=== PATIENT | male | born 1945 | race Caucasian/White ===

== ENCOUNTER 2016-08-17 10:51 | Outpatient (RCR) | payer MEDICARE, OTHER ==
--- OUTSIDE RECORDS SUMMARY | 2016-05-31 14:37 | XMS REPORT | Continuity of Care Document ---
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 If you do not see the information that you expected, contact Release of Information in the Health Information Management department at [phone] for further assistance in locating additional records.[facility] Active Allergies and Adverse Reactions Allergen Noted Date Severity Reactions Comments Phenergan 02/08/2016 Low SEE COMMENTS confusion Vytorin 10-10 02/04/2016 Low UNKNOWN Current Medications Prescription Sig. Disp. Refills Start End Date Status Date lisinopril/hydrochlorothi Take 1 Tab by mouth Active azide (ZESTORETIC) 20/25 daily. tablet 1 Tab simvastatin (ZOCOR) 40 mg Take 40 mg by mouth at Active tablet bedtime daily. PV W-O VIJAY/FERROUS Take 1 Tab by mouth Active FUMARATE/FA (M-VIT PO) daily. finasteride (PROSCAR) 5 Take 5 mg by mouth daily. Active mg tablet metFORMIN (GLUCOPHAGE) Take 500 mg by mouth Active 500 mg tablet twice daily with meals. cyclobenzaprine Take 10 mg by mouth three Active (FLEXERIL) 10 mg tablet times daily as needed for Muscle Cramps. acetaminophen (TYLENOL) Take 500 mg by mouth Active 500 mg tablet every 6 hours as needed for Pain. HYDROcodone/acetaminophen Take 1-2 Tabs by mouth 60 Tab 0 02/11/20 Active (NORCO; VICODIN) 5-325 mg every 4 hours as needed 16 tablet for Pain docusate (COLACE) 100 mg Take 1 Cap by mouth twice 180 Cap 3 02/11/20 Active capsule daily. 16 milk of magnesia (CONC) Take 10 mL by mouth 02/11/20 Active 2,400 mg/10 mL oral daily. 16 suspension senna/docusate Take 1 Tab by mouth twice 02/11/20 Active (SENOKOT-S) 8.6/50 mg daily. 16 tablet aspirin 325 mg tablet Take 325 mg by mouth Active daily. dexamethasone (DECADRON) Take 4 mg by mouth three Active 4 mg tablet times daily. ONDANSETRON HCL (ZOFRAN Take 8 mg by mouth as Active PO) Needed. levETIRAcetam (KEPPRA) Take 1 Tab by mouth twice 60 Tab 1 03/02/20 Active 500 mg tablet daily. 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 02/05/2016 (HCC) Resolved Problems Problem Noted Date Resolved Date Brain lesion 02/07/2016 02/18/2016 Most Recent Encounters Date Type Specialty Providers Description 03/17/2016 [facility] Keanu Vick MD Malignant neoplasm of Encounter brain, unspecified 03/02/2016 Office Visit Neurosurgery Renato Scruggs MD Surgery follow-up (Primary Dx) 03/01/2016 Telephone Oncology Keanu Vick MD Research 03/01/2016 Screening Form 03/01/2016 Telephone Neurosurgery Chito Barnard MD Advice Only Social History Tobacco Use Types Packs/Day Years Used Date Former Smoker Cigarettes Smokeless Tobacco: Former Snuff Quit: User 02/08/2016 Comments: quite whe he was 25 years old Alcohol Use Drinks/Week oz/Week Comments Yes 0 Standard 0.0 rarely drinks or equivalent Last Filed Vital Signs Vital Sign Reading Time Taken Blood Pressure 109/67 03/02/2016 1:06 PM CDT Pulse 77 03/02/2016 1:06 PM CDT Temperature 36.5 C (97.7 F) 02/27/2016 9:52 AM CDT Respiratory Rate 18 02/18/2016 10:15 AM CDT Height 1.727 m (5' 8") 03/02/2016 1:06 PM CDT Weight 65.772 kg (145 lb) 03/02/2016 1:06 PM CDT Body Mass Index 22.05 03/02/2016 1:06 PM CDT Oxygen Saturation 97% 02/27/2016 9:52 AM CDT Plan of Care Health Maintenance Due Date Last Done Comments Physical (Comprehensive) 1952 Exam Pertussis Vaccine 1954 Tetanus Vaccine 1960 Colorectal Cancer 1993 Screening Shingles Vaccine 2003 Prevnar/Pneumovax (#1) 2008 Influenza Vaccine 04/15/2016 Procedures from Last 3 Months Procedure Name Priority Date/Time Associated Diagnosis Comments PROCEDURES-SCAN 04/07/2016 Results for this 3:00 PM CDT procedure are in the results section. Results from Last 3 Months PROCEDURES-SCAN (04/07/2016 3:00 PM) Narrative Ordered by an unspecified provider.
[2016-05-31 15:05] LABS: BASOPHILS % (AUTO) 0 % (0-10); EOSINOPHILS % (AUTO) 0 % (0-10); LYMPHOCYTES # (AUTO) 0.9 X 10^3 (1.0-4.0); LYMPHOCYTES % (AUTO) 10 % (12-44); MEAN CORPUSCULAR HEMOGLOBIN 33 PG (25-34); MEAN CORPUSCULAR HGB CONC 35 G/DL (32-36); MEAN CORPUSCULAR VOLUME 95 FL (80-99); MEAN PLATELET VOLUME 8.5 FL (7.4-10.4); MONOCYTES # (AUTO) 0.7 X 10^3 (0.0-1.0); MONOCYTES % (AUTO) 8 % (0-12); NEUTROPHILS # (AUTO) 7.7 X 10^3 (1.8-7.8); NEUTROPHILS % (AUTO) 82 % (42-75); PLATELET COUNT 191 10^3/uL (130-400); RED BLOOD COUNT 4.04 10^6/uL (4.35-5.85); RED CELL DISTRIBUTION WIDTH 12.9 % (10.0-14.5); WHITE BLOOD COUNT 9.4 10^3/uL (4.3-11.0)
[2016-05-31 15:47] LABS: ALANINE AMINOTRANSFERASE 20 U/L (0-55); ALBUMIN 3.7 G/DL (3.2-4.5); ANION GAP 9 MMOL/L (5-14); ASPARTATE AMINO TRANSFERASE 14 U/L (5-34); BILIRUBIN,TOTAL 0.4 MG/DL (0.1-1.0); BLOOD UREA NITROGEN 28 MG/DL (7-18); BUN/CREATININE RATIO 36; CALCIUM 9.4 MG/DL (8.5-10.1); CARBON DIOXIDE 27 MMOL/L (21-32); CHLORIDE 102 MMOL/L (98-107); CREATININE SERUM 0.77 MG/DL (0.60-1.30); GFR ESTIMATED > 60; GLUCOSE 140 MG/DL (70-105); MAGNESIUM 1.9 MG/DL (1.8-2.4); POTASSIUM 3.7 MMOL/L (3.6-5.0); SODIUM 138 MMOL/L (135-145); TOTAL PROTEIN 5.9 G/DL (6.4-8.2)
[2016-06-08 11:13] LABS: BASOPHILS % (AUTO) 0 % (0-10); EOSINOPHILS % (AUTO) 0 % (0-10); LYMPHOCYTES # (AUTO) 0.7 X 10^3 (1.0-4.0); LYMPHOCYTES % (AUTO) 5 % (12-44); MEAN CORPUSCULAR HEMOGLOBIN 33 PG (25-34); MEAN CORPUSCULAR HGB CONC 34 G/DL (32-36); MEAN CORPUSCULAR VOLUME 97 FL (80-99); MEAN PLATELET VOLUME 8.4 FL (7.4-10.4); MONOCYTES # (AUTO) 0.7 X 10^3 (0.0-1.0); MONOCYTES % (AUTO) 5 % (0-12); NEUTROPHILS # (AUTO) 13.6 X 10^3 (1.8-7.8); NEUTROPHILS % (AUTO) 91 % (42-75); PLATELET COUNT 219 10^3/uL (130-400); RED BLOOD COUNT 4.21 10^6/uL (4.35-5.85); RED CELL DISTRIBUTION WIDTH 13.4 % (10.0-14.5)
[2016-06-08 12:00] LABS: ANION GAP 12 MMOL/L (5-14); BLOOD UREA NITROGEN 20 MG/DL (7-18); BUN/CREATININE RATIO 20; CALCIUM 9.3 MG/DL (8.5-10.1); CARBON DIOXIDE 27 MMOL/L (21-32); CHLORIDE 100 MMOL/L (98-107); CREATININE SERUM 0.99 MG/DL (0.60-1.30); GFR ESTIMATED > 60; GLUCOSE 172 MG/DL (70-105); POTASSIUM 3.8 MMOL/L (3.6-5.0); SODIUM 139 MMOL/L (135-145)
[2016-06-15 13:51] LABS: BASOPHILS % (AUTO) 0 % (0-10); EOSINOPHILS % (AUTO) 0 % (0-10); LYMPHOCYTES # (AUTO) 0.9 X 10^3 (1.0-4.0); LYMPHOCYTES % (AUTO) 8 % (12-44); MEAN CORPUSCULAR HEMOGLOBIN 33 PG (25-34); MEAN CORPUSCULAR HGB CONC 34 G/DL (32-36); MEAN CORPUSCULAR VOLUME 95 FL (80-99); MEAN PLATELET VOLUME 8.6 FL (7.4-10.4); MONOCYTES # (AUTO) 0.7 X 10^3 (0.0-1.0); MONOCYTES % (AUTO) 6 % (0-12); NEUTROPHILS # (AUTO) 10.1 X 10^3 (1.8-7.8); NEUTROPHILS % (AUTO) 86 % (42-75); PLATELET COUNT 265 10^3/uL (130-400); RED BLOOD COUNT 4.05 10^6/uL (4.35-5.85); RED CELL DISTRIBUTION WIDTH 12.7 % (10.0-14.5); WHITE BLOOD COUNT 11.8 10^3/uL (4.3-11.0)
[2016-06-15 14:38] LABS: ANION GAP 14 MMOL/L (5-14); BLOOD UREA NITROGEN 30 MG/DL (7-18); BUN/CREATININE RATIO 32; CALCIUM 9.8 MG/DL (8.5-10.1); CARBON DIOXIDE 27 MMOL/L (21-32); CHLORIDE 99 MMOL/L (98-107); CREATININE SERUM 0.95 MG/DL (0.60-1.30); GFR ESTIMATED > 60; GLUCOSE 200 MG/DL (70-105); SODIUM 140 MMOL/L (135-145)
[2016-06-22 10:01] LABS: BASOPHILS % (AUTO) 0 % (0-10); EOSINOPHILS % (AUTO) 0 % (0-10); LYMPHOCYTES # (AUTO) 1.1 X 10^3 (1.0-4.0); LYMPHOCYTES % (AUTO) 11 % (12-44); MEAN CORPUSCULAR HEMOGLOBIN 33 PG (25-34); MEAN CORPUSCULAR HGB CONC 35 G/DL (32-36); MEAN CORPUSCULAR VOLUME 96 FL (80-99); MEAN PLATELET VOLUME 8.8 FL (7.4-10.4); MONOCYTES # (AUTO) 0.7 X 10^3 (0.0-1.0); MONOCYTES % (AUTO) 7 % (0-12); NEUTROPHILS # (AUTO) 8.2 X 10^3 (1.8-7.8); NEUTROPHILS % (AUTO) 82 % (42-75); PLATELET COUNT 225 10^3/uL (130-400); RED BLOOD COUNT 3.89 10^6/uL (4.35-5.85); RED CELL DISTRIBUTION WIDTH 12.6 % (10.0-14.5)
[2016-06-22 10:27] LABS: ANION GAP 12 MMOL/L (5-14); BLOOD UREA NITROGEN 21 MG/DL (7-18); BUN/CREATININE RATIO 23; CALCIUM 9.2 MG/DL (8.5-10.1); CARBON DIOXIDE 28 MMOL/L (21-32); CHLORIDE 102 MMOL/L (98-107); GFR ESTIMATED > 60; GLUCOSE 199 MG/DL (70-105); POTASSIUM 3.8 MMOL/L (3.6-5.0); SODIUM 142 MMOL/L (135-145)
[2016-06-28 10:00] LABS: BASOPHILS % (AUTO) 0 % (0-10); EOSINOPHILS % (AUTO) 0 % (0-10); LYMPHOCYTES # (AUTO) 0.7 X 10^3 (1.0-4.0); LYMPHOCYTES % (AUTO) 7 % (12-44); MEAN CORPUSCULAR HEMOGLOBIN 33 PG (25-34); MEAN CORPUSCULAR HGB CONC 34 G/DL (32-36); MEAN CORPUSCULAR VOLUME 96 FL (80-99); MEAN PLATELET VOLUME 9.3 FL (7.4-10.4); MONOCYTES # (AUTO) 0.5 X 10^3 (0.0-1.0); MONOCYTES % (AUTO) 5 % (0-12); NEUTROPHILS # (AUTO) 9.2 X 10^3 (1.8-7.8); NEUTROPHILS % (AUTO) 88 % (42-75); PLATELET COUNT 211 10^3/uL (130-400); RED BLOOD COUNT 3.99 10^6/uL (4.35-5.85); RED CELL DISTRIBUTION WIDTH 12.6 % (10.0-14.5); WHITE BLOOD COUNT 10.4 10^3/uL (4.3-11.0)
[2016-06-28 10:21] LABS: ANION GAP 11 MMOL/L (5-14); BLOOD UREA NITROGEN 22 MG/DL (7-18); BUN/CREATININE RATIO 23; CALCIUM 9.4 MG/DL (8.5-10.1); CARBON DIOXIDE 27 MMOL/L (21-32); CHLORIDE 100 MMOL/L (98-107); CREATININE SERUM 0.94 MG/DL (0.60-1.30); GFR ESTIMATED > 60; GLUCOSE 221 MG/DL (70-105); POTASSIUM 4.4 MMOL/L (3.6-5.0); SODIUM 138 MMOL/L (135-145)
[2016-07-05 13:20] LABS: BASOPHILS % (AUTO) 0 % (0-10); EOSINOPHILS % (AUTO) 0 % (0-10); LYMPHOCYTES # (AUTO) 0.9 X 10^3 (1.0-4.0); LYMPHOCYTES % (AUTO) 8 % (12-44); MEAN CORPUSCULAR HEMOGLOBIN 32 PG (25-34); MEAN CORPUSCULAR HGB CONC 34 G/DL (32-36); MEAN CORPUSCULAR VOLUME 96 FL (80-99); MEAN PLATELET VOLUME 8.7 FL (7.4-10.4); MONOCYTES # (AUTO) 0.7 X 10^3 (0.0-1.0); MONOCYTES % (AUTO) 6 % (0-12); NEUTROPHILS # (AUTO) 9.2 X 10^3 (1.8-7.8); NEUTROPHILS % (AUTO) 86 % (42-75); PLATELET COUNT 213 10^3/uL (130-400); RED BLOOD COUNT 4.01 10^6/uL (4.35-5.85); RED CELL DISTRIBUTION WIDTH 12.9 % (10.0-14.5); WHITE BLOOD COUNT 10.8 10^3/uL (4.3-11.0)
[2016-07-05 14:42] LABS: ALANINE AMINOTRANSFERASE 22 U/L (0-55); ALBUMIN 3.6 G/DL (3.2-4.5); ANION GAP 9 MMOL/L (5-14); ASPARTATE AMINO TRANSFERASE 19 U/L (5-34); BILIRUBIN,TOTAL 0.5 MG/DL (0.1-1.0); BLOOD UREA NITROGEN 23 MG/DL (7-18); BUN/CREATININE RATIO 26; CALCIUM 9.5 MG/DL (8.5-10.1); CARBON DIOXIDE 30 MMOL/L (21-32); CHLORIDE 99 MMOL/L (98-107); CREATININE SERUM 0.89 MG/DL (0.60-1.30); GFR ESTIMATED > 60; GLUCOSE 148 MG/DL (70-105); MAGNESIUM 2.2 MG/DL (1.8-2.4); POTASSIUM 4.2 MMOL/L (3.6-5.0); SODIUM 138 MMOL/L (135-145); TOTAL PROTEIN 5.7 G/DL (6.4-8.2)
[2016-07-15 11:03] LABS: BASOPHILS % (AUTO) 0 % (0-10); EOSINOPHILS % (AUTO) 0 % (0-10); LYMPHOCYTES # (AUTO) 0.8 X 10^3 (1.0-4.0); LYMPHOCYTES % (AUTO) 8 % (12-44); MEAN CORPUSCULAR HEMOGLOBIN 33 PG (25-34); MEAN CORPUSCULAR HGB CONC 34 G/DL (32-36); MEAN CORPUSCULAR VOLUME 96 FL (80-99); MEAN PLATELET VOLUME 8.4 FL (7.4-10.4); MONOCYTES # (AUTO) 0.6 X 10^3 (0.0-1.0); MONOCYTES % (AUTO) 6 % (0-12); NEUTROPHILS # (AUTO) 8.7 X 10^3 (1.8-7.8); NEUTROPHILS % (AUTO) 87 % (42-75); PLATELET COUNT 212 10^3/uL (130-400); RED BLOOD COUNT 3.87 10^6/uL (4.35-5.85); RED CELL DISTRIBUTION WIDTH 13.3 % (10.0-14.5); WHITE BLOOD COUNT 10.1 10^3/uL (4.3-11.0)
[2016-07-15 12:24] LABS: ANION GAP 11 MMOL/L (5-14); BLOOD UREA NITROGEN 18 MG/DL (7-18); BUN/CREATININE RATIO 24; CALCIUM 9.2 MG/DL (8.5-10.1); CARBON DIOXIDE 24 MMOL/L (21-32); CHLORIDE 106 MMOL/L (98-107); CREATININE SERUM 0.76 MG/DL (0.60-1.30); GFR ESTIMATED > 60; GLUCOSE 138 MG/DL (70-105); POTASSIUM 3.8 MMOL/L (3.6-5.0); SODIUM 141 MMOL/L (135-145)
[2016-07-21 10:19] LABS: BASOPHILS % (AUTO) 0 % (0-10); EOSINOPHILS % (AUTO) 0 % (0-10); LYMPHOCYTES # (AUTO) 0.6 X 10^3 (1.0-4.0); LYMPHOCYTES % (AUTO) 6 % (12-44); MEAN CORPUSCULAR HEMOGLOBIN 33 PG (25-34); MEAN CORPUSCULAR HGB CONC 35 G/DL (32-36); MEAN CORPUSCULAR VOLUME 96 FL (80-99); MEAN PLATELET VOLUME 8.5 FL (7.4-10.4); MONOCYTES # (AUTO) 0.5 X 10^3 (0.0-1.0); MONOCYTES % (AUTO) 5 % (0-12); NEUTROPHILS # (AUTO) 8.9 X 10^3 (1.8-7.8); NEUTROPHILS % (AUTO) 89 % (42-75); PLATELET COUNT 150 10^3/uL (130-400); RED BLOOD COUNT 4.07 10^6/uL (4.35-5.85); RED CELL DISTRIBUTION WIDTH 13.8 % (10.0-14.5)
[2016-07-21 10:53] LABS: ALANINE AMINOTRANSFERASE 24 U/L (0-55); ALBUMIN 3.5 G/DL (3.2-4.5); ANION GAP 12 MMOL/L (5-14); ASPARTATE AMINO TRANSFERASE 12 U/L (5-34); BILIRUBIN,TOTAL 0.5 MG/DL (0.1-1.0); BLOOD UREA NITROGEN 21 MG/DL (7-18); BUN/CREATININE RATIO 28; CALCIUM 9.3 MG/DL (8.5-10.1); CARBON DIOXIDE 24 MMOL/L (21-32); CHLORIDE 106 MMOL/L (98-107); CREATININE SERUM 0.76 MG/DL (0.60-1.30); GFR ESTIMATED > 60; GLUCOSE 173 MG/DL (70-105); POTASSIUM 4.1 MMOL/L (3.6-5.0); SODIUM 142 MMOL/L (135-145); TOTAL PROTEIN 5.6 G/DL (6.4-8.2)
[2016-07-26 11:32] LABS: BASOPHILS % (AUTO) 0 % (0-10); EOSINOPHILS % (AUTO) 0 % (0-10); LYMPHOCYTES # (AUTO) 0.5 X 10^3 (1.0-4.0); LYMPHOCYTES % (AUTO) 5 % (12-44); MEAN CORPUSCULAR HEMOGLOBIN 33 PG (25-34); MEAN CORPUSCULAR HGB CONC 34 G/DL (32-36); MEAN CORPUSCULAR VOLUME 97 FL (80-99); MEAN PLATELET VOLUME 8.8 FL (7.4-10.4); MONOCYTES # (AUTO) 0.4 X 10^3 (0.0-1.0); MONOCYTES % (AUTO) 4 % (0-12); NEUTROPHILS % (AUTO) 90 % (42-75); PLATELET COUNT 114 10^3/uL (130-400); RED BLOOD COUNT 4.04 10^6/uL (4.35-5.85); WHITE BLOOD COUNT 9.9 10^3/uL (4.3-11.0)
[2016-07-26 12:42] LABS: ANION GAP 11 MMOL/L (5-14); BLOOD UREA NITROGEN 19 MG/DL (7-18); BUN/CREATININE RATIO 25; CALCIUM 9.2 MG/DL (8.5-10.1); CARBON DIOXIDE 25 MMOL/L (21-32); CHLORIDE 107 MMOL/L (98-107); CREATININE SERUM 0.77 MG/DL (0.60-1.30); GFR ESTIMATED > 60; GLUCOSE 204 MG/DL (70-105); POTASSIUM 4.2 MMOL/L (3.6-5.0); SODIUM 143 MMOL/L (135-145)
[2016-08-02 15:44] LABS: BASOPHILS % (AUTO) 0 % (0-10); EOSINOPHILS % (AUTO) 0 % (0-10); LYMPHOCYTES # (AUTO) 0.7 X 10^3 (1.0-4.0); LYMPHOCYTES % (AUTO) 6 % (12-44); MEAN CORPUSCULAR HEMOGLOBIN 33 PG (25-34); MEAN CORPUSCULAR HGB CONC 34 G/DL (32-36); MEAN CORPUSCULAR VOLUME 98 FL (80-99); MEAN PLATELET VOLUME 8.4 FL (7.4-10.4); MONOCYTES # (AUTO) 0.8 X 10^3 (0.0-1.0); MONOCYTES % (AUTO) 7 % (0-12); NEUTROPHILS # (AUTO) 9.4 X 10^3 (1.8-7.8); NEUTROPHILS % (AUTO) 87 % (42-75); PLATELET COUNT 186 10^3/uL (130-400); RED BLOOD COUNT 4.13 10^6/uL (4.35-5.85); RED CELL DISTRIBUTION WIDTH 13.8 % (10.0-14.5); WHITE BLOOD COUNT 10.9 10^3/uL (4.3-11.0)
[2016-08-02 16:06] LABS: ALANINE AMINOTRANSFERASE 18 U/L (0-55); ALBUMIN 3.6 G/DL (3.2-4.5); ANION GAP 9 MMOL/L (5-14); ASPARTATE AMINO TRANSFERASE 13 U/L (5-34); BILIRUBIN,TOTAL 0.6 MG/DL (0.1-1.0); BLOOD UREA NITROGEN 18 MG/DL (7-18); BUN/CREATININE RATIO 23; CALCIUM 9.7 MG/DL (8.5-10.1); CARBON DIOXIDE 27 MMOL/L (21-32); CHLORIDE 103 MMOL/L (98-107); CREATININE SERUM 0.78 MG/DL (0.60-1.30); GFR ESTIMATED > 60; GLUCOSE 164 MG/DL (70-105); POTASSIUM 4.2 MMOL/L (3.6-5.0); SODIUM 139 MMOL/L (135-145)
[2016-08-03 14:53] LABS: BILIRUBIN,URINE NEGATIVE (NEGATIVE); KETONES,URINE NEGATIVE (NEGATIVE); LEUKOCYTE ESTERASE ,URINE 1+ (NEGATIVE); NITRITE,URINE NEGATIVE (NEGATIVE); PH,URINE 6 (5-9); PROTEIN,URINE 1+ (NEGATIVE); SQUAMOUS EPITHELIAL CELL,UR 0-2 /HPF; UROBILINOGEN,URINE NORMAL (NORMAL); WBC,URINE 0-2 /HPF
[2016-08-11 10:39] LABS: BASOPHILS % (AUTO) 0 % (0-10); EOSINOPHILS % (AUTO) 0 % (0-10); LYMPHOCYTES # (AUTO) 1.3 X 10^3 (1.0-4.0); LYMPHOCYTES % (AUTO) 13 % (12-44); MEAN CORPUSCULAR HEMOGLOBIN 33 PG (25-34); MEAN CORPUSCULAR HGB CONC 34 G/DL (32-36); MEAN CORPUSCULAR VOLUME 98 FL (80-99); MEAN PLATELET VOLUME 8.5 FL (7.4-10.4); MONOCYTES # (AUTO) 0.8 X 10^3 (0.0-1.0); MONOCYTES % (AUTO) 8 % (0-12); NEUTROPHILS # (AUTO) 7.9 X 10^3 (1.8-7.8); NEUTROPHILS % (AUTO) 79 % (42-75); PLATELET COUNT 216 10^3/uL (130-400); RED BLOOD COUNT 3.78 10^6/uL (4.35-5.85); RED CELL DISTRIBUTION WIDTH 13.7 % (10.0-14.5); WHITE BLOOD COUNT 10.1 10^3/uL (4.3-11.0)
[2016-08-11 11:11] LABS: ANION GAP 9 MMOL/L (5-14); BLOOD UREA NITROGEN 16 MG/DL (7-18); BUN/CREATININE RATIO 20; CARBON DIOXIDE 29 MMOL/L (21-32); CHLORIDE 103 MMOL/L (98-107); CREATININE SERUM 0.82 MG/DL (0.60-1.30); GFR ESTIMATED > 60; GLUCOSE 186 MG/DL (70-105); SODIUM 141 MMOL/L (135-145)
[~2016-08-17 10:51] MED LIST changes: -ACET-77 PO; -ACET-93 PO; -AMOX-358 PO; -ASPI-808 PO; -ASPI-999 PO; -CYCL10TA9 PO; -DEXA2TAB PO; -FAMO-119 PO; -Finasteride PO; -GADOBUTROL 7.5 MMOL/7.5 ML (GADAVIST) VIAL IV ONE; -INSU100V3 SC; -LORA10TA7 PO; -MAGN250T35 PO; -MULT-166 PO; -PANT40TA3 PO; -SERT50TA9 PO
[2016-08-17 11:47] LABS: BASOPHILS % (AUTO) 0 % (0-10); EOSINOPHILS % (AUTO) 0 % (0-10); LYMPHOCYTES # (AUTO) 1.2 X 10^3 (1.0-4.0); LYMPHOCYTES % (AUTO) 14 % (12-44); MEAN CORPUSCULAR HEMOGLOBIN 33 PG (25-34); MEAN CORPUSCULAR HGB CONC 33 G/DL (32-36); MEAN CORPUSCULAR VOLUME 98 FL (80-99); MEAN PLATELET VOLUME 8.8 FL (7.4-10.4); MONOCYTES # (AUTO) 0.8 X 10^3 (0.0-1.0); MONOCYTES % (AUTO) 9 % (0-12); NEUTROPHILS # (AUTO) 6.5 X 10^3 (1.8-7.8); NEUTROPHILS % (AUTO) 76 % (42-75); PLATELET COUNT 197 10^3/uL (130-400); RED CELL DISTRIBUTION WIDTH 13.4 % (10.0-14.5); WHITE BLOOD COUNT 8.5 10^3/uL (4.3-11.0)
[2016-08-17 12:34] LABS: ANION GAP 11 MMOL/L (5-14); BLOOD UREA NITROGEN 18 MG/DL (7-18); BUN/CREATININE RATIO 21; CALCIUM 9.1 MG/DL (8.5-10.1); CARBON DIOXIDE 29 MMOL/L (21-32); CHLORIDE 104 MMOL/L (98-107); CREATININE SERUM 0.86 MG/DL (0.60-1.30); GFR ESTIMATED > 60; GLUCOSE 219 MG/DL (70-105); POTASSIUM 3.8 MMOL/L (3.6-5.0); SODIUM 144 MMOL/L (135-145)
[2016-09-03] MEDS ORDERED: INSU100V3 SC (16:36)
[2016-09-03] MEDS ORDERED: Finasteride PO (16:36)
[2016-09-03] MEDS ORDERED: ACET-77 PO (16:36)
[2016-09-03] MEDS ORDERED: SERT50TA9 PO (16:36)
[2016-09-03] MEDS ORDERED: PANT40TA3 PO (16:36)
[2016-09-03] MEDS ORDERED: ASPI325T32 PO (16:36)
[2016-09-30] MEDS ORDERED: DEXA2TAB PO (07:41)
[2016-10-01] MEDS ORDERED: FAMO-119 PO (09:59)
[2016-12-17] MEDS ORDERED: CYCL10TA9 PO (12:42)
== END 2016-08-29 | disposition home or self-care (01) ==
LOC: ONC 10:51
PROVIDERS: ATTEND Internal Medicine Hematology & Oncology
DX: C71.2 Malignant neoplasm of temporal lobe (principal); E11.9 Type 2 diabetes mellitus without complications; I10 Essential (primary) hypertension; E78.5 Hyperlipidemia, unspecified; N40.0 Benign prostatic hyperplasia without lower urinary tract symptoms; F17.210 Nicotine dependence, cigarettes, uncomplicated
CPT/HCPCS: 36415; 80048; 80053; 81000; 83735; 85025; 99213

== ENCOUNTER → 2016-08-17 | Outpatient (CLI) | payer MEDICARE, OTHER ==
[~2016-08-17] MED LIST: ACET-77 PO; ACET-93 PO; AMOX-358 PO; ASP81TEC PO; ASPI-808 PO; ASPI-999 PO; ASPI325T32 PO; CHOL10003 PO; CYCL10TA9 PO; DEXA1TAB PO; DEXA2TAB PO; DEXA4TAB PO; DOCU100C37 PO; FAMO-119 PO; FINA5TAB6 PO; Finasteride PO; GADOBUTROL 7.5 MMOL/7.5 ML (GADAVIST) VIAL IV ONE; INSU100V3 SC; LEVE500T6 PO; LISI1TAB10 PO; LISI1TAB6 PO; LORA10TA7 PO; MAGN250T13 PO; MAGN250T35 PO; MAGN400O7 PO; METF500T4 PO; MULT-166 PO; MULT-963 PO; NIAC500T6 PO; OMEP20TA7 PO; OMG1KC PO; ONDA4TAB10 PO; ONDA4TAB8 PO; ONDA8TAB9 PO; PANT40TA3 PO; SENN-40 PO; SERT50TA9 PO; SIMV20TA3 PO; SIMV40TA4 PO; SULF-222 PO
--- OUTSIDE RECORDS SUMMARY | 2016-08-17 12:06 | XMS REPORT | Continuity of Care Document ---
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 If you do not see the information that you expected, contact Release of Information in the Health Information Management department at [phone] for further assistance in locating additional records.[facility] Active Allergies and Adverse Reactions Allergen Noted Date Severity Reactions Comments Phenergan 02/08/2016 Low SEE COMMENTS confusion Vytorin 10-10 02/04/2016 Low UNKNOWN Current Medications Prescription Sig. Disp. Refills Start End Date Status Date simvastatin (ZOCOR) 40 mg Take 40 mg [...] dexamethasone (DECADRON) Take 4 mg by mouth twice Active 4 mg tablet daily. ONDANSETRON HCL (ZOFRAN Take 8 mg [...] Recent Encounters Date Type Specialty Providers Description 07/13/2016 Office Visit Oncology Keanu Vick MD GBM (glioblastoma multiforme) (HCC) (Primary Dx) 07/13/2016 Office Visit Neurosurgery Renato Scruggs MD GBM ( glioblastoma multiforme) (HCC) (Primary Dx) Social History Tobacco Use Types Packs/Day Years Used Date Former Smoker Cigarettes Smokeless Tobacco: Former Snuff Quit: User 02/08/2016 Comments: quite whe he was 25 years old Alcohol Use Drinks/Week oz/Week Comments Yes 0 Standard 0.0 rarely drinks or equivalent Last Filed Vital Signs Vital Sign Reading Time Taken Blood Pressure 113/67 07/13/2016 1:21 PM SOLE ASSESSOR Pulse 68 07/13/2016 1:21 PM SOLE ASSESSOR Temperature 36.8 C (98.3 F) 07/13/2016 1:21 PM SOLE ASSESSOR Respiratory Rate 18 07/13/2016 1:21 PM SOLE ASSESSOR Height 1.727 m (5' 8") 07/13/2016 1:21 PM SOLE ASSESSOR Weight 67.677 kg (149 lb 3.2 oz) 07/13/2016 1:21 PM SOLE ASSESSOR Body Mass Index 22.69 07/13/2016 1:21 PM SOLE ASSESSOR Oxygen Saturation 95% 07/13/2016 1:21 PM SOLE ASSESSOR Plan of Care Health Maintenance Due Date Last Done Comments Physical (Comprehensive) 1952 Exam Pertussis Vaccine 1954 Tetanus Vaccine 1960 Colorectal Cancer 1993 Screening Shingles Vaccine 2003 Prevnar/Pneumovax (#1) 2008 Influenza Vaccine 04/15/2016 Results from Last 3 Months [facility] REF LAB SCAN (07/13/2016 2:18 PM) Narrative Ordered by an unspecified provider.
--- NOTE | 2016-08-17 13:57 | Diagnostic Imaging Report ---
PROCEDURE: MR imaging of the brain with and without contrast. TECHNIQUE: Multiplanar, multisequence MR imaging of the brain was performed with and without contrast. INDICATION: Glioblastoma followup. 6 mL of Gadavist is administered intravenously. COMPARISON: 07/05/2016. FINDINGS: There is no diffusion restriction in a pattern to suggest an ischemic infarct. There is however diffusion restriction in the region of the tumor in the right parietotemporal occipital region. Compared to the previous exam, there is significant increase in the T2 signal abnormality with a poorly defined peripherally enhancing mass seen centered along the junction of the temporal, parietal and occipital lobes on the right side with significant increase in the surrounding T2 signal abnormality and mass effect. This includes also new extensions of the abnormal signal into the thalamus and basal ganglia on the left side and into the corpus callosum posteriorly in the splenium and higher extension superiorly into the parietal lobe. There is compression of the ipsilateral lateral ventricle and 8mm midline shift to the left side that is new from the previous exam. There is also asymmetric effacement in the perimesencephalic cistern. The midbrain is also slightly shifted to the left from mass effect. The area of abnormal enhancement is now at 7.8 x 6.3 x 5.4 cm compared to 7.1 x 5.5 x 5.1 cm. Central nonenhancing components is probably related to necrotic tumor. The central vascular flow-voids appear grossly unremarkable. The pituitary gland is normal in size. No extra-axial mass or fluid collection is seen. IMPRESSION: There is interval worsening with significant enlargement in the T2 signal abnormality with associated significant increase in mass effect in the right temporal, occipital and parietal lobes and with new extensions into the right basal ganglia and the splenium of the corpus callosum with increased area of enhancement and associated central necrosis suggested compatible with tumor progression. There is now midline shift of the brain stem and the supratentorial brain structures with at least 8 mm midline shift to the left. The findings were called to Dr. Leatha Ballesteros by Dr. Dempsey at time of dictation. Dictated by: Dictated on workstation # [id number]
== END ==
LOC: RAD 12:02
PROVIDERS: ATTEND Internal Medicine Hematology & Oncology
DX: C71.4 Malignant neoplasm of occipital lobe (principal)
CPT/HCPCS: 70553

== ENCOUNTER 2016-08-27 10:01 | Inpatient (IN) | payer MEDICARE, OTHER ==
[~2016-08-27] VITALS: Ht 170.2 cm; Wt 64.6 kg
[2016-08-27] MEDS ORDERED: CYCLOBENZAPRINE 10 MG (FLEXERIL) TAB PO PRN (11:15)
[2016-08-27] MEDS ORDERED: HYDROcodone/APAP 5 MG/325 MG (LORTAB) TAB PO PRN (11:15)
--- OUTSIDE RECORDS SUMMARY | 2016-08-27 11:32 | XMS REPORT | Continuity of Care Document ---
Author Author [facility] Organization [facility] Address Unknown Phone Unavailable Care Team Providers Care Dean Of Education Name Role Phone LindaMartin lawrence PCP [phone] Source Comments Some departments are not documenting in the electronic medical record. If you do not see the information that you expected, contact Release of Information in the Health Information Management department at [phone] for further assistance in locating additional records.[facility] Active Allergies and Adverse Reactions Allergen Noted Date Severity Reactions Comments Phenergan 02/08/2016 Medium SEE COMMENTS confusion Vytorin 10-10 02/04/2016 Low UNKNOWN Current Medications Prescription Sig. Disp. Refills Start End Date Status Date simvastatin (ZOCOR) 40 mg Take 40 mg by mouth at Active tablet bedtime daily. PV W-O VIJAY/FERROUS Take 1 Tab by mouth Active FUMARATE/FA (M-VIT PO) daily. finasteride (PROSCAR) 5 Take 5 mg by mouth at Active mg tablet bedtime daily. metFORMIN (GLUCOPHAGE) Take 500 mg by mouth Active 500 mg tablet twice daily with meals. cyclobenzaprine Take 10 mg by mouth three Active (FLEXERIL) 10 mg tablet times daily as needed for Muscle Cramps. docusate (COLACE) 100 mg Take 1 Cap by mouth twice 180 Cap 3 02/11/20 Active capsule daily. 16 senna/docusate Take 1 Tab by mouth twice 02/11/20 Active (SENOKOT-S) 8.6/50 mg daily. 16 tablet ONDANSETRON HCL (ZOFRAN Take 8 mg by mouth as Active PO) Needed (30 min prior to temozolomide). levETIRAcetam (KEPPRA) Take 1 Tab by mouth twice 60 Tab 1 03/02/20 Active 500 mg tablet daily. 16 magnesium hydroxide (MILK Take 15 mL by mouth every Active OF MAGNESIA) 400 mg/5 mL 24 hours as needed. oral suspension Magnesium 250 mg tab Take 1 Tab by mouth daily Active as needed (with chemo treatment). omeprazole (PRILOSEC OTC) Take 20 mg by mouth Active 20 mg tablet daily. Takes with morning dexamethasone milk of magnesia (CONC) Take 10 mL by mouth at Active 2,400 mg/10 mL oral bedtime as needed for suspension Heartburn. With prune juice vitamins, multiple cap Take 1 Cap by mouth Active daily. aspirin 325 mg tablet Take 1 Tab by mouth 90 Tab 3 08/27/19 Active daily. May resume 2 weeks 17 after surgery dexamethasone (DECADRON) Taper schedule: 4 mg 0 08/27/19 Active 4 mg tablet every 6 hours thru today, 17 then 4 mg every 8 hours x 3 days, then 4mg every 12 hours x 3 days, then 2 mg every 12 hours x 3 days and 1 mg every 12 hours x 3 days then stop. heparin (porcine) PF Inject 0.5 mL under the 08/27/19 Active 5,000units/0.5mL skin every 8 hours. Until 17 injection syringe mobilizing well for DVT ppx insulin aspart (NOVOLOG Inject 0-14 Units under 3 Package 3 08/27/19 Active FLEXPEN) 100 unit/mL the skin before meals and 17 injection PEN at bedtime. HYDROcodone/acetaminophen Take 1 Tab by mouth every 0 08/27/19 Active (NORCO) 5/325 mg tablet 4 hours as needed for 17 Pain Earliest Fill Date: 08/27/16 acetaminophen (TYLENOL) Take 500 mg by mouth 08/20/19 Discontin 500 mg tablet every 6 hours as needed 17 ued for Pain. HYDROcodone/acetaminophen Take 1-2 Tabs by mouth 60 Tab 0 02/11/20 08/20/19 Discontin (NORCO; VICODIN) 5-325 mg every 4 hours as needed 16 17 ued tablet for Pain milk of magnesia (CONC) Take 10 mL by mouth 02/11/20 08/20/19 Discontin 2,400 mg/10 mL oral daily. 16 17 ued suspension aspirin 325 mg tablet Take 325 mg by mouth 08/27/19 Suspended daily. 17 dexamethasone (DECADRON) Take 4 mg by mouth three 08/27/19 Suspended 4 mg tablet times daily. 17 MULTIVITAMINS WITH Take 1 Tab by mouth 08/20/19 Discontin FLUORIDE (MULTI-VITAMIN daily. 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 02/05/2016 (HCC) Resolved Problems Problem Noted Date Resolved Date Brain lesion 02/07/2016 02/18/2016 Most Recent Encounters Date Type Specialty Providers Description 08/24/2016 [facility] Radiology Satya Avalos MD Arrived Encounter 08/24/2016 [facility] Satya Avalos MD Glioblastoma (HCC) - Encounter 08/27/2016 08/24/2016 Screening Form 08/24/2016 Screening Form 08/24/2016 Surgery Satya Avalos MD RIGHT TEMPORO-OCCIPITAL CRANIOTOMY, RESECTION OF BRAIN TUMOR 08/20/2016 PAC Office Anesthesiology Satya Avalos MD Encounter for Visit preadmission testing (Primary Dx); Coagulation defect (HCC); Benign neoplasm of brain, unspecified brain region (HCC) 08/20/2016 Pre-Admit Neurosurgery Satya Avalos MD Glioblastoma multiforme Orders Only of brain (HCC) (Primary Dx) 08/20/2016 Anesthesia Nicky Salazar, Event CLINICAL PHLEBOTOMIST 08/19/2016 Office Visit Neurosurgery Satya Avalos MD GBM ( glioblastoma multiforme) (HCC) (Primary Dx) 08/19/2016 Office Visit Neurosurgery Keanu Vick MD GBM ( glioblastoma multiforme) (HCC) (Primary Dx); Left-sided weakness 08/19/2016 Orders Only Neurosurgery Satya Avalos MD Glioblastoma multiforme of brain (HCC) (Primary Dx) 08/19/2016 Prep for Case Neurosurgery Satya Avalos MD 08/18/2016 Telephone Neurosurgery Keanu Vick MD Appointment 07/13/2016 Office Visit Oncology Keanu Vick MD GBM (glioblastoma multiforme) (HCC) (Primary Dx) 07/13/2016 Office Visit Neurosurgery Renato Scruggs MD GBM ( glioblastoma multiforme) (HCC) (Primary Dx) Social History Tobacco Use Types Packs/Day Years Used Date Former Smoker Cigarettes 1 10 Quit: 08/20/1971 Smokeless Tobacco: Chew Quit: Current User 02/08/2016 Comments: quite whe he was 25 years old Alcohol Use Drinks/Week oz/Week Comments Yes 0 Standard 0.0 rarely drinks or equivalent Last Filed Vital Signs Vital Sign Reading Time Taken Blood Pressure 120/67 08/27/2016 9:24 AM 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 Pulse 75 08/27/2016 9:24 AM 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 Temperature 36.7 C (98 F) 08/27/2016 9:24 AM 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 Respiratory Rate 18 07/13/2016 1:21 PM 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 Height 1.702 m (5' 7") 08/25/2016 4:25 AM 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 Weight 65.2 kg (143 lb 11.8 oz) 08/25/2016 4:25 AM 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 Body Mass Index 22.51 08/25/2016 4:25 AM 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 Oxygen Saturation 92% 08/27/2016 9:24 AM 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 Plan of Care Date Type Specialty Providers Description 09/06/2016 [place] [address] [place] [address] [phone] (Fax) 09/07/2016 Appointment Neurosurgery 09/23/2016 Appointment Neurosurgery Satya Avalos [facility] [address] [facility] [address] [place] [address] [phone] (Fax) Health Maintenance Due Date Last Done Comments Physical (Comprehensive) 1952 Exam Pertussis Vaccine 1954 Tetanus Vaccine 1960 Colorectal Cancer 1993 Screening Shingles Vaccine 2003 Prevnar/Pneumovax (#1) 2008 Influenza Vaccine 04/15/2016 Procedures from Last 3 Months Procedure Name Priority Date/Time Associated Diagnosis Comments RIGHT TEMPORO-OCCIPITAL 08/24/2016 GBM (glioblastoma CRANIOTOMY, RESECTION OF 12:35 PM 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 multiforme) (HCC) BRAIN TUMOR Results from Last 3 Months POC GLUCOSE (08/27/2016 7:13 AM)Only the most recent of 16 results within the time period is included. Component Value Range Glucose, POC 251 (H) 70-100 MG/DL CBC AND DIFF (08/27/2016 7:03 AM)Only the most recent of 5 results within the time period is included. Component Value Range White Blood Cells 9.0 4.5-11.0 K/UL RBC 3.44 (L) 4.4-5.5 M/UL Hemoglobin 11.3 (L) 13.5-16.5 GM/DL Hematocrit 34.2 (L) 40-50 % MCV 99.5 80-100 FL MCH 32.7 26-34 PG MCHC 32.9 32.0-36.0 G/DL RDW 14.2 11-15 % Platelet Count 139 (L) 150-400 K/UL MPV 8.3 7-11 FL Neutrophils 91 (H) 41-77 % Lymphocytes 5 (L) 24-44 % Monocytes 4 4-12 % Eosinophils 0 0-5 % Basophils 0 0-2 % Absolute Neutrophil Count 8.20 (H) 1.8-7.0 K/UL Absolute Lymph Count 0.50 (L) 1.0-4.8 K/UL Absolute Monocyte Count 0.40 0-0.80 K/UL Absolute Eosinophil Count 0.00 0-0.45 K/UL Absolute Basophil Count 0.00 0-0.20 K/UL BASIC METABOLIC PANEL (08/27/2016 7:03 AM)Only the most recent of 3 results within the time period is included. Component Value Range Sodium 137 137-147 MMOL/L Potassium 3.8 3.5-5.1 MMOL/L Chloride 101 98-110 MMOL/L CO2 29 21-30 MMOL/L Anion Gap 7 3-12 Glucose 265 (H) 70-100 MG/DL Blood Urea Nitrogen 14 7-25 MG/DL Creatinine 0.52 0.4-1.24 MG/DL Calcium 8.7 8.5-10.6 MG/DL eGFR Non >60Comment: >60 mL/min The eGFR is not validated for use in drug dosing adjustments. Continue to use estimated creatinine clearance per dosing reference text. Please contact the Clinical Pharmacist for questions. eGFR >60Comment: >60 mL/min The eGFR is not validated for use in drug dosing adjustments. Continue to use estimated creatinine clearance per dosing reference text. Please contact the Clinical Pharmacist for questions. MRI HEAD WO/W CONTRAST (08/25/2016 1:31 PM) Impressions 1.Interval right parietal craniotomy and revision of posterior right cerebral hemisphere mass resection with expected postoperative blood products and pneumocephalus. No evidence of nodular or masslike enhancement about the operative cavity. 2.Stable linear ependymal enhancement within the right lateral ventricle. These findings are indeterminate and may reflect subtle ependymal spread of tumor, attention on follow-up is suggested. 3.Stable residual mass effect with right to left midline shift and left ventricular entrapment. Approved by Rohit Rojo M.D. on 08/25/2016 5:05 PM By my electronic signature, I attest that I have personally reviewed the images for this examination and formulated the interpretations and opinions expressed in this report Finalized by Tomasz Ac M.D. on 08/26/2016 2:31 PM. Dictated by Rohit Rojo M.D. on 08/25/2016 2:18 PM. Narrative EXAM: MRI BRAIN WITH AND WITHOUT CONTRAST HISTORY: Glioblastoma multiform, f/u gbm resectin, TECHNIQUE: Multiplanar and multisequence MR imaging of the head was performed. This was done both before and after the administration of gadolinium contrast. COMPARISON: MRI head August 24, 2016 FINDINGS: Dr. Tomasz Ac M.D. has personally reviewed these images and formulated the interpretations and opinions expressed in this report. Interval right parietal craniotomy and revision of posterior right cerebral mass resection. There is thickened and nodular T1 precontrast hyperintensity about the operative margin without nodular or masslike enhancement. However, there is stable thin enhancement along the ependymal wall of the right lateral ventricle. There is stable nonenhancing FLAIR hyperintensity throughout the right cerebral hemisphere as well as stable left periventricular and deep white matter FLAIR hyperintense lesions. There is persistent right to left midline shift and apparent entrapment of the left lateral ventricle. Postoperative changes of blood products within the operative cavity and pneumocephalus are noted. There is an extra-axial fluid collection superficial to the dura plasty. There is minimal restricted diffusion along the operative margins, likely postoperative. A wire from the operative cavity there is no restricted diffusion. Procedure Note Interface, Radiant Results - Janeth Aug 26, 2016 2:34 PM 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 EXAM: MRI BRAIN WITH AND WITHOUT CONTRAST HISTORY: Glioblastoma multiform, f/u gbm resectin, TECHNIQUE: Multiplanar and multisequence MR imaging of the head was performed. This was done both before and after the administration of gadolinium contrast. COMPARISON: MRI head August 24, 2016 FINDINGS: Dr. Tomasz Ac M.D. has personally reviewed these images and formulated the interpretations and opinions expressed in this report. Interval right parietal craniotomy and revision of posterior right cerebral mass resection. There is thickened and nodular T1 precontrast hyperintensity about the operative margin without nodular or masslike enhancement. However, there is stable thin enhancement along the ependymal wall of the right lateral ventricle. There is stable nonenhancing FLAIR hyperintensity throughout the right cerebral hemisphere as well as stable left periventricular and deep white matter FLAIR hyperintense lesions. There is persistent right to left midline shift and apparent entrapment of the left lateral ventricle. Postoperative changes of blood products within the operative cavity and pneumocephalus are noted. There is an extra-axial fluid collection superficial to the dura plasty. There is minimal restricted diffusion along the operative margins, likely postoperative. A wire from the operative cavity there is no restricted diffusion. IMPRESSION 1. Interval right parietal craniotomy and revision of posterior right cerebral hemisphere mass resection with expected postoperative blood products and pneumocephalus. No evidence of nodular or masslike enhancement about the operative cavity. 2. Stable linear ependymal enhancement within the right lateral ventricle. These findings are indeterminate and may reflect subtle ependymal spread of tumor, attention on follow-up is suggested. 3. Stable residual mass effect with right to left midline shift and left ventricular entrapment. Approved by Rohit Rojo M.D. on 08/25/2016 5:05 PM By my electronic signature, I attest that I have personally reviewed the images for this examination and formulated the interpretations and opinions expressed in this report Finalized by Tomasz Ac M.D. on 08/26/2016 2:31 PM. Dictated by Rohit Rojo M.D. on 08/25/2016 2:18 PM. IONIZED CALCIUM (08/24/2016 5:52 PM) Component Value Range Ionized Calcium 1.18 1.0-1.3 MMOL/L PHOSPHORUS (08/24/2016 5:48 PM) Component Value Range Phosphorus 3.3 2.0-4.0 MG/DL MAGNESIUM (08/24/2016 5:48 PM) Component Value Range Magnesium 1.8 1.6-2.6 mg/dL COMPREHENSIVE METABOLIC PANEL (08/24/2016 5:48 PM)Only the most recent of 2 results within the time period is included. Component Value Range Sodium 139 137-147 MMOL/L Potassium 3.7 3.5-5.1 MMOL/L Chloride 104 98-110 MMOL/L Glucose 227 (H) 70-100 MG/DL Blood Urea Nitrogen 15 7-25 MG/DL Creatinine 0.68 0.4-1.24 MG/DL Calcium 8.9 8.5-10.6 MG/DL Total Protein 5.3 (L) 6.0-8.0 G/DL Total Bilirubin 0.5 0.3-1.2 MG/DL Albumin 3.0 (L) 3.5-5.0 G/DL Alk Phosphatase 56 25-110 U/L AST (SGOT) 14 7-40 U/L CO2 27 21-30 MMOL/L ALT (SGPT) 16 7-56 U/L Anion Gap 8 3-12 eGFR Non >60Comment: >60 mL/min The eGFR is not validated for use in drug dosing adjustments. Continue to use estimated creatinine clearance per dosing reference text. Please contact the Clinical Pharmacist for questions. eGFR >60Comment: >60 mL/min The eGFR is not validated for use in drug dosing adjustments. Continue to use estimated creatinine clearance per dosing reference text. Please contact the Clinical Pharmacist for questions. ANESTHESIA ARTERIAL LINE INSERTION (08/24/2016 1:26 PM) Orion Goncalves DO 08/24/20161:26 PM Anesthesia Procedure: Arterial Line Placement A-LINE INSERTION Date/Time: 08/24/2016 12:12 PM Patient location: OR Indications: hemodynamic monitoring Staff Anesthesiologist: LOGAN VIZCARRA Performed by: LARRY GONCALVES Preprocedure checklist performed: 2 patient identifiers, risks & benefits discussed, patient evaluated, timeout performed, consent obtained, patient being monitored and sterile drape Sterile technique: - Proper hand washing - Cap, mask - Sterile gloves - Skin prep for antisepsis Arterial Line Procedure Patient sedated: yes (see MAR) Sedation type: general; Artery prepped with chlorhexidine; skin prep agent completely dried prior to procedure. Location: radial artery Technique: palpation Needle gauge: 20 G Number of attempts: 1 Procedure Outcome Catheter secured with adhesive dressing applied Events: no complications noted during insertion and skin intact, warm, and dry Observation: pt tolerated well TYPE & CROSSMATCH (08/24/2016 10:45 AM) Component Value Range Units Ordered 2 Crossmatch Expires 08/27/2016 Record Check FOUND ABO/RH(D) O POS Antibody Screen NEG Electronic Crossmatch YES Specimen Blood MRI HEAD W CONTRAST (08/24/2016 6:51 AM) Narrative MRI brain Medical history: Brain tumor, glioblastoma, neuronavigational planning Comparison study: July 05, 2016 Technique: Multiplanar and multisequence imaging of the brain is obtained without and with IV contrast. Findings: Surgical cavity in the right temporal and parietal lobes is noted. There is fairly extensive ill-defined irregular enhancement around the operative margins. Since the prior study, there has been development of increasing edema which results in leftward midline shift measuring 1 cm with slight distortion of the midbrain related to this. The enhancement abuts the ependymal margin of the adjacent atrium of the right lateral ventricle. The right ventricle is somewhat effaced related to edema. Pression: 1. Examination performed for neuronavigational planning. 2. Interval development of fairly extensive perilesional edema with resultant leftward midline shift measuring 1 cm. Finalized by Jose Carlos De La Rosa M.D. on 08/24/2016 8:35 AM. Dictated by Jose Carlos De La Rosa M.D. on 08/24/2016 8:32 AM. Procedure Note Interface, Radiant Results - Tue Aug 24, 2016 8:38 AM 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 MRI brain Medical history: Brain tumor, glioblastoma, neuronavigational planning Comparison study: July 05, 2016 Technique: Multiplanar and multisequence imaging of the brain is obtained without and with IV contrast. Findings: Surgical cavity in the right temporal and parietal lobes is noted. There is fairly extensive ill-defined irregular enhancement around the operative margins. Since the prior study, there has been development of increasing edema which results in leftward midline shift measuring 1 cm with slight distortion of the midbrain related to this. The enhancement abuts the ependymal margin of the adjacent atrium of the right lateral ventricle. The right ventricle is somewhat effaced related to edema. Pression: 1. Examination performed for neuronavigational planning. 2. Interval development of fairly extensive perilesional edema with resultant leftward midline shift measuring 1 cm. Finalized by Jose Carlos De La Rosa M.D. on 08/24/2016 8:35 AM. Dictated by Jose Carlos De La Rosa M.D. on 08/24/2016 8:32 AM. TYPE & SCREEN (NOT CROSSMATCH ELIGIBLE) (08/20/2016 9:35 AM) Component Value Range ABO/RH(D) O POS Antibody Screen NEG Blood Component Type RED CELL GROUP Specimen Blood, venous - Blood PTT (APTT) (08/20/2016 9:35 AM) Component Value Range APTT 24.1 24.0-40.0 SEC Specimen Blood PROTIME INR (PT) (08/20/2016 9:35 AM) Component Value Range INR 1.1 0.8-1.2 Specimen Blood EILEEN PATH MOLE[facility] REF LAB SCAN (07/13/2016 2:18 PM) Narrative Ordered by an unspecified provider.
[2016-08-27] MEDS ORDERED: DEXAMETHASONE 4 MG TAB (DECADRON) PO SCH (12:00)
--- NOTE | 2016-08-27 12:02 | Physical Therapy Evaluation ---
PT Evaluation-General Medical Diagnosis Admission Date Aug 27, 2016 at 10:58 Medical Diagnosis: Glioblastoma Onset Date: Aug 24, 2016 Therapy Diagnosis Therapy Diagnosis: Weakness; abn gait Height/Weight Height (Feet): 5 Height (Inches): 7.00 Weight (Pounds): 143 Weight (Ounces): 0.0 Precautions Precautions/Isolations: Standard Precautions Weight Bear Status Weight Bearing Restriction: Weight Bearing/Tolerated Referral Physician: Wilton Reason for Referral: Evaluation/Treatment Medical History Pertinent Medical History: DM, HTN Additional Medical History [place]AL[place]K, hemianopsia, high cholesterol. Current History s/p right occipitotemporal craniotomy resection of brain tumor; pt had first surgery for tumor resection approx 6 months ago. He has received chemo and radiation as treatment as well. Reviewed History: Yes Social History Home: Multilevel Current Living Status: Spouse Entry Into Home: Stairs With Railing PT Steps Into Home: 3 PT Steps Inside Home: 4 (with railing into sunroom; railing to the 2nd level as well.) Prior/Core FIM Prior Level of Function Functional [place] Measure 0=Not Assessed/NA 4=Minimal Assistance 1=Total Assistance 5=Supervision or Setup 2=Maximal Assistance 6=Modified [place] 3=Moderate Assistance 7=Complete [place] Bed Mobility: 7 Transfers (B,C,W/C) (FIM): 7 Gait: 7 A few days before surgery, pt was needing much assist with functional mobility; however prior to that, he was indep with all mobility. He had even been able to cut wood and carry it this past fall. PT Evaluation-Current Subjective Agreeable. No complaints. Denies pain at this time. Pain Numeric Pain Scale: 0-No Pain Location: No Pain Reported Pt/Family Goals Pt states his goal is to "get as much back as I can, as quickly as I can" Objective Patient Orientation: Person, Place, Time, Situation Problem Solving: Fair Diminished safety awareness and seems to have some short term memory deficit. ROM/Strength ROM Lower Extremities WNL Strenght Lower Extremities grossly 4+5 throughout right LE; 4/5 L LE Integumentary/Posture Integumentary Intact; bruising noted on lateral thorax left; refer to nursing notes. Bowel Incontinence: Yes (at times and bianca at noc) Bladder Incontinence: No Posture normal and symmetrical Neuromuscular (Tone, Coordination, Reflexes) Appear to be intact and do not interfere with functional mobility Sensory Vision: Neglect Left Hearing: Hearing Aid/Aides (hears out of left ear best) Hand Dominance: Right Sensation Right Lower Extremit: Intact Sensation Left Lower Extremity: Intact Transfers Functional [place] Measure 0=Not Assessed/NA 4=Minimal Assistance 1=Total Assistance 5=Supervision or Setup 2=Maximal Assistance 6=Modified [place] 3=Moderate Assistance 7=Complete IndependenceIRFPAI Quality Coding Scale 6 Independent with activity with or without an assistive device 5 Patient requires set up or clean up by helper. Patient completes activity by themselves 4 Supervision or touching assist (CGA). [place] provide cues , steadying assist 3 The helper provides less than half the effort to complete the activity 2 The helper provides more than half the effort to complete the activity 1 Dependent. The helper does all the effort to complete an activity 7 Patient refused to complete or attempt activity 9 The patient did not perform the activity before the current illness or injury 88 Not attempted due to Medical conditions or safety concerns Transfers (B, C, W/C) (FIM): 4 Scootin Rollin Roll Left to Right (QC): 5 Supine to/from Sit: 5 Sit to/from Stand: 4 bed t/f WC(FIM only if WC use): 4 Sit to Lying (QC): 5 Lying to Sitting/Side of Bed(Q: 5 Sit to Stand (QC): 4 Chair/Tqx-sq-Rlcqq Xfer(QC): 4 Car Transfer (QC): 4 Requires min to CGA with sit to stand and heavy cues for sequencing and hand placement. Gait Does the Patient Walk?: Yes Mode of Locomotion: Walk Anticipated Mode of Locomotion: Walk Gait (FIM): 4 Distance (FIM): 3=150 ft Walk 10 feet (QC): 4 Walk 50 ft with 2 Turns(QC): 4 Walk 150 ft (QC): 4 Walking 10ft on uneven surface: 4 Gait Level of Assist: 4 (as well as verbal cues to avoid obstacles on his left and for safety.) Gait Persons Needed: 1 Gait Assistive Device: FWW Comments/Gait Description Tends to shuffle feet, but corrects with cues. Difficulty acknowledging objects on his left. Wheelchair Training Does the Pt Use a Wheelchair?: No Stairs Stairs (FIM): 1 #of Steps: 1 Level of Assist: 4 1 Step (curb) (QC): 4 4 Steps (QC): 88 (unsafe to attempt this date) Assistive Device: Walker 12 Steps (QC): 88 Balance Sitting Static: Good Sitting Dynamic: Fair Standing Static: Fair Standing Dynamic: Fair Picking up an Object (QC): 3 (assist for safety) Treatment Co treat with OT. Pt is impulsive and has diminished safety awareness. Pt requires heavy cues for hand placement and sequencing with functional transfers as well as seated and standing balance activities. PT focused on transfers, balance, safety awareness, attention to the left side whilst OT addressed ADL"s and self care. Pt was in a variety of sitting and standing positions and transitions positions as well that PT addressed balance and safety in these situations. Also performed gait training in stahl with co treating to address safety and awareness. Assessment/Needs Pt presents post tumor resection with noted functional deficits to include slight left LE weakness, left neglect, diminished safety awareness, decreased safety with functional mobility and assist for transfers and gait. He is an excellent candidate for skilled PT services to address these deficits and has good potential to make functional gains. Rehab Potential: Good PT Short Term Goals Short Term Goals Time Frame: Sep 10, 2016 Transfers (B,C,W/C) (FIM): 5 Gait (FIM): 5 Distance (FIM): 3=150 ft Stairs (FIM): 2 # of Steps: 8 PT Penitentiary Goals Associate Professor Of Physics Goals PT Penitentiary Goals Time Frame: Sep 24, 2016 Transfers (B,C,W/C) (FIM): 6 Sit to Lying (QC): 6 Lying-Sitting on Side/Bed(QC): 6 Sit to Stand (QC): 6 Rollin Roll Left to Right (QC): 6 Chair/Tsy-hy-Profn Xfer(QC): 6 Car Transfer (QC): 6 Does the Patient Walk: Yes Gait (FIM): 6 Gait distance (FIM): 3=150 ft Walk 10 feet (QC): 6 Walk 10ft-Uneven Surface(QC): 6 Walk 50ft with 2 Turns (QC): 6 Walk 150 ft (QC): 6 Gait Level of Assist: 6 Gait Assistive Device: FWW Stairs (FIM): 6 # of Steps: 12 1 Step (curb) (QC): 6 4 Steps (QC): 6 12 Steps (QC): 6 Stairs Level Of Assist: 6 Picking up an Object (QC): 6 PT Plan Problem List Problem List: Activity Tolerance, Functional Strength, Safety, Balance, Gait, Transfer, Bed Mobility Treatment/Plan Treatment Plan: Continue Plan of Care Treatment Plan: Bed Mobility, Education, Functional Activity Chip, Functional Strength, Group Therapy, Gait, Safety, Therapeutic Exercise, Transfers Treatment Duration: Sep 24, 2016 # of days/week 5-6 Visits Per Week: 10-15 Minutes/Day (M-F): 60-90 Minutes/Day (Sat/Robin): prn Pt/Family Agrees w/Plan: Yes Safety Risks/Education Patient Education: Safety Issues Teaching Recipient: Patient Teaching Methods: Discussion Response to Teaching: Reinforcement Needed Time/GCodes Time In: 1330 (1430) Time Out: 1430 (1535) Total Billed Treatment Time: 84 Total Billed Treatment visit [facility] 19 FA 65 MOISES MCMILLAN PT Aug 27, 2016 12:02
--- NOTE | 2016-08-27 14:31 | ST Cognitive Linguistic Eval ---
Speech Evaluation-General Medical Diagnosis Glioblastoma Onset Date: Aug 24, 2016 Therapy Diagnosis Therapy Diagnosis: Questionable Cognitive Impairment Referral Referring Physician: Dr. Keith Núñez Reason for Referral: Evaluation/Treatment Cognitive Screen Medical History Reviewed History: Yes Speech PLF-Current Status Prior Level of Function The patient denied cognitive linguistic impairments prior to admission or following his recent surgery. Per patient (and ), he has not experienced any challenges with communication at this time. Subjective The patient was recently admitted to [facility] following a occipital-temporal craniotomy for a glioblastoma. The patient and family were present upon entrance to the room. The patient greeted the clinician appropriately and agreed to participate in the cognitive evaluation on this date. Language Eval: Auditory Comprehends Simple Yes/No Ques: Functional Indent/Objects Multiple Choi: Functional Ident/Pics in Multiple Choi: Functional Follows 1-Step Commands: Functional Follows General Conversations: Functional Language Eval: Verbal Language Completes Spontaneous Greeting: Functional Produces Auto, Serial Info: Functional Imitates Simple Words/Phrases: Functional Word Finding: Functional Requests Basic Needs: Functional States Basic Personal Info: Functional Cognitive Patient Orientation The patient was oriented to month and year. The patient required on verbal prompt for accurate identification of day of week. Objective Cognitive Domain Attention: WNL Memory: Mild (The patient was able to recall two of three single words following a ten minute delay.) Problem Solving: Functional Objective Impression The patient demonstrated cognitive linguistic skills grossly within normal limits for completion of ADL's. - The patient does demonstrated left neglect. Additionally, the patient wears bilateral in-the-ear hearing aids. The patient has the left hearing aid in place , however, is unable to wear the right one at this time due to discomfort post surgery. The patient does require slightly elevated volume levels for comprehension. Communication/Social Cognition Comprehension: 6 Expression: 6 Social Interaction: 6 Problem Solvin Memory: 5 Speech Patient Assess Expression of Ideas/Wants: Expression (4) Understanding [place] Content: Understands (4) Brief Interview-Mental Status: Yes Repetition of Three Words: Three (3) Temporal Orientation: Year: Correct (3) Temporal Orientation: Month: Accurate within 5 days(2) Temporal Orientation: Day: Correct (1) Recall : Wear: No, could not recall (0) Recall : Color: Yes, no cue required (2) Recall : Bed: Yes, no cue required (2) Speech-Plan Treatment Plan Speech Therapy Treatment Plan: Discontinue ST (Eval, only.) Rehab Potential: Good Safety Risks/Education Teaching Recipient: Patient, Family Teaching Methods: Discussion Response to Teaching: Verbalize Understanding Education Topics Provided: Plan of Care Time Speech Therapy Time In: 13:50 Speech Therapy Time Out: 14:11 Total Billed Time: 21 Billed Treatment Time 1, JOSE DE JESUS FREDERICK Aug 27, 2016 14:31
--- NOTE | 2016-08-27 15:45 | Occupational Therapy Eval ---
OT Evaluation-General/PLF Medical Diagnosis Admission Date Aug 27, 2016 at 13:27 Medical Diagnosis: Glioblastoma Onset Date: Aug 24, 2016 Therapy Diagnosis Therapy Diagnosis: decr self care, decr balance, weakness, decr coord, L vis field, impulsive Height/Weight Height (Feet): 5 Height (Inches): 7.00 Weight (Pounds): 143 Weight (Ounces): 0.0 Precautions Precautions/Isolations: Standard Precautions Referral Physician: Wilton Referral Reason: Evaluation/Treatment Referral Comments reported he is not to get [place] wet for 5 days after surgery Medical History Pertinent Medical History: DM, HTN Additional Medical History High cholesterol. L hemianopsia, craniotomy 02-05-16 for brain tumor, followed by OP OT and PT. Current History Brain tumor returned and pt had R occipitotemporal craniotomy, resection of tumor for glioblastoma on 08-24-16. Reviewed History: Yes Social History Home: Multilevel Current Living Status: Spouse Steps Into Home: 3 ADL-Prior Level of Function ADL PLOF Comments Pt was independent with all basic self care activities prior to original surgery to remove brain tumor in January 2016. He recovered to be able to manage ADLs and outdoor activities, with safety concerns due to hemianopsia. The tumor returned and his abilities declined to the point where he needed help with all ADLs and two person assist to get up out of a chair as late as Tuesday of this week. He has not driven since original operation in January. 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 Pt reported pain 0/10 but had some pain meds before leaving to come here. He said he occasionally has pain over the incision site R side of head Appearance Alert, cooperative, tends to look to the R visual field, flat affect but also enjoys humor, impulsive Mental Status/Objective Patient Orientation: Person, Place, Time, Situation Attachments: Other-See Comments ([place] R side of head) Current Glasses/Contacts: Yes Hearing Aids: Yes (bilat) Dentures/Partials: Yes (partial) Hand Dominance: Right Upper Extremity ROM Grossly WFL bilat Upper Extremity Coordination Some incoordination noted with L hand during ADLs Upper Extremity Strength Grossly 4/5 bilat Edema: No UE edema observed ADL-Treatment Functional [place] Measure 0=Not Assessed/NA 4=Minimal Assistance 1=Total Assistance 5=Supervision or Setup 2=Maximal Assistance 6=Modified [place] 3=Moderate Assistance 7=Complete IndependenceIRFPAI Quality Coding Scale 6 Independent with activity with or without an assistive device 5 Patient requires set up or clean up by helper. Patient completes activity by themselves 4 Supervision or touching assist (CGA). [place] provide cues , steadying assist 3 The helper provides less than half the effort to complete the activity 2 The helper provides more than half the effort to complete the activity 1 Dependent. The helper does all the effort to complete an activity 7 Patient refused to complete or attempt activity 9 The patient did not perform the activity before the current illness or injury 88 Not attempted due to Medical conditions or safety concerns Eating (FIM): 5 (setup) Eating (QC): 5 Grooming (FIM): 5 (SBA at sink, supervision, FWW) Oral Hygiene (QC): 4 Bathing (FIM): 4 (Able to wash and dry all parts. CGA when standing in shower due to dec balance. Shower bench, grab bars, hand held shower. Pt educ mod techniques and safety during bathing.) Bathing Location: L Arm, R Arm, L Upper Leg, R Upper Leg, L Lower Leg ( including foot), R Lower Leg (including foot), Chest, Abdomen, Buttocks, Perineal Area Shower/Bathe Self (QC): 4 Upper Body Dressing (FIM): 5 (setup) Upper Body Dressing (QC): 5 Lower Body Dressing (FIM): 4 (CGA when standing due to decr balance. FWW. Able to doff and don socks and shoes. Cueing for sequencing (wanted to put shoes on before pants). Wears depends for incontinence) Lower Body Dressing (QC): 4 On/Off Footwear (QC): 5 (setup) Toileting (FIM): 4 (CGA for clothing management due to decr balance. Tall toilet, grab bar, FWW. Managed clothing and hygiene) Toileting Hygiene (QC): 4 Toilet/Commode Transfer (FIM): 4 (CGA, tall toilet, grab bar, FWW) Toilet Transfer (QC): 4 Shower Transfer (FIM): 4 (CGA, shower bench, grab bars, FWW) Other Treatments Pt education on results of evaluation and tx plan, with his agreement. present during eval. Pt educ modified techniques for safety during ADLs, Pt ed hand placement with walker and transfers. Pt is impulsive and walked away from walker several times. Co tx with PT for 65 minutes, due to decreased activity tolerance, recent surgery, fatigue from transportation from [place], with OT focusing on ADLs, UE function, safety and PT focusing on mobility, balance, LE function Education OT Patient Education: Modified ADL techniques, Progress toward Goal/Update tx plan, Purpose of tx/functional activities, Reviewed precautions, Rehab process, Safety issues, Transfer techniques, Use of adapted equipment Teaching Recipient: Patient, Family Teaching Methods: Demonstration, Discussion Response to Teaching: Verbalize Understanding, Return Demonstration, Reinforcement Needed OT Short Term Goals Short Term Goals Time Frame: Sep 10, 2016 Grooming(FIM): 5 Bathing(FIM): 5 Upper Body Dressing(FIM): 5 Lower Body Dressing(FIM): 5 Toileting(FIM): 5 Toilet/Commode Transfer(FIM): 5 Shower Transfer(FIM): 5 Additional Short Term Goals: 2-Verbalize Understanding, 3-ImproveStrength/Chip 1=Demonstrate adherence to instructed precautions during ADL tasks. 2=Patient will verbalize/demonstrate understanding of assistive devices/ modifications for ADL. 3=Patient will improve strength/tolerance for activity to enable patient to perform ADL's. OT Paint Stock Clerk Goals Paint Stock Clerk Goals Time Frame: Sep 24, 2016 Eating (FIM): 7 ("There is nothing I can't eat") Eating (QC): 6 Oral Hygiene (QC): 6 Grooming(FIM): 6 Bathing(FIM): 6 Shower/Bathe Self (QC): 6 Upper Body Dressing(FIM): 6 Upper Body Dressing (QC): 6 Lower Body Dressing(FIM): 6 Lower Body Dressing (QC): 6 On/Off Footwear (QC): 6 Toileting(FIM): 6 Toileting Hygiene (QC): 6 Toilet/Commode Transfer(FIM): 6 Toilet/Commode Transfer (QC): 6 Shower Transfer(FIM): 6 Increase bilat UE strength to 5/5 to help with ADLs and transfers Increase functional vision L visual field Additional Goals: 2-Verbalize Understanding, 3-ImproveStrength/Chip 1=Demonstrate adherence to instructed precautions during ADL tasks. 2=Patient will verbalize/demonstrate understanding of assistive devices/ modifications for ADL. 3=Patient will improve strength/tolerance for activity to enable patient to perform ADL's. OT Education/Plan Problem List/Assessment Assessment: Decreased Activ Tolerance, Decreased Safety Aware, Decreased UE Strength, Dependent Transfers, Impaired Coordination, Impaired Funct Balance, Impaired Self-Care Skills, Visual-Perceptual Deficit Pt would benefit from skilled OT to increase his independence in basic self care to allow him to safely return home to live with his and to decrease caregiver burden Discharge Recommendations Plan/Recommendations: Continue POC Barriers to Progress L visual field deficit, impulsivity Target Placement Home with Treatment Plan/Plan of Care Treatment,Training & Education: Yes Patient would benefit from OT for education, treatment and training to promote independence in ADL's, mobility, safety and/or upper extremity function for ADL' s. Plan of Care: ADL Retraining, Caregiver Training, Functional Mobility, Group Exercise/Act as Ind (educaiton, exercise, socialization, activity tolerance, functional activities), UE Funct Exercise/Act, UE Neuromus Re-Ed/Coord, Visual/ Perceptual Retrain Treatment Duration: Sep 24, 2016 # of days/week 5-6 Visits Per Week: 10-11 Minutes/Day (M-F): 75-90 Minutes/Day (Sat/Robin): PRN Agreement: Yes Rehab Potential: Good Time/GCodes Start Time: 14:10 Stop Time: 15:35 Total Time Billed (hr/min): 85 Billed Treatment Time visit, evaluation high complexity 20 minutes, ADL 65 minutes Co-tx with PT from 1430 to 1535 KAEL LEY OT Aug 27, 2016 15:45
[2016-08-27 16:17] VITALS: BP 136/85
[2016-08-27] MEDS: inSUlin (REGULAR) HUMAN 1 UNIT/0.01 ML (CHARGE PER UNIT) SC SCH ×2 (16:32→20:09)
[2016-08-27] MEDS: metFORMIN 500 MG (GLUCOPHAGE) TAB PO SCH (16:33)
[2016-08-27] MEDS: DEXAMETHASONE 4 MG TAB (DECADRON) PO SCH (18:18)
[2016-08-27] MEDS: LEVETIRACETAM 500 MG (KEPPRA) TAB PO SCH (20:09)
[2016-08-27] MEDS: SENNA W/DOCUSATE (SENOKOT S) TABLET PO SCH (20:09)
[2016-08-27] MEDS: SIMvastatin 40 MG (ZOCOR) TAB PO SCH (20:09)
[2016-08-27] MEDS: FINASTERIDE (PROSCAR) 5 MG TAB PO SCH (20:09)
[2016-08-27] MEDS ORDERED: DOCUSATE SODIUM 100 MG (COLACE) CAP PO SCH (21:00)
[2016-08-28] MEDS: DEXAMETHASONE 4 MG TAB (DECADRON) PO SCH ×3 (00:25→16:45)
[2016-08-28 05:42] LABS: BASOPHILS % (AUTO) 0 % (0-10); EOSINOPHILS % (AUTO) 0 % (0-10); LYMPHOCYTES # (AUTO) 0.8 X 10^3 (1.0-4.0); LYMPHOCYTES % (AUTO) 8 % (12-44); MEAN CORPUSCULAR HEMOGLOBIN 33 PG (25-34); MEAN CORPUSCULAR HGB CONC 33 G/DL (32-36); MEAN CORPUSCULAR VOLUME 99 FL (80-99); MONOCYTES # (AUTO) 0.7 X 10^3 (0.0-1.0); MONOCYTES % (AUTO) 7 % (0-12); NEUTROPHILS # (AUTO) 8.2 X 10^3 (1.8-7.8); NEUTROPHILS % (AUTO) 85 % (42-75); PLATELET COUNT 165 10^3/uL (130-400); RED BLOOD COUNT 3.53 10^6/uL (4.35-5.85); RED CELL DISTRIBUTION WIDTH 13.1 % (10.0-14.5); WHITE BLOOD COUNT 9.7 10^3/uL (4.3-11.0)
[2016-08-28 05:58] LABS: ALANINE AMINOTRANSFERASE 16 U/L (0-55); ANION GAP 9 MMOL/L (5-14); ASPARTATE AMINO TRANSFERASE 12 U/L (5-34); BILIRUBIN,TOTAL 0.3 MG/DL (0.1-1.0); BLOOD UREA NITROGEN 17 MG/DL (7-18); BUN/CREATININE RATIO 24; CALCIUM 8.7 MG/DL (8.5-10.1); CARBON DIOXIDE 28 MMOL/L (21-32); CHLORIDE 104 MMOL/L (98-107); CREATININE SERUM 0.71 MG/DL (0.60-1.30); GFR ESTIMATED > 60; GLUCOSE 245 MG/DL (70-105); POTASSIUM 3.9 MMOL/L (3.6-5.0); SODIUM 141 MMOL/L (135-145); TOTAL PROTEIN 5.1 G/DL (6.4-8.2)
[2016-08-28 06:00] VITALS: BP 138/76
[2016-08-28] MEDS: PANTOPRAZOLE 40 MG (PROTONIX) TAB PO SCH (06:05)
[2016-08-28] MEDS: metFORMIN 500 MG (GLUCOPHAGE) TAB PO SCH ×2 (06:05→18:15)
[2016-08-28] MEDS: MULTIVIT W/MINERALS TAB (THERAGRAN M) PO SCH (06:05)
[2016-08-28] MEDS: inSUlin (REGULAR) HUMAN 1 UNIT/0.01 ML (CHARGE PER UNIT) SC SCH ×4 (06:06→20:32)
[2016-08-28] MEDS: LEVETIRACETAM 500 MG (KEPPRA) TAB PO SCH ×2 (09:16→20:32)
[2016-08-28] MEDS: SENNA W/DOCUSATE (SENOKOT S) TABLET PO SCH ×2 (09:16→20:32)
[2016-08-28] MEDS: ASPIRIN E.C. 325 MG (ECOTRIN) TABLET PO SCH (09:23)
--- NOTE | 2016-08-28 10:40 | Physical Therapy Daily Note ---
PT Daily Note-Current Subjective Pt. and family present. Pt. agreeable with encouragement. was disagreeable at first, family caught this DEBURR TECHNICIAN outside room and expressed many concerns as this is not his usual demeanor. Pain Numeric Pain Scale: 0-No Pain Transfers Functional [place] Measure 0=Not Assessed/NA 4=Minimal Assistance 1=Total Assistance 5=Supervision or Setup 2=Maximal Assistance 6=Modified [place] 3=Moderate Assistance 7=Complete IndependenceIRFPAI Quality Coding Scale 6 Independent with activity with or without an assistive device 5 Patient requires set up or clean up by helper. Patient completes activity by themselves 4 Supervision or touching assist (CGA). [place] provide cues , steadying assist 3 The helper provides less than half the effort to complete the activity 2 The helper provides more than half the effort to complete the activity 1 Dependent. The helper does all the effort to complete an activity 7 Patient refused to complete or attempt activity 9 The patient did not perform the activity before the current illness or injury 88 Not attempted due to Medical conditions or safety concerns Transfers (B, C, W/C) (FIM): 5 Scootin Rollin Supine to/from Sit: 5 Sit to/from Stand: 5 Bed to/from Chair: 5 pt. needs skilled verbal instruction and direction to task ie to tend left etc Gait Training Does the Patient Walk?: Yes Gait (FIM): 5 Distance (FIM): 3=150 ft (250x3) Gait Level of Assist: 5 Gait Persons Needed: 1 Gait Assistive Device: FWW (also used just the rail in the stahl) no janna LOB, but needs cuing to tend left etc Stair Training Stair Training: Handrails/: 2 handrails Stairs (FIM): 4 #of Steps: 12 Stairs: Pattern: Step to Level of Assist: 4 Exercises Seated Therapy Exercises: Ankle pumps, Sit to stand, Long arc quads, Hip flexion Seated Reps: 12 Assessment Current Status: Good Progress PT Short Term Goals Short Term Goals Time Frame: Sep 10, 2016 Transfers (B,C,W/C) (FIM): 5 Gait (FIM): 5 Distance (FIM): 3=150 ft Stairs (FIM): 2 # of Steps: 8 PT Utility Bagger Goals Utility Bagger Goals PT Utility Bagger Goals Time Frame: Sep 24, 2016 Transfers (B,C,W/C) (FIM): 6 Sit to Lying (QC): 6 Lying-Sitting on Side/Bed(QC): 6 Sit to Stand (QC): 6 Rollin Roll Left to Right (QC): 6 Chair/Kpn-yv-Gunxs Xfer(QC): 6 Car Transfer (QC): 6 Does the Patient Walk: Yes Gait (FIM): 6 Gait distance (FIM): 3=150 ft Walk 10 feet (QC): 6 Walk 10ft-Uneven Surface(QC): 6 Walk 50ft with 2 Turns (QC): 6 Walk 150 ft (QC): 6 Gait Level of Assist: 6 Gait Assistive Device: FWW Stairs (FIM): 6 # of Steps: 12 1 Step (curb) (QC): 6 4 Steps (QC): 6 12 Steps (QC): 6 Stairs Level Of Assist: 6 Picking up an Object (QC): 6 PT Plan Treatment/Plan Treatment Plan: Continue Plan of Care Treatment Plan: Bed Mobility, Education, Functional Activity Chip, Functional Strength, Group Therapy, Gait, Safety, Therapeutic Exercise, Transfers Treatment Duration: Sep 24, 2016 Visits Per Week: 10-15 Minutes/Day (M-F): 60-90 Minutes/Day (Sat/Robin): prn Safety Risks/Education Patient Education: Gait Training, Transfer Techniques, Steps, Correct Positioning, Disease Process, Safety Issues Teaching Recipient: Patient Teaching Methods: Demonstration, Discussion Response to Teaching: Verbalize Understanding, Return Demonstration, Reinforcement Needed Time/GCodes Time In: 955 Time Out: 1015 Total Billed Treatment Time: 20 Total Billed Treatment 1,FA20m G Codes Necessary: ROMAN Bocanegra DEBURR TECHNICIAN Aug 28, 2016 10:40
--- NOTE | 2016-08-28 10:46 | Progress Note-Standard ---
Standard Progress Note Progress Notes/Assess & Plan Progress/Assessment & Plan Pt's son asked me to see him. Had bad episode last evening and wanted to go home. Explained to him that PT was necessary for further recovery. Had surgery last week at [facility]. Doing better now, no complaints. Wished to chew tobacco. JAVAN ELLIOTT MD Aug 28, 2016 10:46 am
[2016-08-28] MEDS ORDERED: MILK OF MAGNESIA 400 MG/5 ML 30 ML UDC ONE (15:13)
[2016-08-28 18:19] VITALS: BP 146/82
[2016-08-28] MEDS: FINASTERIDE (PROSCAR) 5 MG TAB PO SCH (20:32)
[2016-08-28] MEDS: SIMvastatin 40 MG (ZOCOR) TAB PO SCH (20:32)
[2016-08-29] MEDS: DEXAMETHASONE 4 MG TAB (DECADRON) PO SCH ×4 (00:59→23:46)
[2016-08-29 05:58] VITALS: BP 143/78
[2016-08-29] MEDS: PANTOPRAZOLE 40 MG (PROTONIX) TAB PO SCH (07:07)
[2016-08-29] MEDS: metFORMIN 500 MG (GLUCOPHAGE) TAB PO SCH ×2 (07:07→16:50)
[2016-08-29] MEDS: MULTIVIT W/MINERALS TAB (THERAGRAN M) PO SCH (07:07)
[2016-08-29] MEDS: inSUlin (REGULAR) HUMAN 1 UNIT/0.01 ML (CHARGE PER UNIT) SC SCH ×4 (07:13→20:51)
[2016-08-29] MEDS: ASPIRIN E.C. 325 MG (ECOTRIN) TABLET PO SCH (08:39)
[2016-08-29] MEDS: SENNA W/DOCUSATE (SENOKOT S) TABLET PO SCH ×2 (08:49→20:37)
[2016-08-29] MEDS: MILK OF MAGNESIA 400 MG/5 ML 30 ML UDC PO PRN (08:49)
[2016-08-29] MEDS: LEVETIRACETAM 500 MG (KEPPRA) TAB PO SCH ×2 (08:49→20:37)
--- NOTE | 2016-08-29 13:45 | HISTORY AND PHYSICAL ---
DATE OF ADMISSION: 08/27/2016 CHIEF COMPLAINT: Difficulty with walking. HISTORY OF PRESENT ILLNESS: The patient is a 71-year-old male with history of glioblastoma multiforme who was admitted to [facility] for craniotomy and excision of recurrent tumor. The patient has been followed by [facility] in the past. PCP is Dr. Wesley. He is referred back to his home community for ongoing rehab. Currently he is contact guard to minimal assist for mobility and ADLs. He has some impulsivity. PAST MEDICAL HISTORY: 1. Diabetes mellitus. 2. Hypertension. 3. Hypercholesterolemia. PAST SURGICAL HISTORY: Status post right occipital temporal craniotomy resection of brain tumor 08/24. The patient continues on Decadron postoperatively as well as Keppra for seizure prophylaxis. He is on subcutaneous heparin for DVT prophylaxis. He takes metformin for his diabetes mellitus as well as Flex-pen sliding scale regimen ALLERGIES: No known medication allergies. FAMILY HISTORY: Noncontributory. SOCIAL HISTORY: Retired, lives with family in [place]. REVIEW OF SYSTEMS: Ten-point review of systems is significant for some anxiety and impulsivity, gait imbalance. MEDICATIONS: 1. Metformin 500 mg p.o. b.i.d. 2. Decadron taper. 3. Heparin 5000 units subcutaneous q.8 hours for DVT prophylaxis. PHYSICAL EXAMINATION: Significant for a male, appearing his stated age, alert and oriented no acute distress. VITAL SIGNS: Within normal limits. He is afebrile. HEENT: Vision, speech, hearing is functional. No oral lesion is noted. NECK: Supple without mass. HEAD: The craniotomy site is healing well. NO drainage is noted. HEART: Regular rhythm. LUNGS: Clear. ABDOMEN: Soft, nontender. Bowel sounds present. EXTREMITIES: No lower edema. No calf tenderness. MUSCULOSKELETAL: The patient has functional active range of motion in all 4 extremities. NEUROLOGIC: Sensation is grossly intact. Cognition somewhat impulsive. He has functional strength but gait imbalance as well as mild left sided weakness and dyscoordination. IMPRESSION: 1. Ambulatory dysfunction secondary to resection of glioblastoma multiforme, status post right occipital temporal craniotomy [facility] with resection of brain tumor 08/24/2016. 2. Diabetes mellitus, controlled with medication. 3. Hypertension, controlled with medication. 4. Decadron taper postop. 5. Seizure prophylaxis on Keppra. 6. DVT prophylaxis on heparin subcutaneous. PLAN: The patient is admitted to Inpatient Rehabilitation Unit for comprehensive program of inpatient rehabilitation with goal of maximizing level of functional dependence prior to discharge home with spouse. The patient will have PT/OT 90 minutes per day, each discipline, 5 days a week, when not being seen by speech therapy, for gait strengthening, conditioning, balance, ADLs, any patient/family/caregiver training necessary, any adaptive equipment and training necessary. Speech therapy do cognitive speech assessment and treat as indicated, 3 to 5 days a week 30 to 45 minutes per day. Rehabilitation nursing to assist with bowel, bladder, skin, wound care, medication administration, pain management, reorientation. environmental services specialist to assist with discharge planning, community reentry. Consult Primary care Physician for medical management as Dr. Wesley just as outpatient at this time. Routine admission labs. Accu-Cheks q.i.d. before meals and at bedtime and adjust medications as needed. Therapy with cardiac and fall precautions. ESTIMATED LENGTH OF STAY: One to two weeks. PROGNOSIS: Rehab prognosis appears good for goal of discharging home with spouse, modified independent to supervision for ADLs and mobility skills. DIET: Carb consistent. CODE STATUS: Full code. POST ADMISSION PHYSICIAN ASSESSMENT: The preadmission screen agrees with the post admission assessment that the patient is a good candidate for inpatient rehabilitation. He appears to be well motivated to participate in 3 hours of therapy a day. He should be able tolerate 3 hours of therapy a day from a medical and surgical standpoint. He should benefit from the 3 hours of therapy a day. He has a reasonable discharge plan, reasonable discharge rehabilitation goals and a supportive family. He has various comorbidities that need to be closely monitored with medications and treatments adjusted on a daily basis as needed. These include his diabetes mellitus, hypertension. Barriers for discharge for this patient who had been modified independent for ADLs and mobility skills with some supervision from spouse prior to this, are for him to be modified independent to supervision for ADLs and mobility skills prior to discharge home with spouse so as to lessen the burden of the caregivers. Risks for this patient include: 1. Skin breakdown. 2. Wound infection. 3. Seizure, 4. Fall. 5. Fracture. 6. DVT. 7. Pulmonary embolism. 8. Urinary retention. 9. UTI. 10. Respiratory infection. 11. Aspiration. 12. Poorly controlled diabetes. 13. Poorly controlled hypertension. 14. Worsening confusion. Job ID: [id number] Dictated Date: 08/28/2016 15:00:57 Systems Support Specialist Date: 08/29/2016 13:30:50/shantell WEST
[2016-08-29 18:13] VITALS: BP 143/81
[2016-08-29] MEDS: SIMvastatin 40 MG (ZOCOR) TAB PO SCH (20:37)
[2016-08-29] MEDS: FINASTERIDE (PROSCAR) 5 MG TAB PO SCH (20:37)
[2016-08-29] MEDS: SERTRALINE 50 MG (ZOLOFT) TABLET PO SCH (20:37)
[2016-08-30] MEDS: inSUlin (REGULAR) HUMAN 1 UNIT/0.01 ML (CHARGE PER UNIT) SC SCH ×4 (05:33→20:37)
[2016-08-30] MEDS: metFORMIN 500 MG (GLUCOPHAGE) TAB PO SCH ×2 (05:33→16:42)
[2016-08-30] MEDS: MULTIVIT W/MINERALS TAB (THERAGRAN M) PO SCH (05:33)
[2016-08-30] MEDS: PANTOPRAZOLE 40 MG (PROTONIX) TAB PO SCH (05:33)
[2016-08-30 05:38] VITALS: BP 150/83
--- NOTE | 2016-08-30 07:51 | Consultation ---
History of Present Illness History of Present Illness Patient Consulted On(klaus/time) 08/30/16 07:46 Date of Admission History of Present Illness patient recently had a second surgery for glioblastoma multiforme he at [facility]. Patient now in for rehabilitation. patient needs a walker to get around. Previous surgeries appendectomy. Family history denies asthma TB heart disease lung disease cancer. Brother diabetic. Head denies dizziness and fainting. Does get headaches . EENT has trouble with vision to the left due to the surgery. Denies tinnitus or sore throat. Heart NSR, chest pain shortness of breath. Lungs denies asthma TB coughing congestion smoking wheezing. GI admits to constipation takes milk of magnesia and prune juice. Denies ulcer , vomiting, or blood in the stools Allergies and Home Medications Allergies Coded Allergies: ezetimibe (Verified Allergy, Unknown, 08/27/16) according to records simvastatin (Verified Allergy, Unknown, 08/27/16) according to records promethazine (Verified Adverse Reaction, Severe, 05/02/16) CONFUSION; ALTERED MENTAL STATUS Home Medications Aspirin 325 Mg Tablet.dr 325 MG PO DAILY (Reported) Dexamethasone 4 Mg Tablet #30 4 MG PO BID Prescribed by: WILBERT ELLIOTT on 05/04/16 0654 Docusate Sodium 100 Mg Capsule 100 MG PO BID (Reported) Finasteride 5 Mg Tablet 5 MG PO DAILY (Reported) Levetiracetam 500 Mg Tablet 500 MG PO BID (Reported) Lisinopril/Hydrochlorothiazide 1 Each Tablet 1 TAB PO DAILY (Reported) Magnesium Hydroxide 400 Mg/5 Ml Oral.susp 1,200 MG PO DAILY PRN PRN CONSTIPATION (Reported) Magnesium Oxide 250 Mg Tablet 250 MG PO DAILY PRN PRN WITH CHEMO TREATMENT ( Reported) Metformin HCl 500 Mg Tablet 500 MG PO BIDAC (Reported) Multivitamin 1 Each Tablet 1 TAB PO DAILY (Reported) Omeprazole 20 Mg Tablet.dr 20 MG PO DAILY (Reported) TAKES WITH MORNING DEXAMETHASONE Ondansetron HCl 4 Mg Tablet 8 MG PO UD (Reported) TAKES 2 (4 MG) TABLETS 30 MIN PRIOR TO TEMOZOLOMIDE Sennosides/Docusate Sodium 1 Each Tablet 1 TAB PO BID (Reported) Simvastatin 40 Mg Tablet 40 MG PO HS (Reported) Sulfamethoxazole/Trimethoprim 1 Each Tablet 1 TAB PO MoWeFr (Reported) Past Lwyzrtp-Syecbn-Fquxyg Hx Patient Social History Alcohol Use: Past History Recreational Drug Use: No Smoking Status: Former Smoker Type Used: Cigarettes Former Smoker/When Quit: May 29, 1970 Recent Foreign Travel: No Contact w/Someone Who Travel: No Recent Infectious Disease Expo: No Recent Hopitalizations: Yes (Discharged from [facility] 08/27/16) Physical Abuse Screen: No Sexual Abuse: No Immunizations Up To Date Tetanus Booster (TDap): Less than 5yrs PED Vaccines UTD: Yes Date of Pneumonia Vaccine: Apr 17, 2015 Date of Influenza Vaccine: Apr 17, 2016 Seasonal Allergies Seasonal Allergies: Yes (hay fever) Surgeries HX Surgeries: Yes (BRAIN resection february 07 ) Surgeries: Appendectomy Respiratory Hx Respiratory Disorders: No Cardiovascular Hx Cardiac Disorders: Yes (TAKES CHOLESTEROL MEDICATION) Cardiac Disorders: High Cholesterol, Hypertension Neurological Hx Neurological Disorders: No Reproductive System Hx Reproductive Disorders: No Sexually Transmitted Disease: No HIV/AIDS: No Genitourinary Hx Genitourinary Disorders: Yes (enlarged prostate) Genitourinary Disorders: Prostate Problems Gastrointestinal Hx Gastrointestinal Disorders: No Musculoskeletal Hx Musculoskeletal Disorders: Yes Musculoskeletal Disorders: Arthritis Endocrine Hx Endocrine Disorders: Yes Endocrine Disorders: Diabetes, Non-Insulin dep HEENT HX ENT Disorders: No Loss of Vision: Left Hearing Impairment: Hard of Hearing, Hearing Aide Left Cancer Hx Cancer: Yes (NEUROBLASTOMA) Psychosocial Hx Psychiatric Problems: No Behavioral Health Disorders: Anxiety Integumentary HX Skin/Integumentary Disorder: No Blood Transfusions Hx Blood Disorders: No Adverse Reaction to a Blood Tr: No Family Medical History Family Medial History: Abdominal aortic aneurysm 19 MOTHER Arthritis 19 MOTHER G8 BROTHER G8 BROTHER G8 SISTER Cardiovascular disease 19 FATHER 19 MOTHER (CONGESTIVE HEART FAILURE) Cataracts 19 MOTHER Deafness or hearing loss 19 MOTHER Diabetes mellitus G8 BROTHER G8 SISTER Hypertension 19 MOTHER G8 BROTHER G8 BROTHER G8 SISTER Kidney disease 19 MOTHER (KIDNEY FAILURE) Myocardial infarction 19 FATHER (1ST ONE IN 160. IN S) Review of Systems-General Constitutional: weakness EENTM: no symptoms reported other (vision problem with left eye) Respiratory: no symptoms reported Cardiovascular: no symptoms reported Gastrointestinal: no symptoms reported Genitourinary: no symptoms reported Physical Exam-General Problems Physical Exam Vital Signs Vital Sign - Last 12Hours 08/27/16 16:17 Temp 98.4 Pulse 60 Resp 18 B/P 136/85 Pulse Ox 96 O2 Delivery Room Air Capillary Refill : General Appearance: WD/WN no apparent distress Eyes: Bilateral Eye Normal Inspection HEENT: normal ENT inspection Neck: non-tender full range of motion Respiratory: chest non-tender lungs clear normal breath sounds no respiratory distress no accessory muscle use Cardiovascular: regular rate, rhythm no murmur Gastrointestinal: non tender soft Assessment/Plan Assessment/Plan Admission Diagnosis/Plan weakness. Glioblastoma multiform I. Diabetes. Hypertension. Hyperlipidemia Clinical Quality Measures DVT/VTE Risk/Contraindication: Risk Factor Score Per Nursin RFS Level Per Nursing on Admit: 4+=Very High EDMOND GRIER DO Aug 30, 2016 07:51
[2016-08-30] MEDS: LEVETIRACETAM 500 MG (KEPPRA) TAB PO SCH ×2 (09:07→20:29)
[2016-08-30] MEDS: DEXAMETHASONE 4 MG TAB (DECADRON) PO SCH ×3 (09:08→23:34)
[2016-08-30] MEDS: SENNA W/DOCUSATE (SENOKOT S) TABLET PO SCH ×2 (09:08→20:29)
--- NOTE | 2016-08-30 10:00 | Physical Therapy Daily Note ---
PT Daily Note-Current Subjective Patient in bed pre tx, agrees to PT. Patient is looking forward to getting a bath with OT, needs to get dressed. Pain Numeric Pain Scale: 0-No Pain Appearance Patient in bathroom post tx with nurse call, in the room with him and she states she has been keeping an eye on him when he goes to the bathroom. Mental Status Patient Orientation: Person, Place, Situation Transfers Functional [place] Measure 0=Not Assessed/NA 4=Minimal Assistance 1=Total Assistance 5=Supervision or Setup 2=Maximal Assistance 6=Modified [place] 3=Moderate Assistance 7=Complete IndependenceIRFPAI Quality Coding Scale 6 Independent with activity with or without an assistive device 5 Patient requires set up or clean up by helper. Patient completes activity by themselves 4 Supervision or touching assist (CGA). [place] provide cues , steadying assist 3 The helper provides less than half the effort to complete the activity 2 The helper provides more than half the effort to complete the activity 1 Dependent. The helper does all the effort to complete an activity 7 Patient refused to complete or attempt activity 9 The patient did not perform the activity before the current illness or injury 88 Not attempted due to Medical conditions or safety concerns Transfers (B, C, W/C) (FIM): 5 Scootin Rollin Supine to/from Sit: 6 Sit to/from Stand: 5 cues for safety and hand placement Gait Training Gait (FIM): 5 Distance: 300'x2 Gait Level of Assist: 5 Gait Persons Needed: 1 Gait Assistive Device: FWW Patient needs occasional cues for direction due to left neglect. Exercises NuStep Minutes: 15 NuStep Workload: 5 Neuromuscular Patient performed a Fair Balance Scale test and scored a 42/56. Treatments balance testing, functional strengthening, transfers, ambulation Assessment Current Status: Fair Progress patient did fatigue and need rest breaks during the Fair PT Short Term Goals Short Term Goals Time Frame: Sep 10, 2016 Transfers (B,C,W/C) (FIM): 5 Gait (FIM): 5 Distance (FIM): 3=150 ft Stairs (FIM): 2 # of Steps: 8 PT Custodial Goals Custodial Goals PT Custodial Goals Time Frame: Sep 24, 2016 Transfers (B,C,W/C) (FIM): 6 Sit to Lying (QC): 6 Lying-Sitting on Side/Bed(QC): 6 Sit to Stand (QC): 6 Rollin Roll Left to Right (QC): 6 Chair/Bhc-nz-Xlsfm Xfer(QC): 6 Car Transfer (QC): 6 Does the Patient Walk: Yes Gait (FIM): 6 Gait distance (FIM): 3=150 ft Walk 10 feet (QC): 6 Walk 10ft-Uneven Surface(QC): 6 Walk 50ft with 2 Turns (QC): 6 Walk 150 ft (QC): 6 Gait Level of Assist: 6 Gait Assistive Device: FWW Stairs (FIM): 6 # of Steps: 12 1 Step (curb) (QC): 6 4 Steps (QC): 6 12 Steps (QC): 6 Stairs Level Of Assist: 6 Picking up an Object (QC): 6 PT Plan Problem List Problem List: Activity Tolerance, Functional Strength, Safety, Balance, Gait, Transfer Treatment/Plan Treatment Plan: Continue Plan of Care Treatment Plan: Bed Mobility, Education, Functional Activity Chip, Functional Strength, Group Therapy, Gait, Safety, Therapeutic Exercise, Transfers Treatment Duration: Sep 24, 2016 Visits Per Week: 10-15 Minutes/Day (M-F): 60-90 Minutes/Day (Sat/Robin): prn Safety Risks/Education Patient Education: Gait Training, Transfer Techniques, Safety Issues Teaching Recipient: Patient Teaching Methods: Demonstration, Discussion Response to Teaching: Reinforcement Needed Time/GCodes Time In: 900 Time Out: 1000 Total Billed Treatment Time: 60 Total Billed Treatment 1 visit GT 30 min EX 15 min NM 15 min SACHIN WAGNER PT Aug 30, 2016 10:00
--- NOTE | 2016-08-30 11:41 | Occupational Ther Daily Note ---
OT Current Status-Daily Note Subjective Pt sitting on EOB. Pt stated he would like a shower. No pain mention. Spouse present in room. Agreeable to OT. Appearance Alert, Cooperative Mental Status/Objective Functional [place] Measure 0=Not Assessed/NA 4=Minimal Assistance 1=Total Assistance 5=Supervision or Setup 2=Maximal Assistance 6=Modified [place] 3=Moderate Assistance 7=Complete [place] ADL-Treatment Pt stood from EOB , using FWW for balance, CGA. Pt walked to the bathroom, FWW, CGA. Pt toileted by using grab bars to lower self, tall toilet, CGA , including clothing management. Pt walked into shower, FWW, CGA. Pt sat on shower bench to doff shirt, pants, brief, socks, SBA. Pt used hand held shower, grab bars to wash all body parts, set up, SBA. Sitting on shower bench pt dried UB,LB, set up , SBA. Pt donned shirt, brief, pants while sitting on shower bench. set up, SBA. Pt walked to EOB to don socks, shoes, FWW, CGA. Pt had difficulty putting L hand on walker x1. Functional [place] Measure 0=Not Assessed/NA 4=Minimal Assistance 1=Total Assistance 5=Supervision or Setup 2=Maximal Assistance 6=Modified [place] 3=Moderate Assistance 7=Complete IndependenceIRFPAI Quality Coding Scale 6 Independent with activity with or without an assistive device 5 Patient requires set up or clean up by helper. Patient completes activity by themselves 4 Supervision or touching assist (CGA). [place] provide cues , steadying assist 3 The helper provides less than half the effort to complete the activity 2 The helper provides more than half the effort to complete the activity 1 Dependent. The helper does all the effort to complete an activity 7 Patient refused to complete or attempt activity 9 The patient did not perform the activity before the current illness or injury 88 Not attempted due to Medical conditions or safety concerns Bathing (FIM): 5 Bathing Location: L Arm, R Arm, L Upper Leg, R Upper Leg, L Lower Leg ( including foot), R Lower Leg (including foot), Chest, Abdomen, Buttocks, Perineal Area Upper Body (FIM): 5 Upper Body Dressing (QC): 5 Lower Body Dressing (FIM): 5 Lower Body Dressing (QC): 5 Toileting (FIM): 4 Transfers (B, C, W/C) (FIM): 5 Toilet/Commode Transfer (FIM): 5 Toilet Transfer (QC): 4 Shower Transfer(FIM): 5 Shower/Bathe Self (QC): 5 Other Treatment Pt walked to gym, FWW, CGA. Pt worked on shoulder, arm strengthening using arc activity by completing 3 sets bilat. Nut & bolt activity for strengthening UE for transfers. Pt walked back to room, FWW, CGA. Pt left sitting in recliner, call light in reach. All needs met. present. Education OT Patient Education: Exercise program, Progress toward Goal/Update tx plan, Purpose of tx/functional activities Teaching Recipient: Patient Teaching Methods: Discussion Response to Teaching: Verbalize Understanding, Return Demonstration OT Short Term Goals Short Term Goals Time Frame: Sep 10, 2016 Grooming(FIM): 5 Bathing(FIM): 5 Upper Body Dressing(FIM): 5 Lower Body Dressing(FIM): 5 Toileting(FIM): 5 Transfers (B,C,W/C) (FIM): 5 Toilet/Commode Transfer(FIM): 5 Shower Transfer(FIM): 5 Additional Short Term Goals: 2-Verbalize Understanding, 3-ImproveStrength/Chip 1=Demonstrate adherence to instructed precautions during ADL tasks. 2=Patient will verbalize/demonstrate understanding of assistive devices/ modifications for ADL. 3=Patient will improve strength/tolerance for activity to enable patient to perform ADL's. OT Usp Goals Hardware Installer Goals Time Frame: Sep 24, 2016 Eating (FIM): 7 ("There is nothing I can't eat") Eating (QC): 6 Oral Hygiene (QC): 6 Grooming(FIM): 6 Bathing(FIM): 6 Shower/Bathe Self (QC): 6 Upper Body Dressing(FIM): 6 Upper Body Dressing (QC): 6 Lower Body Dressing(FIM): 6 Lower Body Dressing (QC): 6 On/Off Footwear (QC): 6 Toileting(FIM): 6 Toileting Hygiene (QC): 6 Toilet/Commode Transfer(FIM): 6 Toilet/Commode Transfer (QC): 6 Shower Transfer(FIM): 6 Increase bilat UE strength to 5/5 to help with ADLs and transfers Increase functional vision L visual field Additional Goals: 2-Verbalize Understanding, 3-ImproveStrength/Chip 1=Demonstrate adherence to instructed precautions during ADL tasks. 2=Patient will verbalize/demonstrate understanding of assistive devices/ modifications for ADL. 3=Patient will improve strength/tolerance for activity to enable patient to perform ADL's. OT Education/Plan Problem List/Assessment Pt would benefit from skilled OT to increase his independence in basic self care to allow him to safely return home to live with his and to decrease caregiver burden Discharge Recommendations Plan/Recommendations: Continue POC Treatment Plan/Plan of Care Patient would benefit from OT for education, treatment and training to promote independence in ADL's, mobility, safety and/or upper extremity function for ADL' s. Plan of Care: ADL Retraining, Caregiver Training, Functional Mobility, Group Exercise/Act as Ind (educaiton, exercise, socialization, activity tolerance, functional activities), UE Funct Exercise/Act, UE Neuromus Re-Ed/Coord, Visual/ Perceptual Retrain Treatment Duration: Sep 24, 2016 Visits Per Week: 10-11 Minutes/Day (M-F): 75-90 Minutes/Day (Sat/Robin): PRN Agreement: Yes Rehab Potential: Good Time/GCodes Start Time: 10:30 Stop Time: 11:30 Total Time Billed (hr/min): 60 Billed Treatment Time visit, ADL 40 min, EX 20 min KAEL LEY OT Aug 30, 2016 11:41
--- NOTE | 2016-08-30 14:03 | Physical Therapy Daily Note ---
PT Daily Note-Current Subjective Agrees to PT. Mental Status Patient Orientation: Person, Confused (somewhat noted), Place, Time, Situation Transfers Functional [place] Measure 0=Not Assessed/NA 4=Minimal Assistance 1=Total Assistance 5=Supervision or Setup 2=Maximal Assistance 6=Modified [place] 3=Moderate Assistance 7=Complete IndependenceIRFPAI Quality Coding Scale 6 Independent with activity with or without an assistive device 5 Patient requires set up or clean up by helper. Patient completes activity by themselves 4 Supervision or touching assist (CGA). [place] provide cues , steadying assist 3 The helper provides less than half the effort to complete the activity 2 The helper provides more than half the effort to complete the activity 1 Dependent. The helper does all the effort to complete an activity 7 Patient refused to complete or attempt activity 9 The patient did not perform the activity before the current illness or injury 88 Not attempted due to Medical conditions or safety concerns Pt is SBA with sit to/from stand all attempts but needs skilled cues and reminders for correct use of hands. Multiple transfers during treatment. Gait Training Pt ambulated >500 ft wtih FWW in halls with SBA and intermittent cues for direction. Pt ambulated up/down sloped stahl in the hospital with FWW with SBA. Focused on attention to the left and had pt use signage and scanning to find different areas of the hospital and to use the elevator correctly (pt pushing the buttons, etc.). Exercises Standing: Hip Abduction, Hamstring curls, Heel/toe raises, Marching, Mini squats Standing Reps: 15 Assessment Current Status: Good Progress Diminished safety awareness persists, needs cues and direction to attend to the left. Needs cues to use signage to find different locations and to use elevator buttons. Pt pleasant and cooperative. Pt is impulsive. PT Short Term Goals Short Term Goals Time Frame: Sep 10, 2016 Transfers (B,C,W/C) (FIM): 5 Gait (FIM): 5 Distance (FIM): 3=150 ft Stairs (FIM): 2 # of Steps: 8 PT Janitor Custodian Goals Janitor Custodian Goals PT Janitor Custodian Goals Time Frame: Sep 24, 2016 Transfers (B,C,W/C) (FIM): 6 Sit to Lying (QC): 6 Lying-Sitting on Side/Bed(QC): 6 Sit to Stand (QC): 6 Rollin Roll Left to Right (QC): 6 Chair/Kvj-um-Geutq Xfer(QC): 6 Car Transfer (QC): 6 Does the Patient Walk: Yes Gait (FIM): 6 Gait distance (FIM): 3=150 ft Walk 10 feet (QC): 6 Walk 10ft-Uneven Surface(QC): 6 Walk 50ft with 2 Turns (QC): 6 Walk 150 ft (QC): 6 Gait Level of Assist: 6 Gait Assistive Device: FWW Stairs (FIM): 6 # of Steps: 12 1 Step (curb) (QC): 6 4 Steps (QC): 6 12 Steps (QC): 6 Stairs Level Of Assist: 6 Picking up an Object (QC): 6 PT Plan Problem List Problem List: Activity Tolerance, Functional Strength, Safety, Balance, Gait Treatment/Plan Treatment Plan: Continue Plan of Care Treatment Plan: Bed Mobility, Education, Functional Activity Chip, Functional Strength, Group Therapy, Gait, Safety, Therapeutic Exercise, Transfers Treatment Duration: Sep 24, 2016 Visits Per Week: 10-15 Minutes/Day (M-F): 60-90 Minutes/Day (Sat/Robin): prn Safety Risks/Education Patient Education: Transfer Techniques, Safety Issues Teaching Recipient: Patient Teaching Methods: Discussion Response to Teaching: Verbalize Understanding, Reinforcement Needed Time/GCodes Time In: 1245 Time Out: 1315 Total Billed Treatment Time: 30 Total Billed Treatment visit GT 30 MOISES MCMILLAN PT Aug 30, 2016 14:02
--- NOTE | 2016-08-30 15:20 | Occupational Ther Daily Note ---
OT Current Status-Daily Note Subjective Pt lying in bed. No pain mentioned. Agreeable to OT. Appearance Alert, cooperative Mental Status/Objective Functional [place] Measure 0=Not Assessed/NA 4=Minimal Assistance 1=Total Assistance 5=Supervision or Setup 2=Maximal Assistance 6=Modified [place] 3=Moderate Assistance 7=Complete [place] ADL-Treatment Functional [place] Measure 0=Not Assessed/NA 4=Minimal Assistance 1=Total Assistance 5=Supervision or Setup 2=Maximal Assistance 6=Modified [place] 3=Moderate Assistance 7=Complete IndependenceIRFPAI Quality Coding Scale 6 Independent with activity with or without an assistive device 5 Patient requires set up or clean up by helper. Patient completes activity by themselves 4 Supervision or touching assist (CGA). [place] provide cues , steadying assist 3 The helper provides less than half the effort to complete the activity 2 The helper provides more than half the effort to complete the activity 1 Dependent. The helper does all the effort to complete an activity 7 Patient refused to complete or attempt activity 9 The patient did not perform the activity before the current illness or injury 88 Not attempted due to Medical conditions or safety concerns Other Treatment Pt scooted to EOB with out help. Pt walked to gym, FWW, SBA. Pt did table top activity with blocks placed in L visual field for work on compensating to find objects. He also had difficulty distinguishing between the darker colors. Skilled cues needed to find the blocks.Pt walked back to room SBA FWW. left up in chair, present, all needs met. Education OT Patient Education: Progress toward Goal/Update tx plan, Purpose of tx/ functional activities Teaching Recipient: Patient Teaching Methods: Demonstration Response to Teaching: Verbalize Understanding, Return Demonstration OT Short Term Goals Short Term Goals Time Frame: Sep 10, 2016 Grooming(FIM): 5 Bathing(FIM): 5 Upper Body Dressing(FIM): 5 Lower Body Dressing(FIM): 5 Toileting(FIM): 5 Transfers (B,C,W/C) (FIM): 5 Toilet/Commode Transfer(FIM): 5 Shower Transfer(FIM): 5 Additional Short Term Goals: 2-Verbalize Understanding, 3-ImproveStrength/Chip 1=Demonstrate adherence to instructed precautions during ADL tasks. 2=Patient will verbalize/demonstrate understanding of assistive devices/ modifications for ADL. 3=Patient will improve strength/tolerance for activity to enable patient to perform ADL's. OT Motorcycle Police Goals Skilled Nursing Goals Time Frame: Sep 24, 2016 Eating (FIM): 7 ("There is nothing I can't eat") Eating (QC): 6 Oral Hygiene (QC): 6 Grooming(FIM): 6 Bathing(FIM): 6 Shower/Bathe Self (QC): 6 Upper Body Dressing(FIM): 6 Upper Body Dressing (QC): 6 Lower Body Dressing(FIM): 6 Lower Body Dressing (QC): 6 On/Off Footwear (QC): 6 Toileting(FIM): 6 Toileting Hygiene (QC): 6 Toilet/Commode Transfer(FIM): 6 Toilet/Commode Transfer (QC): 6 Shower Transfer(FIM): 6 Increase bilat UE strength to 5/5 to help with ADLs and transfers Increase functional vision L visual field Additional Goals: 2-Verbalize Understanding, 3-ImproveStrength/Chip 1=Demonstrate adherence to instructed precautions during ADL tasks. 2=Patient will verbalize/demonstrate understanding of assistive devices/ modifications for ADL. 3=Patient will improve strength/tolerance for activity to enable patient to perform ADL's. OT Education/Plan Problem List/Assessment Pt would benefit from skilled OT to increase his independence in basic self care to allow him to safely return home to live with his and to decrease caregiver burden Discharge Recommendations Plan/Recommendations: Continue POC Treatment Plan/Plan of Care Patient would benefit from OT for education, treatment and training to promote independence in ADL's, mobility, safety and/or upper extremity function for ADL' s. Plan of Care: ADL Retraining, Caregiver Training, Functional Mobility, Group Exercise/Act as Ind (educaiton, exercise, socialization, activity tolerance, functional activities), UE Funct Exercise/Act, UE Neuromus Re-Ed/Coord, Visual/ Perceptual Retrain Treatment Duration: Sep 24, 2016 Visits Per Week: 10-11 Minutes/Day (M-F): 75-90 Minutes/Day (Sat/Robin): PRN Agreement: Yes Rehab Potential: Good Time/GCodes Start Time: 14:00 Stop Time: 14:30 Total Time Billed (hr/min): 30 Billed Treatment Time visit, EX 30 min KAEL LEY OT Aug 30, 2016 15:19
[2016-08-30 17:56] VITALS: BP 157/89
--- NOTE | 2016-08-30 19:02 | PM & R (SOAP) Progress Note ---
Subjective Subjective/Events-last exam Patient was seen in his room this evening with spouse Patient calm Patient SBA for mobility has some impulsivity,Appreciate Dr Frances and diane notes Appreciate current labs Review of Systems Neurological: : Confusion: Incoordination: Weakness Objective Exam Last Set of Vital Signs Vital Signs Date Time Temp Pulse Resp B/P Pulse Ox O2 Delivery O2 Flow Rate FiO2 08/30/16 17:56 98.5 57 14 157/89 92 Room Air Capillary Refill : I&O Intake and Output 08/30/16 00:00 Intake Total 980 ml Balance 980 ml Intake Oral 980 ml # Voids 5 # Bowel Movements 3 General: Alert, Oriented X3, Cooperative, No Acute Distress HEENT: Atraumatic, PERRLA, EOMI, Mucous Memb Moist/[place], Other (incision site rt crani healing well no drainage) Neck: Supple, No JVD Lungs: Clear to Auscultation Heart: Regular Rate Abdomen: Normal Bowel Sounds, Soft, No Tenderness Extremities: No Edema Skin: Other (as per above) Neuro: Other (mild weakness on left and dyscoordination on left mild impulsivity) Results Lab Laboratory Tests 08/27/16 20:06: Glucometer 152H 08/28/16 05:19: Glucometer 232H, Alanine Aminotransferase (ALT/SGPT) 16, Albumin 3.0L, Alkaline Phosphatase 80, Anion Gap 9, Aspartate Amino Transf (AST/SGOT) 12, BUN/ Creatinine Ratio 24, Basophils # (Auto) 0.0, Basophils (%) (Auto) 0, Blood Urea Nitrogen 17, Calcium Level 8.7, Carbon Dioxide Level 28, Chloride Level 104, Creatinine 0.71, Eosinophils # (Auto) 0.0, Eosinophils (%) (Auto) 0, Estimat Glomerular Filtration Rate > 60, Glucose Level 245H, Hematocrit 35L, Hemoglobin 11.5L, Lymphocytes # (Auto) 0.8L, Lymphocytes (%) (Auto) 8L, Mean Corpuscular Hemoglobin 33, Mean Corpuscular Hemoglobin Concent 33, Mean Corpuscular Volume 99, Mean Platelet Volume 10.0, Monocytes # (Auto) 0.7, Monocytes (%) (Auto) 7, Neutrophils # (Auto) 8.2H, Neutrophils (%) (Auto) 85H, Platelet Count 165, Potassium Level 3.9, Red Blood Count 3.53L, Red Cell Distribution Width 13.1, Sodium Level 141, Total Bilirubin 0.3, Total Protein 5.1L, White Blood Count 9.7 08/28/16 11:51: Glucometer 203H 08/28/16 17:59: Glucometer 248H 08/28/16 20:27: Glucometer 222H 08/29/16 07:06: Glucometer 267H 08/29/16 12:01: Glucometer 216H 08/29/16 16:49: Glucometer 219H 08/29/16 20:35: Glucometer 277H 08/30/16 05:21: Glucometer 297H 08/30/16 11:04: Glucometer 253H 08/30/16 16:02: Glucometer 193H Assessment/Plan Assessment S/p rt occipital temporal crani for excision 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 ANDRÉS CARRION MD Aug 30, 2016 19:01
--- NOTE | 2016-08-30 19:13 | Individualized Plan of Care ---
Individualized Plan of Care Rehab Nursing IPOC Order Admission Date Aug 27, 2016 at 13:27 Current Orders Orders-ANDRÉS CARRION MD Magnesium Hydroxide Oral Susp (Mom Oral (08/29/16 08:45) Aspirin Enteric Coated Tablet (Ecotrin T (09/07/16 09:00) Heparin Injection (Heparin Injection) (08/30/16 06:00) Patient Visit (08/30/16 ) Gait Training, Ea 15 Min (08/30/16 ) Exercise Therap, Ea 15 Min (08/30/16 ) Ex Neuromuscular, Ea 15 Min (08/30/16 ) Patient Visit (08/30/16 ) Gait Training, Ea 15 Min (08/30/16 ) PT IPOC Problem List: Activity Tolerance, Functional Strength, Safety, Balance, Gait Treatment Plan: Continue Plan of Care Bed Mobility, Education, Functional Activity Chip, Functional Strength, Group Therapy, Gait, Safety, Therapeutic Exercise, Transfers Treatment Duration: Sep 24, 2016 Visits Per Week: 10-15 Minutes/Day (M-F): 60-90 Minutes/Day (Sat/Robin): prn OT IPOC Problems: Decreased Activ Tolerance, Decreased Safety Aware, Decreased UE Strength, Dependent Transfers, Impaired Coordination, Impaired Funct Balance, Impaired Self-Care Skills, Visual-Perceptual Deficit OT Problems Pt would benefit from skilled OT to increase his independence in basic self care to allow him to safely return home to live with his and to decrease caregiver burden Plan of Care: ADL Retraining, Caregiver Training, Functional Mobility, Group Exercise/Act as Ind (educaiton, exercise, socialization, activity tolerance, functional activities), UE Funct Exercise/Act, UE Neuromus Re-Ed/Coord, Visual/ Perceptual Retrain Treatment Duration: Sep 24, 2016 Visits Per Week: 10-11 Minutes/Day (M-F): 75-90 Minutes/Day (Sat/Robin): PRN ST IPOC Speech Therapy Treatment Plan: Discontinue ST (Eval, only.) Physician IPOC Medical Issues being managed closely and that require the 24 hour availability of a physician:DM HTN Medical Issues: DVT Prophylaxis, Falls Precautions, Fluid/Electrolyte/ Nutrition Balance, Infection Protection, Wound Care, Other (List) (as per above) Brief Synthesis of Preadmission Screen, Post-Admission Evaluation, and Therapy Evaluations: 71 yo male s/p crani and excision recurrent GBM at [facility] who has been followed at [facility] in the past referred here due to a decline in functional [place] .Lives with spouse in area Dr Zurita PCP On keppra for sz prophylaxis and Heparin SubCut for dvt prophylaxis Had been Independent prior to this.PMH DM and HTN Medical Prognosis: good Anticipated Length of Stay: 1 week Rehab Goals Modified Independent for adls and mobility skills Anticipated discharge destinat: Home with spouse ANDRÉS CARRION MD Aug 30, 2016 19:13
[2016-08-30] MEDS: FINASTERIDE (PROSCAR) 5 MG TAB PO SCH (20:29)
[2016-08-30] MEDS: SERTRALINE 50 MG (ZOLOFT) TABLET PO SCH (20:29)
[2016-08-30] MEDS: SIMvastatin 40 MG (ZOCOR) TAB PO SCH (20:29)
[2016-08-30] MEDS: MILK OF MAGNESIA 400 MG/5 ML 30 ML UDC PO PRN (20:37)
[2016-08-31] MEDS: metFORMIN 500 MG (GLUCOPHAGE) TAB PO SCH ×2 (05:55→17:14)
[2016-08-31] MEDS: PANTOPRAZOLE 40 MG (PROTONIX) TAB PO SCH (05:55)
[2016-08-31] MEDS: MULTIVIT W/MINERALS TAB (THERAGRAN M) PO SCH (05:55)
[2016-08-31] MEDS: inSUlin (REGULAR) HUMAN 1 UNIT/0.01 ML (CHARGE PER UNIT) SC SCH ×4 (05:55→21:01)
[2016-08-31 06:12] VITALS: BP 131/66
--- NOTE | 2016-08-31 08:04 | Occupational Ther Daily Note ---
OT Current Status-Daily Note Subjective Pt in bathroom with . stated that he had some diarrhea and she was getting him cleaned up. Pt agreed to therapy. No c/o pain at this time. Mental Status/Objective Patient Orientation: Person, Place, Time, Situation Functional [place] Measure 0=Not Assessed/NA 4=Minimal Assistance 1=Total Assistance 5=Supervision or Setup 2=Maximal Assistance 6=Modified [place] 3=Moderate Assistance 7=Complete [place] ADL-Treatment Pt completed bed mobility with mod I using bed rails. Pt requires cues to push up from surfaces. Functional [place] Measure 0=Not Assessed/NA 4=Minimal Assistance 1=Total Assistance 5=Supervision or Setup 2=Maximal Assistance 6=Modified [place] 3=Moderate Assistance 7=Complete IndependenceIRFPAI Quality Coding Scale 6 Independent with activity with or without an assistive device 5 Patient requires set up or clean up by helper. Patient completes activity by themselves 4 Supervision or touching assist (CGA). [place] provide cues , steadying assist 3 The helper provides less than half the effort to complete the activity 2 The helper provides more than half the effort to complete the activity 1 Dependent. The helper does all the effort to complete an activity 7 Patient refused to complete or attempt activity 9 The patient did not perform the activity before the current illness or injury 88 Not attempted due to Medical conditions or safety concerns Other Treatment Pt ambulated with CGA using FWW to therapy gym. Then completed arm bike 15 min at 20 eid resistance to increase use of B UE, strength and activity tolerance for daily functional skills. Pt then worked on hand strengthening and awareness of L side. Visual perceptual exercises completed, middle left quadrant deficit noted. Working on strategies to assist with visual difficulties. Pt ambulated back to room with FWW. After therapy, pt sitting in chair with present. All needs met in room. OT Short Term Goals Short Term Goals Time Frame: Sep 10, 2016 Grooming(FIM): 5 Bathing(FIM): 5 Upper Body Dressing(FIM): 5 Lower Body Dressing(FIM): 5 Toileting(FIM): 5 Transfers (B,C,W/C) (FIM): 5 Toilet/Commode Transfer(FIM): 5 Shower Transfer(FIM): 5 Additional Short Term Goals: 2-Verbalize Understanding, 3-ImproveStrength/Chip 1=Demonstrate adherence to instructed precautions during ADL tasks. 2=Patient will verbalize/demonstrate understanding of assistive devices/ modifications for ADL. 3=Patient will improve strength/tolerance for activity to enable patient to perform ADL's. OT Nylon Operator Goals Nylon Operator Goals Time Frame: Sep 24, 2016 Eating (FIM): 7 ("There is nothing I can't eat") Eating (QC): 6 Oral Hygiene (QC): 6 Grooming(FIM): 6 Bathing(FIM): 6 Shower/Bathe Self (QC): 6 Upper Body Dressing(FIM): 6 Upper Body Dressing (QC): 6 Lower Body Dressing(FIM): 6 Lower Body Dressing (QC): 6 On/Off Footwear (QC): 6 Toileting(FIM): 6 Toileting Hygiene (QC): 6 Toilet/Commode Transfer(FIM): 6 Toilet/Commode Transfer (QC): 6 Shower Transfer(FIM): 6 Increase bilat UE strength to 5/5 to help with ADLs and transfers Increase functional vision L visual field Additional Goals: 2-Verbalize Understanding, 3-ImproveStrength/Chip 1=Demonstrate adherence to instructed precautions during ADL tasks. 2=Patient will verbalize/demonstrate understanding of assistive devices/ modifications for ADL. 3=Patient will improve strength/tolerance for activity to enable patient to perform ADL's. OT Education/Plan Problem List/Assessment Pt would benefit from skilled OT to increase his independence in basic self care to allow him to safely return home to live with his and to decrease caregiver burden Discharge Recommendations Plan/Recommendations: Continue POC Treatment Plan/Plan of Care Patient would benefit from OT for education, treatment and training to promote independence in ADL's, mobility, safety and/or upper extremity function for ADL' s. Plan of Care: ADL Retraining, Caregiver Training, Functional Mobility, Group Exercise/Act as Ind (educaiton, exercise, socialization, activity tolerance, functional activities), UE Funct Exercise/Act, UE Neuromus Re-Ed/Coord, Visual/ Perceptual Retrain Treatment Duration: Sep 24, 2016 Visits Per Week: 10-11 Minutes/Day (M-F): 75-90 Minutes/Day (Sat/Robin): PRN Agreement: Yes Rehab Potential: Good Time/GCodes Start Time: 08:00 Stop Time: 09:00 Total Time Billed (hr/min): 60 Billed Treatment Time 1 visit-EX 4 (60 min) MOISES INTERIANO Aug 31, 2016 08:04
--- NOTE | 2016-08-31 08:40 | Progress Note (SOAP) ---
Subjective Subjective/Events-last exam GLIOBLASTOMA MULTIFORM HE. pATIENT SUGARS ELEVATED DUE TO dECADRON.. Patient on sliding scale a with diabetes. Patient feeling good and voices no complaints Objective Exam Vital Signs Date Time Temp Pulse Resp B/P Pulse Ox O2 Delivery O2 Flow Rate FiO2 08/31/16 06:12 97.2 59 18 131/66 94 Room Air 08/30/16 20:30 Room Air 08/30/16 17:56 98.5 57 14 157/89 92 Room Air 08/30/16 09:00 Room Air I & O 08/31/16 07:00 Intake Total 1200 ml Balance 1200 ml Capillary Refill : General Appearance: No Apparent Distress WD/WN Respiratory: Chest Non Tender Lungs Clear Normal Breath Sounds No Accessory Muscle Use No Respiratory Distress Cardiovascular: Regular Rate, Rhythm Results Lab Laboratory Tests 08/30/16 11:04: Glucometer 253H 08/30/16 16:02: Glucometer 193H 08/30/16 20:27: Glucometer 287H 08/31/16 05:47: Glucometer 230H Assessment/Plan Assessment/Plan Assess & Plan/Chief Complaint weakness. Glioblastoma multiform I. Diabetes. Hypertension. Hyperlipidemia. . 08/31/16. Glioblastoma multiforme. Diabetes on Decadron. Patient on insulin sliding scale a. Patient voices no complaints Diagnosis/Problems: Clinical Quality Measures DVT/VTE Risk/Contraindication: Risk Factor Score Per Nursin RFS Level Per Nursing on Admit: 4+=Very High EDMOND GRIER DO Aug 31, 2016 08:40
[2016-08-31] MEDS: LEVETIRACETAM 500 MG (KEPPRA) TAB PO SCH ×2 (08:47→21:01)
[2016-08-31] MEDS: SENNA W/DOCUSATE (SENOKOT S) TABLET PO SCH ×2 (08:47→21:01)
[2016-08-31] MEDS: DEXAMETHASONE 4 MG TAB (DECADRON) PO SCH ×2 (08:47→21:01)
--- NOTE | 2016-08-31 10:01 | Physical Therapy Daily Note ---
PT Daily Note-Current Subjective Patient in recliner pre tx, agrees to PT, pleasant and cooperative. Pain Numeric Pain Scale: 0-No Pain Appearance Patient in recliner post tx, has nurse call, in the room, all needs met. Mental Status Patient Orientation: Person, Place, Situation Transfers Functional [place] Measure 0=Not Assessed/NA 4=Minimal Assistance 1=Total Assistance 5=Supervision or Setup 2=Maximal Assistance 6=Modified [place] 3=Moderate Assistance 7=Complete IndependenceIRFPAI Quality Coding Scale 6 Independent with activity with or without an assistive device 5 Patient requires set up or clean up by helper. Patient completes activity by themselves 4 Supervision or touching assist (CGA). [place] provide cues , steadying assist 3 The helper provides less than half the effort to complete the activity 2 The helper provides more than half the effort to complete the activity 1 Dependent. The helper does all the effort to complete an activity 7 Patient refused to complete or attempt activity 9 The patient did not perform the activity before the current illness or injury 88 Not attempted due to Medical conditions or safety concerns Transfers (B, C, W/C) (FIM): 5 Sit to/from Stand: 5 Patient did much better with safety awareness and hand placement Gait Training Gait (FIM): 5 Distance: 600'x2 Gait Level of Assist: 5 Gait Persons Needed: 1 Gait Assistive Device: FWW needs occasional cues for direction, did better with avoiding obstacles Stair Training Stair Training: Handrails/: 2 handrails Stairs (FIM): 5 #of Steps: 12 Stairs: Pattern: Step to Level of Assist: 5 Exercises Standing: Hip Abduction, Hamstring curls, Heel/toe raises, Marching, Mini squats, Step-ups Standing Reps: 20 NuStep Minutes: 15 NuStep Workload: 5 Neuromuscular balance activity finding cones around the room, 6 cones, no walker, performed the activity twice Assessment Current Status: Fair Progress improving balance and mobility PT Short Term Goals Short Term Goals Time Frame: Sep 10, 2016 Transfers (B,C,W/C) (FIM): 5 Gait (FIM): 5 Distance (FIM): 3=150 ft Stairs (FIM): 2 # of Steps: 8 PT Building Dismantler Goals Building Dismantler Goals PT Chcf Goals Time Frame: Sep 24, 2016 Transfers (B,C,W/C) (FIM): 6 Sit to Lying (QC): 6 Lying-Sitting on Side/Bed(QC): 6 Sit to Stand (QC): 6 Rollin Roll Left to Right (QC): 6 Chair/[id number] Xfer(QC): 6 Car Transfer (QC): 6 Does the Patient Walk: Yes Gait (FIM): 6 Gait distance (FIM): 3=150 ft Walk 10 feet (QC): 6 Walk 10ft-Uneven Surface(QC): 6 Walk 50ft with 2 Turns (QC): 6 Walk 150 ft (QC): 6 Gait Level of Assist: 6 Gait Assistive Device: FWW Stairs (FIM): 6 # of Steps: 12 1 Step (curb) (QC): 6 4 Steps (QC): 6 12 Steps (QC): 6 Stairs Level Of Assist: 6 Picking up an Object (QC): 6 PT Plan Problem List Problem List: Activity Tolerance, Functional Strength, Safety, Balance, Gait, Transfer Treatment/Plan Treatment Plan: Continue Plan of Care Treatment Plan: Bed Mobility, Education, Functional Activity Chip, Functional Strength, Group Therapy, Gait, Safety, Therapeutic Exercise, Transfers Treatment Duration: Sep 24, 2016 Visits Per Week: 10-15 Minutes/Day (M-F): 60-90 Minutes/Day (Sat/Robin): prn Safety Risks/Education Patient Education: Gait Training, Transfer Techniques, Steps, Safety Issues Teaching Recipient: Patient Teaching Methods: Demonstration, Discussion Response to Teaching: Reinforcement Needed Time/GCodes Time In: 900 Time Out: 1000 Total Billed Treatment Time: 60 Total Billed Treatment 1 visit EX 30 min NM 15 min GT 15 min SACHIN WAGNER PT Aug 31, 2016 10:01
--- NOTE | 2016-08-31 12:49 | Occupational Ther Daily Note ---
OT Current Status-Daily Note Subjective Pt sitting in bed visiting with friends. Pt agreed to therapy. No c/o pain. Mental Status/Objective Patient Orientation: Person, Place, Time, Situation Functional [place] Measure 0=Not Assessed/NA 4=Minimal Assistance 1=Total Assistance 5=Supervision or Setup 2=Maximal Assistance 6=Modified [place] 3=Moderate Assistance 7=Complete [place] ADL-Treatment Functional [place] Measure 0=Not Assessed/NA 4=Minimal Assistance 1=Total Assistance 5=Supervision or Setup 2=Maximal Assistance 6=Modified [place] 3=Moderate Assistance 7=Complete IndependenceIRFPAI Quality Coding Scale 6 Independent with activity with or without an assistive device 5 Patient requires set up or clean up by helper. Patient completes activity by themselves 4 Supervision or touching assist (CGA). [place] provide cues , steadying assist 3 The helper provides less than half the effort to complete the activity 2 The helper provides more than half the effort to complete the activity 1 Dependent. The helper does all the effort to complete an activity 7 Patient refused to complete or attempt activity 9 The patient did not perform the activity before the current illness or injury 88 Not attempted due to Medical conditions or safety concerns Other Treatment Pt was able to get out of bed by self using bed rails. Pt ambulated with CGA using FWW. Pt working on retaining 2 step directions then problem solving how to use signs and maps to navigate hospital. Required cues to look for specific signs and look to the left. Pt is able to retain 1 step directions without difficulty. OT then discussed with pt different strategies for L neglect and observation of environment. After therapy, pt in room sitting in recliner with present. Call light/phone within reach. All needs met in room. OT Short Term Goals Short Term Goals Time Frame: Sep 10, 2016 Grooming(FIM): 5 Bathing(FIM): 5 Upper Body Dressing(FIM): 5 Lower Body Dressing(FIM): 5 Toileting(FIM): 5 Transfers (B,C,W/C) (FIM): 5 Toilet/Commode Transfer(FIM): 5 Shower Transfer(FIM): 5 Additional Short Term Goals: 2-Verbalize Understanding, 3-ImproveStrength/Chip 1=Demonstrate adherence to instructed precautions during ADL tasks. 2=Patient will verbalize/demonstrate understanding of assistive devices/ modifications for ADL. 3=Patient will improve strength/tolerance for activity to enable patient to perform ADL's. OT Dental Appliance Repairer Goals Dental Appliance Repairer Goals Time Frame: Sep 24, 2016 Eating (FIM): 7 ("There is nothing I can't eat") Eating (QC): 6 Oral Hygiene (QC): 6 Grooming(FIM): 6 Bathing(FIM): 6 Shower/Bathe Self (QC): 6 Upper Body Dressing(FIM): 6 Upper Body Dressing (QC): 6 Lower Body Dressing(FIM): 6 Lower Body Dressing (QC): 6 On/Off Footwear (QC): 6 Toileting(FIM): 6 Toileting Hygiene (QC): 6 Toilet/Commode Transfer(FIM): 6 Toilet/Commode Transfer (QC): 6 Shower Transfer(FIM): 6 Increase bilat UE strength to 5/5 to help with ADLs and transfers Increase functional vision L visual field Additional Goals: 2-Verbalize Understanding, 3-ImproveStrength/Chip 1=Demonstrate adherence to instructed precautions during ADL tasks. 2=Patient will verbalize/demonstrate understanding of assistive devices/ modifications for ADL. 3=Patient will improve strength/tolerance for activity to enable patient to perform ADL's. OT Education/Plan Problem List/Assessment Pt would benefit from skilled OT to increase his independence in basic self care to allow him to safely return home to live with his and to decrease caregiver burden Discharge Recommendations Plan/Recommendations: Continue POC Treatment Plan/Plan of Care Patient would benefit from OT for education, treatment and training to promote independence in ADL's, mobility, safety and/or upper extremity function for ADL' s. Plan of Care: ADL Retraining, Caregiver Training, Functional Mobility, Group Exercise/Act as Ind (educaiton, exercise, socialization, activity tolerance, functional activities), UE Funct Exercise/Act, UE Neuromus Re-Ed/Coord, Visual/ Perceptual Retrain Treatment Duration: Sep 24, 2016 Visits Per Week: 10-11 Minutes/Day (M-F): 75-90 Minutes/Day (Sat/Robin): PRN Agreement: Yes Rehab Potential: Good Time/GCodes Start Time: 11:25 Stop Time: 11:55 Total Time Billed (hr/min): 30 Billed Treatment Time 1 visit-FA 2 (30 min) MOISES INTERIANO Aug 31, 2016 12:49
--- NOTE | 2016-08-31 14:02 | Physical Therapy Daily Note ---
PT Daily Note-Current Subjective Patient in bed pre tx, agrees to PT, no complaints. Pain Numeric Pain Scale: 0-No Pain Appearance Patient in bed post tx, with nurse call, phone, tray, all needs met, bed alarm on, not in the room. Mental Status Patient Orientation: Person, Place, Situation Transfers Functional [place] Measure 0=Not Assessed/NA 4=Minimal Assistance 1=Total Assistance 5=Supervision or Setup 2=Maximal Assistance 6=Modified [place] 3=Moderate Assistance 7=Complete IndependenceIRFPAI Quality Coding Scale 6 Independent with activity with or without an assistive device 5 Patient requires set up or clean up by helper. Patient completes activity by themselves 4 Supervision or touching assist (CGA). [place] provide cues , steadying assist 3 The helper provides less than half the effort to complete the activity 2 The helper provides more than half the effort to complete the activity 1 Dependent. The helper does all the effort to complete an activity 7 Patient refused to complete or attempt activity 9 The patient did not perform the activity before the current illness or injury 88 Not attempted due to Medical conditions or safety concerns Transfers (B, C, W/C) (FIM): 5 Scootin Rollin Supine to/from Sit: 6 Sit to/from Stand: 5 Gait Training Gait (FIM): 5 Distance: 600'x2 Gait Level of Assist: 5 Gait Persons Needed: 1 Gait Assistive Device: FWW Patient also ambulated 400' with CGA using a single point cane. Patient needed a lot of cues for direction due to his left neglect this afternoon. Treatments bed mobility and transfers, ambulation Assessment Current Status: Fair Progress improving endurance and ambulation PT Short Term Goals Short Term Goals Time Frame: Sep 10, 2016 Transfers (B,C,W/C) (FIM): 5 Gait (FIM): 5 Distance (FIM): 3=150 ft Stairs (FIM): 2 # of Steps: 8 PT Atomic [employer] Teacher Goals Atomic [employer] Teacher Goals PT Senior Care Goals Time Frame: Sep 24, 2016 Transfers (B,C,W/C) (FIM): 6 Sit to Lying (QC): 6 Lying-Sitting on Side/Bed(QC): 6 Sit to Stand (QC): 6 Rollin Roll Left to Right (QC): 6 Chair/Eub-xl-Zfiuf Xfer(QC): 6 Car Transfer (QC): 6 Does the Patient Walk: Yes Gait (FIM): 6 Gait distance (FIM): 3=150 ft Walk 10 feet (QC): 6 Walk 10ft-Uneven Surface(QC): 6 Walk 50ft with 2 Turns (QC): 6 Walk 150 ft (QC): 6 Gait Level of Assist: 6 Gait Assistive Device: FWW Stairs (FIM): 6 # of Steps: 12 1 Step (curb) (QC): 6 4 Steps (QC): 6 12 Steps (QC): 6 Stairs Level Of Assist: 6 Picking up an Object (QC): 6 PT Plan Problem List Problem List: Activity Tolerance, Functional Strength, Safety, Balance, Gait, Transfer Treatment/Plan Treatment Plan: Continue Plan of Care Treatment Plan: Bed Mobility, Education, Functional Activity Chip, Functional Strength, Group Therapy, Gait, Safety, Therapeutic Exercise, Transfers Treatment Duration: Sep 24, 2016 Visits Per Week: 10-15 Minutes/Day (M-F): 60-90 Minutes/Day (Sat/Robin): prn Safety Risks/Education Patient Education: Gait Training, Transfer Techniques, Safety Issues Teaching Recipient: Patient Teaching Methods: Demonstration, Discussion Response to Teaching: Reinforcement Needed Time/GCodes Time In: 1330 Time Out: 1400 Total Billed Treatment Time: 30 Total Billed Treatment 1 visit GT 30 min SACHIN WAGNER PT Aug 31, 2016 14:02
[2016-08-31 18:02] VITALS: BP 127/71
--- NOTE | 2016-08-31 18:13 | PM & R (SOAP) Progress Note ---
Subjective Subjective/Events-last exam Patient was seen in his room this noonhour Progressing well with therapies DM fairly well controlled Accuchecks notes Crani site healing well. Patient SBA for transfers Objective Exam Last Set of Vital Signs Vital Signs Date Time Temp Pulse Resp B/P Pulse Ox O2 Delivery O2 Flow Rate FiO2 08/31/16 09:00 Room Air 08/31/16 06:12 97.2 59 18 131/66 94 Capillary Refill : I&O Intake and Output 08/31/16 00:00 Intake Total 1310 ml Balance 1310 ml Intake Oral 1310 ml # Voids 7 General: Alert, Oriented X3, Cooperative, No Acute Distress HEENT: Atraumatic, PERRLA, EOMI, Mucous Memb Moist/[place], Other (incision site rt crani healing well no drainage) Neck: Supple, No JVD Lungs: Clear to Auscultation Heart: Regular Rate Abdomen: Normal Bowel Sounds, Soft, No Tenderness Extremities: No Edema Skin: Other (as per above) Neuro: Other (mild weakness on left and dyscoordination on left mild impulsivity) Results Lab Laboratory Tests 08/28/16 20:27: Glucometer 222H 08/29/16 07:06: Glucometer 267H 08/29/16 12:01: Glucometer 216H 08/29/16 16:49: Glucometer 219H 08/29/16 20:35: Glucometer 277H 08/30/16 05:21: Glucometer 297H 08/30/16 11:04: Glucometer 253H 08/30/16 16:02: Glucometer 193H 08/30/16 20:27: Glucometer 287H 08/31/16 05:47: Glucometer 230H 08/31/16 11:01: Glucometer 169H 08/31/16 15:56: Glucometer 245H Assessment/Plan Assessment S/p rt occipital temporal crani for excision 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 Monitor accuchecks and adjust meds as needed. ANDRÉS CARRION MD Aug 31, 2016 18:13
[2016-08-31] MEDS: FINASTERIDE (PROSCAR) 5 MG TAB PO SCH (21:01)
[2016-08-31] MEDS: SERTRALINE 50 MG (ZOLOFT) TABLET PO SCH (21:01)
[2016-08-31] MEDS: SIMvastatin 40 MG (ZOCOR) TAB PO SCH (21:01)
[2016-09-01 05:46] VITALS: BP 123/69
[2016-09-01] MEDS: inSUlin (REGULAR) HUMAN 1 UNIT/0.01 ML (CHARGE PER UNIT) SC SCH ×4 (06:18→21:11)
[2016-09-01] MEDS: metFORMIN 500 MG (GLUCOPHAGE) TAB PO SCH ×2 (06:18→16:47)
[2016-09-01] MEDS: MULTIVIT W/MINERALS TAB (THERAGRAN M) PO SCH (06:18)
[2016-09-01] MEDS: PANTOPRAZOLE 40 MG (PROTONIX) TAB PO SCH (06:18)
--- NOTE | 2016-09-01 07:56 | Occupational Ther Daily Note ---
OT Current Status-Daily Note Subjective Pt alert, lying in bed. present in room. Pt agreed to therapy. No c/o pain. Mental Status/Objective Patient Orientation: Person, Place, Time, Situation Functional [place] Measure 0=Not Assessed/NA 4=Minimal Assistance 1=Total Assistance 5=Supervision or Setup 2=Maximal Assistance 6=Modified [place] 3=Moderate Assistance 7=Complete [place] ADL-Treatment Pt's stated that he has been going to the bathroom without FWW and assisting. Pt agreed to shower today and requested to shave. Pt was able to set self up for shaving while sitting at sink. Pt able to shave though inefficient, OT finished. After therapy, pt lying in bed with call light/phone in reach. All needs met in room. Functional [place] Measure 0=Not Assessed/NA 4=Minimal Assistance 1=Total Assistance 5=Supervision or Setup 2=Maximal Assistance 6=Modified [place] 3=Moderate Assistance 7=Complete IndependenceIRFPAI Quality Coding Scale 6 Independent with activity with or without an assistive device 5 Patient requires set up or clean up by helper. Patient completes activity by themselves 4 Supervision or touching assist (CGA). [place] provide cues , steadying assist 3 The helper provides less than half the effort to complete the activity 2 The helper provides more than half the effort to complete the activity 1 Dependent. The helper does all the effort to complete an activity 7 Patient refused to complete or attempt activity 9 The patient did not perform the activity before the current illness or injury 88 Not attempted due to Medical conditions or safety concerns Grooming (FIM): 4 (Sitting at sink, assist for shaving able to complete all other grooming skills.) Bathing (FIM): 5 (Using shower bench, grabbars and hand held shower pt is able to bathe self when sitting on bench then when standing close SBA while pt uses grabbars.) Bathing Location: L Arm, R Arm, L Upper Leg, R Upper Leg, L Lower Leg ( including foot), R Lower Leg (including foot), Chest, Abdomen, Buttocks, Perineal Area Upper Body (FIM): 5 (After set up, pt is able to don/doff shirt by self.) Lower Body Dressing (FIM): 5 (After set up, pt is able to don/doff lower body clothing with SBA. Pt is able to don/doff shoes and socks by self.) Toileting (FIM): 5 (Using grabbar, pt is able to complete toileting with SBA when manipulating pants.) Transfers (B, C, W/C) (FIM): 5 (Close SBA with transfers, pt does demonstrate unsteadiness on feet, but able to right self.) Toilet/Commode Transfer (FIM): 5 (Using grabbars pt completes with close SBA.) Shower Transfer(FIM): 5 (Using grabbars and shower bench, pt is able to complete transfer with close SBA.) OT Short Term Goals Short Term Goals Time Frame: Sep 10, 2016 Grooming(FIM): 5 Bathing(FIM): 5 Upper Body Dressing(FIM): 5 Lower Body Dressing(FIM): 5 Toileting(FIM): 5 Transfers (B,C,W/C) (FIM): 5 Toilet/Commode Transfer(FIM): 5 Shower Transfer(FIM): 5 Additional Short Term Goals: 2-Verbalize Understanding, 3-ImproveStrength/Chip 1=Demonstrate adherence to instructed precautions during ADL tasks. 2=Patient will verbalize/demonstrate understanding of assistive devices/ modifications for ADL. 3=Patient will improve strength/tolerance for activity to enable patient to perform ADL's. OT Halfway Goals Halfway Goals Time Frame: Sep 24, 2016 Eating (FIM): 7 ("There is nothing I can't eat") Eating (QC): 6 Oral Hygiene (QC): 6 Grooming(FIM): 6 Bathing(FIM): 6 Shower/Bathe Self (QC): 6 Upper Body Dressing(FIM): 6 Upper Body Dressing (QC): 6 Lower Body Dressing(FIM): 6 Lower Body Dressing (QC): 6 On/Off Footwear (QC): 6 Toileting(FIM): 6 Toileting Hygiene (QC): 6 Toilet/Commode Transfer(FIM): 6 Toilet/Commode Transfer (QC): 6 Shower Transfer(FIM): 6 Increase bilat UE strength to 5/5 to help with ADLs and transfers Increase functional vision L visual field Additional Goals: 2-Verbalize Understanding, 3-ImproveStrength/Chip 1=Demonstrate adherence to instructed precautions during ADL tasks. 2=Patient will verbalize/demonstrate understanding of assistive devices/ modifications for ADL. 3=Patient will improve strength/tolerance for activity to enable patient to perform ADL's. OT Education/Plan Problem List/Assessment Pt would benefit from skilled OT to increase his independence in basic self care to allow him to safely return home to live with his and to decrease caregiver burden Discharge Recommendations Plan/Recommendations: Continue POC Treatment Plan/Plan of Care Patient would benefit from OT for education, treatment and training to promote independence in ADL's, mobility, safety and/or upper extremity function for ADL' s. Plan of Care: ADL Retraining, Caregiver Training, Functional Mobility, Group Exercise/Act as Ind (educaiton, exercise, socialization, activity tolerance, functional activities), UE Funct Exercise/Act, UE Neuromus Re-Ed/Coord, Visual/ Perceptual Retrain Treatment Duration: Sep 24, 2016 Visits Per Week: 10-11 Minutes/Day (M-F): 75-90 Minutes/Day (Sat/Robin): PRN Agreement: Yes Rehab Potential: Good Time/GCodes Start Time: 07:00 Stop Time: 08:00 Total Time Billed (hr/min): 60 Billed Treatment Time 1 visit-ADL 4 (60 min) MOISES INTERIANO Sep 01, 2016 07:56
[2016-09-01] MEDS: LEVETIRACETAM 500 MG (KEPPRA) TAB PO SCH ×2 (08:34→21:04)
[2016-09-01] MEDS: SENNA W/DOCUSATE (SENOKOT S) TABLET PO SCH ×2 (08:34→21:04)
[2016-09-01] MEDS: DEXAMETHASONE 4 MG TAB (DECADRON) PO SCH ×2 (08:35→21:05)
--- NOTE | 2016-09-01 08:47 | Progress Note (SOAP) ---
Subjective Subjective/Events-last exam glioblastoma multiform E. Patient getting around better. Patient using a walker to get around. Patient voices no complaints Objective Exam Vital Signs Date Time Temp Pulse Resp B/P Pulse Ox O2 Delivery O2 Flow Rate FiO2 09/01/16 05:46 97.0 57 18 123/69 94 Room Air 08/31/16 20:55 Room Air 08/31/16 18:02 97.9 63 16 127/71 94 Room Air 08/31/16 09:00 Room Air I & O 09/01/16 06:59 Intake Total 1050 ml Balance 1050 ml Capillary Refill : General Appearance: No Apparent Distress Thin Results Lab Laboratory Tests 08/31/16 11:01: Glucometer 169H 08/31/16 15:56: Glucometer 245H 08/31/16 20:57: Glucometer 224H 09/01/16 05:42: Glucometer 232H Assessment/Plan Assessment/Plan Assess & Plan/Chief Complaint weakness. Glioblastoma multiform I. Diabetes. Hypertension. Hyperlipidemia. . 08/31/16. Glioblastoma multiforme. Diabetes on Decadron. Patient on insulin sliding scale a. Patient voices no complaints. . 09/01/16. Glioblastoma multiform a. Patient to go on insulin sliding scale the. Patient getting around with a walker. Patient improving Diagnosis/Problems: Clinical Quality Measures DVT/VTE Risk/Contraindication: Risk Factor Score Per Nursin RFS Level Per Nursing on Admit: 4+=Very High EDMOND GRIER DO Sep 01, 2016 08:47
--- NOTE | 2016-09-01 09:00 | Physical Therapy Daily Note ---
PT Daily Note-Current Subjective Patient in bed pre tx, agrees to PT upon waking, patient pleasant and cooperative, no complaints of pain other than a very minor headache. Appearance Patient in recliner post tx with nurse call, phone, tray, in room, all needs met. Mental Status Patient Orientation: Person, Place, Situation Transfers Functional [place] Measure 0=Not Assessed/NA 4=Minimal Assistance 1=Total Assistance 5=Supervision or Setup 2=Maximal Assistance 6=Modified [place] 3=Moderate Assistance 7=Complete IndependenceIRFPAI Quality Coding Scale 6 Independent with activity with or without an assistive device 5 Patient requires set up or clean up by helper. Patient completes activity by themselves 4 Supervision or touching assist (CGA). [place] provide cues , steadying assist 3 The helper provides less than half the effort to complete the activity 2 The helper provides more than half the effort to complete the activity 1 Dependent. The helper does all the effort to complete an activity 7 Patient refused to complete or attempt activity 9 The patient did not perform the activity before the current illness or injury 88 Not attempted due to Medical conditions or safety concerns Transfers (B, C, W/C) (FIM): 5 Scootin Rollin Roll Left to Right (QC): 6 Supine to/from Sit: 6 Sit to/from Stand: 5 Sit to Lying (QC): 6 Sit to Stand (QC): 4 Chair/Yhf-zv-Vfsxw Xfer(QC): 4 Gait Training Gait (FIM): 5 Distance: 1200', 600' Gait Level of Assist: 5 Gait Persons Needed: 1 Gait Assistive Device: FWW Patient mainly needs SBA for cues for direction now due to his left neglect. He has had no LOB or unsteadiness if he uses a rolling walker. Exercises toe taps in a 6" step x 10 alternating LE, patient had a fairly difficult time with this and needed min A to keep balance NuStep Minutes: 15 NuStep Workload: 5 Treatments functional strengthening, balance training, ambulation, transfer training Assessment Current Status: Fair Progress improving endurance PT Short Term Goals Short Term Goals Time Frame: Sep 10, 2016 Transfers (B,C,W/C) (FIM): 5 Gait (FIM): 5 Distance (FIM): 3=150 ft Stairs (FIM): 2 # of Steps: 8 PT [place] Goals Jail Goals PT [place] Goals Time Frame: Sep 24, 2016 Transfers (B,C,W/C) (FIM): 6 Sit to Lying (QC): 6 Lying-Sitting on Side/Bed(QC): 6 Sit to Stand (QC): 6 Rollin Roll Left to Right (QC): 6 Chair/Uha-li-Xgypk Xfer(QC): 6 Car Transfer (QC): 6 Does the Patient Walk: Yes Gait (FIM): 6 Gait distance (FIM): 3=150 ft Walk 10 feet (QC): 6 Walk 10ft-Uneven Surface(QC): 6 Walk 50ft with 2 Turns (QC): 6 Walk 150 ft (QC): 6 Gait Level of Assist: 6 Gait Assistive Device: FWW Stairs (FIM): 6 # of Steps: 12 1 Step (curb) (QC): 6 4 Steps (QC): 6 12 Steps (QC): 6 Stairs Level Of Assist: 6 Picking up an Object (QC): 6 PT Plan Problem List Problem List: Activity Tolerance, Functional Strength, Safety, Balance, Gait, Transfer Treatment/Plan Treatment Plan: Continue Plan of Care Treatment Plan: Bed Mobility, Education, Functional Activity Chip, Functional Strength, Group Therapy, Gait, Safety, Therapeutic Exercise, Transfers Treatment Duration: Sep 24, 2016 Visits Per Week: 10-15 Minutes/Day (M-F): 60-90 Minutes/Day (Sat/Robin): prn Safety Risks/Education Patient Education: Gait Training, Transfer Techniques, Safety Issues Teaching Recipient: Patient Teaching Methods: Demonstration, Discussion Response to Teaching: Reinforcement Needed Time/GCodes Time In: 800 Time Out: 900 Total Billed Treatment Time: 60 Total Billed Treatment 1 visit GT 40 min EX 20 min SACHIN WAGNER PT Sep 01, 2016 09:00
[2016-09-01] MEDS ORDERED: ACETAMINOPHEN 500 MG TAB (TYLENOL) PO PRN (12:30)
--- NOTE | 2016-09-01 14:21 | Therapy Group Daily Note ---
Therapy Daily Group Note Patient Education Topic Home Safety, Fall Prevention, Exercises, Other List Below (ARU expectations and description) Exercises LE Seated Exercise, UE Exercise Other/Notes Pt ambulated to therapy [facility] area, [facility], [facility]. Pt participated in peer interaction, socializing by introducing self and place of currently living. Problem solving used to answer questions to complete cognitive activity. UE,LE exercise seated in chair. Balloon used for eye hand coordination. Pt ambulated back to room, [facility], [facility]. Pt spouse in room. Pt left lying in bed, call light in hand. All needs met. Start Time: 13:00 Stop Time: 14:00 Total Billed Treatment Time: 60 Total Billed Treatment 1-GRP MOISES INTERIANO Sep 01, 2016 14:21
--- NOTE | 2016-09-01 14:25 | PM & R (SOAP) Progress Note ---
Subjective Subjective/Events-last exam Patient was seen in his room this AM Patient sba for transfers Has left sided neglect.continues with some cognitive slowing Objective Exam Last Set of Vital Signs Vital Signs Date Time Temp Pulse Resp B/P Pulse Ox O2 Delivery O2 Flow Rate FiO2 09/01/16 08:30 Room Air 09/01/16 05:46 97.0 57 18 123/69 94 Capillary Refill : I&O Intake and Output 09/01/16 00:00 Intake Total 1120 ml Balance 1120 ml Intake Oral 1120 ml # Voids 12 # Bowel Movements 5 General: Alert, Oriented X3, Cooperative, No Acute Distress HEENT: Atraumatic, PERRLA, EOMI, Mucous Memb Moist/[place], Other (incision site rt crani healing well no drainage) Neck: Supple, No JVD Lungs: Clear to Auscultation Heart: Regular Rate Abdomen: Normal Bowel Sounds, Soft, No Tenderness Extremities: No Edema Skin: Other (as per above) Neuro: Other (mild weakness on left and dyscoordination on left mild impulsivity) Results Lab Laboratory Tests 08/29/16 16:49: Glucometer 219H 08/29/16 20:35: Glucometer 277H 08/30/16 05:21: Glucometer 297H 08/30/16 11:04: Glucometer 253H 08/30/16 16:02: Glucometer 193H 08/30/16 20:27: Glucometer 287H 08/31/16 05:47: Glucometer 230H 08/31/16 11:01: Glucometer 169H 08/31/16 15:56: Glucometer 245H 08/31/16 20:57: Glucometer 224H 09/01/16 05:42: Glucometer 232H 09/01/16 11:34: Glucometer 129H Assessment/Plan Assessment S/p rt occipital temporal crani for excision 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 ANDRÉS CARRION MD Sep 01, 2016 14:25
[2016-09-01 18:00] VITALS: BP 135/84
[2016-09-01] MEDS: MILK OF MAGNESIA 400 MG/5 ML 30 ML UDC PO PRN (21:04)
[2016-09-01] MEDS: SIMvastatin 40 MG (ZOCOR) TAB PO SCH (21:04)
[2016-09-01] MEDS: SERTRALINE 50 MG (ZOLOFT) TABLET PO SCH (21:05)
[2016-09-01] MEDS: FINASTERIDE (PROSCAR) 5 MG TAB PO SCH (21:05)
[2016-09-02 06:00] VITALS: BP 123/80
[2016-09-02] MEDS: PANTOPRAZOLE 40 MG (PROTONIX) TAB PO SCH (06:17)
[2016-09-02] MEDS: metFORMIN 500 MG (GLUCOPHAGE) TAB PO SCH ×2 (06:17→17:51)
[2016-09-02] MEDS: MULTIVIT W/MINERALS TAB (THERAGRAN M) PO SCH (06:17)
[2016-09-02] MEDS: inSUlin (REGULAR) HUMAN 1 UNIT/0.01 ML (CHARGE PER UNIT) SC SCH ×4 (06:40→21:48)
--- NOTE | 2016-09-02 08:42 | Progress Note (SOAP) ---
Subjective Subjective/Events-last exam glioblastoma multiform E. Spoke to patient and . Zoloft to be given earlier . Patient transferring better. feels patient getting stronger Objective Exam Vital Signs Date Time Temp Pulse Resp B/P Pulse Ox O2 Delivery O2 Flow Rate FiO2 09/02/16 06:00 96.9 63 16 123/80 96 Room Air 09/01/16 21:00 Room Air 09/01/16 18:00 97.1 65 16 135/84 97 Room Air I & O 09/02/16 07:00 Intake Total 300 ml Balance 300 ml Capillary Refill : General Appearance: No Apparent Distress WD/WN HEENT: Normal ENT Inspection Neck: Normal Inspection Respiratory: Chest Non Tender Lungs Clear Normal Breath Sounds No Accessory Muscle Use No Respiratory Distress Cardiovascular: Regular Rate, Rhythm No Murmur Results Lab Laboratory Tests 09/01/16 11:34: Glucometer 129H 09/01/16 15:44: Glucometer 136H 09/01/16 21:06: Glucometer 273H 09/02/16 06:36: Glucometer 223H Assessment/Plan Assessment/Plan Assess & Plan/Chief Complaint weakness. Glioblastoma multiform I. Diabetes. Hypertension. Hyperlipidemia. . 08/31/16. Glioblastoma multiforme. Diabetes on Decadron. Patient on insulin sliding scale a. Patient voices no complaints. . 09/01/16. Glioblastoma multiform a. Patient to go on insulin sliding scale the. Patient getting around with a walker. Patient improving. . 09/02/16.glio blastoma multiforme.. Patient transferred better. feels patient depressed at night Diagnosis/Problems: Clinical Quality Measures DVT/VTE Risk/Contraindication: Risk Factor Score Per Nursin RFS Level Per Nursing on Admit: 4+=Very High EDMOND GRIER DO Sep 02, 2016 08:42
[2016-09-02] MEDS: SENNA W/DOCUSATE (SENOKOT S) TABLET PO SCH ×2 (09:00→21:47)
[2016-09-02] MEDS: LEVETIRACETAM 500 MG (KEPPRA) TAB PO SCH ×2 (09:00→21:48)
[2016-09-02] MEDS: DEXAMETHASONE 4 MG TAB (DECADRON) PO SCH ×2 (09:00→21:47)
--- NOTE | 2016-09-02 10:37 | Occupational Ther Daily Note ---
OT Current Status-Daily Note Subjective Pt alert, finishing up breakfast in bed. Pt agreed to therapy. No c/o pain. Mental Status/Objective Patient Orientation: Person, Place, Time, Situation Functional [place] Measure 0=Not Assessed/NA 4=Minimal Assistance 1=Total Assistance 5=Supervision or Setup 2=Maximal Assistance 6=Modified [place] 3=Moderate Assistance 7=Complete [place] ADL-Treatment Pt declined bathing today. Pt was able to don own shoes. Then cues to push to stand with hands. Pt initially walked into bathroom when asked to find the door to go out of room then was able to correct self. Functional [place] Measure 0=Not Assessed/NA 4=Minimal Assistance 1=Total Assistance 5=Supervision or Setup 2=Maximal Assistance 6=Modified [place] 3=Moderate Assistance 7=Complete IndependenceIRFPAI Quality Coding Scale 6 Independent with activity with or without an assistive device 5 Patient requires set up or clean up by helper. Patient completes activity by themselves 4 Supervision or touching assist (CGA). [place] provide cues , steadying assist 3 The helper provides less than half the effort to complete the activity 2 The helper provides more than half the effort to complete the activity 1 Dependent. The helper does all the effort to complete an activity 7 Patient refused to complete or attempt activity 9 The patient did not perform the activity before the current illness or injury 88 Not attempted due to Medical conditions or safety concerns Other Treatment Pt ambulated with CGA using FWW to therapy gym. Completed arm bike 15 min at 25 eid resistance to increase strength and activity tolerance for daily functional tasks. Then complete 4 UE dowel yuri exercises with 2# wt attached, 30 reps. Pt worked on squatting to olive picker cones from one side then transferring back to other, 15 cones 2x's. After therapy, pt ambulated without FWW with CGA, demonstrated slight unsteadiness though did not LOB. After therapy, present in room and pt sitting in chair. Call light/phone in reach. All needs met in room. Education OT Patient Education: Safety issues, Transfer techniques Teaching Recipient: Patient, Family Teaching Methods: Demonstration, Discussion Response to Teaching: Return Demonstration, Reinforcement Needed OT Short Term Goals Short Term Goals Time Frame: Sep 10, 2016 Grooming(FIM): 5 Bathing(FIM): 5 Upper Body Dressing(FIM): 5 Lower Body Dressing(FIM): 5 Toileting(FIM): 5 Transfers (B,C,W/C) (FIM): 5 Toilet/Commode Transfer(FIM): 5 Shower Transfer(FIM): 5 Additional Short Term Goals: 2-Verbalize Understanding, 3-ImproveStrength/Chip 1=Demonstrate adherence to instructed precautions during ADL tasks. 2=Patient will verbalize/demonstrate understanding of assistive devices/ modifications for ADL. 3=Patient will improve strength/tolerance for activity to enable patient to perform ADL's. OT Nursing Home Goals Nursing Home Goals Time Frame: Sep 24, 2016 Eating (FIM): 7 ("There is nothing I can't eat") Eating (QC): 6 Oral Hygiene (QC): 6 Grooming(FIM): 6 Bathing(FIM): 6 Shower/Bathe Self (QC): 6 Upper Body Dressing(FIM): 6 Upper Body Dressing (QC): 6 Lower Body Dressing(FIM): 6 Lower Body Dressing (QC): 6 On/Off Footwear (QC): 6 Toileting(FIM): 6 Toileting Hygiene (QC): 6 Toilet/Commode Transfer(FIM): 6 Toilet/Commode Transfer (QC): 6 Shower Transfer(FIM): 6 Increase bilat UE strength to 5/5 to help with ADLs and transfers Increase functional vision L visual field Additional Goals: 2-Verbalize Understanding, 3-ImproveStrength/Chip 1=Demonstrate adherence to instructed precautions during ADL tasks. 2=Patient will verbalize/demonstrate understanding of assistive devices/ modifications for ADL. 3=Patient will improve strength/tolerance for activity to enable patient to perform ADL's. OT Education/Plan Problem List/Assessment Pt would benefit from skilled OT to increase his independence in basic self care to allow him to safely return home to live with his and to decrease caregiver burden Discharge Recommendations Plan/Recommendations: Continue POC Treatment Plan/Plan of Care Patient would benefit from OT for education, treatment and training to promote independence in ADL's, mobility, safety and/or upper extremity function for ADL' s. Plan of Care: ADL Retraining, Caregiver Training, Functional Mobility, Group Exercise/Act as Ind (educaiton, exercise, socialization, activity tolerance, functional activities), UE Funct Exercise/Act, UE Neuromus Re-Ed/Coord, Visual/ Perceptual Retrain Treatment Duration: Sep 24, 2016 Visits Per Week: 10-11 Minutes/Day (M-F): 75-90 Minutes/Day (Sat/Robin): PRN Agreement: Yes Rehab Potential: Good Time/GCodes Start Time: 07:00 Stop Time: 08:00 Total Time Billed (hr/min): 60 Billed Treatment Time 1 visit-FA 1 (15 min) EX 3 (45 min) MOISES INTERIANO Sep 02, 2016 10:37
--- NOTE | 2016-09-02 10:44 | PM & R (SOAP) Progress Note ---
Subjective Subjective/Events-last exam Patient was seen in his room this AM Some left sided neglect noted ST doing reassessment re cognitive issues.Patient SBA for transfers. Objective Exam Last Set of Vital Signs Vital Signs Date Time Temp Pulse Resp B/P Pulse Ox O2 Delivery O2 Flow Rate FiO2 09/02/16 06:00 96.9 63 16 123/80 96 Room Air Capillary Refill : I&O Intake and Output 09/02/16 00:00 Intake Total 270 ml Balance 270 ml Intake Oral 270 ml # Voids 5 General: Alert, Oriented X3, Cooperative, No Acute Distress HEENT: Atraumatic, PERRLA, EOMI, Mucous Memb Moist/[place], Other (incision site rt crani healing well no drainage) Neck: Supple, No JVD Lungs: Clear to Auscultation Heart: Regular Rate Abdomen: Normal Bowel Sounds, Soft, No Tenderness Extremities: No Edema Skin: Other (as per above) Neuro: Other (mild weakness on left and dyscoordination on left mild impulsivity) Results Lab Laboratory Tests 08/30/16 11:04: Glucometer 253H 08/30/16 16:02: Glucometer 193H 08/30/16 20:27: Glucometer 287H 08/31/16 05:47: Glucometer 230H 08/31/16 11:01: Glucometer 169H 08/31/16 15:56: Glucometer 245H 08/31/16 20:57: Glucometer 224H 09/01/16 05:42: Glucometer 232H 09/01/16 11:34: Glucometer 129H 09/01/16 15:44: Glucometer 136H 09/01/16 21:06: Glucometer 273H 09/02/16 06:36: Glucometer 223H Assessment/Plan Assessment S/p rt occipital temporal crani for 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 ANDRÉS CARRION MD Sep 02, 2016 10:44
--- NOTE | 2016-09-02 11:01 | Physical Therapy Daily Note ---
PT Daily Note-Current Subjective Patient in recliner sleeping pre tx, agrees to PT upon waking. Pain Numeric Pain Scale: 0-No Pain Appearance Patient in therapy gym post tx, has OT right after PT. Mental Status Patient Orientation: Person, Place, Situation Transfers Functional [place] Measure 0=Not Assessed/NA 4=Minimal Assistance 1=Total Assistance 5=Supervision or Setup 2=Maximal Assistance 6=Modified [place] 3=Moderate Assistance 7=Complete IndependenceIRFPAI Quality Coding Scale 6 Independent with activity with or without an assistive device 5 Patient requires set up or clean up by helper. Patient completes activity by themselves 4 Supervision or touching assist (CGA). [place] provide cues , steadying assist 3 The helper provides less than half the effort to complete the activity 2 The helper provides more than half the effort to complete the activity 1 Dependent. The helper does all the effort to complete an activity 7 Patient refused to complete or attempt activity 9 The patient did not perform the activity before the current illness or injury 88 Not attempted due to Medical conditions or safety concerns Transfers (B, C, W/C) (FIM): 5 Sit to/from Stand: 5 Gait Training Gait (FIM): 5 Distance: 1200'x2 Gait Level of Assist: 5 Gait Persons Needed: 1 Gait Assistive Device: FWW Patient needs cues for direction due to his left neglect, he can get off balance if he is trying to look around. Exercises NuStep Minutes: 15 NuStep Workload: 5 Neuromuscular Patient performed several balance activities with cones that involve reaching and turning and walking and he performed a balance activity stepping over objects Treatments balance training, functional strengthening, gait training, transfers Assessment Current Status: Fair Progress improving endurance, still has significant left neglect PT Short Term Goals Short Term Goals Time Frame: Sep 10, 2016 Transfers (B,C,W/C) (FIM): 5 Gait (FIM): 5 Distance (FIM): 3=150 ft Stairs (FIM): 2 # of Steps: 8 PT Pathology Laboratory Aides Teacher Goals Usp Goals PT Usp Goals Time Frame: Sep 24, 2016 Transfers (B,C,W/C) (FIM): 6 Sit to Lying (QC): 6 Lying-Sitting on Side/Bed(QC): 6 Sit to Stand (QC): 6 Rollin Roll Left to Right (QC): 6 Chair/Bry-bq-Ngqsi Xfer(QC): 6 Car Transfer (QC): 6 Does the Patient Walk: Yes Gait (FIM): 6 Gait distance (FIM): 3=150 ft Walk 10 feet (QC): 6 Walk 10ft-Uneven Surface(QC): 6 Walk 50ft with 2 Turns (QC): 6 Walk 150 ft (QC): 6 Gait Level of Assist: 6 Gait Assistive Device: FWW Stairs (FIM): 6 # of Steps: 12 1 Step (curb) (QC): 6 4 Steps (QC): 6 12 Steps (QC): 6 Stairs Level Of Assist: 6 Picking up an Object (QC): 6 PT Plan Problem List Problem List: Activity Tolerance, Functional Strength, Safety, Balance, Gait, Transfer Treatment/Plan Treatment Plan: Continue Plan of Care Treatment Plan: Bed Mobility, Education, Functional Activity Chip, Functional Strength, Group Therapy, Gait, Safety, Therapeutic Exercise, Transfers Treatment Duration: Sep 24, 2016 Visits Per Week: 10-15 Minutes/Day (M-F): 60-90 Minutes/Day (Sat/Robin): prn Safety Risks/Education Patient Education: Gait Training, Transfer Techniques, Safety Issues Teaching Recipient: Patient Teaching Methods: Demonstration, Discussion Response to Teaching: Reinforcement Needed Time/GCodes Time In: 1000 Time Out: 1100 Total Billed Treatment Time: 60 Total Billed Treatment 1 visit EX 15 min NM 15 min GT 30 min SACHIN WAGNER PT Sep 02, 2016 11:01
--- NOTE | 2016-09-02 13:24 | Occupational Ther Daily Note ---
OT Current Status-Daily Note Subjective Pt finished up with PT, OT took over care. Pt agreed to therapy. No c/o pain. Mental Status/Objective Patient Orientation: Person, Place, Time, Situation Functional [place] Measure 0=Not Assessed/NA 4=Minimal Assistance 1=Total Assistance 5=Supervision or Setup 2=Maximal Assistance 6=Modified [place] 3=Moderate Assistance 7=Complete [place] ADL-Treatment Functional [place] Measure 0=Not Assessed/NA 4=Minimal Assistance 1=Total Assistance 5=Supervision or Setup 2=Maximal Assistance 6=Modified [place] 3=Moderate Assistance 7=Complete IndependenceIRFPAI Quality Coding Scale 6 Independent with activity with or without an assistive device 5 Patient requires set up or clean up by helper. Patient completes activity by themselves 4 Supervision or touching assist (CGA). [place] provide cues , steadying assist 3 The helper provides less than half the effort to complete the activity 2 The helper provides more than half the effort to complete the activity 1 Dependent. The helper does all the effort to complete an activity 7 Patient refused to complete or attempt activity 9 The patient did not perform the activity before the current illness or injury 88 Not attempted due to Medical conditions or safety concerns Other Treatment Pt worked on sequencing, 1-3 step directions and visual scanning for functional tasks (donning/doffing clothing, transfers, bathing, etc.). Pt had difficulty with sequencing steps to copy a model to make a rectangle with 4 plates, nuts/ bolts. 1 step directions needed to be given then cues to wait and think about what to do. Pt was able to complete 2 step directions with paper/pencil tasks. Pt is demonstrating improvement with scanning to L side though when completing dynamic tasks requires cues to sequence direction and motor movement. Pt ambulated to room with SBA using FWW. After therapy, pt sitting in recliner with call light/phone in reach. All needs met in room. Education OT Patient Education: Purpose of tx/functional activities, Safety issues Teaching Recipient: Patient Teaching Methods: Demonstration, Discussion Response to Teaching: Reinforcement Needed OT Short Term Goals Short Term Goals Time Frame: Sep 10, 2016 Grooming(FIM): 5 Bathing(FIM): 5 Upper Body Dressing(FIM): 5 Lower Body Dressing(FIM): 5 Toileting(FIM): 5 Transfers (B,C,W/C) (FIM): 5 Toilet/Commode Transfer(FIM): 5 Shower Transfer(FIM): 5 Additional Short Term Goals: 2-Verbalize Understanding, 3-ImproveStrength/Chip 1=Demonstrate adherence to instructed precautions during ADL tasks. 2=Patient will verbalize/demonstrate understanding of assistive devices/ modifications for ADL. 3=Patient will improve strength/tolerance for activity to enable patient to perform ADL's. OT [facility] Goals Prep Room Supervisor Goals Time Frame: Sep 24, 2016 Eating (FIM): 7 ("There is nothing I can't eat") Eating (QC): 6 Oral Hygiene (QC): 6 Grooming(FIM): 6 Bathing(FIM): 6 Shower/Bathe Self (QC): 6 Upper Body Dressing(FIM): 6 Upper Body Dressing (QC): 6 Lower Body Dressing(FIM): 6 Lower Body Dressing (QC): 6 On/Off Footwear (QC): 6 Toileting(FIM): 6 Toileting Hygiene (QC): 6 Toilet/Commode Transfer(FIM): 6 Toilet/Commode Transfer (QC): 6 Shower Transfer(FIM): 6 Increase bilat UE strength to 5/5 to help with ADLs and transfers Increase functional vision L visual field Additional Goals: 2-Verbalize Understanding, 3-ImproveStrength/Chip 1=Demonstrate adherence to instructed precautions during ADL tasks. 2=Patient will verbalize/demonstrate understanding of assistive devices/ modifications for ADL. 3=Patient will improve strength/tolerance for activity to enable patient to perform ADL's. OT Education/Plan Problem List/Assessment Pt would benefit from skilled OT to increase his independence in basic self care to allow him to safely return home to live with his and to decrease caregiver burden Discharge Recommendations Plan/Recommendations: Continue POC Treatment Plan/Plan of Care Patient would benefit from OT for education, treatment and training to promote independence in ADL's, mobility, safety and/or upper extremity function for ADL' s. Plan of Care: ADL Retraining, Caregiver Training, Functional Mobility, Group Exercise/Act as Ind (educaiton, exercise, socialization, activity tolerance, functional activities), UE Funct Exercise/Act, UE Neuromus Re-Ed/Coord, Visual/ Perceptual Retrain Treatment Duration: Sep 24, 2016 Visits Per Week: 10-11 Minutes/Day (M-F): 75-90 Minutes/Day (Sat/Robin): PRN Agreement: Yes Rehab Potential: Good Time/GCodes Start Time: 11:00 Stop Time: 11:30 Total Time Billed (hr/min): 30 Billed Treatment Time 1 visit-FA 2 (30 min) MOISES INTERIANO Sep 02, 2016 13:24
--- NOTE | 2016-09-02 15:07 | Physical Therapy Daily Note ---
PT Daily Note-Current Subjective Patient in chair pre tx, visiting with family, agrees to PT. Pain Numeric Pain Scale: 0-No Pain Appearance Patient sitting in bed post tx to continue to visit with family. Mental Status Patient Orientation: Person, Place, Situation Transfers Functional [place] Measure 0=Not Assessed/NA 4=Minimal Assistance 1=Total Assistance 5=Supervision or Setup 2=Maximal Assistance 6=Modified [place] 3=Moderate Assistance 7=Complete IndependenceIRFPAI Quality Coding Scale 6 Independent with activity with or without an assistive device 5 Patient requires set up or clean up by helper. Patient completes activity by themselves 4 Supervision or touching assist (CGA). [place] provide cues , steadying assist 3 The helper provides less than half the effort to complete the activity 2 The helper provides more than half the effort to complete the activity 1 Dependent. The helper does all the effort to complete an activity 7 Patient refused to complete or attempt activity 9 The patient did not perform the activity before the current illness or injury 88 Not attempted due to Medical conditions or safety concerns Transfers (B, C, W/C) (FIM): 5 Sit to/from Stand: 5 cues for safety and hand placement will often stand or transfer without using his hands Gait Training Gait (FIM): 5 Distance: 1200', 150' Gait Level of Assist: 5 Gait Persons Needed: 1 Gait Assistive Device: FWW cues for direction due to left neglect Stair Training Stair Training: Handrails/: 2 handrails Stairs (FIM): 5 #of Steps: 12 Stairs: Pattern: Step to Level of Assist: 5 needs occasional cues to find railing on the left side Treatments transfers, ambulation, stair training Assessment Current Status: Fair Progress patient has significant left neglect and needs cues very time during left turns PT Short Term Goals Short Term Goals Time Frame: Sep 10, 2016 Transfers (B,C,W/C) (FIM): 5 Gait (FIM): 5 Distance (FIM): 3=150 ft Stairs (FIM): 2 # of Steps: 8 PT Group Home Goals [employer] Goals PT Group Home Goals Time Frame: Sep 24, 2016 Transfers (B,C,W/C) (FIM): 6 Sit to Lying (QC): 6 Lying-Sitting on Side/Bed(QC): 6 Sit to Stand (QC): 6 Rollin Roll Left to Right (QC): 6 Chair/Lrw-mk-[place] Xfer(QC): 6 Car Transfer (QC): 6 Does the Patient Walk: Yes Gait (FIM): 6 Gait distance (FIM): 3=150 ft Walk 10 feet (QC): 6 Walk 10ft-Uneven Surface(QC): 6 Walk 50ft with 2 Turns (QC): 6 Walk 150 ft (QC): 6 Gait Level of Assist: 6 Gait Assistive Device: FWW Stairs (FIM): 6 # of Steps: 12 1 Step (curb) (QC): 6 4 Steps (QC): 6 12 Steps (QC): 6 Stairs Level Of Assist: 6 Picking up an Object (QC): 6 PT Plan Problem List Problem List: Activity Tolerance, Functional Strength, Safety, Balance, Gait, Transfer Treatment/Plan Treatment Plan: Continue Plan of Care Treatment Plan: Bed Mobility, Education, Functional Activity Chip, Functional Strength, Group Therapy, Gait, Safety, Therapeutic Exercise, Transfers Treatment Duration: Sep 24, 2016 Visits Per Week: 10-15 Minutes/Day (M-F): 60-90 Minutes/Day (Sat/Robin): prn Safety Risks/Education Patient Education: Gait Training, Transfer Techniques, Safety Issues Teaching Recipient: Patient Teaching Methods: Demonstration, Discussion Response to Teaching: Reinforcement Needed Time/GCodes Time In: 1430 Time Out: 1500 Total Billed Treatment Time: 30 Total Billed Treatment 1 visit GT 30 min SACHIN WAGNER PT Sep 02, 2016 15:07
--- NOTE | 2016-09-02 16:26 | ST Cognitive Linguistic Eval ---
Speech Evaluation-General Medical Diagnosis Glioblastoma Onset Date: Aug 24, 2016 Therapy Diagnosis Therapy Diagnosis: Mild Cognitive Impairment Precautions Precautions/Isolations: Standard Precautions Referral Referring Physician: Dr. Keith Núñez Reason for Referral: Evaluation/Treatment Cognitive re-evaluation secondary to functional safety concerns throughout therapeutic tasks. Medical History Pertinent Medical History: DM, HTN Reviewed History: Yes Social History Current Living Status: Spouse Speech PLF-Current Status Prior Level of Function The patient denied cognitive linguistic impairments prior to admission or following his recent surgery. Per patient (and ), he has not experienced any challenges with communication at this time. Subjective The patient was recently admitted to [facility] following a craniotomy for removal of an occipital temporal glioblastoma. The patient was seated in his recliner upon entrance. The patient agreed to participate in the cognitive re-evaluation. Language Eval: Auditory Comprehends Simple Yes/No Ques: Functional Indent/Objects Multiple Choi: Functional Ident/Pics in Multiple Choi: Functional Follows 1-Step Commands: Functional Follows Complex Directions: Mild (Repetition, three occurrences at times, for demonstration of requested instruction.) Follows General Conversations: Functional Language Eval: Verbal Language Completes Spontaneous Greeting: Functional Produces Auto, Serial Info: Functional Imitates Simple Words/Phrases: Functional Word Finding: Functional Requests Basic Needs: Functional States Basic Personal Info: Functional Expresses Complex Ideas: Mild Cognitive Patient Orientation The patient is alert and oriented to month, day, year, and day of week. Objective Cognitive Domain Attention: Mild Memory: Mild (The patient is able to intermittently recall safety precautions, however, fails to demonstrate precautions independently.) Problem Solving: Mild Executive Functions: Mild Objective Impression The patient demonstrated a mild cognitive impairment in the areas of attention, memory, and functional problem solving. Communication/Social Cognition Comprehension: 4 Expression: 5 Social Interaction: 5 Problem Solvin Memory: 4 Speech Patient Assess Expression of Ideas/Wants: Exhibits (3) Understanding [place] Content: Sometimes Understands(2) Brief Interview-Mental Status: Yes Repetition of Three Words: Three (3) Temporal Orientation: Year: Correct (3) Temporal Orientation: Month: Accurate within 5 days(2) Temporal Orientation: Day: Correct (1) Recall : Wear: No, could not recall (0) Recall : Color: Yes, no cue required (2) Recall : Bed: Yes, no cue required (2) Speech Short Term Goals Short Term Goals Short Term Goals 1. The patient will recall safety precautions and functional safety problem solving with 80% accuracy, independently. 2. The patient will recall three functional memory strategies for use at home. Time Frame-STG: Two Weeks Speech Test And Balance Engineer Goals Residential Goals 1. The patient will demonstrate improved cognitive linguistic skills for increased safety and function with ADL's in the least restrictive setting. Time Frame: Three Weeks Comprehension: 6 Expression: 6 Social Interaction: 6 Problem Solvin Memory: 5 Speech-Plan Treatment Plan Speech Therapy Treatment Plan: Continue Plan of Care (Plan of Care Listed Below.) Treatment Duration: Sep 24, 2016 # of days/week Three Visits Per Week: Three Minutes/Day (M-F): 30 Rehab Potential: Guarded Safety Risks/Education Teaching Recipient: Patient Teaching Methods: Discussion Response to Teaching: Verbalize Understanding Education Topics Provided: Plan of Care, Results. Time Speech Therapy Time In: 09:00 Speech Therapy Time Out: 09:30 Total Billed Time: 30 Billed Treatment Time 1, JOSE DE JESUS FREDERICK Sep 02, 2016 16:26
[2016-09-02 17:40] VITALS: BP 133/82
[2016-09-02] MEDS: FINASTERIDE (PROSCAR) 5 MG TAB PO SCH (21:48)
[2016-09-02] MEDS: SERTRALINE 50 MG (ZOLOFT) TABLET PO SCH (21:48)
[2016-09-02] MEDS: SIMvastatin 40 MG (ZOCOR) TAB PO SCH (21:48)
[2016-09-03 06:00] VITALS: BP 131/76
[2016-09-03] MEDS: metFORMIN 500 MG (GLUCOPHAGE) TAB PO SCH (06:42)
[2016-09-03] MEDS: MULTIVIT W/MINERALS TAB (THERAGRAN M) PO SCH (06:42)
[2016-09-03] MEDS: PANTOPRAZOLE 40 MG (PROTONIX) TAB PO SCH (06:42)
[2016-09-03] MEDS: inSUlin (REGULAR) HUMAN 1 UNIT/0.01 ML (CHARGE PER UNIT) SC SCH ×3 (07:40→16:50)
--- NOTE | 2016-09-03 07:56 | Occupational Ther Daily Note ---
OT Current Status-Daily Note Subjective Pt alert though stated that he was very tired. Pt agreed to therapy. No c/o pain. Mental Status/Objective Patient Orientation: Person, Place, Time, Situation Functional [place] Measure 0=Not Assessed/NA 4=Minimal Assistance 1=Total Assistance 5=Supervision or Setup 2=Maximal Assistance 6=Modified [place] 3=Moderate Assistance 7=Complete [place] ADL-Treatment Pt ambulated to bathroom with CGA no FWW. When pt walked into bathroom he needed to be reminded what he was going to do. Then transferred into shower with CGA due to 1 LOB, pt caught self with grabbars. Pt then took shower with grabbars, hand held shower and bench with SBA. Pt was able to hold onto grabbars and stand to cleanse buttocks, no LOB. Then transferred out of shower with CGA and ambulated to bed with CGA. Pt was able to dress self after set up with SBA. After therapy, pt lying in bed with call light/phone in reach. present in room. All needs met in room. Functional [place] Measure 0=Not Assessed/NA 4=Minimal Assistance 1=Total Assistance 5=Supervision or Setup 2=Maximal Assistance 6=Modified [place] 3=Moderate Assistance 7=Complete IndependenceIRFPAI Quality Coding Scale 6 Independent with activity with or without an assistive device 5 Patient requires set up or clean up by helper. Patient completes activity by themselves 4 Supervision or touching assist (CGA). [place] provide cues , steadying assist 3 The helper provides less than half the effort to complete the activity 2 The helper provides more than half the effort to complete the activity 1 Dependent. The helper does all the effort to complete an activity 7 Patient refused to complete or attempt activity 9 The patient did not perform the activity before the current illness or injury 88 Not attempted due to Medical conditions or safety concerns OT Short Term Goals Short Term Goals Time Frame: Sep 10, 2016 Grooming(FIM): 5 Bathing(FIM): 5 Upper Body Dressing(FIM): 5 Lower Body Dressing(FIM): 5 Toileting(FIM): 5 Transfers (B,C,W/C) (FIM): 5 Toilet/Commode Transfer(FIM): 5 Shower Transfer(FIM): 5 Additional Short Term Goals: 2-Verbalize Understanding, 3-ImproveStrength/Chip 1=Demonstrate adherence to instructed precautions during ADL tasks. 2=Patient will verbalize/demonstrate understanding of assistive devices/ modifications for ADL. 3=Patient will improve strength/tolerance for activity to enable patient to perform ADL's. OT Software Implementation Specialist Goals Senior Living Goals Time Frame: Sep 24, 2016 Eating (FIM): 7 ("There is nothing I can't eat") Eating (QC): 6 Oral Hygiene (QC): 6 Grooming(FIM): 6 Bathing(FIM): 6 Shower/Bathe Self (QC): 6 Upper Body Dressing(FIM): 6 Upper Body Dressing (QC): 6 Lower Body Dressing(FIM): 6 Lower Body Dressing (QC): 6 On/Off Footwear (QC): 6 Toileting(FIM): 6 Toileting Hygiene (QC): 6 Toilet/Commode Transfer(FIM): 6 Toilet/Commode Transfer (QC): 6 Shower Transfer(FIM): 6 Increase bilat UE strength to 5/5 to help with ADLs and transfers Increase functional vision L visual field Additional Goals: 2-Verbalize Understanding, 3-ImproveStrength/Chip 1=Demonstrate adherence to instructed precautions during ADL tasks. 2=Patient will verbalize/demonstrate understanding of assistive devices/ modifications for ADL. 3=Patient will improve strength/tolerance for activity to enable patient to perform ADL's. OT Education/Plan Problem List/Assessment Pt would benefit from skilled OT to increase his independence in basic self care to allow him to safely return home to live with his and to decrease caregiver burden Discharge Recommendations Plan/Recommendations: Continue POC Treatment Plan/Plan of Care Patient would benefit from OT for education, treatment and training to promote independence in ADL's, mobility, safety and/or upper extremity function for ADL' s. Plan of Care: ADL Retraining, Caregiver Training, Functional Mobility, Group Exercise/Act as Ind (educaiton, exercise, socialization, activity tolerance, functional activities), UE Funct Exercise/Act, UE Neuromus Re-Ed/Coord, Visual/ Perceptual Retrain Treatment Duration: Sep 24, 2016 Visits Per Week: 10-11 Minutes/Day (M-F): 75-90 Minutes/Day (Sat/Robin): PRN Agreement: Yes Rehab Potential: Good Time/GCodes Start Time: 07:00 Stop Time: 08:00 Total Time Billed (hr/min): 60 Billed Treatment Time 1 visit-ADL 4 (60 min) MOISES INTERIANO Sep 03, 2016 07:56
[2016-09-03] MEDS: SENNA W/DOCUSATE (SENOKOT S) TABLET PO SCH (08:09)
[2016-09-03] MEDS: LEVETIRACETAM 500 MG (KEPPRA) TAB PO SCH (08:09)
[2016-09-03] MEDS ORDERED: DEXAMETHASONE 4 MG TAB (DECADRON) PO SCH (09:00)
--- NOTE | 2016-09-03 09:12 | Progress Note (SOAP) ---
Subjective Subjective/Events-last exam patient extremely weak today cording to the Objective Exam Vital Signs Date Time Temp Pulse Resp B/P Pulse Ox O2 Delivery O2 Flow Rate FiO2 09/03/16 08:22 Room Air 09/03/16 06:00 97.6 55 18 131/76 97 Room Air 09/02/16 20:50 Room Air 09/02/16 17:40 97.4 71 20 133/82 96 Room Air I & O 09/03/16 07:00 Intake Total 875 ml Balance 875 ml Capillary Refill : General Appearance: No Apparent Distress WD/WN Results Lab Laboratory Tests 09/02/16 11:52: Glucometer 141H 09/02/16 17:39: Glucometer 240H 09/02/16 21:13: Glucometer 212H Assessment/Plan Assessment/Plan Assess & Plan/Chief Complaint weakness. Glioblastoma multiform I. Diabetes. Hypertension. Hyperlipidemia. . 08/31/16. Glioblastoma multiforme. Diabetes on Decadron. Patient on insulin sliding scale a. Patient voices no complaints. . 09/01/16. Glioblastoma multiform a. Patient to go on insulin sliding scale the. Patient getting around with a walker. Patient improving. . 09/02/16.glio blastoma multiforme.. Patient transferred better. feels patient depressed at night. . 09/03/16. We'll blastoma multiforme E. Patient is weak today. Patient able to do physical therapy Diagnosis/Problems: Clinical Quality Measures DVT/VTE Risk/Contraindication: Risk Factor Score Per Nursin RFS Level Per Nursing on Admit: 4+=Very High EDMOND GRIER DO Sep 03, 2016 09:12
--- NOTE | 2016-09-03 09:19 | PM & R (SOAP) Progress Note ---
Subjective Subjective/Events-last exam Patient was seen in his room this AM Patient SBA for transfers Crani site healing well [place] in place Current labs noted Objective Exam Last Set of Vital Signs Vital Signs Date Time Temp Pulse Resp B/P Pulse Ox O2 Delivery O2 Flow Rate FiO2 09/03/16 08:22 Room Air 09/03/16 06:00 97.6 55 18 131/76 97 Capillary Refill : I&O Intake and Output 09/03/16 00:00 Intake Total 975 ml Balance 975 ml Intake Oral 975 ml # Voids 9 # Bowel Movements 2 General: Alert, Oriented X3, Cooperative, No Acute Distress HEENT: Atraumatic, PERRLA, EOMI, Mucous Memb Moist/[place], Other (incision site rt crani healing well no drainage) Neck: Supple, No JVD Lungs: Clear to Auscultation Heart: Regular Rate Abdomen: Normal Bowel Sounds, Soft, No Tenderness Extremities: No Edema Skin: Other (as per above) Neuro: Other (mild weakness on left and dyscoordination on left mild impulsivity) Results Lab Laboratory Tests 08/31/16 11:01: Glucometer 169H 08/31/16 15:56: Glucometer 245H 08/31/16 20:57: Glucometer 224H 09/01/16 05:42: Glucometer 232H 09/01/16 11:34: Glucometer 129H 09/01/16 15:44: Glucometer 136H 09/01/16 21:06: Glucometer 273H 09/02/16 06:36: Glucometer 223H 09/02/16 11:52: Glucometer 141H 09/02/16 17:39: Glucometer 240H 09/02/16 21:13: Glucometer 212H Assessment/Plan Assessment S/p rt occipital temporal crani for excision recurrent GBM with mild left sided weakness and gait instability and dyscoordination DVT prophylaxis on Heparin Sub Cut Tobaccoism -chewing tobacco currently abstaining SZ prophylaxis on keppra DM -better controlled HTN controlled Plan Continue PT/OT ST has signed off F/U with Dr wolfe PRN Monitor accuchecks and adjust meds as needed.Todays labs noted Team Conference held 09-01-16-See report for full functional update and ELOS and POC Reconsult ST see orders-in progress.-done Discussed case with patients spouse last evening-Patient to see Neurosurgeon on Tuesday the for F/U ANDRÉS CARRION MD Sep 03, 2016 09:19
[2016-09-03 09:58] LABS: MEAN PLATELET VOLUME 9.2 FL (7.4-10.4); RED BLOOD COUNT 3.65 10^6/uL (4.35-5.85); RED CELL DISTRIBUTION WIDTH 13.1 % (10.0-14.5); WHITE BLOOD COUNT 11.6 10^3/uL (4.3-11.0)
[2016-09-03 10:19] LABS: ALANINE AMINOTRANSFERASE 21 U/L (0-55); ALBUMIN 3.2 G/DL (3.2-4.5); ANION GAP 9 MMOL/L (5-14); ASPARTATE AMINO TRANSFERASE 9 U/L (5-34); BILIRUBIN,TOTAL 0.4 MG/DL (0.1-1.0); BLOOD UREA NITROGEN 14 MG/DL (7-18); BUN/CREATININE RATIO 20; CALCIUM 8.8 MG/DL (8.5-10.1); CARBON DIOXIDE 27 MMOL/L (21-32); CHLORIDE 100 MMOL/L (98-107); CREATININE SERUM 0.71 MG/DL (0.60-1.30); GFR ESTIMATED > 60; GLUCOSE 162 MG/DL (70-105); POTASSIUM 3.8 MMOL/L (3.6-5.0); SODIUM 136 MMOL/L (135-145); TOTAL PROTEIN 5.3 G/DL (6.4-8.2)
--- NOTE | 2016-09-03 10:59 | Physical Therapy Daily Note ---
PT Daily Note-Current Subjective Patient in bed pre tx, agrees to PT, states he is very tired today. Pain Numeric Pain Scale: 0-No Pain Appearance Patient in recliner post tx with nurse call, phone, tray, all needs met. Mental Status Patient Orientation: Person, Place, Situation Transfers Functional [place] Measure 0=Not Assessed/NA 4=Minimal Assistance 1=Total Assistance 5=Supervision or Setup 2=Maximal Assistance 6=Modified [place] 3=Moderate Assistance 7=Complete IndependenceIRFPAI Quality Coding Scale 6 Independent with activity with or without an assistive device 5 Patient requires set up or clean up by helper. Patient completes activity by themselves 4 Supervision or touching assist (CGA). [place] provide cues , steadying assist 3 The helper provides less than half the effort to complete the activity 2 The helper provides more than half the effort to complete the activity 1 Dependent. The helper does all the effort to complete an activity 7 Patient refused to complete or attempt activity 9 The patient did not perform the activity before the current illness or injury 88 Not attempted due to Medical conditions or safety concerns Transfers (B, C, W/C) (FIM): 5 Scootin Rollin Supine to/from Sit: 6 Sit to/from Stand: 5 cues for safety and hand placement, will often try to go without using the walker Gait Training Gait (FIM): 5 Distance: 1200'x2 Gait Level of Assist: 5 Gait Assistive Device: FWW cues for direction due to left neglect Exercises Standing: Heel/toe raises, Mini squats, Step-ups Standing Reps: 20 NuStep Minutes: 15 NuStep Workload: 5 Treatments ambulation, transfers, functional strengthening Assessment Current Status: Poor Progress no progress in mobility, he probably will be SBA until his left neglect improves PT Short Term Goals Short Term Goals Time Frame: Sep 10, 2016 Transfers (B,C,W/C) (FIM): 5 Gait (FIM): 5 Distance (FIM): 3=150 ft Stairs (FIM): 2 # of Steps: 8 PT Multimedia Developer Goals [facility] Goals PT Multimedia Developer Goals Time Frame: Sep 24, 2016 Transfers (B,C,W/C) (FIM): 6 Sit to Lying (QC): 6 Lying-Sitting on Side/Bed(QC): 6 Sit to Stand (QC): 6 Rollin Roll Left to Right (QC): 6 Chair/Glo-xe-Xfmgy Xfer(QC): 6 Car Transfer (QC): 6 Does the Patient Walk: Yes Gait (FIM): 6 Gait distance (FIM): 3=150 ft Walk 10 feet (QC): 6 Walk 10ft-Uneven Surface(QC): 6 Walk 50ft with 2 Turns (QC): 6 Walk 150 ft (QC): 6 Gait Level of Assist: 6 Gait Assistive Device: FWW Stairs (FIM): 6 # of Steps: 12 1 Step (curb) (QC): 6 4 Steps (QC): 6 12 Steps (QC): 6 Stairs Level Of Assist: 6 Picking up an Object (QC): 6 PT Plan Problem List Problem List: Activity Tolerance, Functional Strength, Safety, Balance, Gait, Transfer Treatment/Plan Treatment Plan: Continue Plan of Care Treatment Plan: Bed Mobility, Education, Functional Activity Chip, Functional Strength, Group Therapy, Gait, Safety, Therapeutic Exercise, Transfers Treatment Duration: Sep 24, 2016 Visits Per Week: 10-15 Minutes/Day (M-F): 60-90 Minutes/Day (Sat/Robin): prn Safety Risks/Education Patient Education: Gait Training, Transfer Techniques, Safety Issues Teaching Recipient: Patient Teaching Methods: Demonstration, Discussion Response to Teaching: Reinforcement Needed Time/GCodes Time In: 1000 Time Out: 1100 Total Billed Treatment Time: 60 Total Billed Treatment 1 visit EX 30 min GT 30 min SACHIN WAGNER PT Sep 03, 2016 10:59
[2016-09-03 14:40] VITALS: BP 126/72
--- NOTE | 2016-09-03 14:49 | Therapy Group Daily Note ---
Therapy Daily Group Note Exercises Fine Motor, Other (reaching, dynamic core strength, ) Other/Notes Pt. attended PT OT group this date. Pt. ambulated to and from with CGA FWW and guidance and direction . Socialization was initiated through introductions and conversation. This pt. needed assistance to participate in all aspects not only secondary to cognitive issues but also likely to hearing issues. Pt. sat at table where he was part of [employer] and then also [employer]. Pt. automatically performed parts of both games initiating properly to match [employer] at times and others needing cues to continue play etc. Pt. needed much assistance for mathematics of [employer]. Pt did smile and was pleasant but needed assist for all. Pt. shared a one word encouragement to others at end..."determination". Pt. to room after group with . Settled in bed, tate at hand Start Time: 13:00 Stop Time: 14:00 Total Billed Treatment Time: 60 Total Billed Treatment 1,GRP ROMAN BARON ASSISTANT HOUSEKEEPING MANAGER Sep 03, 2016 14:49
--- NOTE | 2016-09-03 15:14 | Physical Therapy Daily Note ---
PT Daily Note-Current Subjective Patient in bed pre tx, agrees to PT. Apparently patient is going to discharge from this facility today. He has had all of his required minutes today but he will be FIMed before leaving. Pain Numeric Pain Scale: 0-No Pain Appearance Patient in bed post tx with bed alarm on, has nurse call, phone, tray, all needs met. Bed alarm used because is not in the room. Mental Status Patient Orientation: Person, Place, Situation Transfers Functional [place] Measure 0=Not Assessed/NA 4=Minimal Assistance 1=Total Assistance 5=Supervision or Setup 2=Maximal Assistance 6=Modified [place] 3=Moderate Assistance 7=Complete IndependenceIRFPAI Quality Coding Scale 6 Independent with activity with or without an assistive device 5 Patient requires set up or clean up by helper. Patient completes activity by themselves 4 Supervision or touching assist (CGA). [place] provide cues , steadying assist 3 The helper provides less than half the effort to complete the activity 2 The helper provides more than half the effort to complete the activity 1 Dependent. The helper does all the effort to complete an activity 7 Patient refused to complete or attempt activity 9 The patient did not perform the activity before the current illness or injury 88 Not attempted due to Medical conditions or safety concerns Transfers (B, C, W/C) (FIM): 5 Scootin Rollin Roll Left to Right (QC): 6 Supine to/from Sit: 6 Sit to/from Stand: 5 Sit to Lying (QC): 6 Sit to Stand (QC): 4 Chair/Szm-sf-Pjese Xfer(QC): 4 Bed to/from Chair: 5 Car Transfer (QC): 88 Patient can be impulsive and get up and transfer without the walker, he is impulsive and has left neglect. Occasional cues for hand placement. Gait Training Gait (FIM): 5 Distance: 1200' Walk 10 feet (QC): 4 Walk 50 ft with 2 Turns(QC): 4 Walk 150 ft (QC): 4 Walking 10ft/uneven surface-QC: 4 Gait Level of Assist: 5 Gait Persons Needed: 1 Gait Assistive Device: FWW Patient needs cues for direction due to left neglect. He is able to ambulate 10 ' over an uneven surface like carpet with SBA and able to ambulate 50' with at least 2 turns of 90 degrees. Wheelchair Training Does the Pt Use a Wheelchair?: No Stair Training Stair Training: Handrails/: 2 handrails Stairs (FIM): 5 #of Steps: 12 1 Step (curb) (QC): 4 4 Steps (QC): 4 12 Steps (QC): 4 Stairs: Pattern: Step to Level of Assist: 5 SBA with stairs and cues for safety and to step-to pattern Balance Picking up an Object (QC): 5 Treatments bed mobility and transfers, ambulation, stair training Assessment Current Status: Fair Progress Patient has made fair progress during his stay, if his left neglect were to improve, he would probably be mod I with mobility, however, at this time, he needs somebody there to direct him. PT Short Term Goals Short Term Goals Time Frame: Sep 10, 2016 Transfers (B,C,W/C) (FIM): 5 Gait (FIM): 5 Distance (FIM): 3=150 ft Stairs (FIM): 2 # of Steps: 8 PT Alf Goals Auditor Medical Claims Goals PT Alf Goals Time Frame: Sep 24, 2016 Transfers (B,C,W/C) (FIM): 6 Sit to Lying (QC): 6 (met) Lying-Sitting on Side/Bed(QC): 6 (met) Sit to Stand (QC): 6 Rollin (met) Roll Left to Right (QC): 6 (met) Chair/Wda-fl-Ctrkf Xfer(QC): 6 Car Transfer (QC): 6 Does the Patient Walk: Yes Gait (FIM): 6 Gait distance (FIM): 3=150 ft Walk 10 feet (QC): 6 Walk 10ft-Uneven Surface(QC): 6 Walk 50ft with 2 Turns (QC): 6 Walk 150 ft (QC): 6 Gait Level of Assist: 6 Gait Assistive Device: FWW Stairs (FIM): 6 # of Steps: 12 1 Step (curb) (QC): 6 4 Steps (QC): 6 12 Steps (QC): 6 Stairs Level Of Assist: 6 Picking up an Object (QC): 6 PT Plan Problem List Problem List: Activity Tolerance, Functional Strength, Safety, Balance, Gait, Transfer Treatment/Plan Treatment Plan: Discontinue PT Treatment Plan: Bed Mobility, Education, Functional Activity Chip, Functional Strength, Group Therapy, Gait, Safety, Therapeutic Exercise, Transfers Treatment Duration: Sep 24, 2016 Visits Per Week: 10-15 Minutes/Day (M-F): 60-90 Minutes/Day (Sat/Robin): prn Safety Risks/Education Patient Education: Gait Training, Transfer Techniques, Steps, Safety Issues Teaching Recipient: Patient Teaching Methods: Demonstration, Discussion Response to Teaching: Reinforcement Needed Discharge Recommendations Therapy D/C Recommendations: Home w/ Family Support Time/GCodes Time In: 1450 Time Out: 1505 Total Billed Treatment Time: 15 Total Billed Treatment 1 visit GT 15 min SACHIN WAGNER PT Sep 03, 2016 15:14
--- NOTE | 2016-09-03 15:22 | Therapy Team Discharge Summary ---
Therapy Discharge Summary Discharge Recommendations Date of Discharge Therapy D/C Recommendations: Home w/ Family Support Physical Therapy Patient was admitted to rehab following glioblastoma and craniotomy. Upon admission, patient performed bed mobility with standby assist, transfer with [place] to CGA, ambulated 150' with a rolling walker with CGA/Perico, and could go up and down 1 step using a rolling walker with CGA/Perico. Patient has been performing bed mobility and transfer training, balance and endurance training, functional strengthening, stair training, gait training, and education. Patient has made fair progress but has only met his long-term goals for bed mobility. Now, patient performs bed mobility with mod I, transfers with SBA, ambulates 1200' with a rolling walker with SBA (including 10' over an uneven surface like carpet, and 50' with at least 2 turns of 90 degrees), and can go up and down 12 steps using 2 handrails with SBA. Patient is discharging from this facility today and will be discharged from PT at this time. PT Vest Presser Goals Vest Presser Goals PT Vest Presser Goals Time Frame: Sep 24, 2016 Transfers (B,C,W/C) (FIM): 6 Roll Left to Right (QC): 6 (met) Sit to Lying (QC): 6 (met) Lying-Sitting on Side/Bed(QC): 6 (met) Sit to Stand (QC): 6 Chair/Lgb-og-Wfofm Xfer(QC): 6 Car Transfer (QC): 6 Does the Patient Walk: Yes Gait (FIM): 6 Gait distance (FIM): 3=150 ft Walk 10 feet (QC): 6 Walk 10ft-Uneven Surface(QC): 6 Walk 50ft with 2 Turns (QC): 6 Walk 150 ft (QC): 6 Gait Level of Assist: 6 Gait Assistive Device: FWW Stairs (FIM): 6 # of Steps: 12 1 Step (curb) (QC): 6 4 Steps (QC): 6 12 Steps (QC): 6 Stairs Level Of Assist: 6 Picking up an Object (QC): 6 OT Vest Presser Goals Vest Presser Goals Time Frame: Sep 24, 2016 Eating (FIM): 7 ("There is nothing I can't eat") Eating (QC): 6 Oral Hygiene (QC): 6 Grooming(FIM): 6 Bathing(FIM): 6 Shower/Bathe Self (QC): 6 Upper Body Dressing(FIM): 6 Upper Body Dressing (QC): 6 Lower Body Dressing(FIM): 6 Lower Body Dressing (QC): 6 On/Off Footwear (QC): 6 Toileting(FIM): 6 Toileting Hygiene (QC): 6 Toilet/Commode Transfer(FIM): 6 Toilet/Commode Transfer (QC): 6 Shower Transfer(FIM): 6 Comprehension(FIM): 6 Expression (FIM): 6 Social Interaction(FIM): 6 Problem Solving(FIM): 5 Memory(FIM): 5 Increase bilat UE strength to 5/5 to help with ADLs and transfers Increase functional vision L visual field Additional Goals: 2-Verbalize Understanding, 3-ImproveStrength/Chip 1=Demonstrate adherence to instructed precautions during ADL tasks. 2=Patient will verbalize/demonstrate understanding of assistive devices/ modifications for ADL. 3=Patient will improve strength/tolerance for activity to enable patient to perform ADL's. Speech Vest Presser Goals Penitentiary Goals 1. The patient will demonstrate improved cognitive linguistic skills for increased safety and function with ADL's in the least restrictive setting. Time Frame: Three Weeks Comprehension: 6 Expression: 6 Social Interaction: 6 Problem Solvin Memory: 5 SACHIN WAGNER PT Sep 03, 2016 15:22
[2016-09-03] MEDS ORDERED: SERT50TA9 PO ×2 (16:36)
[2016-09-03] MEDS ORDERED: PANT40TA3 PO ×2 (16:36)
[2016-09-03] MEDS ORDERED: ASPI325T32 PO ×2 (16:36)
[2016-09-03] MEDS ORDERED: Finasteride PO ×2 (16:36)
[2016-09-03] MEDS ORDERED: INSU100V3 SC ×2 (16:36)
[2016-09-03] MEDS ORDERED: ACET-77 PO ×2 (16:36)
[2016-09-03 17:15] VITALS: BP 126/72
[2016-09-04] MEDS ORDERED: AMOX-358 PO (21:39)
[2016-09-06] MEDS ORDERED: DEXAMETHASONE 1 MG TAB (DECADRON) PO SCH (09:00)
--- NOTE | 2016-09-06 15:40 | Therapy Team Discharge Summary ---
Therapy Discharge Summary Discharge Recommendations Date of Discharge Sep 03, 2016 at 17:15 Therapy D/C Recommendations: Home w/ Family Support Occupational Therapy Pt admitted to ARU with diagnosis of glioblastoma. On admission pt generally required minimal assistance for LE ADLs and transfers. Skilled OT intervention focused on ADL training, transfers, strengthening, scanning/compensation strategies for left neglect, and home safety. Pt progressed with therapy and by discharge is SBA for ADLs and transfers. Pt did not meet LTG of being modified independent. Pt discharged home with support from spouse. D/C ARU OT. PT Care Home Goals Photoresist Contact Printer Goals PT Photoresist Contact Printer Goals Time Frame: Sep 24, 2016 Transfers (B,C,W/C) (FIM): 6 Roll Left to Right (QC): 6 (met) Sit to Lying (QC): 6 (met) Lying-Sitting on Side/Bed(QC): 6 (met) Sit to Stand (QC): 6 Chair/Uxm-ke-Khtlf Xfer(QC): 6 Car Transfer (QC): 6 Does the Patient Walk: Yes Gait (FIM): 6 Gait distance (FIM): 3=150 ft Walk 10 feet (QC): 6 Walk 10ft-Uneven Surface(QC): 6 Walk 50ft with 2 Turns (QC): 6 Walk 150 ft (QC): 6 Gait Level of Assist: 6 Gait Assistive Device: FWW Stairs (FIM): 6 # of Steps: 12 1 Step (curb) (QC): 6 4 Steps (QC): 6 12 Steps (QC): 6 Stairs Level Of Assist: 6 Picking up an Object (QC): 6 OT Care Home Goals Photoresist Contact Printer Goals Time Frame: Sep 24, 2016 Eating (FIM): 7 ("There is nothing I can't eat") Eating (QC): 6 Oral Hygiene (QC): 6 Grooming(FIM): 6 Bathing(FIM): 6 Shower/Bathe Self (QC): 6 Upper Body Dressing(FIM): 6 Upper Body Dressing (QC): 6 Lower Body Dressing(FIM): 6 Lower Body Dressing (QC): 6 On/Off Footwear (QC): 6 Toileting(FIM): 6 Toileting Hygiene (QC): 6 Toilet/Commode Transfer(FIM): 6 Toilet/Commode Transfer (QC): 6 Shower Transfer(FIM): 6 Comprehension(FIM): 6 Expression (FIM): 6 Social Interaction(FIM): 6 Problem Solving(FIM): 5 Memory(FIM): 5 Increase bilat UE strength to 5/5 to help with ADLs and transfers Increase functional vision L visual field Additional Goals: 2-Verbalize Understanding, 3-ImproveStrength/Chip 1=Demonstrate adherence to instructed precautions during ADL tasks. 2=Patient will verbalize/demonstrate understanding of assistive devices/ modifications for ADL. 3=Patient will improve strength/tolerance for activity to enable patient to perform ADL's. Speech Care Home Goals Care Home Goals 1. The patient will demonstrate improved cognitive linguistic skills for increased safety and function with ADL's in the least restrictive setting. Time Frame: Three Weeks Comprehension: 6 Expression: 6 Social Interaction: 6 Problem Solvin Memory: 5 BRIAN YANES OT Sep 06, 2016 15:40
[2016-09-07] MEDS ORDERED: ASPIRIN E.C. 325 MG (ECOTRIN) TABLET PO SCH (09:00)
--- NOTE | 2016-09-14 11:24 | DISCHARGE SUMMARY ---
DATE OF ADMISSION: 08/27/2016 DATE OF DISCHARGE: 09/10/2016 HISTORY OF THE PRESENT ILLNESS: The patient is a 71-year-old male with history of glioblastoma multiforme who was admitted to [facility] for craniotomy and excision of recurrent tumor. The patient has been followed by [facility] in the past and Dr. Wesley, PCP. He is referred back to his home community for ongoing rehab prior to discharge home with her spouse. PAST MEDICAL HISTORY: 1. Diabetes mellitus. 2. Hypertension. 3. Hypercholesteremia. 4. Status post right occipital temporal craniotomy for resection of residual brain tumor 08/24/2016. The patient continues on Decadron postoperatively as well as Keppra for seizure prophylaxis. He is on subcutaneous heparin for DVT prophylaxis. He takes metformin for his diabetes mellitus as well as Flex pen sliding scale regimen. SOCIAL HISTORY: Retired, lives with spouse in [place]. MEDICAL COURSE: The patient was followed by Dr. Núñez and Dr. Valdivia while on rehab unit. Dr. Parkinson made a courtesy visit as the patient hoped to be discharge soon as he wished to go back to chewing tobacco. He progressed well. His incision site was healing well. His blood pressure is 126/72 on 09/03, pulse 64, respirations 20, O2 sat 98% on room air. He was afebrile during his stay. His CBC on 09/03 showed improved H&H with 12/35, WBC 11.6, platelet count 13.1. Chemistry showed normal electrolytes, BUN and creatinine, blood glucose 162 on 09/03 and 245 on 08/28. Total protein on 09/03 was improved to 5.3. Albumin improved to 3.26. Glucometer readings from 09/01 to 09/03 varied between 93 and 273 REHABILITATION COURSE: Speech therapy assessed him. He had some mild memory, cognitive impairments and his felt that he was at baseline and speech therapy signed off. PT notes upon admission, the patient performed bed mobility with standby assist, transfers with min assist to contact guard. He could ambulate 150 feet with a wheeled walker with contact guard to minimal assist and go up and down one step using rolling walker with contact guard to minimal assist. Upon discharge the patient is modified independent with bed mobility, standby assist for transfers, and could ambulate 1200 feet with a wheeled walker with standby assist and go up and down 12 steps using 2 handrails with standby assist. OT notes upon admission, the patient required min assist for lower body ADLs and transfers. The patient progressed with therapies and by discharge was standby assist for ADLs and transfers DISCHARGE INSTRUCTIONS: The patient is discharged to a home with home health services and spouse. Continue current diet and follow-up with neurosurgery. Follow-up with Dr. Wesley, PCP. Continue Accu-Cheks as per home regimen. DISCHARGE MEDICATIONS: 1. Zoloft 50 mg p.o. daily. 2. Dexamethasone 4 milligrams p.o. b.i.d. taper as per protocol. 3. Colace 100 mg p.o. b.i.d. 4. Finasteride 5 mg p.o. daily. 5. Keppra 500 mg p.o. b.i.d. 6. Milk of magnesia 30 mL p.o. daily p.r.n. constipation. 7. Metformin 500 mg p.o. b.i.d. 8. Multivitamins 1 tablet p.o. daily. 9. Omeprazole 20 mg p.o. daily. 10. Simvastatin 40 mg p.o. at bedtime. 11. Senokot 1 tablet p.o. b.i.d. DISCHARGE DIAGNOSES: 1. Rehabilitation ambulatory dysfunction secondary to recurrent glioblastoma multiforme status post excision [facility] craniotomy 08/24/16. 2. Difficulty walking. 3. Mild left-sided weakness. 4. Diabetes mellitus with oral medications. 5. Hypertension, controlled with medication. 6. Hypercholesteremia. 7. Chewing tobacco 8. Mild postop anemia, improving. 9. Mild hypoalbuminemia, improved. CONDITION AT DISCHARGE: Improved and stable PROGNOSIS: Rehab prognosis appears good for continued improvement at home and return to independent living with some assistance from spouse over short term prognosis due to his diagnosis glioblastoma multiforme. Cancer Center has followed him in the past and I assume will follow-up with him again at [facility]. Job ID: [id number] Dictated Date: 09/14/2016 08:55:23 Hand Ironer Date: 09/14/2016 11:10:35/shantell
[2016-09-30] MEDS ORDERED: DEXA2TAB PO (07:41)
[2016-10-01] MEDS ORDERED: FAMO-119 PO (09:59)
[2016-12-17] MEDS ORDERED: CYCL10TA9 PO (12:42)
== END 2016-09-03 17:15 | disposition home health service (06) | DRG 949 ==
LOC: UNDOADMIN 10:58
PROVIDERS: ADMIT Physical Medicine & Rehabilitation; ATTEND Physical Medicine & Rehabilitation
DX: Z48.3 Aftercare following surgery for neoplasm (principal); C71.9 Malignant neoplasm of brain, unspecified; R26.2 Difficulty in walking, not elsewhere classified; R29.898 Other symptoms and signs involving the musculoskeletal system; E11.9 Type 2 diabetes mellitus without complications; Z79.84 Long term (current) use of oral hypoglycemic drugs; I10 Essential (primary) hypertension; E78.00 Pure hypercholesterolemia, unspecified; F17.220 Nicotine dependence, chewing tobacco, uncomplicated
CPT/HCPCS: 36415; 80053; 82962; 85025; 85027

== ENCOUNTER 2016-09-04 19:58 | Emergency (ER) | payer MEDICARE, OTHER ==
[~2016-09-04] VITALS: Ht 170.2 cm; Wt 64.9 kg
[~2016-09-04 19:58] MED LIST changes: +ACET-77 PO; +Finasteride PO; +INSU100V3 SC; +PANT40TA3 PO; +SERT50TA9 PO
--- OUTSIDE RECORDS SUMMARY | 2016-09-04 20:06 | XMS REPORT | Continuity of Care Document ---
Author Author [facility] Organization [facility] Address Unknown Phone Unavailable Care Team Providers Care Rotary Derrick Operator Name Role Phone LindaMartin lawrence PCP [phone] Source Comments Some departments are not documenting in the electronic medical record. If you do not see the information that you expected, contact Release of Information in the Health Information Management department at [phone] for further assistance in locating additional records.[facility] Active Allergies and Adverse Reactions Allergen Noted [...] tablet Take 325 mg by mouth 08/27/19 Discontin daily. 17 ued dexamethasone (DECADRON) Take 4 mg by mouth three 08/27/19 Discontin 4 mg tablet times daily. 17 ued MULTIVITAMINS WITH Take 1 Tab by mouth 08/20/19 Discontin FLUORIDE (MULTI-VITAMIN daily. 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 02/05/2016 (HCC) Resolved Problems Problem Noted Date Resolved Date Brain lesion 02/07/2016 02/18/2016 Most Recent Encounters Date Type Specialty Providers Description 08/31/2016 Telephone Neurosurgery Taj Avalos MD Follow-up Phone Call 08/24/2016 [facility] Radiology Taj Avalos MD Encounter 08/24/2016 [facility] Taj Avalos MD Glioblastoma (HCC) - Encounter 08/27/2016 08/24/2016 Screening Form 08/24/2016 Screening Form 08/24/2016 Surgery Taj Avalos MD RIGHT TEMPORO-OCCIPITAL CRANIOTOMY, RESECTION OF BRAIN TUMOR 08/20/2016 PAC Office Anesthesiology Taj Avalos MD Encounter for Visit preadmission testing (Primary Dx); Coagulation defect (HCC); Benign neoplasm of brain, unspecified brain region (HCC) 08/20/2016 Pre-Admit Neurosurgery Taj Avalos MD Glioblastoma multiforme Orders Only of brain (HCC) (Primary Dx) 08/20/2016 Anesthesia Nicky Salazar, Event LASER/ELECTRO OPTICS TECHNICIAN 08/19/2016 Office Visit Neurosurgery Taj Avalos MD GBM ( glioblastoma multiforme) (HCC) (Primary Dx) 08/19/2016 Office Visit Neurosurgery Keanu Vick MD GBM ( glioblastoma multiforme) (HCC) (Primary Dx); Left-sided weakness 08/19/2016 Orders Only Neurosurgery Taj Avalos MD Glioblastoma multiforme of brain (HCC) (Primary Dx) 08/19/2016 Prep for Case Neurosurgery Taj Avalos MD 08/18/2016 Telephone Neurosurgery Keanu Vick [...] Taken Blood Pressure 120/67 08/27/2016 9:24 AM KOSHER INSPECTOR Pulse 75 08/27/2016 9:24 AM KOSHER INSPECTOR Temperature 36.7 C (98 F) 08/27/2016 9:24 AM KOSHER INSPECTOR Respiratory Rate 18 07/13/2016 1:21 PM KOSHER INSPECTOR Height 1.702 m (5' 7") 08/25/2016 4:25 AM KOSHER INSPECTOR Weight 65.2 kg (143 lb 11.8 oz) 08/25/2016 4:25 AM KOSHER INSPECTOR Body Mass Index 22.51 08/25/2016 4:25 AM KOSHER INSPECTOR Oxygen Saturation 92% 08/27/2016 9:24 AM KOSHER INSPECTOR Plan of Care Date Type Specialty Providers Description 09/06/2016 [place] [address] [place] [address] [phone] (Fax) 09/23/2016 Appointment Neurosurgery Taj Avalos MD [address] [place] [address] [phone] (Fax) Health Maintenance Due Date Last Done Comments Physical (Comprehensive) 1950 Exam Pertussis Vaccine 1954 Tetanus Vaccine 1960 Colorectal Cancer 1993 Screening Shingles Vaccine 2003 Prevnar/Pneumovax (#1) 2008 Influenza Vaccine 04/15/2016 Procedures from Last 3 Months Procedure Name Priority Date/Time Associated Diagnosis Comments TELEMETRY STRIPS-SCAN 08/31/2016 Results for this 4:04 PM KOSHER INSPECTOR procedure are in the results section. ECG UNCONFIRMED-SCAN 08/28/2016 Results for this 5:36 PM KOSHER INSPECTOR procedure are in the results section. RIGHT TEMPORO-OCCIPITAL 08/24/2016 GBM (glioblastoma CRANIOTOMY, RESECTION OF 12:35 PM KOSHER INSPECTOR multiforme) (HCC) BRAIN TUMOR Results from Last 3 Months TELEMETRY STRIPS-SCAN (08/31/2016 4:04 PM) Narrative Ordered by an unspecified provider. ECG UNCONFIRMED-SCAN (08/28/2016 5:36 PM) Narrative Ordered by an unspecified provider. POC GLUCOSE (08/27/2016 7:13 AM)Only the most [...] - Janeth Aug 26, 2016 2:34 PM KOSHER INSPECTOR EXAM: MRI BRAIN WITH AND WITHOUT CONTRAST [...] Please contact the Clinical Pharmacist for questions. SURGICAL PATHOLOGY (08/24/2016 2:42 PM) Component Value Range PATHOLOGY REPORT [facility] [email or web address] [email or web address] Jones MD, PhD, Director of Anatomic Pathology Department of Pathology and Laboratory Medicine [address] [place] [id number] Surgical Pathology Office: [phone] SURGICAL PATHOLOGY REPORT NAME: HERMANN RODRIGUEZ SURG PATH #: [id number] MR #: [id number] SPECIMEN CLASS: SR BILLING #: [id number] ALT ID #: LOCATION: DISCHARGED DATE OF PROCEDURE: 08/24/2016 AGE: 71 SEX: M DATE RECEIVED: 08/24/2016 : 1945 TIME RECEIVED: 14:42 PHYSICIAN: TAJ AVALOS MD DATE OF REPORT: 09/02/2016 COPY TO: DATE OF PRINTIN09/02/2016 ################################################## ###################### Final Diagnosis: Right occipitotemporal craniotomy with resection of brain tumor: A. (Brain), tumor: TREATED GLIOMA WITH SPARSE MITOTIC ACTIVITY AND FOCAL MICROVASCULAR PROLIFERATION, WITH EXTENSIVE AREAS OF RADIATION NECROSIS (see comment) B. (Brain), tumor: TREATED GLIOMA WITH EXTENSIVE NECROSIS, CONSISTENT WITH RADIATION NECROSIS C. (Brain), occipital pole: TREATED GLIOMA WITH SPARSE MITOTIC ACTIVITY AND RADIATION NECROSIS D. (Brain), hippocampus: HIPPOCAMPUS WITH CELLULAR GLIOMA WITH MITOSES AND FOCAL MICROVASCULAR PROLIFERATION E. (Brain), tumor: TREATED GLIOMA WITH SPARSE MITOTIC ACTIVITY AND FOCAL MICROVASCULAR PROLIFERATION WITH EXTENSIVE AREAS OF RADIATION NECROSIS Comment: This large resection includes a mixture of treated glioma and large areas of radiation necrosis. The tumor has some, but not frequent, mitotic activity with relatively low MIB1-labeling in two areas examined (A4, B5), and very focal areas of microvascular proliferation. The most viable-appearing, cellular tumor is present in the hippocampus. 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 BRAIN//Resection Specimen Type/Procedure: Resection Specimen Size: See gross description Laterality: Right brain, occipital pole, hippocampus Tumor Site: Brain/cerebrum Histologic Type and Grade: Astrocytic Tumors Glioblastoma (WHOgradeIV) Histologic Grade (WHO histologic grade): WHO grade IV The pathologic stage assigned here should be regarded as provisional, as it reflects only current pathologic data and does not incorporate full knowledge of the patient's clinical status and/or prior pathology. Attestation: By this signature, I attest that I have personally formulated the final interpretation expressed in this report and that the above diagnosis is based upon my examination of the slides and/or other material indicated in this report. +++Electronically Signed Out By+++ ksw/08/25/2016 Interpreted by: Camille Ferrara MD, Attending Physician LOIS Joyec Fellow 09/02/2016 ################################################## ###################### Material Received: A: tumor B: tumor C: occipital pole D: hippocampus E: tumor History: 71-year-old man with a history of treated glioblastoma ([id number]) and a clinical impression of recurrent tumor. Recent imaging reveals extensive ill-defined irregular enhancement around the operative margins and increasing edema. Microscopic Description: Mitotic activity: low numbers of mitoses are present in several areas Microvascular proliferation: present focally Necrosis: present in multiple areas, widespread Pseudopalisading necrosis: not seen MIB-1: A4, B5 Gross Description: A. Received fresh, labeled with the patient's name and "tumor" is a resection of asher and white matter, 2.5 x 2.0 x 1.5 cm. Several areas are sampled for A1FS and smears. The residual tissue is submitted in cassettes A2-A6. B. Received fresh, labeled with the patient's name and "tumor" is a resection of asher and white matter, 2.5 x 1.8 x 1.5 cm. Multiple areas are sampled for B1FS and smears. The residual tissue is submitted in cassettes B2-B6. C. Received in formalin, labeled with the patient's name and "occipital pole" is a 5.3 x 2.4 x 1.9 cm white-asher, convoluted fragment of friable soft neural tissue. Mine Expert sections are submitted in cassettes C1-C5. (dlk) D. Received in formalin, labeled with the patient's name and "hippocampus" is a 2.1 x 0.9 x 0.5 cm colvin-asher, irregular fragment of soft neural tissue. The specimen is bisected and entirely submitted in cassettes D1 and D2. (dlk) E. Received in formalin, labeled with the patient's name and "brain tumor" is an 8.9 x 7.7 x 3.9 cm aggregate of yellow-colvin convoluted, friable soft neural tissue fragments. Mine Expert sections are submitted in cassettes E1-E5. (dlk) ksw/08/25/2016 Camille Ferrara MD, Attending Physician Intraoperative Consultation: A1FS, smears, (Brain), tumor: Gliotic brain with treatment effect identified on the present sections examined B1FS, smears, (Brain), tumor: Gliotic brain with treatment effect identified on the present sections examined Note: A cytological smear/squash was performed on different areas from each specimen and used together with the frozen sections for optimal evaluation. Camille Ferrara MD, Attending Physician If immunohistochemical stains and/or in situ hybridization are cited in this report, the performance characteristics were determined by the Department of Pathology and Laboratory Medicine of the [facility] ([employer]) in compliance with CLIA'88 regulations. Some of these tests rely on the use of "analyte specific reagents" and are subject to specific labeling requirements by the FDA. Known positive and negative control tissues demonstrate appropriate staining. This testing was developed by the Department of Pathology and Laboratory Medicine of the [facility]. It has not been cleared or approved by the FDA. The FDA has determined that such clearance or approval is not necessary. ANESTHESIA ARTERIAL LINE INSERTION (08/24/2016 1:26 PM) [...] - Tue Aug 24, 2016 8:38 AM KOSHER INSPECTOR MRI brain Medical history: Brain tumor, glioblastoma, [...]
[2016-09-04 20:56] LABS: BASOPHILS % (AUTO) 0 % (0-10); EOSINOPHILS % (AUTO) 0 % (0-10); LYMPHOCYTES # (AUTO) 1.3 X 10^3 (1.0-4.0); LYMPHOCYTES % (AUTO) 8 % (12-44); MEAN CORPUSCULAR HEMOGLOBIN 33 PG (25-34); MEAN CORPUSCULAR HGB CONC 34 G/DL (32-36); MEAN CORPUSCULAR VOLUME 96 FL (80-99); MEAN PLATELET VOLUME 9.4 FL (7.4-10.4); MONOCYTES # (AUTO) 1.1 X 10^3 (0.0-1.0); MONOCYTES % (AUTO) 7 % (0-12); NEUTROPHILS # (AUTO) 12.7 X 10^3 (1.8-7.8); NEUTROPHILS % (AUTO) 84 % (42-75); PLATELET COUNT 232 10^3/uL (130-400); RED BLOOD COUNT 4.22 10^6/uL (4.35-5.85); RED CELL DISTRIBUTION WIDTH 13.2 % (10.0-14.5); WHITE BLOOD COUNT 15.1 10^3/uL (4.3-11.0)
[2016-09-04 21:05] LABS: ALANINE AMINOTRANSFERASE 20 U/L (0-55); ALBUMIN 3.5 G/DL (3.2-4.5); ANION GAP 11 MMOL/L (5-14); ASPARTATE AMINO TRANSFERASE 11 U/L (5-34); BILIRUBIN,TOTAL 0.7 MG/DL (0.1-1.0); BLOOD UREA NITROGEN 11 MG/DL (7-18); BUN/CREATININE RATIO 15; CALCIUM 9.3 MG/DL (8.5-10.1); CARBON DIOXIDE 29 MMOL/L (21-32); CHLORIDE 97 MMOL/L (98-107); CREATININE SERUM 0.71 MG/DL (0.60-1.30); GFR ESTIMATED > 60; GLUCOSE 139 MG/DL (70-105); POTASSIUM 3.7 MMOL/L (3.6-5.0); SODIUM 137 MMOL/L (135-145)
[2016-09-04] MEDS ORDERED: KETOROLAC 15 MG/ML VIAL IVP ONE (21:15)
[2016-09-04] MEDS ORDERED: KETOROLAC 30 MG/ML VIAL IVP ONE (21:15)
[2016-09-04 21:19] LABS: BILIRUBIN,URINE NEGATIVE (NEGATIVE); KETONES,URINE NEGATIVE (NEGATIVE); LEUKOCYTE ESTERASE ,URINE NEGATIVE (NEGATIVE); NITRITE,URINE NEGATIVE (NEGATIVE); PH,URINE 8 (5-9); PROTEIN,URINE NEGATIVE (NEGATIVE); UROBILINOGEN,URINE NORMAL (NORMAL)
--- NOTE | 2016-09-04 21:21 | ED Abdominal Pain ---
General Chief Complaint: Abdominal/GI Problems Stated Complaint: LOWER AB PAIN 11 DAYS POST OP BRAIN TUMOR Nursing Triage Note: Pt presents to ED with c/o lower abdominal pain and nausea, first episode one week ago, this episode began this AM, last large BM was yesterday. Was given MOM twice today and had medium soft stool. Sepsis Screen: No Definite Risk Source of Information: Patient Exam Limitations: No Limitations History of Present Illness Time Seen By Provider: 21:19 Initial Comments To ER accompanied by and son with reports of suprapubic abdominal pain, nausea that began one week ago. Pain has been intermittent since then but has become more consistent over the past 2-3 days. Last bowel movement was yesterday and was fairly loose and normal for him. He does report some pain upon urination. He is 11 days post craniectomy for a right sided glioblastoma multiforme performed at [facility]. Primary care is Dr. Wesley. Timing/Duration: Getting Worse, Intermittent Severity/Quality: Moderate Location: Suprapubic Radiation: No Radiation Activities at Onset: None Associated Symptoms: Nausea/Vomiting Allergies and Home Medications Allergies Coded Allergies: ezetimibe (Verified Allergy, Unknown, 08/27/16) according to [facility] records simvastatin (Verified Allergy, Unknown, 08/27/16) according to [facility] records promethazine (Verified Adverse Reaction, Severe, 05/02/16) CONFUSION; ALTERED MENTAL STATUS Home Medications Amoxicillin/Potassium Clav 1 Each Tablet #20 1 EACH PO BID Prescribed by: LAWSON BOTELLO on 09/04/169 Dexamethasone 4 Mg Tablet #30 4 MG PO BID Prescribed by: WILBERT WESLEY on 05/04/16 0654 Docusate Sodium 100 Mg Capsule 100 MG PO BID (Reported) Finasteride 5 Mg Tablet 5 MG PO DAILY (Reported) Levetiracetam 500 Mg Tablet 500 MG PO BID (Reported) Magnesium Hydroxide 400 Mg/5 Ml Oral.susp 1,200 MG PO DAILY PRN PRN CONSTIPATION (Reported) Metformin HCl 500 Mg Tablet 500 MG PO BIDAC (Reported) Multivitamin 1 Each Tablet 1 TAB PO DAILY (Reported) Omeprazole 20 Mg Tablet.dr 20 MG PO DAILY (Reported) TAKES WITH MORNING DEXAMETHASONE Sennosides/Docusate Sodium 1 Each Tablet 1 TAB PO BID (Reported) Sertraline HCl 50 Mg Tablet 30Days 50 MG PO HS Prescribed by: FARIBA ARRIAGA on 09/03/16 1636 Simvastatin 40 Mg Tablet 40 MG PO HS (Reported) Review of Systems Constitutional: see HPINo chills Respiratory: No Symptoms Reported Gastrointestinal: See HPI Abdominal PainDenies Constipated, Denies Diarrhea, NauseaDenies Vomiting Musculoskeletal: no symptoms reported Skin: no symptoms reported Psychiatric/Neurological: No Symptoms Reported Endocrine: No Symptoms Reported Hematologic/Lymphatic: No Symptoms Reported Past Cezmvgc-Togahn-Hsiglr Hx Patient Social History Alcohol Use: Denies Use Recreational Drug Use: No Smoking Status: Former Smoker Type Used: Cigarettes Former Smoker/When Quit: May 29, 1970 Recent Foreign Travel: No Contact w/Someone Who Travel: No Recent Infectious Disease Expo: No Recent Hopitalizations: Yes (DC on Tuesday post rehab.) Physical Abuse Screen: No Sexual Abuse: No Immunizations Up To Date Tetanus Booster (TDap): Less than 5yrs PED Vaccines UTD: Yes Date of Pneumonia Vaccine: Apr 17, 2015 Date of Influenza Vaccine: Apr 17, 2016 Seasonal Allergies Seasonal Allergies: No Surgeries HX Surgeries: Yes (brain tumor removal) Surgeries: Appendectomy Respiratory Hx Respiratory Disorders: No Cardiovascular Hx Cardiac Disorders: Yes Cardiac Disorders: Hypertension Neurological Hx Neurological Disorders: No Reproductive System Hx Reproductive Disorders: No Sexually Transmitted Disease: No HIV/AIDS: No Genitourinary Hx Genitourinary Disorders: No Genitourinary Disorders: Prostate Problems Gastrointestinal Hx Gastrointestinal Disorders: No Musculoskeletal Hx Musculoskeletal Disorders: No Musculoskeletal Disorders: Arthritis Endocrine Hx Endocrine Disorders: Yes Endocrine Disorders: Diabetes, Non-Insulin dep HEENT HX ENT Disorders: Yes Loss of Vision: Left Hearing Impairment: Hard of Hearing Cancer Hx Cancer: Yes (Dx- 6-26-16 and had first brain surgery then at .) Cancer: Brain Psychosocial Hx Psychiatric Problems: No Behavioral Health Disorders: Anxiety Integumentary HX Skin/Integumentary Disorder: No Blood Transfusions Hx Blood Disorders: No Adverse Reaction to a Blood Tr: No Family Medical History Family Medial History: Abdominal aortic aneurysm 19 MOTHER Arthritis 19 MOTHER G8 BROTHER G8 BROTHER G8 SISTER Cardiovascular disease 19 FATHER 19 MOTHER (CONGESTIVE HEART FAILURE) Cataracts 19 MOTHER Deafness or hearing loss 19 MOTHER Diabetes mellitus G8 BROTHER G8 SISTER Hypertension 19 MOTHER G8 BROTHER G8 BROTHER G8 SISTER Kidney disease 19 MOTHER (KIDNEY FAILURE) Myocardial infarction 19 FATHER (1ST ONE IN 160. IN 1970'S) Physical Exam Vital Signs VS - Last 72 Hours, by Label 09/04/16 20:15 Temp 98.4 Pulse 74 Resp 18 B/P 156/98 Pulse Ox 92 O2 Delivery Room Air Capillary Refill : Less Than 3 Seconds General Appearance: WD/WN no apparent distress HEENT: PERRL/EOMI normal ENT inspection Neck: non-tender full range of motion Respiratory: no respiratory distress no accessory muscle use Gastrointestinal: normal bowel sounds non tender soft Extremities: normal range of motion non-tender Neurologic/Psychiatric: alert normal mood/affect oriented x 3 Skin: normal color warm/dry other (there is a mottled appearance of the abdomen with purpura noted inferior to the umbilicus. Patient states this has been present for months and has not changed and followed having a heating pad on his abdomen for several hours) Progress/Results/Core Measures Results/Orders Lab Results Laboratory Tests Test 09/04/16 20:33 09/04/16 21:09 Range/Units Alanine Aminotransferase (ALT/SGPT) 20 0-55 U/L Albumin 3.5 3.2-4.5 G/DL Alkaline Phosphatase 90 40-136 U/L Anion Gap 11 5-14 MMOL/L Aspartate Amino Transf (AST/SGOT) 11 5-34 U/L BUN/Creatinine Ratio 15 Basophils # (Auto) 0.0 0.0-0.1 10^3/uL Basophils (%) (Auto) 0 0-10 % Blood Urea Nitrogen 11 7-18 MG/DL Calcium Level 9.3 8.5-10.1 MG/DL Carbon Dioxide Level 29 21-32 MMOL/L Chloride Level 97 L 98-107 MMOL/L Creatinine 0.71 0.60-1.30 MG/DL Eosinophils # (Auto) 0.0 0.0-0.3 10^3/uL Eosinophils (%) (Auto) 0 0-10 % Estimat Glomerular Filtration Rate > 60 Glucose Level 139 H 70-105 MG/DL Hematocrit 41 40-54 % Hemoglobin 13.9 13.3-17.7 G/DL Lymphocytes # (Auto) 1.3 1.0-4.0 X 10^3 Lymphocytes (%) (Auto) 8 L 12-44 % Mean Corpuscular Hemoglobin 33 25-34 PG Mean Corpuscular Hemoglobin Concent 34 32-36 G/DL Mean Corpuscular Volume 96 80-99 FL Mean Platelet Volume 9.4 7.4-10.4 FL Monocytes # (Auto) 1.1 H 0.0-1.0 X 10^3 Monocytes (%) (Auto) 7 0-12 % Neutrophils # (Auto) 12.7 H 1.8-7.8 X 10^3 Neutrophils (%) (Auto) 84 H 42-75 % Platelet Count 232 130-400 10^3/uL Potassium Level 3.7 3.6-5.0 MMOL/L Red Blood Count 4.22 L 4.35-5.85 10^6/uL Red Cell Distribution Width 13.2 10.0-14.5 % Sodium Level 137 135-145 MMOL/L Total Bilirubin 0.7 0.1-1.0 MG/DL Total Protein 6.0 L 6.4-8.2 G/DL White Blood Count 15.1 H 4.3-11.0 10^3/uL Urine Amorphous Sediment LARGE JAEL PHOSPHATE H /LPF Urine Bacteria NEGATIVE /HPF Urine Bilirubin NEGATIVE NEGATIVE Urine Casts NONE /LPF Urine Clarity VERY CLOUDY H Urine Color YELLOW Urine Crystals PRESENT H /LPF Urine Culture Indicated NO Urine Glucose (UA) NEGATIVE NEGATIVE Urine Ketones NEGATIVE NEGATIVE Urine Leukocyte Esterase NEGATIVE NEGATIVE Urine Mucus NEGATIVE /LPF Urine Nitrite NEGATIVE NEGATIVE Urine Protein NEGATIVE NEGATIVE Urine RBC NONE /HPF Urine RBC (Auto) NEGATIVE NEGATIVE Urine Specific [place] 1.015 L 1.016-1.022 Urine Urobilinogen NORMAL NORMAL MG/DL Urine WBC NONE /HPF Urine pH 8 5-9 My Orders Orders-LAWSON BOTELLO APRN Cbc With Automated Diff (09/04/16 20:45) Comprehensive Metabolic Panel (09/04/16 20:45) Saline Lock/Iv-Start (09/04/16 20:45) Ua Culture If Indicated (09/04/16 20:45) Ketorolac Injection (Toradol Injection) (09/04/16 21:15) Ct Abd/Pelvis Wo(Kidney Stone) (09/04/16 21:14) Ketorolac Injection (Toradol Injection) (09/04/16 21:15) Manual Differential (09/04/16 20:33) Amoxicillin/Clavulanate Tablet (Augmenti (09/04/16 21:45) Rx-Ondansetron Po (Rx-Zofran Po) (09/04/16 21:40) Fentanyl Injection (Sublimaze Injection (09/04/16 22:00) Fentanyl Injection (Sublimaze Injection (09/04/16 22:00) Hydrocodone/Apap 5/325 Tablet (Lortab 5 (09/04/16 22:00) Medications Given in ED Current Medications Medications Dose Ordered Sig/Jorge Route Start Time Stop Time Status Last Admin Dose Admin Acetaminophen/ Hydrocodone Bitart 1 tab ONCE ONCE PO 09/04/16 22:00 09/04/16 22:01 DC 09/04/16 22:17 1 TAB Fentanyl Citrate 75 mcg ONCE ONCE IVP 09/04/16 22:00 09/04/16 22:01 DC 09/04/16 22:01 75 MCG Ketorolac Tromethamine 30 mg ONCE ONCE IVP 09/04/16 21:15 09/04/16 21:16 DC 09/04/16 21:19 30 MG Vital Signs/I&O Vital Sign - Last 12Hours 09/04/16 20:15 Temp 98.4 Pulse 74 Resp 18 B/P 156/98 Pulse Ox 92 O2 Delivery Room Air Blood Pressure Mean: 117 Diagnostic Imaging Diagonstic Imaging: CT Comments NAME: HERMANN RODRIGUEZ [facility] REC#: [id number] PT STATUS: REG ER : 1945 PHYSICIAN: LAWSON BOTELLO APRN ADMIT DATE: 09/04/16/ER Draft Date of Exam:09/04/16 CT ABD/PELVIS WO(KIDNEY STONE) INDICATION: Low abdomen pain and vomiting for approximately the last week, worsening last night. EXAMINATION: CT of the abdomen and pelvis without contrast, 09/04/2016. COMPARISON: 10/27/2012. FINDINGS: Diffuse fluid is seen throughout the colon, especially on the right, and throughout the transverse colon. The left colon is decompressed, however, about the distal descending colon and sigmoid colon. Diffuse inflammatory change is seen with multiple diverticuli noted. There is diffuse wall thickening of the colon in this region. There is no evidence for abscess. No free air is appreciated. Adjacent small bowel loops are slightly prominent likely reactive in nature. The prostate gland is enlarged and contains calcifications. There is a hypodensity along the posterior aspect of the urinary bladder, perhaps the impression upon the adjacent enlarged prostate. This is more pronounced than on previous CT imaging. A lesion in the bladder, itself, would be much less likely but clinical correlation is recommended. Minimal wall thickening of the urinary bladder is likely due to underdistention. Cystitis could cause a similar appearance. The kidneys demonstrate no evidence for hydronephrosis. A few punctate stones are noted in the right kidney, nonobstructive. There are no ureteral stones. There is atherosclerotic disease noted throughout the aorta and its branches. The nonopacified liver, spleen, pancreas and adrenal glands, as well as gallbladder, demonstrate no evidence for acute abnormality. There is no free fluid or air in the upper abdomen. No acute osseous abnormality is seen. Chronic scar or atelectasis is seen at the lung bases. IMPRESSION: 1. Findings along the sigmoid colon are consistent with a fairly marked diverticulitis. No abscess or free air is seen at this time. Wall thickening along the colon is noted and followup is recommended to assure complete resolution and exclude underlying mass 2. Remaining more proximal colon contains a fair amount of fluid and superimposed colitis is not excluded. 3. Findings along the bladder and prostate gland, see above discussion and recommendations. Other incidental findings as discussed above. Dictated on workstation # [id number] Dict: 09/04/160 Trans: 09/04/162220 [facility] [id number] Interpreted by: CASSIA CH MD Electronically signed by: Departure Communication Progress Notes Patient should be good candidate for outpatient therapy of diverticulitis treatment given that he is not vomiting and is able to tolerate oral intake. His leukocytosis is likely at least partially explained by his daily Decadron use postoperatively. Furthermore, his and son are at the bedside and are very involved in his care. Close follow-up with primary care will be arranged. He would prefer outpatient therapy as well. Impression Impression: Primary Impression: Sigmoid diverticulitis Disposition: HOME, SELF-CARE Condition: Stable Departure-Patient Inst. Decision time for Depature: 21:35 Referrals: JAVAN WESLEY MD (PCP) Primary Care Physician Patient Instructions: Diverticulitis Add. Discharge Instructions: 1. Antibiotics as directed 2. Return to ER for any concerns 3. Follow-up with your doctor next week 4. Clear liquids only for the next 24 hours, then resume a more normal diet. Follow-up with Dr. Wesley to discuss the appearance of the enlarged prostate on the CT scan. This may require further evaluation from a urologist. All discharge instructions reviewed with patient and/or family. Voiced understanding. Scripts Amoxicillin/Potassium Clav (Augmentin 875-125 Tablet)1 Each Tablet1 Each PO BID #20 TAB Prov:LAWSON BOTELLO APRN 09/04/16 Copy Copies To 1: JAVAN WESLEY MD, PETER J APRN Sep 04, 2016 21:21
[2016-09-04] MEDS ORDERED: AMOX-358 PO (21:39)
[2016-09-04] MEDS ORDERED: RX-ONDANSETRON 4 MG ODT (ZOFRAN) PPK #4 PO STA (21:40)
[2016-09-04] MEDS ORDERED: AUGMENTIN 875 MG TAB (AMOXICILLIN/CLAVULANATE) PO SCH (21:45)
[2016-09-04] MEDS ORDERED: HYDROcodone/APAP 5 MG/325 MG (LORTAB) TAB PO ONE (22:00)
[2016-09-04] MEDS ORDERED: fentaNYL INJECTION 100 MCG/2 ML AMP IVP ONE ×2 (22:00)
--- NOTE | 2016-09-04 22:22 | Diagnostic Imaging Report ---
INDICATION: Low abdomen pain and vomiting for approximately the last week, worsening last night. EXAMINATION: CT of the abdomen and pelvis without contrast, 09/04/2016. COMPARISON: 10/27/2012. FINDINGS: Diffuse fluid is seen throughout the colon, especially on the right, and throughout the transverse colon. The left colon is decompressed, however, about the distal descending colon and sigmoid colon. Diffuse inflammatory change is seen with multiple diverticuli noted. There is diffuse wall thickening of the colon in this region. There is no evidence for abscess. No free air is appreciated. Adjacent small bowel loops are slightly prominent likely reactive in nature. The prostate gland is enlarged and contains calcifications. There is a hypodensity along the posterior aspect of the urinary bladder, perhaps the impression upon the adjacent enlarged prostate. This is more pronounced than on previous CT imaging. A lesion in the bladder, itself, would be much less likely but clinical correlation is recommended. Minimal wall thickening of the urinary bladder is likely due to underdistention. Cystitis could cause a similar appearance. The kidneys demonstrate no evidence for hydronephrosis. A few punctate stones are noted in the right kidney, nonobstructive. There are no ureteral stones. There is atherosclerotic disease noted throughout the aorta and its branches. The nonopacified liver, spleen, pancreas and adrenal glands, as well as gallbladder, demonstrate no evidence for acute abnormality. There is no free fluid or air in the upper abdomen. No acute osseous abnormality is seen. Chronic scar or atelectasis is seen at the lung bases. IMPRESSION: 1. Findings along the sigmoid colon are consistent with a fairly marked diverticulitis. No abscess or free air is seen at this time. Wall thickening along the colon is noted and followup is recommended to assure complete resolution and exclude underlying mass 2. Remaining more proximal colon contains a fair amount of fluid and superimposed colitis is not excluded. 3. Findings along the bladder and prostate gland, see above discussion and recommendations. Other incidental findings as discussed above. Dictated by: Dictated on workstation # [id number]
[2016-09-04 22:28] VITALS: BP 118/84
[2016-09-04 22:59] LABS: LYMPHOCYTES % (MANUAL) 6 %; NEUTROPHILS % (MANUAL) 87 %
[2016-09-04 23:00] LABS: STOMATOCYTES SLIGHT
[2016-09-30] MEDS ORDERED: DEXA2TAB PO (07:41)
[2016-10-01] MEDS ORDERED: FAMO-119 PO (09:59)
[2016-12-17] MEDS ORDERED: CYCL10TA9 PO (12:42)
== END 2016-09-04 22:35 | disposition home or self-care (01) ==
LOC: EDUNIT# 19:58 → ER 20:01
DX: K57.30 Diverticulosis of large intestine without perforation or abscess without bleeding (principal); I10 Essential (primary) hypertension; E11.9 Type 2 diabetes mellitus without complications; C71.9 Malignant neoplasm of brain, unspecified; Z98.890 Other specified postprocedural states; Z79.84 Long term (current) use of oral hypoglycemic drugs; Z79.899 Other long term (current) drug therapy
CPT/HCPCS: 36415; 74176; 80053; 81000; 85007; 85027; 96374; 96375

== ENCOUNTER 2016-09-30 03:05 | Observation (INO) | payer MEDICARE, OTHER ==
[~2016-09-30] VITALS: Ht 170.2 cm; Wt 62.1 kg
[2016-09-30] VITALS (8 sets, daily range): BP systolic 92–130; BP diastolic 63–91
[~2016-09-30 03:05] MED LIST changes: +AMOX-358 PO
--- OUTSIDE RECORDS SUMMARY | 2016-09-30 03:13 | XMS REPORT | Continuity of Care Document ---
Author Author [facility] Organization [facility] Address Unknown Phone Unavailable Care Team Providers Care Course Developer Name Role Phone MaryjaneMartin PCP [phone] Source Comments Some departments are not documenting in the electronic medical record. If you do not see the information that you expected, contact Release of Information in the Health Information Management department at [phone] for further assistance in locating additional records.[facility] Active Allergies and Adverse Reactions Allergen Noted Date Severity Reactions Comments Phenergan 02/08/2016 Medium SEE COMMENTS confusion Vytorin 10-10 02/04/2016 Low UNKNOWN Current Medications Prescription Sig. Disp. Refills Start End Date Status Date simvastatin (ZOCOR) 40 mg Take 40 mg by mouth at Active tablet bedtime daily. finasteride (PROSCAR) 5 Take 5 mg [...] May resume 2 weeks 17 after surgery HYDROcodone/acetaminophen Take 1 Tab by mouth every 0 08/27/19 Active (NORCO) 5/325 mg tablet 4 hours as needed for 17 Pain Earliest Fill Date: 08/27/16 TEMOZOLOMIDE PO Take by mouth daily. Per Active Dr. Ballesteros (Med/Onc) dexamethasone (DECADRON) Take 2 Tabs by mouth 60 Tab 0 09/23/19 Active 1 mg tab daily. 17 PV W-O VIJAY/FERROUS Take 1 Tab by mouth 09/23/19 Discontin FUMARATE/FA (M-VIT PO) daily. 17 ued dexamethasone (DECADRON) Taper schedule: 4 mg 0 08/27/19 09/23/19 Discontin 4 mg tablet every 6 hours thru today, 17 17 ued then 4 mg every 8 hours x 3 days, then 4mg every 12 hours x 3 days, then 2 mg every 12 hours x 3 days and 1 mg every 12 hours x 3 days then stop. heparin (porcine) PF Inject 0.5 mL under the 08/27/19 09/23/19 Discontin 5,000units/0.5mL skin every 8 hours. Until 17 17 ued injection syringe mobilizing well for DVT ppx insulin aspart (NOVOLOG Inject 0-14 Units under 3 Package 3 08/27/19 09/23/19 Discontin FLEXPEN) 100 unit/mL the skin before meals and 17 17 ued injection PEN at bedtime. dexamethasone (DECADRON) Take 2 mg by mouth daily. 09/23/19 Discontin 2 mg tablet Take with food. 17 ued Active Problems Problem Noted Date Brain compression (HCC) 09/06/2016 Cerebral edema (HCC) 09/06/2016 Glioblastoma (HCC) 08/24/2016 Left-sided weakness 08/19/2016 GBM (glioblastoma multiforme) (HCC) 02/11/2016 Cerebrovascular accident (CVA) due to stenosis of posterior cerebral artery 02/05/2016 (HCC) Resolved Problems Problem Noted Date Resolved Date Brain lesion 02/07/2016 02/18/2016 Most Recent Encounters Date Type Specialty Providers Description 09/23/2016 Office Visit Neurosurgery Stephanie Montesinos APRN GBM ( glioblastoma multiforme) (HCC) (Primary Dx) 09/23/2016 Office Visit Neurosurgery Taj Avalos MD GBM ( glioblastoma multiforme) (HCC) (Primary Dx) 09/20/2016 Telephone Neurosurgery Keanu Vick MD Medication Follow-up 09/16/2016 Telephone Keanu Zimmer MD Altered mental status 09/06/2016 Office Visit Neurosurgery Stephanie Montesinos APRN GBM ( glioblastoma multiforme) (HCC) (Primary Dx) 08/31/2016 Telephone Taj Ozuna MD Follow-up Phone Call 08/24/2016 [facility] Radiology Taj Avalos MD Encounter 08/24/2016 Hospital Taj Avalos MD Glioblastoma (HCC) - [...] (Primary Dx) 08/20/2016 Anesthesia Nicky Salazar, Event LINEN SORTER 08/19/2016 Office Visit Taj Ozuna MD GBM ( glioblastoma multiforme) (HCC) (Primary Dx) 08/19/2016 Office Visit Keanu Zimmer MD GBM ( glioblastoma multiforme) (HCC) (Primary Dx); Left-sided weakness 08/19/2016 Orders Only Taj Ozuna MD Glioblastoma multiforme of brain (HCC) (Primary [...] Vital Sign Reading Time Taken Blood Pressure 99/64 09/23/2016 10:25 AM DIRECTOR CAREER Pulse 80 09/23/2016 10:25 AM DIRECTOR CAREER Temperature 36.9 C (98.4 F) 09/06/2016 1:35 PM DIRECTOR CAREER Respiratory Rate 18 09/06/2016 1:35 PM DIRECTOR CAREER Height 1.702 m (5' 7") 09/23/2016 10:25 AM DIRECTOR CAREER Weight 62.143 kg (137 lb) 09/23/2016 10:25 AM DIRECTOR CAREER Body Mass Index 21.45 09/23/2016 10:25 AM DIRECTOR CAREER Oxygen Saturation 94% 09/06/2016 1:35 PM DIRECTOR CAREER Plan of Care Health Maintenance Due Date Last Done Comments Physical (Comprehensive) 1952 Exam Pertussis Vaccine 1954 Tetanus Vaccine 1960 Colorectal Cancer 1993 Screening Shingles Vaccine 2003 Prevnar/Pneumovax (#1) 2008 Influenza Vaccine 04/15/2016 Procedures from Last 3 Months Procedure Name Priority Date/Time Associated Diagnosis Comments TELEMETRY STRIPS-SCAN 08/31/2016 Results for this 4:04 PM DIRECTOR CAREER procedure are in the results section. ECG UNCONFIRMED-SCAN 08/28/2016 Results for this 5:36 PM DIRECTOR CAREER procedure are in the results section. RIGHT TEMPORO-OCCIPITAL 08/24/2016 GBM (glioblastoma CRANIOTOMY, RESECTION OF 12:35 PM DIRECTOR CAREER multiforme) (HCC) BRAIN TUMOR Results from Last 3 Months PATHOLOGY INTEROPERATIVE REPORT SCAN (09/13/2016 3:16 PM) Narrative Ordered by an unspecified provider. TELEMETRY STRIPS-SCAN (08/31/2016 4:04 PM) Narrative Ordered [...] - Janeth Aug 26, 2016 2:34 PM DIRECTOR CAREER EXAM: MRI BRAIN WITH AND WITHOUT CONTRAST [...] PM) Component Value Range PATHOLOGY REPORT [facility] [email or web address] Gabbi Jones MD, PhD, Director of Anatomic Pathology Department of Pathology and Laboratory Medicine [address] [place] [phone] Surgical Pathology Office: [phone] SURGICAL PATHOLOGY REPORT NAME: HERMANN RODRIGUEZ SURG PATH #: [id number] MR #: [id number] SPECIMEN CLASS: SR BILLING #: [id number] ALT ID #: LOCATION: DISCHARGED DATE OF [...] by: Camille Ferrara MD, Attending Physician LOIS Joyce Fellow 09/02/2016 ################################################## ###################### Material Received: A: tumor B: tumor C: occipital pole D: hippocampus E: tumor History: 71-year-old man with a history of treated glioblastoma ([id number]) and a clinical impression of recurrent tumor. [...] convoluted fragment of friable soft neural tissue. Weld Inspector sections are submitted in cassettes C1-C5. (dlk) [...] yellow-colvin convoluted, friable soft neural tissue fragments. Weld Inspector sections are submitted in cassettes E1-E5. (dlk) [...] of Pathology and Laboratory Medicine of the [facility] ([employer]) in compliance with CLIA'88 regulations. Some of these tests rely on the use of "analyte specific reagents" and are subject to specific labeling requirements by the FDA. Known positive and negative control tissues demonstrate appropriate staining. This testing was developed by the Department of Pathology and Laboratory Medicine of the [facility]. It has not been cleared or [...] - Tue Aug 24, 2016 8:38 AM DIRECTOR CAREER MRI brain Medical history: Brain tumor, glioblastoma, [...]
[2016-09-30 03:24] LABS: BASOPHILS % (AUTO) 0 % (0-10); EOSINOPHILS # (AUTO) 0.1 10^3/uL (0.0-0.3); EOSINOPHILS % (AUTO) 1 % (0-10); LYMPHOCYTES # (AUTO) 1.8 X 10^3 (1.0-4.0); LYMPHOCYTES % (AUTO) 14 % (12-44); MEAN CORPUSCULAR HEMOGLOBIN 32 PG (25-34); MEAN CORPUSCULAR HGB CONC 34 G/DL (32-36); MEAN CORPUSCULAR VOLUME 94 FL (80-99); MEAN PLATELET VOLUME 8.9 FL (7.4-10.4); MONOCYTES # (AUTO) 1.2 X 10^3 (0.0-1.0); MONOCYTES % (AUTO) 10 % (0-12); NEUTROPHILS # (AUTO) 9.4 X 10^3 (1.8-7.8); NEUTROPHILS % (AUTO) 75 % (42-75); PLATELET COUNT 302 10^3/uL (130-400); RED BLOOD COUNT 3.96 10^6/uL (4.35-5.85); RED CELL DISTRIBUTION WIDTH 12.7 % (10.0-14.5); WHITE BLOOD COUNT 12.5 10^3/uL (4.3-11.0)
[2016-09-30] MEDS ORDERED: ASPIRIN 81 MG CHEW (CHILDREN'S ASA) PO ONE (03:30)
[2016-09-30 03:31] LABS: INR 1.1 (0.8-1.4); PROTHROMBIN TIME PATIENT 13.7 SEC (12.2-14.7)
[2016-09-30 03:43] LABS: ALANINE AMINOTRANSFERASE 8 U/L (0-55); ALBUMIN 3.6 G/DL (3.2-4.5); AMYLASE 37 U/L (25-125); ANION GAP 12 MMOL/L (5-14); ASPARTATE AMINO TRANSFERASE 11 U/L (5-34); BILIRUBIN,TOTAL 0.4 MG/DL (0.1-1.0); BLOOD UREA NITROGEN 10 MG/DL (7-18); BUN/CREATININE RATIO 14; CALCIUM 9.5 MG/DL (8.5-10.1); CARBON DIOXIDE 27 MMOL/L (21-32); CHLORIDE 105 MMOL/L (98-107); CREATINE KINASE 22 U/L (30-200); CREATININE SERUM 0.72 MG/DL (0.60-1.30); GFR ESTIMATED > 60; GLUCOSE 99 MG/DL (70-105); LIPASE 13 U/L (8-78); MAGNESIUM 2.3 MG/DL (1.8-2.4); POTASSIUM 3.6 MMOL/L (3.6-5.0); SODIUM 144 MMOL/L (135-145); TOTAL PROTEIN 6.1 G/DL (6.4-8.2)
[2016-09-30 03:49] LABS: TROPONIN I < 0.30 NG/ML (<0.30)
--- NOTE | 2016-09-30 04:37 | ED Chest Pain ---
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 PT DENIES C/O AT THIS TIME Nursing Sepsis Screen: No Definite Risk Source: patient History of Present Illness Time seen by provider: 03:13 Initial Comments PT ARRIVES VIA POV FROM HOME STATES CHEST PAIN WOKE HIM UP AN HOUR AGO STATES PAIN LASTED AN HOUR AND IS GONE NOW NO SHORTNESS OF BREATH NO SWEATS NO NAUSEA/VOMITING NO SWELLING IN LEGS/FEET OR PAIN IN CALVES OR LENGTHY CAR TRIPS, ETC NO HISTORY OF SIMILAR OR HISTORY OF CARDIAC PROBLEMS, OTHER THAN HTN AND HIGH CHOLESTEROL PT IS CURRENTLY BEING TREATED FOR GLIOBLASTOMA--MOST RECENT SURGERY WAS AT MOST RECENT CHEMO WAS LAST WEEK--HAD 5 DAYS OF TREATMENT THAT ENDED ON Tuesday PCP: DR. ELLIOTT ONCOLOGY: DR. ZHANG Allergies and Home Medications Allergies Coded Allergies: ezetimibe (Verified Allergy, Unknown, 08/27/16) according to records simvastatin (Verified Allergy, Unknown, 08/27/16) according to records promethazine (Verified Adverse Reaction, Severe, 05/02/16) CONFUSION; ALTERED MENTAL STATUS Home Medications Docusate Sodium 100 Mg Capsule 100 MG PO BID (Reported) Finasteride 5 Mg Tablet 5 MG PO DAILY (Reported) Levetiracetam 500 Mg Tablet 500 MG PO BID (Reported) Magnesium Hydroxide 400 Mg/5 Ml Oral.susp 1,200 MG PO DAILY PRN PRN CONSTIPATION (Reported) Metformin HCl 500 Mg Tablet 500 MG PO BIDAC (Reported) Multivitamin 1 Each Tablet 1 TAB PO DAILY (Reported) Omeprazole 20 Mg Tablet.dr 20 MG PO DAILY (Reported) TAKES WITH MORNING DEXAMETHASONE Sennosides/Docusate Sodium 1 Each Tablet 1 TAB PO BID (Reported) Sertraline HCl 50 Mg Tablet 30Days 50 MG PO HS Prescribed by: FARIBA ARRIAGA on 09/03/16 1636 Simvastatin 40 Mg Tablet 40 MG PO HS (Reported) Review of Systems Constitutional: no symptoms reported EENTM: No Symptoms Reported Respiratory: No Symptoms Reported Cardiovascular: See HPI Chest Pain Gastrointestinal: No Symptoms Reported Genitourinary: No Symptoms Reported Musculoskeletal: no symptoms reported Skin: no symptoms reported Psychiatric/Neurological: No Symptoms Reported See HPI Endocrine: No Symptoms Reported Hematologic/Lymphatic: No Symptoms Reported Past Jvmlhge-Wusope-Xmvnbz Hx Patient Social History Alcohol Use: Denies Use Recreational Drug Use: No Smoking Status: Former Smoker Type Used: Cigarettes Former Smoker/When Quit: May 29, 1970 Recent Foreign Travel: No Contact w/Someone Who Travel: No Recent Infectious Disease Expo: No Recent Hopitalizations: Yes (BRAIN SURG AT 08/24/16) Immunizations Up To Date Tetanus Booster (TDap): Less than 5yrs PED Vaccines UTD: Yes Date of Pneumonia Vaccine: Apr 17, 2015 Date of Influenza Vaccine: Apr 17, 2016 Seasonal Allergies Seasonal Allergies: No Surgeries HX Surgeries: Yes (BRAIN TUMOR REMOVAL - MOST RECENT SURGERY 08/24/16 AT ) Surgeries: Appendectomy, Neurological Respiratory Hx Respiratory Disorders: No Cardiovascular Hx Cardiac Disorders: Yes Cardiac Disorders: High Cholesterol, Hypertension Neurological Hx Neurological Disorders: Yes (GLIOBLASTOMA) Reproductive System Hx Reproductive Disorders: No Sexually Transmitted Disease: No HIV/AIDS: No Genitourinary Hx Genitourinary Disorders: Yes Genitourinary Disorders: Prostate Problems Gastrointestinal Hx Gastrointestinal Disorders: No Musculoskeletal Hx Musculoskeletal Disorders: Yes Musculoskeletal Disorders: Arthritis Endocrine Hx Endocrine Disorders: Yes Endocrine Disorders: Diabetes, Non-Insulin dep HEENT HX ENT Disorders: Yes Loss of Vision: Left Hearing Impairment: Hard of Hearing Cancer Hx Cancer: Yes (Dx- 14 and had first brain surgery then at --MOST RECENT SURGERY 08/24/16 AT , GLIOBLASTOMA) Cancer: Brain Psychosocial Hx Psychiatric Problems: No Behavioral Health Disorders: Anxiety Integumentary HX Skin/Integumentary Disorder: No Blood Transfusions Hx Blood Disorders: No Adverse Reaction to a Blood Tr: No Family Medical History Family Medial History: Abdominal aortic aneurysm 19 MOTHER Arthritis 19 MOTHER G8 BROTHER G8 BROTHER G8 SISTER Cardiovascular disease 19 FATHER 19 MOTHER (CONGESTIVE HEART FAILURE) Cataracts 19 MOTHER Deafness or hearing loss 19 MOTHER Diabetes mellitus G8 BROTHER G8 SISTER Hypertension 19 MOTHER G8 BROTHER G8 BROTHER G8 SISTER Kidney disease 19 MOTHER (KIDNEY FAILURE) Myocardial infarction 19 FATHER (1ST ONE IN 160. IN S) Physical Exam Vital Signs Vital Sign - Last 12Hours 09/30/16 09/30/16 03:08 03:21 Temp 97.5 Pulse 68 Resp 16 B/P 138/88 Pulse Ox 94 O2 Delivery Room Air O2 Flow Rate 2 Capillary Refill : Less Than 3 Seconds General Appearance: No Apparent Distress WD/WN HEENT: PERRL/EOMI Other (WELL HEALED SURGICAL SCARS TO HEAD) Neck: Full Range of Motion Normal Inspection Non Tender Supple Respiratory: Chest Non Tender Normal Breath Sounds No Accessory Muscle Use No Respiratory Distress Cardiovascular: Regular Rate, Rhythm No Edema No JVD No Murmur Normal Peripheral Pulses Gastrointestinal: Normal Bowel Sounds No Organomegaly No Pulsatile Mass Non Tender Soft Extremity: Normal Capillary Refill Normal Inspection Normal Range of Motion Non Tender No Calf Tenderness Neurologic/Psychiatric: Alert Oriented x3 No Motor/Sensory Deficits Normal 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/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 Norm as Tested Skin: Normal Color Warm/Dry Progress/Results/Core Measures Results/Orders Lab Results Laboratory Tests Test 09/30/16 03:14 Range/Units Activated Partial Thromboplast Time 28 24-35 SEC Alanine Aminotransferase (ALT/SGPT) 8 0-55 U/L Albumin 3.6 3.2-4.5 G/DL Alkaline Phosphatase 79 40-136 U/L Amylase Level 37 25-125 U/L Anion Gap 12 5-14 MMOL/L Aspartate Amino Transf (AST/SGOT) 11 5-34 U/L B-Type Natriuretic Peptide 68.5 <100.0 PG/ML BUN/Creatinine Ratio 14 Basophils # (Auto) 0.0 0.0-0.1 10^3/uL Basophils (%) (Auto) 0 0-10 % Blood Urea Nitrogen 10 7-18 MG/DL Calcium Level 9.5 8.5-10.1 MG/DL Carbon Dioxide Level 27 21-32 MMOL/L Chloride Level 105 98-107 MMOL/L Creatine Kinase MB 0.9 <6.6 NG/ML Creatinine 0.72 0.60-1.30 MG/DL Eosinophils # (Auto) 0.1 0.0-0.3 10^3/uL Eosinophils (%) (Auto) 1 0-10 % Estimat Glomerular Filtration Rate > 60 Glucose Level 99 70-105 MG/DL Hematocrit 37 L 40-54 % Hemoglobin 12.6 L 13.3-17.7 G/DL INR Comment 1.1 0.8-1.4 Lipase 13 8-78 U/L Lymphocytes # (Auto) 1.8 1.0-4.0 X 10^3 Lymphocytes (%) (Auto) 14 12-44 % Magnesium Level 2.3 1.8-2.4 MG/DL Mean Corpuscular Hemoglobin 32 25-34 PG Mean Corpuscular Hemoglobin Concent 34 32-36 G/DL Mean Corpuscular Volume 94 80-99 FL Mean Platelet Volume 8.9 7.4-10.4 FL Monocytes # (Auto) 1.2 H 0.0-1.0 X 10^3 Monocytes (%) (Auto) 10 0-12 % Neutrophils # (Auto) 9.4 H 1.8-7.8 X 10^3 Neutrophils (%) (Auto) 75 42-75 % Platelet Count 302 130-400 10^3/uL Potassium Level 3.6 3.6-5.0 MMOL/L Prothrombin Time 13.7 12.2-14.7 SEC Red Blood Count 3.96 L 4.35-5.85 10^6/uL Red Cell Distribution Width 12.7 10.0-14.5 % Sodium Level 144 135-145 MMOL/L Total Bilirubin 0.4 0.1-1.0 MG/DL Total Creatine Kinase 22 L 30-200 U/L Total Protein 6.1 L 6.4-8.2 G/DL Troponin I < 0.30 <0.30 NG/ML White Blood Count 12.5 H 4.3-11.0 10^3/uL My Orders Orders-SAMAN MELTON DO Amylase (09/30/16 03:16) Cbc With Automated Diff (09/30/16 03:16) Comprehensive Metabolic Panel (09/30/16 03:16) Creatine Kinase (09/30/16 03:16) Creatine Kinase Mb (09/30/16 03:16) Lipase (09/30/16 03:16) Partial Thromboplastin Time (09/30/16 03:16) Protime With Inr (09/30/16 03:16) Troponin I (09/30/16 03:16) Chest 1 View, Ap/Pa Only (09/30/16 03:16) O2 (09/30/16 03:16) Ekg Tracing (09/30/16 03:16) Aspirin Chewable Tablet (Baby Aspirin Ch (09/30/16 03:30) BNP (09/30/16 03:16) Monitor-Rhythm Ecg Trace Only (09/30/16 03:16) Magnesium (09/30/16 03:16) Ct Angio Chest W (09/30/16 04:00) Medications Given in ED Current Medications Medications Dose Ordered Sig/Jorge Route Start Time Stop Time Status Last Admin Dose Admin Aspirin 324 mg ONCE ONCE PO 09/30/16 03:30 09/30/16 03:31 DC 09/30/16 03:19 324 MG Vital Signs/I&O Vital Sign - Last 12Hours 09/30/16 09/30/16 09/30/16 03:08 03:08 03:21 Temp 97.5 Pulse 68 Resp 16 B/P 138/88 Pulse Ox 94 92 O2 Delivery Room Air Room Air Nasal Cannula O2 Flow Rate 2 Blood Pressure Mean: 105 Progress Note : Progress Note O2 SATS 90% ON ROOM AIR ON ARRIVAL--UP TO 93% ON 2L/NC NO CHEST PAIN OR ANY OTHER SYMPTOMS DURING ENTIRE ER STAY PT SLEPT/RESTED QUIETLY FOR ENTIRE ER STAY ECG Initial ECG Impression Time: 03:10 Initial ECG Rate: 68 Initial ECG Rhythm: Normal Sinus Initial ECG Comparisson: Unchanged Diagnostic Imaging Comments CXR--NO ACUTE PROCESS, PENDING RADIOLOGIST REVIEW CT CHEST ANGIOGRAM--NO ACUTE PROCESS, MILD T5 COMPRESSION OF INDETERMINATE AGE PER [facility] VIA FAX @ [phone] Reviewed: Reviewed by Me Departure Communication Progress Notes [id number]--SPOKE WITH DR. SAHU, ACCEPTS PT FOR ADMIT. Impression Impression: Primary Impression: Chest pain Additional Impressions: GLIOBLASTOMA WITH RECENT SURGERY AND CHEMO MILD HYPOXIA Disposition: ADMITTED INPATIENT Condition: Stable Decision to Admit Reason: Admit from ER (General) Decision to Admit/Date: Sep 30, 2016 Time/Decision to Admit Time: 04:55 Departure-Patient Inst. Referrals: JAVAN ELLIOTT MD (PCP) Primary Care Physician SAMAN MELTON DO Sep 30, 2016 04:37
[2016-09-30] MEDS ORDERED: diphenhydrAMINE 50 MG/ML INJ (BENADRYL) IVP ONE (05:30)
[2016-09-30] MEDS ORDERED: morphine INJ 4 MG/ML 1 ML (VIAL/SYRINGE) IV PRN (06:15)
[2016-09-30] MEDS ORDERED: NITROGLYCERIN SUBLINGUAL 0.4 MG TAB (NITROSTAT) SL PRN (06:15)
--- NOTE | 2016-09-30 06:56 | Diagnostic Imaging Report ---
PROCEDURE: CT angiography of the chest with contrast. TECHNIQUE: Multiple contiguous axial images were obtained through the chest after uneventful bolus administration of intravenous contrast. Reconstructed CTA MIP acquisitions were also performed. INDICATION: Chest pain There is some calcific atherosclerosis of the aortic arch. There is no aneurysm or dissection. There are no pulmonary emboli. The lungs are clear. There are no effusions or pneumothoraces. IMPRESSION: No acute abnormality seen in the chest. I agree with preliminary interpretation. Dictated by: Dictated on workstation # [id number]
--- NOTE | 2016-09-30 06:57 | Diagnostic Imaging Report ---
INDICATION: Chest pain EXAMINATION: Portable chest at 3:48 AM. Heart size and pulmonary vascularity are normal. Lungs are clear. There are no effusions or pneumothoraces. IMPRESSION: Negative chest. Dictated by: Dictated on workstation # [id number]
[2016-09-30] MEDS ORDERED: DEXA2TAB PO (07:41)
[2016-09-30] MEDS ORDERED: ASPIRIN E.C. 325 MG (ECOTRIN) TABLET PO SCH (09:00)
--- NOTE | 2016-09-30 09:08 | Consultation-Cardiology ---
HPI-Cardiology Cardiology Consultation: Date of Consultation 09/30/16 Date of Admission 09-30-16 Attending Physician Maricruz Villanueva DO Admitting Physician Martin Wesley MD Consulting Physician Maryann Morales MD HPI: Chief Complaint: Chest pain Mr. Rodriguez is a 71 year old male admitted to ICU 1 from the ED. He is hard of hearing. His spouse and son are at the bedside. He reports he woke up around 2 :00 this morning with mid-sternal chest pain. He describes it as an ache. He states it radiated up into his neck and jaw. He states it was constant and lasted for approx 45 minutes then it gradually resolved. He does not report any dyspnea, nausea or diaphoresis. He does not report any palpitations. He reports the discomfort did not change in intensity with activity. He is currently pain free. He reports his discomfort had resolved before he even arrived in the ED. He does not report any LE edema. He does not report having this discomfort before. Review of Systems-Cardiology Review of Systems Constitutional: As described under HPI Eyes: No blurred vision, No drainage, No pain, No vision change Ears/Nose/Throat: No ear discharge, No ear pain, No nasal drainage, No ulcerations Respiratory: As described under HPI Cardiovascular: As described under HPI Gastrointestinal: No constipation, No diarrhea, No nausea, No vomiting, No stool coloration changes Genitourinary: No dysuria, No discharge, No frequency, No hematuria, No urgency Skin: No rash, No skin related problems, No ulcerations Psychiatric/Neurological: No anxiety, No depression, No focal weakness, No seizure, No syncope Hematologic: No bleeding abnormalities ICK-Byowlh-Hsmcnv Hx Patient Social History Alcohol Use: Denies Use Recreational Drug Use: No Smoking Status: Never a Smoker Former smoker/When Quit: May 29, 1970 Type Used: Cigarettes Recent Foreign Travel: No Recent Infectious Disease Expo: No Hospitalization with Isolation: Denies Physical Abuse Screen: No Sexual Abuse: No Immunizations Up To Date Tetanus Booster (TDap): Less than 5yrs Date of Pneumonia Vaccine: Sep 30, 2015 Date of Influenza Vaccine: Apr 17, 2016 Past Medical History PMH As described under Assessment. Family Medical History Family Medical History: He report his father had CAD. He states his father had his first heart attack in his 50's and with CAD in his 60's. He reports his mother has CHF, HTN and AAA. He reports his brothers have HTN and diabetes. He reports his sister has HTN. Family History: 19 FATHER Cardiovascular disease Myocardial infarction (1ST ONE IN 160. IN 1969'S) 19 MOTHER Abdominal aortic aneurysm Arthritis Cardiovascular disease (CONGESTIVE HEART FAILURE) Deafness or hearing loss Cataracts Hypertension Kidney disease (KIDNEY FAILURE) G8 BROTHER Arthritis Diabetes mellitus Hypertension G8 BROTHER Arthritis Hypertension G8 SISTER Arthritis Diabetes mellitus Hypertension Allergies and Home Medications Allergies Coded Allergies: ezetimibe (Verified Allergy, Unknown, 08/27/16) according to [facility] records promethazine (Verified Adverse Reaction, Severe, 05/02/16) CONFUSION; ALTERED MENTAL STATUS Home Medications Aspirin 325 Mg Tablet 325 MG PO DAILY (Reported) Dexamethasone 1 Mg Tablet 2 MG PO DAILY (Reported) TAKES 2 (1 MG) TABLETS Docusate Sodium 100 Mg Capsule 100 MG PO BID (Reported) Finasteride 5 Mg Tablet 5 MG PO HS (Reported) Levetiracetam 500 Mg Tablet 500 MG PO BID (Reported) Magnesium Hydroxide 400 Mg/5 Ml Oral.susp 1,200 MG PO DAILY PRN PRN CONSTIPATION (Reported) Metformin HCl 500 Mg Tablet 500 MG PO BIDAC (Reported) Omeprazole 20 Mg Tablet.dr 20 MG PO DAILY (Reported) TAKES WITH MORNING DEXAMETHASONE Sennosides/Docusate Sodium 1 Each Tablet 1 TAB PO BID (Reported) Sertraline HCl 50 Mg Tablet 50 MG PO HS (Reported) Simvastatin 40 Mg Tablet 40 MG PO HS (Reported) Physical Exam-Cardiology Physical Exam Vital Signs/I&O Vital Sign - Last 12Hours 09/30/16 09/30/16 09/30/16 09/30/16 03:08 03:08 03:21 05:41 Temp 97.5 Pulse 68 58 Resp 16 B/P 138/88 Pulse Ox 94 92 95 O2 Delivery Room Air Room Air Nasal Cannula O2 Flow Rate 2 2 09/30/16 09/30/16 09/30/16 06:10 07:00 08:01 Temp 98.4 96.9 Pulse 78 57 55 Resp 20 16 B/P 130/77 121/91 Pulse Ox 96 95 O2 Delivery Nasal Cannula O2 Flow Rate 2.00 2.00 Capillary Refill : Less Than 3 Seconds Constitutional: appears stated ageNo apparent distress, well-developed well- nourished HEENT: PERRLNo discharge, hearing is well preserved oral hygience is goodNo ulceration, No xanthelasmas are seen Neck: No carotid bruit, carotid pulses are 2 + bilaterally Respiratory: chest expansion is symmetric chest is bilaterally symmetric lungs clear to percussion lungs clear to auscultation Cardiovascular: regular rate-rhythmNo JVD, S1 and S2 Gastrointestinal: No tender, soft roundNo spleenomegaly Rectal: deferred Extremities: No clubbing, No cyanosis, No significant edema Neurologic/Psychiatric: alert oriented x 3 other (L millie-field cut of the vision) power is 5/5 both on sides Skin: No rash, No ulcerations Data Review Labs Laboratory Tests 09/30/16 03:14: Activated Partial Thromboplast Time 28, Alanine Aminotransferase (ALT/SGPT) 8, Albumin 3.6, Alkaline Phosphatase 79, Amylase Level 37, Anion Gap 12, Aspartate Amino Transf (AST/SGOT) 11, B-Type Natriuretic Peptide 68.5, BUN/Creatinine Ratio 14, Basophils # (Auto) 0.0, Basophils (%) (Auto) 0, Blood Urea Nitrogen 10 , Calcium Level 9.5, Carbon Dioxide Level 27, Chloride Level 105, Creatine Kinase MB 0.9, Creatinine 0.72, Eosinophils # (Auto) 0.1, Eosinophils (%) (Auto ) 1, Estimat Glomerular Filtration Rate > 60, Glucose Level 99, Hematocrit 37L, Hemoglobin 12.6L, INR Comment 1.1, Lipase 13, Lymphocytes # (Auto) 1.8, Lymphocytes (%) (Auto) 14, Magnesium Level 2.3, Mean Corpuscular Hemoglobin 32, Mean Corpuscular Hemoglobin Concent 34, Mean Corpuscular Volume 94, Mean Platelet Volume 8.9, Monocytes # (Auto) 1.2H, Monocytes (%) (Auto) 10, Neutrophils # (Auto) 9.4H, Neutrophils (%) (Auto) 75, Platelet Count 302, Potassium Level 3.6, Prothrombin Time 13.7, Red Blood Count 3.96L, Red Cell Distribution Width 12.7, Sodium Level 144, Total Bilirubin 0.4, Total Creatine Kinase 22L, Total Protein 6.1L, Troponin I < 0.30, White Blood Count 12.5H 09/30/16 09:17: Radiology NAME: HERMANN RODRIGUEZ [facility] REC#: [id number] PT STATUS: ADM Scott : 1945 PHYSICIAN: SAMAN MELTON DO ADMIT DATE: 09/30/16/ICU Signed Date of Exam: 09/30/16 CHEST 1 VIEW, AP/PA ONLY INDICATION: Chest pain EXAMINATION: Portable chest at 3:48 AM. Heart size and pulmonary vascularity are normal. Lungs are clear. There are no effusions or pneumothoraces. IMPRESSION: Negative chest. Dictated by: Dictated on workstation # [id number] Dict: 09/30/16 0644 Trans: 09/30/1638 [facility] [id number] Interpreted by: ALIYAH DRAPER Electronically signed by:ALIYAH DRAPER 09/30/16 0741 NAME: HERMANN RODRIGUEZ [facility] REC#: [id number] PT STATUS: ADM Scott : 1945 PHYSICIAN: SAMAN MELTON DO ADMIT DATE: 09/30/16/ICU Signed Date of Exam: 09/30/16 CT ANGIO CHEST W PROCEDURE: CT angiography of the chest with contrast. TECHNIQUE: Multiple contiguous axial images were obtained through the chest after uneventful bolus administration of intravenous contrast. Reconstructed CTA MIP acquisitions were also performed. INDICATION: Chest pain There is some calcific atherosclerosis of the aortic arch. There is no aneurysm or dissection. There are no pulmonary emboli. The lungs are clear. There are no effusions or pneumothoraces. IMPRESSION: No acute abnormality seen in the chest. I agree with preliminary interpretation. Dictated by: Dictated on workstation # [id number] Dict: 09/30/16 0637 Trans: 09/30/16 0738 [facility] [id number] Interpreted by: ALIYAH DRAPER Electronically signed by:ALIYAH DRAPER 09/30/16 0741 ECG Impression ECG Initial ECG Rhythm: Normal Sinus A/P-Cardiology Assessment/Admission Diagnosis Chest pain of undetermined etiology. No evidence of ACS at this time H/o glioblastoma for which he has undergone right occipital temporal craniotomy in January 2016 and again in August 2016 at [facility]. 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 Very minimal atherosclerotic changes within the carotid arteries with normal waveforms per throughout per carotid u/s of January 2016 Echo of January 2016: Normal global left ventricular systolic function with an ejection fraction of approximately 60%; trivial, mitral and tricuspid regurgitation; no evidence of significant valvular stenosis; pulmonary artery systolic pressure estimated to be 40 to 45 mmHg. HLP - statin tx followed by his PCP H/o HTN - not currently on antihypertensive tx DM II Discussion and Recomendations Chest pain of undetermined etiology. No evidence of ACS thus far. Continue serial troponin. Based on his c/o and risk factors as listed above we advise further cardiac work up. We are advising MPI. We have discussed with him and his family. They are agreeable. We will continue ASA and statin. Further recommendations will be based on his hospital course. We would like to thank the Hospitalist service for this consult. This consult is being scribed by NABOR Ram on behalf of Dr. Morales Clinical Quality Measures AMI/AHF: ASA po Prior to arrival: No DVT/VTE Risk/Contraindication: Risk Factor Score Per Nursin RFS Level Per Nursing on Admit: 1=Low/No VTE PPX Physician Assessment Physician Assessment Lungs: clear Cor: reg A&R * As documented in our note above * We will proceed with pharm MPI. If no ischemia: manage medically. If ischemia : consider cath * I spoke with him and his family and answered questions * Treat with beta-anay and aspirin * Add statin if LDL-C elevated ROSA GUY Sep 30, 2016 09:08 MARYANN MORALES MD [facility] Sep 30, 2016 09:37 MARYANN MORALES MD [facility] Sep 30, 2016 09:37
[2016-09-30] MEDS ORDERED: DEXA1TAB PO (09:26)
[2016-09-30] MEDS ORDERED: SERT50TA9 PO (09:26)
[2016-09-30] MEDS ORDERED: ASPI-808 PO (09:27)
--- NOTE | 2016-09-30 09:31 | Consultation ---
History of Present Illness History of Present Illness Patient Consulted On(klaus/time) 09/30/16 09:31 Date of Admission 09/30/16 History of Present Illness This is a 71-year-old male who is well known to me who has known history of partially resected glioblastoma and has been receiving maintenance temozolomide as an outpatient. Patient awakened around 2 a.m. with anterior precordial pain which radiated up to his jaw. He described the pain is 8 out of 10 on the MILADY scale. He awakened his who along with his son subsequently brought him to the emergency room. He is currently in the cardiac stepdown/telemetry unit and will be undergoing a stress test later today. Allergies and Home Medications Allergies Coded Allergies: ezetimibe (Verified Allergy, Unknown, 08/27/16) according to records promethazine (Verified Adverse Reaction, Severe, 05/02/16) CONFUSION; ALTERED MENTAL STATUS Home Medications Aspirin 325 Mg Tablet 325 MG PO DAILY (Reported) Dexamethasone 2 Mg Tablet #14 2 MG PO DAILY Prescribed by: ALLISON SAHU on 09/30/16 1216 Dexamethasone 1 Mg Tablet 2 MG PO DAILY (Reported) TAKES 2 (1 MG) TABLETS Docusate Sodium 100 Mg Capsule 100 MG PO BID (Reported) Finasteride 5 Mg Tablet 5 MG PO HS (Reported) Levetiracetam 500 Mg Tablet 500 MG PO BID (Reported) Magnesium Hydroxide 400 Mg/5 Ml Oral.susp 1,200 MG PO DAILY PRN PRN CONSTIPATION (Reported) Metformin HCl 500 Mg Tablet 500 MG PO BIDAC (Reported) Omeprazole 20 Mg Tablet.dr 20 MG PO DAILY (Reported) TAKES WITH MORNING DEXAMETHASONE Sennosides/Docusate Sodium 1 Each Tablet 1 TAB PO BID (Reported) Sertraline HCl 50 Mg Tablet 50 MG PO HS (Reported) Simvastatin 40 Mg Tablet 40 MG PO HS (Reported) Past Xuucpqf-Exmfmn-Vqlmcv Hx Patient Social History Alcohol Use: Denies Use Recreational Drug Use: No Smoking Status: Never a Smoker Type Used: Cigarettes Former Smoker/When Quit: May 29, 1970 Recent Foreign Travel: No Contact w/Someone Who Travel: No Recent Infectious Disease Expo: No Recent Hopitalizations: Yes (BRAIN SURG AT 08/24/16) Physical Abuse Screen: No Sexual Abuse: No Immunizations Up To Date Tetanus Booster (TDap): Less than 5yrs PED Vaccines UTD: Yes Date of Pneumonia Vaccine: Sep 30, 2015 Date of Influenza Vaccine: Apr 17, 2016 Seasonal Allergies Seasonal Allergies: No Surgeries HX Surgeries: Yes (BRAIN TUMOR REMOVAL - MOST RECENT SURGERY 08/24/16 AT ) Surgeries: Appendectomy, Neurological Respiratory Hx Respiratory Disorders: No Cardiovascular Hx Cardiac Disorders: Yes Cardiac Disorders: High Cholesterol, Hypertension Neurological Hx Neurological Disorders: Yes (GLIOBLASTOMA) Reproductive System Hx Reproductive Disorders: No Sexually Transmitted Disease: No HIV/AIDS: No Genitourinary Hx Genitourinary Disorders: Yes Genitourinary Disorders: Prostate Problems Gastrointestinal Hx Gastrointestinal Disorders: No Musculoskeletal Hx Musculoskeletal Disorders: Yes Musculoskeletal Disorders: Arthritis Endocrine Hx Endocrine Disorders: Yes Endocrine Disorders: Diabetes, Non-Insulin dep HEENT HX ENT Disorders: Yes Loss of Vision: Left Hearing Impairment: Hard of Hearing Cancer Hx Cancer: Yes (Dx- 02-08-16 and had first brain surgery then at --MOST RECENT SURGERY 08/24/16 AT , GLIOBLASTOMA) Cancer: Brain Psychosocial Hx Psychiatric Problems: No Behavioral Health Disorders: Anxiety Integumentary HX Skin/Integumentary Disorder: No Blood Transfusions Hx Blood Disorders: No Adverse Reaction to a Blood Tr: No Family Medical History Family Medial History: Abdominal aortic aneurysm 19 MOTHER Arthritis 19 MOTHER G8 BROTHER G8 BROTHER G8 SISTER Cardiovascular disease 19 FATHER 19 MOTHER (CONGESTIVE HEART FAILURE) Cataracts 19 MOTHER Deafness or hearing loss 19 MOTHER Diabetes mellitus G8 BROTHER G8 SISTER Hypertension 19 MOTHER G8 BROTHER G8 BROTHER G8 SISTER Kidney disease 19 MOTHER (KIDNEY FAILURE) Myocardial infarction 19 FATHER (1ST ONE IN 160. IN 1970'S) Review of Systems-General Constitutional: weakness EENTM: vision loss (chronic visual disturbances since initial glioblastoma surgery) Cardiovascular: see HPI chest pain Gastrointestinal: loss of appetite Genitourinary: no symptoms reported Psychiatric/Neurological: Headache Weakness Physical Exam-General Problems Physical Exam Vital Signs Vital Sign - Last 12Hours 09/30/16 09/30/16 03:08 03:21 Temp 97.5 Pulse 68 Resp 16 B/P 138/88 Pulse Ox 94 O2 Delivery Room Air O2 Flow Rate 2 Capillary Refill : Less Than 3 Seconds HEENT: PERRL/EOMI Neck: non-tender supple Respiratory: lungs clear Cardiovascular: regular rate, rhythm no edema no gallop no JVD Gastrointestinal: normal bowel sounds non tender soft Rectal: deferred Back: no CVA tenderness no vertebral tenderness Extremities: non-tender normal inspection no pedal edema no calf tenderness Neurologic/Psychiatric: alert other (moves all 4 extremities. No gross motor or sensory deficits. Gait not tested.) Comments Laboratory Tests 09/30/16 03:14 Assessment/Plan Assessment/Plan Admission Diagnosis/Plan 1. Chest pain-currently being evaluated by cardiology to exclude acute coronary event 2. Recurrent/progressive glioblastoma-currently receiving outpatient maintenance oral temozolomide as maintenance therapy after repeat resection done on 08/24/16; a. Status post initial partial glioblastoma resection done in February 2016 and postoperative con current radiation and temozolomide. b. Continue Decadron 2 mg daily and Keppra 500 mg twice daily 3. Hypertension 4. Hyperlipidemia 5. Type II diabetes Clinical Quality Measures AMI/AHF: ASA po Prior to arrival: No DVT/VTE Risk/Contraindication: Risk Factor Score Per Nursin RFS Level Per Nursing on Admit: 1=Low/No VTE PPX MED ZHANG MD Sep 30, 2016 09:31
[2016-09-30 09:50] LABS: CHOLESTEROL 164 MG/DL (< 200); CREATINE KINASE 17 U/L (30-200); DIRECT LDL 89 MG/DL (1-129); TRIGLYCERIDES 245 MG/DL (<150); VLDL CHOLESTEROL 49 MG/DL (5-40)
[2016-09-30 09:56] LABS: MYOGLOBIN SERUM 25.2 NG/ML (10.0-92.0); TROPONIN I < 0.30 NG/ML (<0.30)
--- NOTE | 2016-09-30 10:05 | Short Stay Summary-Hospitalist ---
HPI History of Present Illness: HPI/Chief Complaint CC: Chest pain with neck tightness HPI: This is a 71-year-old white male clinic patient of Dr. Wesley'augusto that was recently diagnosed with glioblastoma (01/28) managed surgically at [facility] been on chemotherapy managed by Dr. Ballesteros at the cancer Center at [facility] bit had another neurosurgery to clear out necrotic brain tissue from radiation and chemotherapy treatment in August 2016 the presents to the emergency room with complaints of chest pain with abrupt onset that woke him from sleep. He reports the pain continued for several minutes accompanied with chest tightness and neck tightness and he reports that the pain was 8 out of 10 on a 1-10 scale. He has not had any further chest pain but does report some neck tightness at times but very subtle pain. He has been seen by Dr. Morales who will see him in consultation and perform stress test to evaluate risk stratification. 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) Alcohol Use: Denies Use Recreational Drug Use: No Smoking Status: Never a Smoker Former smoker/When Quit: May 29, 1970 Type Used: Cigarettes Physical Abuse Screen: No Sexual Abuse: No Recent Foreign Travel: No Contact w/other who traveled: No Recent Hopitalizations: Yes (BRAIN SURG AT 08/24/16) Recent Infectious Disease Expo: No Immunizations Up To Date Tetanus Booster (TDap): Less than 5yrs Date of Pneumonia Vaccine: Sep 30, 2015 Date of Influenza Vaccine: Apr 17, 2016 Seasonal Allergies Seasonal Allergies: No Surgeries HX Surgeries: Yes (BRAIN TUMOR REMOVAL - MOST RECENT SURGERY 08/24/16 AT ) Surgeries: Appendectomy, Neurological Respiratory Hx Respiratory Disorders: No Cardiovascular Hx Cardiovascular Disorders: Yes Cardiac Disorders: High Cholesterol, Hypertension Neurological Hx Neurological Disorders: Yes (GLIOBLASTOMA) Reproductive System Hx Reproductive Disorders: No Sexually Transmitted Disease: No HIV/AIDS: No Genitourinary Hx Genitourinary Disorders: Yes Genitourinary Disorders: Prostate Problems Gastrointestinal Hx Gastrointestinal Disorders: No Musculoskeletal Hx Musculoskeletal Disorders: Yes Musculoskeletal Disorders: Arthritis Endocrine Hx Endocrine Disorders: Yes Endocrine Disorders: Diabetes, Non-Insulin dep HEENT HX ENT Disorders: Yes Loss of Vision: Left Hearing Impairment: Hard of Hearing Cancer Hx Cancer: Yes (Dx- 6-16 and had first brain surgery then at --MOST RECENT SURGERY 08/24/16 AT , GLIOBLASTOMA) Cancer: Brain Psychosocial Hx Psychiatric Problems: No Behavioral Health Disorders: Anxiety Integumentary HX Skin/Integumentary Disorder: No Blood Transfusions Hx Blood Disorders: No Adverse Reaction to a Blood Tr: No Family Medical History Family Hx: Abdominal aortic aneurysm 19 MOTHER Arthritis 19 MOTHER G8 BROTHER G8 BROTHER G8 SISTER Cardiovascular disease 19 FATHER 19 MOTHER (CONGESTIVE HEART FAILURE) Cataracts 19 MOTHER Deafness or hearing loss 19 MOTHER Diabetes mellitus G8 BROTHER G8 SISTER Hypertension 19 MOTHER G8 BROTHER G8 BROTHER G8 SISTER Kidney disease 19 MOTHER (KIDNEY FAILURE) Myocardial infarction 19 FATHER (1ST ONE IN 160. IN 1970'S) Review of Systems Constitutional: see HPI dizziness EENTM: no symptoms reported Respiratory: no symptoms reported Cardiovascular: chest pain Gastrointestinal: no symptoms reported Genitourinary: no symptoms reported Musculoskeletal: no symptoms reported Skin: no symptoms reported Psychiatric/Neurological: No Symptoms Reported Physical Exam Physical Exam Vital Signs Vital Sign - Last 12Hours 09/30/16 09/30/16 03:08 03:21 Temp 97.5 Pulse 68 Resp 16 B/P 138/88 Pulse Ox 94 O2 Delivery Room Air O2 Flow Rate 2 Capillary Refill : Less Than 3 Seconds General Appearance: No Apparent Distress WD/WN Chronically ill Eyes: Bilateral Eye Normal Inspection, Bilateral Eye PERRL HEENT: PERRL/EOMI Normal ENT Inspection Pharynx Normal Neck: Full Range of Motion Normal Inspection Non Tender Supple Carotid Bruit Respiratory: Chest Non Tender Lungs Clear Normal Breath Sounds No Accessory Muscle Use No Respiratory Distress Cardiovascular: Regular Rate, Rhythm No Edema No Gallop No JVD No Murmur Normal Peripheral Pulses Gastrointestinal: Normal Bowel Sounds No Organomegaly No Pulsatile Mass Non Tender Soft Back: Normal Inspection No CVA Tenderness No Vertebral Tenderness Extremity: Normal Capillary Refill Normal Inspection Normal Range of Motion Non Tender No Calf Tenderness No Pedal Edema Neurologic/Psychiatric: Alert Oriented x3 No Motor/Sensory Deficits Normal Mood/Affect Skin: Normal Color Warm/Dry Lymphatic: No Adenopathy Results Results/Procedures Lab Laboratory Tests 09/30/16 03:14 Short Stay Diagnosis Discharge Diagnosis-Short Stay Admission Diagnosis Assessment: Chest pain accompanied with neck tightness of uncertain etiology undergoing stress test for risk stratification and cardiology consultation Glioblastoma on chemotherapy managed by Dr. Ballesteros and neurosurgery at [facility] BPH GERD Hyperlipidemia Rash/urticaria Final Discharge Diagnosis Assessment: Chest pain accompanied with neck tightness of uncertain etiology undergoing stress test for risk stratification and cardiology consultation Glioblastoma on chemotherapy managed by Dr. Ballesteros and neurosurgery at [facility] BPH GERD Hyperlipidemia Rash/urticaria Conclusion Plan IV Benadryl as needed for rash Risk stratification per cardiology with stress test today Monitor closely Appreciate Dr. Martines's evaluation Clinical Quality Measures AMI/AHF: ASA po Prior to arrival: No DVT/VTE Risk/Contraindication: Risk Factor Score Per Nursin RFS Level Per Nursing on Admit: 1=Low/No VTE PPX MARICRUZ SAHU DO Sep 30, 2016 10:05
[2016-09-30] MEDS ORDERED: MILK OF MAGNESIA 400 MG/5 ML 30 ML UDC PO PRN (10:15)
[2016-09-30] MEDS: DOCUSATE SODIUM 100 MG (COLACE) CAP PO SCH ×2 (10:31→22:08)
[2016-09-30] MEDS: diphenhydrAMINE 50 MG/ML INJ (BENADRYL) IVP PRN ×2 (10:59→16:33)
[2016-09-30] MEDS ORDERED: CATHETER FLUSH 10 ML SYR IV PRN (12:00)
[2016-09-30] MEDS ORDERED: REGADENOSON 0.4 MG/5 ML SYR (LEXISCAN) IV ONE ×2 (12:58→13:15)
[2016-09-30] MEDS ORDERED: metFORMIN 500 MG (GLUCOPHAGE) TAB PO SCH (16:00)
[2016-09-30] MEDS: CATHETER FLUSH 10 ML SYR IV SCH ×2 (16:33→22:09)
[2016-09-30] MEDS ORDERED: NITROGLYCERIN 2% OINT 1 GM UNIT DOSE PACKET TOP SCH (18:00)
[2016-09-30] MEDS ORDERED: FAMOTIDINE 20 MG (PEPCID) TABLET PO PRN (19:00)
[2016-09-30] MEDS: DEXAMETHASONE 1 MG TAB (DECADRON) PO SCH (19:11)
[2016-09-30] MEDS: FAMOTIDINE 20 MG (PEPCID) TABLET PO SCH ×2 (19:18→21:00)
[2016-09-30] MEDS ORDERED: SERTRALINE 50 MG (ZOLOFT) TABLET PO SCH (21:00)
[2016-09-30] MEDS ORDERED: FINASTERIDE (PROSCAR) 5 MG TAB PO SCH (21:00)
[2016-09-30] MEDS ORDERED: SIMvastatin 40 MG (ZOCOR) TAB PO SCH (21:00)
[2016-09-30] MEDS: ACETAMINOPHEN 325 MG TABLET/CAPLET (TYLENOL) PO SCH (22:08)
[2016-09-30] MEDS: SENNA W/DOCUSATE (SENOKOT S) TABLET PO SCH (22:08)
[2016-09-30] MEDS: LEVETIRACETAM 500 MG (KEPPRA) TAB PO SCH (22:08)
[2016-10-01] VITALS: BP 110/68
[2016-10-01 04:00] VITALS: BP 140/82
[2016-10-01] MEDS: ACETAMINOPHEN 325 MG TABLET/CAPLET (TYLENOL) PO SCH ×2 (04:12→09:59)
[2016-10-01] MEDS: CATHETER FLUSH 10 ML SYR IV SCH (04:12)
[2016-10-01] MEDS: FAMOTIDINE 20 MG (PEPCID) TABLET PO SCH ×2 (04:19→09:56)
[2016-10-01 05:13] LABS: BASOPHILS % (AUTO) 0 % (0-10); EOSINOPHILS # (AUTO) 0.1 10^3/uL (0.0-0.3); EOSINOPHILS % (AUTO) 0 % (0-10); LYMPHOCYTES # (AUTO) 1.1 X 10^3 (1.0-4.0); LYMPHOCYTES % (AUTO) 10 % (12-44); MEAN CORPUSCULAR HEMOGLOBIN 32 PG (25-34); MEAN CORPUSCULAR HGB CONC 33 G/DL (32-36); MEAN CORPUSCULAR VOLUME 95 FL (80-99); MEAN PLATELET VOLUME 9.6 FL (7.4-10.4); MONOCYTES # (AUTO) 0.8 X 10^3 (0.0-1.0); MONOCYTES % (AUTO) 7 % (0-12); NEUTROPHILS # (AUTO) 9.4 X 10^3 (1.8-7.8); NEUTROPHILS % (AUTO) 82 % (42-75); PLATELET COUNT 265 10^3/uL (130-400); RED BLOOD COUNT 3.71 10^6/uL (4.35-5.85); WHITE BLOOD COUNT 11.5 10^3/uL (4.3-11.0)
[2016-10-01 05:15] LABS: ALANINE AMINOTRANSFERASE 9 U/L (0-55); ALBUMIN 3.2 G/DL (3.2-4.5); ANION GAP 11 MMOL/L (5-14); ASPARTATE AMINO TRANSFERASE 14 U/L (5-34); BILIRUBIN,TOTAL 0.4 MG/DL (0.1-1.0); BLOOD UREA NITROGEN 7 MG/DL (7-18); BUN/CREATININE RATIO 9; CALCIUM 9.2 MG/DL (8.5-10.1); CARBON DIOXIDE 28 MMOL/L (21-32); CHLORIDE 101 MMOL/L (98-107); CREATININE SERUM 0.77 MG/DL (0.60-1.30); GFR ESTIMATED > 60; GLUCOSE 131 MG/DL (70-105); MAGNESIUM 2.4 MG/DL (1.8-2.4); PHOSPHORUS 4.5 MG/DL (2.3-4.7); POTASSIUM 4.2 MMOL/L (3.6-5.0); SODIUM 140 MMOL/L (135-145); TOTAL PROTEIN 5.5 G/DL (6.4-8.2)
[2016-10-01] MEDS ORDERED: PANTOPRAZOLE 20 MG TABLET (PROTONIX) PO SCH (07:00)
--- NOTE | 2016-10-01 07:53 | Diagnostic Imaging Report ---
INDICATION: Chest pain. COMPARISON: 09/30/2016. FINDINGS: The lungs are clear. The heart size is at the upper limits of normal. No effusion or pneumothorax. The mediastinum and hali appear unremarkable. IMPRESSION: Unremarkable exam. Dictated by: Dictated on workstation # [id number]
[2016-10-01 07:57] VITALS: BP 123/74
[2016-10-01] MEDS ORDERED: ASPIRIN 325 MG (5 GR) TABLET PO SCH (09:00)
[2016-10-01] MEDS ORDERED: DEXAMETHASONE 1 MG TAB (DECADRON) PO SCH (09:00)
[2016-10-01] MEDS: SENNA W/DOCUSATE (SENOKOT S) TABLET PO SCH (09:56)
[2016-10-01] MEDS: LEVETIRACETAM 500 MG (KEPPRA) TAB PO SCH (09:56)
[2016-10-01] MEDS: DEXAMETHASONE 1 MG TAB (DECADRON) PO SCH (09:57)
[2016-10-01] MEDS ORDERED: FAMO-119 PO (09:59)
--- NOTE | 2016-10-01 10:01 | Discharge Instructions ---
Discharge Instructions Discharge Medications New, Converted or Re-Newed RX: Transmitted to Pharmacy New Medications: Famotidine (Pepcid) 20 Mg Tablet 20 MG PO BID #60 TAB Continued Medications: Aspirin (Aspirin) 325 Mg Tablet 325 MG PO DAILY TAB Dexamethasone (Dexamethasone) 2 Mg Tablet 2 MG PO DAILY #14 TAB Dexamethasone (Dexamethasone) 1 Mg Tablet 2 MG PO DAILY TAKES 2 (1 MG) TABLETS Docusate Sodium (Docusate Sodium) 100 Mg Capsule 100 MG PO BID CAP Finasteride (Finasteride) 5 Mg Tablet 5 MG PO HS Levetiracetam (Levetiracetam) 500 Mg Tablet 500 MG PO BID Magnesium Hydroxide (Milk of Magnesia) 400 Mg/5 Ml Oral.susp 1200 MG PO DAILY PRN CONSTIPATION ML Metformin HCl (Metformin HCl) 500 Mg Tablet 500 MG PO BIDAC Omeprazole (Omeprazole) 20 Mg Tablet.dr 20 MG PO DAILY TAKES WITH MORNING DEXAMETHASONE TAB Sennosides/Docusate Sodium (Senokot-S Tablet) 1 Each Tablet 1 TAB PO BID TAB Sertraline HCl (Sertraline HCl) 50 Mg Tablet 50 MG PO HS TAB Simvastatin (Simvastatin) 40 Mg Tablet 40 MG PO HS Patient Instructions Goal/Follow Up Appt: Dr Ballesteros in 1 week Activity & Diet Discharge Diet: No Restrictions Activity as Tolerated: Yes ALLISON SAHU DO Oct 01, 2016 10:01
--- NOTE | 2016-10-01 10:03 | Discharge Summary-Hospitalist ---
Diagnosis/Chief Complaint Date of Admission Sep 30, 2016 at 05:51 Date of Discharge Discharge Date: Oct 01, 2016 Admission Diagnosis Assessment: Chest pain accompanied with neck tightness of uncertain etiology undergoing stress test for risk stratification and cardiology consultation Glioblastoma on chemotherapy managed by Dr. Ballesteros and neurosurgery at [facility] BPH GERD Hyperlipidemia Rash/urticaria Discharge Diagnosis Assessment: Chest pain accompanied with neck tightness of uncertain etiology s/p stress test ECH, EKG normal and cardiology consultation completed Glioblastoma on chemotherapy managed by Dr. Ballesteros and neurosurgery at [facility] BPH GERD Hyperlipidemia Rash/urticaria IV Benadryl as needed for rash Risk stratification per cardiology with stress test today Monitor closely Appreciate Dr. Martines's evaluation Reason Hospital Visit/Course CC: Chest pain with neck tightness HPI: This is a 71-year-old white male clinic patient of Dr. Angel that was recently diagnosed with glioblastoma (01/28) managed surgically at [facility] been on chemotherapy managed by Dr. Ballesteros at the cancer Center at [facility] bit had another neurosurgery to clear out necrotic brain tissue from radiation and chemotherapy treatment in August 2016 the presents to the emergency room with complaints of chest pain with abrupt onset that woke him from sleep. He reports the pain continued for several minutes accompanied with chest tightness and neck tightness and he reports that the pain was 8 out of 10 on a 1-10 scale. He has not had any further chest pain but does report some neck tightness at times but very subtle pain. He has been seen by Dr. Morales who will see him in consultation and perform stress test to evaluate risk stratification. Note from 10/01/16: Patient slept very well last night and had no recurrence of chest pain Family very concerned overall I spent a great deal of counseling time along with conferring with multiple doctors on the case regarding the etiology of the chest pain Son thinks the Benadryl was causing the chest pain which I am unsure about that hypothesis Son had contemplated sending him up to [facility] but then thought as long as things were going well that we were in a require that and I personally did not feel that that was necessary considering there was not a higher level of care need considering this was not appearing to be related to his glioblastoma but still mysterious and no confirmatory answers but I tried to reassure the family as best I could and conferred with Dr. Ballesteros. Full cardiac workup was negative for any reversible ischemia or impending cardiac so he will be discharged home placed on Pepcid 20 MG twice daily and close follow-up Dr. Ballesteros It is a concern that the son thinks that the second brain surgery just cleaned off necrotic tissue but Dr. Ballesteros did assess the pathology report on that and showed active disease so it appears that the brain tumors progressing rapidly even though on treatment so unsure how to alleviate the son's concerns but will try her best to do anything we can to support this patient and his family. No fever, vital signs stable, pleasant, oriented 3 but takes time to process information at times Discharge home Pepcid 20 MG twice daily Resume all home meds except Benadryl Discharge Summary Discharge Physical Examination Allergies: Coded Allergies: ezetimibe (Verified Allergy, Unknown, 08/27/16) according to [facility] records promethazine (Verified Adverse Reaction, Severe, 05/02/16) CONFUSION; ALTERED MENTAL STATUS Vitals & I&Os Vital Signs Date Time Temp Pulse Resp B/P Pulse Ox O2 Delivery O2 Flow Rate FiO2 10/01/16 07:57 96.8 52 16 123/74 95 Nasal Cannula 2.00 Hospital Course Labs (last 24 hrs) Laboratory Tests 09/30/16 14:24: Glucometer 105 09/30/16 17:52: Glucometer 156H 09/30/16 21:34: Glucometer 168H 10/01/16 04:00: Alanine Aminotransferase (ALT/SGPT) 9, Albumin 3.2, Alkaline Phosphatase 72, Anion Gap 11, Aspartate Amino Transf (AST/SGOT) 14, BUN/Creatinine Ratio 9, Basophils # (Auto) 0.0, Basophils (%) (Auto) 0, Blood Urea Nitrogen 7, Calcium Level 9.2, Carbon Dioxide Level 28, Chloride Level 101, Creatinine 0.77, Eosinophils # (Auto) 0.1, Eosinophils (%) (Auto) 0, Estimat Glomerular Filtration Rate > 60, Glucose Level 131H, Hematocrit 35L, Hemoglobin 11.7L, Lymphocytes # (Auto) 1.1, Lymphocytes (%) (Auto) 10L, Magnesium Level 2.4, Mean Corpuscular Hemoglobin 32, Mean Corpuscular Hemoglobin Concent 33, Mean Corpuscular Volume 95, Mean Platelet Volume 9.6, Monocytes # (Auto) 0.8, Monocytes (%) (Auto) 7, Neutrophils # (Auto) 9.4H, Neutrophils (%) (Auto) 82H, Phosphorus Level 4.5, Platelet Count 265, Potassium Level 4.2, Red Blood Count 3.71L, Red Cell Distribution Width 13.0, Sodium Level 140, Total Bilirubin 0.4, Total Protein 5.5L, White Blood Count 11.5H Pending Labs Laboratory Tests 10/01/16 04:00: Alanine Aminotransferase (ALT/SGPT) 9, Albumin 3.2, Alkaline Phosphatase 72, Anion Gap 11, Aspartate Amino Transf (AST/SGOT) 14, BUN/Creatinine Ratio 9, Basophils # (Auto) 0.0, Basophils (%) (Auto) 0, Blood Urea Nitrogen 7, Calcium Level 9.2, Carbon Dioxide Level 28, Chloride Level 101, Creatinine 0.77, Eosinophils # (Auto) 0.1, Eosinophils (%) (Auto) 0, Estimat Glomerular Filtration Rate > 60, Glucose Level 131, Hematocrit 35, Hemoglobin 11.7, Lymphocytes # (Auto) 1.1, Lymphocytes (%) (Auto) 10, Magnesium Level 2.4, Mean Corpuscular Hemoglobin 32, Mean Corpuscular Hemoglobin Concent 33, Mean Corpuscular Volume 95, Mean Platelet Volume 9.6, Monocytes # (Auto) 0.8, Monocytes (%) (Auto) 7, Neutrophils # (Auto) 9.4, Neutrophils (%) (Auto) 82, Phosphorus Level 4.5, Platelet Count 265, Potassium Level 4.2, Red Blood Count 3.71, Red Cell Distribution Width 13.0, Sodium Level 140, Total Bilirubin 0.4, Total Protein 5.5, White Blood Count 11.5 Discharge Home Medications: Active Scripts Active Pepcid (Famotidine) 20 Mg Tablet 20 Mg PO BID Dexamethasone 2 Mg Tablet 2 Mg PO DAILY Reported Aspirin 325 Mg Tablet 325 Mg PO DAILY Dexamethasone 1 Mg Tablet 2 Mg PO DAILY TAKES 2 (1 MG) TABLETS Sertraline HCl 50 Mg Tablet 50 Mg PO HS Omeprazole 20 Mg Tablet.dr 20 Mg PO DAILY TAKES WITH MORNING DEXAMETHASONE Milk of Magnesia (Magnesium Hydroxide) 400 Mg/5 Ml Oral.susp 1,200 Mg PO DAILY PRN Senokot-S Tablet (Sennosides/Docusate Sodium) 1 Each Tablet 1 Tab PO BID Docusate Sodium 100 Mg Capsule 100 Mg PO BID Levetiracetam 500 Mg Tablet 500 Mg PO BID Simvastatin 40 Mg Tablet 40 Mg PO HS Metformin HCl 500 Mg Tablet 500 Mg PO BIDAC Finasteride 5 Mg Tablet 5 Mg PO HS Instructions to patient/family Please see electonic discharge instructions given to patient. Clinical Quality Measures AMI/AHF: ASA po Prior to arrival: No DVT/VTE Risk/Contraindication: Risk Factor Score Per Nursin RFS Level Per Nursing on Admit: 1=Low/No VTE PPX ALLISON SAHU DO Oct 01, 2016 10:03
--- NOTE | 2016-10-01 10:42 | Progress Note (SOAP) ---
Subjective Subjective/Events-last exam Patient has been fully evaluated by Cardiology and chest pain is not cardiac in origin. I have changed him to Pepcid twice daily and he will continue this as outpatient. If symptoms persist we will schedule outpatient EGD. Objective Exam Vital Signs Date Time Temp Pulse Resp B/P Pulse Ox O2 Delivery O2 Flow Rate FiO2 10/01/16 07:57 96.8 52 16 123/74 95 Nasal Cannula 2.00 10/01/16 07:11 2.00 10/01/16 04:00 97.0 50 16 140/82 91 Nasal Cannula 2.00 10/01/16 01:19 51 10/01/16 00:00 98.2 58 16 110/68 95 Nasal Cannula 2.00 09/30/16 21:00 95 Nasal Cannula 2.00 09/30/16 20:00 98.9 62 18 125/79 95 Nasal Cannula 2.00 09/30/16 19:00 62 09/30/16 17:23 2.00 09/30/16 16:49 62 20 92/63 95 Nasal Cannula 2.00 09/30/16 16:30 64 17 114/73 92 09/30/16 16:00 2.00 09/30/16 15:20 97.6 70 18 121/72 97 Nasal Cannula 2.00 09/30/16 13:00 55 119/76 96 09/30/16 13:00 54 09/30/16 12:00 98.2 60 20 124/75 89 Room Air I & O 10/01/16 07:00 Intake Total 450 ml Balance 450 ml Capillary Refill : Less Than 3 Seconds General Appearance: No Apparent Distress HEENT: PERRL/EOMI Neck: Non Tender Supple Respiratory: Lungs Clear Cardiovascular: No Edema No Gallop No JVD Gastrointestinal: normal bowel sounds non tender soft no organomegaly Extremity: No Pedal Edema Neurologic/Psychiatric: Alert Oriented x3 Results Lab Laboratory Tests 09/30/16 14:24: Glucometer 105 09/30/16 17:52: Glucometer 156H 09/30/16 21:34: Glucometer 168H 10/01/16 04:00: Alanine Aminotransferase (ALT/SGPT) 9, Albumin 3.2, Alkaline Phosphatase 72, Anion Gap 11, Aspartate Amino Transf (AST/SGOT) 14, BUN/Creatinine Ratio 9, Basophils # (Auto) 0.0, Basophils (%) (Auto) 0, Blood Urea Nitrogen 7, Calcium Level 9.2, Carbon Dioxide Level 28, Chloride Level 101, Creatinine 0.77, Eosinophils # (Auto) 0.1, Eosinophils (%) (Auto) 0, Estimat Glomerular Filtration Rate > 60, Glucose Level 131H, Hematocrit 35L, Hemoglobin 11.7L, Lymphocytes # (Auto) 1.1, Lymphocytes (%) (Auto) 10L, Magnesium Level 2.4, Mean Corpuscular Hemoglobin 32, Mean Corpuscular Hemoglobin Concent 33, Mean Corpuscular Volume 95, Mean Platelet Volume 9.6, Monocytes # (Auto) 0.8, Monocytes (%) (Auto) 7, Neutrophils # (Auto) 9.4H, Neutrophils (%) (Auto) 82H, Phosphorus Level 4.5, Platelet Count 265, Potassium Level 4.2, Red Blood Count 3.71L, Red Cell Distribution Width 13.0, Sodium Level 140, Total Bilirubin 0.4, Total Protein 5.5L, White Blood Count 11.5H Assessment/Plan Assessment/Plan Assess & Plan/Chief Complaint 1. Chest pain-probably related to gastritis for which he is receiving empiric treatment. Patient will followup with me early next week and if symptoms are not improved we will arrange outpatient EGD. 2. Recurrent/progressive glioblastoma-currently receiving outpatient maintenance oral temozolomide as maintenance therapy after repeat resection done on 08/24/16; a. Status post initial partial glioblastoma resection done in February 2016 and postoperative con current radiation and temozolomide. b. Continue Decadron 2 mg daily and Keppra 500 mg twice daily 3. Hypertension 4. Hyperlipidemia 5. Type II diabetes Diagnosis/Problems: Clinical Quality Measures AMI/AHF: ASA po Prior to arrival: No DVT/VTE Risk/Contraindication: Risk Factor Score Per Nursin RFS Level Per Nursing on Admit: 1=Low/No VTE PPX MED ZHANG MD Oct 01, 2016 10:42
--- NOTE | 2016-10-01 10:44 | STRESS TEST ---
PROCEDURE PHYSICIAN: KAREN MORALES RESTING AND POST REGADENOSON TECHNETIUM 99M TETROFOSMIN SPECT CT IMAGING DATE OF PROCEDURE: 09/30/2016 ORDERING PHYSICIAN: Norma Montemayor APRN. PRIMARY PHYSICIAN: Dr. Villanueva OTHER PHYSICIAN: Dr. Morales. CLINICAL DIAGNOSIS: Chest discomfort. Baseline images were carried out after injection of 10.01 mCi of technetium 99m tetrofosmin. This was followed by 0.4 mg of regadenoson and 32 mCi of technetium 99m tetrofosmin for stress imaging. The electrocardiogram did not change significantly with the regadenoson infusion. Overall, he tolerated the procedure well. Review of images at rest and following stress, does not indicate any significant perfusion defects consistent with any significant myocardial ischemia or infarction. Some degree of diaphragmatic attenuation of the diaphragmatic wall of the left ventricle is seen both at rest and following Regadenoson infusion. Gated images show normal global left ventricular systolic function with normal regional wall motion, including the diaphragmatic wall of the left ventricle. Left ventricular ejection fraction is calculated to be 69%. Left ventricular end-diastolic volume is 45 mL. TID is absent 0.96). CONCLUSION: 1. This study does not indicate any evidence of any significant myocardial ischemia or infarction. 2. Normal regional wall motion. 3. Normal global left ventricular systolic function with a calculated ejection fraction 69%. 4. Normal left ventricular cavity size. Job ID: [id number] Dictated Date: 09/30/2016 18:56:14 Hand Umbrella Tipper Date: 10/01/2016 10:40:01 / shantell
[2016-10-01 11:03] VITALS: BP 123/74
--- NOTE | 2016-10-01 11:17 | ECHOCARDIOGRAPHY REPORT ---
PROCEDURE PHYSICIAN: KAREN MORALES DATE OF PROCEDURE: 09/30/2016 TWO DIMENSIONAL ECHOCARDIOGRAM REPORT PRIMARY PHYSICIAN: Dr. Villanueva OTHER PHYSICIAN: REFERRING PHYSICIAN: ORDERING PHYSICIAN: Dr. Morales INDICATION FOR THE PROCEDURE: Chest pain. MEASUREMENTS DERIVED VALUES LV DIAMETER (LAX) NORMALS NORMALS Diastolic (3.6-5.2) Eject. Fract. (60%+/-6%) Systolic (2.3-3.9) Diastolic Vol. % Shortening (0.22-0.42) Systolic Vol. Aortic Root IVS THICKNESS Diastolic (0.6-1.1) LVPW THICKNESS Diastolic (0.6-1.1) LA DIAMETER Systolic (2.1-3.7) DESCRIPTION: Two-dimensional echocardiography shows normal global left ventricular systolic function with normal regional wall motion. Left ventricular ejection fraction of approximately 60%. Doppler imaging shows trivial tricuspid regurgitation and trivial to mild mitral regurgitation. Aortic valve appears to be trileaflet. There is no significant pericardial effusion. There is no Doppler evidence of any significant valvular stenosis. Mitral inflow is suggestive of grade I diastolic dysfunction of the left ventricle. Pulmonary artery systolic pressure is estimated to be approximately 25 to 30 mmHg. There is no evidence of any significant intracardiac shunt on this transthoracic echocardiographic study. Inferior vena cava appears to be of normal size and appears mostly collapsed during this study. CONCLUSION: 1. Normal global left ventricular systolic function with normal regional wall motion and left ventricular ejection fraction of approximately 60%. 2. Trivial to mild mitral and tricuspid regurgitation. 3. No evidence of any significant valvular stenosis. 4. Pulmonary artery systolic pressure is estimated to be 25 to 30 mmHg. 5. Mild diastolic dysfunction of the left ventricle. Job ID: [id number] Dictated Date: 09/30/2016 20:36:58 Speech Teacher Date: 10/01/2016 11:12:20 / shantell
[2016-12-17] MEDS ORDERED: CYCL10TA9 PO (12:42)
== END 2016-10-01 09:59 | disposition home or self-care (01) ==
LOC: EDUNIT# 03:05 → ER 03:08 → ICU 04:55 → UNDOADMOB 04:55 → ICU 05:51 → CSD 09:45 → ICU 09:45
PROVIDERS: ADMIT Internal Medicine; ATTEND Internal Medicine
DX: R07.9 Chest pain, unspecified (principal); R09.02 Hypoxemia; C71.2 Malignant neoplasm of temporal lobe; E11.9 Type 2 diabetes mellitus without complications; I10 Essential (primary) hypertension; E78.5 Hyperlipidemia, unspecified; N40.0 Benign prostatic hyperplasia without lower urinary tract symptoms; L50.9 Urticaria, unspecified; F41.9 Anxiety disorder, unspecified; F17.210 Nicotine dependence, cigarettes, uncomplicated; Z79.899 Other long term (current) drug therapy; Z98.890 Other specified postprocedural states
CPT/HCPCS: 36415; 71010; 71275; 78452; 80053; 80061; 82150; 82550; 82553; 82962; 83690; 83735; 83874; 83880; 84100; 84484; 85025; 85610; 85730; 93005; 93017; 93041; 93306; 96374; G0378

== ENCOUNTER 2016-10-16 00:12 | Emergency (ER) | payer MEDICARE, OTHER ==
[~2016-10-16] VITALS: Ht 170.2 cm; Wt 62.1 kg
[~2016-10-16 00:12] MED LIST changes: +ASPI-808 PO; +DEXA2TAB PO; +FAMO-119 PO
--- OUTSIDE RECORDS SUMMARY | 2016-10-16 00:20 | XMS REPORT | Continuity of Care Document ---
Author Author [facility] Organization [facility] Address Unknown Phone Unavailable Care Team Providers Care Assistant Professor Of English Name Role Phone MaryjaneMartin PCP [phone] Source Comments Some departments are not documenting in the electronic medical record. If you do not see the information that you expected, contact Release of Information in the Health Information Management department at [phone] for further assistance in locating additional records.[facility] Active Allergies and Adverse Reactions Allergen [...] Taj Ozuna MD Follow-up Phone Call 08/24/2016 [facility] Taj Avalos MD Encounter 08/24/2016 Hospital [...] (Primary Dx) 08/20/2016 Anesthesia Nicky Salazar, Event BDR 08/19/2016 Office Visit Taj Ozuna MD GBM ( glioblastoma multiforme) (HCC) (Primary Dx) 08/19/2016 Office Visit Keanu Zimmer MD GBM ( glioblastoma multiforme) (HCC) (Primary Dx); Left-sided weakness 08/19/2016 Orders Only Taj Ozuna MD Glioblastoma multiforme of brain (HCC) (Primary Dx) 08/19/2016 Prep for Case Neurosurgery Taj Avalos MD 08/18/2016 Telephone Neurosurgery Keanu Vick MD Appointment Social History Tobacco Use Types Packs/Day Years Used Date Former Smoker Cigarettes 1 10 Quit: 08/20/1971 Smokeless Tobacco: Chew Quit: Current User 02/08/2016 Comments: quite whe he was 25 years old Alcohol Use Drinks/Week oz/Week Comments Yes 0 Standard 0.0 rarely drinks or equivalent Last Filed Vital Signs Vital Sign Reading Time Taken Blood Pressure 99/64 09/23/2016 10:25 AM FLAME HARDENER Pulse 80 09/23/2016 10:25 AM FLAME HARDENER Temperature 36.9 C (98.4 F) 09/06/2016 1:35 PM FLAME HARDENER Respiratory Rate 18 09/06/2016 1:35 PM FLAME HARDENER Height 1.702 m (5' 7") 09/23/2016 10:25 AM FLAME HARDENER Weight 62.143 kg (137 lb) 09/23/2016 10:25 AM FLAME HARDENER Body Mass Index 21.45 09/23/2016 10:25 AM FLAME HARDENER Oxygen Saturation 94% 09/06/2016 1:35 PM FLAME HARDENER Plan of Care Health Maintenance Due Date Last Done Comments Physical (Comprehensive) 1950 Exam Pertussis Vaccine 1954 Tetanus Vaccine 1960 Colorectal Cancer 1993 Screening Shingles Vaccine 2003 Prevnar/Pneumovax (#1) 2008 Influenza Vaccine 04/15/2016 Procedures from Last 3 Months Procedure Name Priority Date/Time Associated Diagnosis Comments TELEMETRY STRIPS-SCAN 08/31/2016 Results for this 4:04 PM FLAME HARDENER procedure are in the results section. ECG UNCONFIRMED-SCAN 08/28/2016 Results for this 5:36 PM FLAME HARDENER procedure are in the results section. RIGHT TEMPORO-OCCIPITAL 08/24/2016 GBM (glioblastoma CRANIOTOMY, RESECTION OF 12:35 PM FLAME HARDENER multiforme) (HCC) BRAIN TUMOR Results from Last [...] - Janeth Aug 26, 2016 2:34 PM FLAME HARDENER EXAM: MRI BRAIN WITH AND WITHOUT CONTRAST [...] PM) Component Value Range PATHOLOGY REPORT [facility] [email or web address] Gabbi Jones MD, PhD, Director of Anatomic Pathology Department of Pathology and Laboratory Medicine [address] [place] [id number] Surgical Pathology Office: [phone] SURGICAL PATHOLOGY REPORT NAME: HERMANN RODRIGUEZ SURG PATH #: [id number] MR #: [id number] SPECIMEN CLASS: SR BILLING #: [id number] ALT ID #: LOCATION: DISCHARGED DATE OF [...] in this report. +++Electronically Signed Out By+++ vincenzow/08/25/2016 Interpreted by: Camille Ferrara MD, Attending Physician LOIS Joyce Fellow 09/02/2016 ################################################## ###################### Material Received: A: tumor B: tumor C: occipital pole D: hippocampus E: tumor History: 71-year-old man with a history of treated glioblastoma ([id number]) and a clinical impression of recurrent tumor. [...] convoluted fragment of friable soft neural tissue. Technician Terminal And Repeater sections are submitted in cassettes [id number]-C5. (dlk) [...] yellow-colvin convoluted, friable soft neural tissue fragments. Technician Terminal And Repeater sections are submitted in cassettes E1-E5. (dlk) [...] of Pathology and Laboratory Medicine of the [facility] ([employer]) in compliance with CLIA'88 regulations. Some of these tests rely on the use of "analyte specific reagents" and are subject to specific labeling requirements by the FDA. Known positive and negative control tissues demonstrate appropriate staining. This testing was developed by the Department of Pathology and Laboratory Medicine of the [facility]. It has not been cleared or approved [...] - Tue Aug 24, 2016 8:38 AM FLAME HARDENER MRI brain Medical history: Brain tumor, glioblastoma, [...]
--- NOTE | 2016-10-16 01:06 | ED Fall/Injury ---
General Chief Complaint: Hip/Pelvic Problems Stated Complaint: POSS FX RT HIP Source: patient Exam Limitations: no limitations History of Present Illness Time seen by provider: 00:50 Initial Comments Here with complaint of right hip pain. States that he tripped on his feet tonight and fell on his right side. He denies hitting his head. Denies other pain or concerns aside from the right hip. Did have 2 Tylenol earlier tonight but has not helped with the pain. They're concerned about right hip fracture. Occurred: this morning Severity: moderate Injuries/Pain Location: pelvis Context: lost balance Loss of Consciousness: no loss of consciousness Associated Symptoms (Fall): No Abdominal Pain, No Chest Pain, No Confusion, No Muscle Spasms, No Neck Pain, No Shortness of Air, Trouble Walking Allergies and Home Medications Allergies Coded Allergies: ezetimibe (Verified Allergy, Unknown, 08/27/16) according to [facility] records promethazine (Verified Adverse Reaction, Severe, 05/02/16) CONFUSION; ALTERED MENTAL STATUS Home Medications Acetaminophen 500 Mg Tablet 500-1,000 MG PO Q6H PRN PRN PAIN (Reported) Aspirin 81 Mg Tab.chew 81 MG PO DAILY (Reported) Cyclobenzaprine HCl 10 Mg Tablet 10 MG PO Q8H PRN PRN SPASMS (Reported) Dexamethasone 1 Mg Tablet 1.75 MG PO DAILY (Reported) Uses 2 (1 MG) TABLETS Docusate Sodium 100 Mg Capsule 100 MG PO BID (Reported) Famotidine 20 Mg Tablet #60 20 MG PO BID Prescribed by: ALLISON SAHU on 10/01/16 0959 Finasteride 5 Mg Tablet 5 MG PO HS (Reported) Levetiracetam 500 Mg Tablet 500 MG PO BID (Reported) Loratadine 10 Mg Tablet 10 MG PO HS (Reported) Magnesium Hydroxide 400 Mg/5 Ml Oral.susp 1,200 MG PO DAILY PRN PRN CONSTIPATION (Reported) Magnesium Oxide 250 Mg Tablet 250 MG PO DAILY (Reported) Metformin HCl 500 Mg Tablet 500 MG PO BIDAC (Reported) Multivitamin with Minerals 1 Each Tablet 1 EACH PO DAILY (Reported) Omeprazole 20 Mg Tablet.dr 20 MG PO DAILY (Reported) TAKES WITH MORNING DEXAMETHASONE Sennosides/Docusate Sodium 1 Each Tablet 1 TAB PO BID (Reported) Sertraline HCl 50 Mg Tablet 50 MG PO HS (Reported) Simvastatin 40 Mg Tablet 40 MG PO HS (Reported) Constitutional: see HPINo chills, No fever Eyes: No Symptoms Reported Ears, Nose, Mouth, Throat: no symptoms reported Respiratory: no symptoms reported Cardiovascular: no symptoms reported Gastrointestinal: no symptoms reported Genitourinary: no symptoms reported Musculoskeletal: see HPI joint pain muscle pain Skin: no symptoms reported All Other Systems Reviewed Negative Unless Noted: Yes Past Lfyypmo-Atxvaq-Gscldx Hx Patient Social History Alcohol Use: Denies Use Recreational Drug Use: No Smoking Status: Former Smoker Type Used: Cigarettes Former Smoker/When Quit: May 29, 1970 Recent Foreign Travel: No Contact w/Someone Who Travel: No Recent Hopitalizations: Yes (BRAIN SURG AT 08/24/16) Immunizations Up To Date Tetanus Booster (TDap): Less than 5yrs PED Vaccines UTD: Yes Date of Pneumonia Vaccine: Sep 30, 2015 Date of Influenza Vaccine: Apr 17, 2016 Seasonal Allergies Seasonal Allergies: No Surgeries HX Surgeries: Yes (BRAIN TUMOR REMOVAL - MOST RECENT SURGERY 08/24/16 AT ) Surgeries: Appendectomy, Neurological Respiratory Hx Respiratory Disorders: No Cardiovascular Hx Cardiac Disorders: Yes Cardiac Disorders: High Cholesterol, Hypertension Neurological Hx Neurological Disorders: Yes (GLIOBLASTOMA) Reproductive System Hx Reproductive Disorders: No Sexually Transmitted Disease: No HIV/AIDS: No Genitourinary Hx Genitourinary Disorders: Yes Genitourinary Disorders: Prostate Problems Gastrointestinal Hx Gastrointestinal Disorders: No Musculoskeletal Hx Musculoskeletal Disorders: Yes Musculoskeletal Disorders: Arthritis Endocrine Hx Endocrine Disorders: Yes Endocrine Disorders: Diabetes, Non-Insulin dep HEENT HX ENT Disorders: Yes Loss of Vision: Left Hearing Impairment: Hard of Hearing Cancer Hx Cancer: Yes Cancer: Brain Psychosocial Hx Psychiatric Problems: No Behavioral Health Disorders: Anxiety Integumentary HX Skin/Integumentary Disorder: No Blood Transfusions Hx Blood Disorders: No Adverse Reaction to a Blood Tr: No Reviewed Nursing Assessment Reviewed/Agree w Nursing PMH: Yes Family Medical History Family Medial History: Abdominal aortic aneurysm 19 MOTHER Arthritis 19 MOTHER G8 BROTHER G8 BROTHER G8 SISTER Cardiovascular disease 19 FATHER 19 MOTHER (CONGESTIVE HEART FAILURE) Cataracts 19 MOTHER Deafness or hearing loss 19 MOTHER Diabetes mellitus G8 BROTHER G8 SISTER Hypertension 19 MOTHER G8 BROTHER G8 BROTHER G8 SISTER Kidney disease 19 MOTHER (KIDNEY FAILURE) Myocardial infarction 19 FATHER (1ST ONE [place]. [place] ) Physical Exam Vital Signs Vital Sign - Last 12Hours 10/16/16 00:52 Temp 98.0 Pulse 63 Resp 20 B/P 161/102 Pulse Ox 91 O2 Delivery Room Air Capillary Refill : General Appearance: WD/WN no apparent distress Neck: full range of motion supple Cardiovascular: regular rate, rhythm no murmur Respiratory: lungs clear normal breath sounds Gastrointestinal: non tender soft Back: normal inspection no CVA tenderness no vertebral tenderness Extremities: pelvis stable other (rt groin pain, ) Neurologic/Psychiatric: alert oriented x 3 Skin: normal color warm/dry [place] Coma Score Best Eye Response: (4) Open Spontaneously Best Verbal Response: (5) Oriented Best Motor Response: (6) Obeys Commands Progress/Results/Core Measures Results/Orders My Orders Orders-ALIYAH BORGES MD Pelvis (10/16/16 01:00) Hip, Right, 2 Views (10/16/16 01:00) Hydrocodone/Apap 7.5/325 Tab (Lortab 7. (10/16/16 01:56) Vital Signs/I&O Vital Sign - Last 12Hours 10/16/16 10/16/16 00:52 02:03 Temp 98.0 98.0 Pulse 63 Resp 20 B/P 161/102 Pulse Ox 91 O2 Delivery Room Air Progress Note : Progress Note Seen and evaluated. X-ray right hip and pelvis. Pubic rami fracture noted. Patient has walker at home. Discharge patient home with return precautions. Family verbalize understanding instructions and agreement with plan. Hydrocodone 7.5 mg by mouth given. He has hydrocodone fives and tens at home and will administer those as needed. I did discuss at length with the patient and family about the need to use the walker as well as follow-up with orthopedics. Family has with history with Dr. Samson would like to follow- up with him. His phone numbers given. 1244: I did discuss the case with Dr. Reynaga and he agrees with outpatient plan. Diagnostic Imaging Diagonstic Imaging: Xray Plain Films/CT/US/NM/MRI: pelvis Comments Right superior and inferior pubic rami fracture Reviewed: Reviewed by Me Diagonstic Imaging: Xray Plain Films/CT/US/NM/MRI: hip Comments Right hip shows no fracture. Right superior and inferior pubic rami Fracture noted. Departure Impression Impression: Primary Impression: Pubic ramus fracture Qualified Code: S32.591A - Other specified fracture of right pubis, initial encounter for closed fracture Disposition: 01 HOME, SELF-CARE Condition: Improved Departure-Patient Inst. Decision time for Depature: 02:44 Referrals: JAVAN ELLIOTT MD (PCP) Primary Care Physician BRUCE SAMSON DO Patient Instructions: Pelvic Fracture (DC) Add. Discharge Instructions: All discharge instructions reviewed with patient and/or family. Voiced understanding. Take pain medication as discussed using 5 mg hydrocodone every 4 hours as needed for pain. Do not take Tylenol with this medicine as both of acetaminophen in it. Use walker at all times when walking. Follow-up with orthopedic surgeon listed or of your choice this week for recheck and further evaluation. Return for worse pain, fever, vomiting, weakness, breathing problems or other concerns as needed. ALIYAH BORGES MD Oct 16, 2016 01:06
[2016-10-16] MEDS ORDERED: LORA10TA7 PO (01:17)
[2016-10-16] MEDS ORDERED: ASPI-999 PO (01:17)
[2016-10-16] MEDS ORDERED: ACET-93 PO (01:17)
[2016-10-16] MEDS ORDERED: CYCL10TA9 PO (01:17)
[2016-10-16] MEDS ORDERED: MAGN250T35 PO (01:17)
[2016-10-16] MEDS ORDERED: MULT-166 PO (01:17)
[2016-10-16] MEDS ORDERED: HYDROcodone/APAP 7.5 MG/325 MG (LORTAB, LORCET PLUS) TABLET PO STA (01:56)
[2016-10-16 02:56] VITALS: BP 131/96
--- NOTE | 2016-10-16 07:03 | Diagnostic Imaging Report ---
EXAMINATION: Right hip, 2 views. COMPARISON: None. INDICATION: 71-year-old male, fall. Right hip pain. FINDINGS: The right hip is not dislocated. There is no pronounced joint space loss of the right hip, osteophyte formation, or subchondral cystic change. There is cortical offset of the right inferior pubic ramus and also the right superior pubic ramus likely relating to minimally displaced fractures. IMPRESSION: 1. Minimally displaced fractures of the right superior and inferior pubic rami. Dictated by: Dictated on workstation # [id number]
--- NOTE | 2016-10-16 07:15 | Diagnostic Imaging Report ---
INDICATION: Fall. Hip pain. COMPARISON: None FINDINGS: Single frontal view of the pelvis is obtained. There is slight cortical irregularity through the medial aspect of the superior pubic ramus into the mid inferior pubic ramus on the right concerning for subtle nondisplaced fractures. No additional fracture, malalignment or osseous destructive process is seen. The femoral head appears smooth, round and symmetric and the joint spaces appear preserved. The sacroiliac joints appear unremarkable. IMPRESSION: Possible nondisplaced fracture through the right inferior and superior pubic rami. No additional abnormality is seen. Dictated by: Dictated on workstation # [id number]
[2016-12-17] MEDS ORDERED: CYCL10TA9 PO (12:42)
== END 2016-10-16 02:57 | disposition home or self-care (01) ==
LOC: EDUNIT# 00:12 → ER 00:14
DX: S32.511A Fracture of superior rim of right pubis, initial encounter for closed fracture (principal); I10 Essential (primary) hypertension; E11.9 Type 2 diabetes mellitus without complications; Z79.84 Long term (current) use of oral hypoglycemic drugs; Z79.82 Long term (current) use of aspirin; Z79.899 Other long term (current) drug therapy; Z87.891 Personal history of nicotine dependence; Z85.841 Personal history of malignant neoplasm of brain; W01.0XXA Fall on same level from slipping, tripping and stumbling without subsequent striking against object, initial encounter; Y92.009 Unspecified place in unspecified non-institutional (private) residence as the place of occurrence of the external cause; Y99.8 Other external cause status
CPT/HCPCS: 72170; 73502; 99282

== ENCOUNTER → 2016-11-17 | Outpatient (CLI) | payer MEDICARE, OTHER ==
[~2016-11-17] MED LIST changes: +ACET-93 PO; +ASPI-999 PO; +CYCL10TA9 PO; +GADOBUTROL 7.5 MMOL/7.5 ML (GADAVIST) VIAL IV ONE; +LORA10TA7 PO; +MAGN250T35 PO; +MULT-166 PO
--- NOTE | 2016-11-18 08:36 | Diagnostic Imaging Report ---
CLINICAL INDICATION: Patient had two brain surgeries for glioblastoma with the first in January of 2016 and the second in August 24, 2015. Other MRI brain imaging is at . Patient has been having increased headaches recently. EXAM: MRI of the brain performed without and with IV contrast. Sequences include axial DWI, ADC map, axial T2, axial FLAIR, axial T1, axial gradient echo, axial T1 post IV contrast, coronal T1 fat-sat post IV contrast, and sagittal T1 post IV contrast. COMPARISON: Outside MRI of the brain performed without and with IV contrast dated 08/25/2016 from [facility]. Images and report were loaded onto the PACS system. FINDINGS: Again seen postop changes with right posterior skull craniotomy. Stable large resection cavity involving the posterior right temporal lobe, right occipital lobe, right parietal lobe region with septated fluid collection seen in the region. There is interval decrease curvilinear enhancement along the resection cavity. There is minimal peripheral thickening and amorphous nodularity seen along the resection bed seen on the axial T1 post IV contrast sequence series 8, images 13 through 16. These areas should be closely followed on subsequent imaging. There are no other areas concerning for mass-like enhancement. There is also increased amorphous enhancement along the splenium of the corpus callosum with high T2 signal present. There is residual nonenhancing amorphous material within the right posterior resection bed region with no associated IV contrast enhancement. This is best seen on axial T2 sequence series 4, images 10 through 14. This may just related to residual parenchymal tissue with encephalomalacia. There is interval development of a small area of subdural slightly low T2 signal fluid in the right posterior craniotomy region which measures roughly 4 mm in thickness. This may represent an area of minimal blood. There is decrease in the previously seen blood in the fluid filled resection cavity. There is resolution of previously seen pneumocephaly and air in the extradural region in the sub-craniotomy region. There is residual septated fluid in the extradural intracranial area which measures 8.6 cm in AP dimension and 1.5 cm in thickness. This is an area of residual blood product. Residual complex blood product in this region also may be considered. There is no associated IV contrast enhancement in these regions. There is resolution of previously seen [id number] midline shift. There is interval decreased confluent high T2 signal involving the residual posterior right cerebral hemisphere. Again seen patchy fluid areas of high T2 signal involving both cerebral hemispheres, saúl, and periventricular regions are again seen. There is no evidence of hydrocephalus. Basal cisterns show no significant interval abnormality. The [place] vascular structures show no gross abnormality as visualized. There is mild prominence of the intra-orbital optic nerve dural sheaths which has decreased compared to the prior study. There is no significant paranasal sinus disease. Temporal bone structures show no significant abnormality. IMPRESSION: 1: There is interval evolution of the previously seen right skull craniotomy changes with resection cavity of the right posterior cerebral hemisphere, described in detail above. There is also decreased hemorrhage within the fluid-filled resection cavity compared to the prior study. 2: There is decreased curvilinear enhancement along the right posterior cerebral hemisphere brain parenchymal resection cavity, but there is again seen amorphous nodular and thickened enhancement medially along the resection bed. There is also increased amorphous enhancement and high T2 signal along the splenium of the corpus callosum. These areas should continue to be followed on subsequent imaging. 3: Interval resolution of the pneumocephaly and slight decreased fluid involving the extradural intracranial postop fluid. There is residual complex and septated fluid collection in the extradural intracranial right posterior region. This may be related to blood products. There is no associated IV contrast enhancement in the region. 4: There is development of a small subdural fluid collection in the right posterior sub-craniotomy region. This may represent minimal blood. 5: There is interval decreased jszch-[id number]-[id number] midline shift. There is also decrease parenchymal confluent high T2 signal involving the posterior right cerebral hemisphere. Dictated by: Dictated on workstation # [id number]
== END ==
LOC: RAD 15:07
PROVIDERS: ATTEND Internal Medicine Hematology & Oncology
DX: R51 Headache (principal); R94.02 Abnormal brain scan; Z98.890 Other specified postprocedural states
CPT/HCPCS: 70553

== ENCOUNTER 2016-12-06 10:42 | Outpatient (RCR) | payer MEDICARE, OTHER ==
--- OUTSIDE RECORDS SUMMARY | 2016-09-10 12:55 | XMS REPORT | Continuity of Care Document ---
Author Author [facility] Organization [facility] Address Unknown Phone Unavailable Care Team Providers Care Lab Head Name Role Phone LindaMartin lawrence PCP [phone] Source Comments Some departments are not documenting in the electronic medical record. If you do not see the information that you expected, contact Release of Information in the Health Information Management department at [phone] for further assistance in locating additional records.[facility] [...] ued PO) Active Problems Problem Noted Date Brain compression (HCC) 09/06/2016 Cerebral edema (HCC) 09/06/2016 Glioblastoma (HCC) 08/24/2016 Left-sided weakness 08/19/2016 GBM (glioblastoma multiforme) (HCC) 02/11/2016 Cerebrovascular accident (CVA) due to stenosis of posterior cerebral artery 02/05/2016 (HCC) Resolved Problems Problem Noted Date Resolved Date Brain lesion 02/07/2016 02/18/2016 Most Recent Encounters Date Type Specialty Providers Description 09/06/2016 Office Visit Neurosurgery Stephanie Montesinos, CHIQUIS GBM ( glioblastoma multiforme) (HCC) (Primary Dx) 08/31/2016 Telephone Neurosurgery Taj Avalos MD Follow-up Phone Call 08/24/2016 [facility] Radiology Taj Avalos MD Encounter 08/24/2016 [facility] Taj Avalos MD Glioblastoma (HCC) - [...] (Primary Dx) 08/20/2016 Anesthesia Nicky Salazar, Event VP CUSTOMER SERVICE 08/19/2016 Office Visit Neurosurgery Taj Avalos MD GBM ( glioblastoma multiforme) (HCC) (Primary Dx) 08/19/2016 Office Visit Keanu Zimmer MD GBM ( glioblastoma multiforme) (HCC) (Primary Dx); Left-sided weakness 08/19/2016 Orders Only Neurosurgery Taj Avalos MD Glioblastoma multiforme of brain (HCC) (Primary Dx) 08/19/2016 Prep for Case Taj Ozuna MD 08/18/2016 Telephone Keanu Zimmer MD Appointment 07/13/2016 Office Visit Oncology Keanu [...] Vital Sign Reading Time Taken Blood Pressure 131/86 09/06/2016 1:36 PM TOLL COLLECTOR Pulse 83 09/06/2016 1:36 PM TOLL COLLECTOR Temperature 36.9 C (98.4 F) 09/06/2016 1:35 PM TOLL COLLECTOR Respiratory Rate 18 09/06/2016 1:35 PM TOLL COLLECTOR Height 1.727 m (5' 8") 09/06/2016 1:36 PM TOLL COLLECTOR Weight 60.328 kg (133 lb) 09/06/2016 1:36 PM TOLL COLLECTOR Body Mass Index 20.23 09/06/2016 1:36 PM TOLL COLLECTOR Oxygen Saturation 94% 09/06/2016 1:35 PM TOLL COLLECTOR Plan of Care Date Type Specialty Providers Description 09/23/2016 Appointment Neurosurgery Taj Avalos MD [address] [facility] [address] [place] [address] [phone] (Fax) Health Maintenance Due Date Last Done Comments Physical (Comprehensive) 1950 Exam Pertussis Vaccine 1954 Tetanus Vaccine 1960 Colorectal Cancer 1993 Screening Shingles Vaccine 2003 Prevnar/Pneumovax (#1) 2008 Influenza Vaccine 04/15/2016 Procedures from Last 3 Months Procedure Name Priority Date/Time Associated Diagnosis Comments TELEMETRY STRIPS-SCAN 08/31/2016 Results for this 4:04 PM TOLL COLLECTOR procedure are in the results section. ECG UNCONFIRMED-SCAN 08/28/2016 Results for this 5:36 PM TOLL COLLECTOR procedure are in the results section. RIGHT TEMPORO-OCCIPITAL 08/24/2016 GBM (glioblastoma CRANIOTOMY, RESECTION OF 12:35 PM TOLL COLLECTOR multiforme) (HCC) BRAIN TUMOR Results from Last [...] - Janeth Aug 26, 2016 2:34 PM TOLL COLLECTOR EXAM: MRI BRAIN WITH AND WITHOUT CONTRAST [...] PM) Component Value Range PATHOLOGY REPORT [facility] [email or web address] Gabbi Jones MD, PhD, Director of Anatomic Pathology Department of Pathology and Laboratory Medicine [address] [place] [id number] Surgical Pathology Office: [phone] SURGICAL PATHOLOGY REPORT NAME: HERMANN RODRIGUEZ SURG PATH #: [id number] MR #: [id number] SPECIMEN CLASS: SR BILLING #: [id number] ALT ID #: LOCATION: DISCHARGED DATE OF [...] Interpreted by: Camille Ferrara MD, Attending Physician Luis Chandler, LOIS Fellow 09/02/2016 ################################################## ###################### Material Received: A: tumor B: tumor C: occipital pole D: hippocampus E: tumor History: 71-year-old man with a history of treated glioblastoma ([id number]) and a clinical impression of recurrent tumor. [...] convoluted fragment of friable soft neural tissue. Firmware Architect sections are submitted in cassettes C1-C5. (dlk) [...] yellow-colvin convoluted, friable soft neural tissue fragments. Firmware Architect sections are submitted in cassettes [id number]. (dlk) [...] of Pathology and Laboratory Medicine of the [facility] ([employer]) in compliance with CLIA'88 regulations. Some of these tests rely on the use of "analyte specific reagents" and are subject to specific labeling requirements by the FDA. Known positive and negative control tissues demonstrate appropriate staining. This testing was developed by the Department of Pathology and Laboratory Medicine of the [facility]. It has not been cleared or [...] - Tue Aug 24, 2016 8:38 AM TOLL COLLECTOR MRI brain Medical history: Brain tumor, glioblastoma, [...]
[2016-09-10 13:53] LABS: BASOPHILS % (AUTO) 0 % (0-10); EOSINOPHILS % (AUTO) 0 % (0-10); LYMPHOCYTES # (AUTO) 1.1 X 10^3 (1.0-4.0); LYMPHOCYTES % (AUTO) 11 % (12-44); MEAN CORPUSCULAR HEMOGLOBIN 33 PG (25-34); MEAN CORPUSCULAR HGB CONC 34 G/DL (32-36); MEAN CORPUSCULAR VOLUME 97 FL (80-99); MEAN PLATELET VOLUME 8.7 FL (7.4-10.4); MONOCYTES # (AUTO) 0.9 X 10^3 (0.0-1.0); MONOCYTES % (AUTO) 9 % (0-12); NEUTROPHILS # (AUTO) 8.2 X 10^3 (1.8-7.8); NEUTROPHILS % (AUTO) 80 % (42-75); PLATELET COUNT 249 10^3/uL (130-400); RED BLOOD COUNT 3.75 10^6/uL (4.35-5.85); RED CELL DISTRIBUTION WIDTH 12.5 % (10.0-14.5); WHITE BLOOD COUNT 10.2 10^3/uL (4.3-11.0)
[2016-09-10 14:08] LABS: ALANINE AMINOTRANSFERASE 15 U/L (0-55); ALBUMIN 3.2 G/DL (3.2-4.5); ANION GAP 9 MMOL/L (5-14); ASPARTATE AMINO TRANSFERASE 10 U/L (5-34); BILIRUBIN,TOTAL 0.3 MG/DL (0.1-1.0); BLOOD UREA NITROGEN 14 MG/DL (7-18); BUN/CREATININE RATIO 19; CALCIUM 9.4 MG/DL (8.5-10.1); CARBON DIOXIDE 28 MMOL/L (21-32); CHLORIDE 103 MMOL/L (98-107); CREATININE SERUM 0.73 MG/DL (0.60-1.30); GFR ESTIMATED > 60; GLUCOSE 149 MG/DL (70-105); POTASSIUM 3.9 MMOL/L (3.6-5.0); SODIUM 140 MMOL/L (135-145); TOTAL PROTEIN 5.8 G/DL (6.4-8.2)
[2016-09-20 10:44] LABS: BASOPHILS % (AUTO) 0 % (0-10); EOSINOPHILS # (AUTO) 0.1 10^3/uL (0.0-0.3); EOSINOPHILS % (AUTO) 1 % (0-10); LYMPHOCYTES # (AUTO) 0.7 X 10^3 (1.0-4.0); LYMPHOCYTES % (AUTO) 7 % (12-44); MEAN CORPUSCULAR HEMOGLOBIN 31 PG (25-34); MEAN CORPUSCULAR HGB CONC 33 G/DL (32-36); MEAN CORPUSCULAR VOLUME 94 FL (80-99); MEAN PLATELET VOLUME 8.3 FL (7.4-10.4); MONOCYTES # (AUTO) 0.9 X 10^3 (0.0-1.0); MONOCYTES % (AUTO) 8 % (0-12); NEUTROPHILS # (AUTO) 8.5 X 10^3 (1.8-7.8); NEUTROPHILS % (AUTO) 83 % (42-75); PLATELET COUNT 329 10^3/uL (130-400); RED BLOOD COUNT 3.69 10^6/uL (4.35-5.85); RED CELL DISTRIBUTION WIDTH 12.7 % (10.0-14.5); WHITE BLOOD COUNT 10.2 10^3/uL (4.3-11.0)
[2016-09-20 11:16] LABS: ANION GAP 10 MMOL/L (5-14); BLOOD UREA NITROGEN 8 MG/DL (7-18); BUN/CREATININE RATIO 11; CALCIUM 9.4 MG/DL (8.5-10.1); CARBON DIOXIDE 28 MMOL/L (21-32); CHLORIDE 102 MMOL/L (98-107); CREATININE SERUM 0.75 MG/DL (0.60-1.30); GFR ESTIMATED > 60; GLUCOSE 139 MG/DL (70-105); POTASSIUM 3.8 MMOL/L (3.6-5.0); SODIUM 140 MMOL/L (135-145)
[2016-09-27 11:20] LABS: BASOPHILS % (AUTO) 0 % (0-10); EOSINOPHILS # (AUTO) 0.1 10^3/uL (0.0-0.3); EOSINOPHILS % (AUTO) 1 % (0-10); LYMPHOCYTES # (AUTO) 1.1 X 10^3 (1.0-4.0); LYMPHOCYTES % (AUTO) 11 % (12-44); MEAN CORPUSCULAR HEMOGLOBIN 31 PG (25-34); MEAN CORPUSCULAR HGB CONC 33 G/DL (32-36); MEAN CORPUSCULAR VOLUME 96 FL (80-99); MEAN PLATELET VOLUME 8.4 FL (7.4-10.4); MONOCYTES # (AUTO) 0.9 X 10^3 (0.0-1.0); MONOCYTES % (AUTO) 9 % (0-12); NEUTROPHILS % (AUTO) 79 % (42-75); PLATELET COUNT 300 10^3/uL (130-400); RED BLOOD COUNT 3.72 10^6/uL (4.35-5.85); RED CELL DISTRIBUTION WIDTH 12.6 % (10.0-14.5); WHITE BLOOD COUNT 10.1 10^3/uL (4.3-11.0)
[2016-10-04 10:20] LABS: BASOPHILS % (AUTO) 0 % (0-10); EOSINOPHILS # (AUTO) 0.1 10^3/uL (0.0-0.3); EOSINOPHILS % (AUTO) 1 % (0-10); LYMPHOCYTES # (AUTO) 1.5 X 10^3 (1.0-4.0); LYMPHOCYTES % (AUTO) 18 % (12-44); MEAN CORPUSCULAR HEMOGLOBIN 31 PG (25-34); MEAN CORPUSCULAR HGB CONC 33 G/DL (32-36); MEAN CORPUSCULAR VOLUME 95 FL (80-99); MEAN PLATELET VOLUME 8.8 FL (7.4-10.4); MONOCYTES # (AUTO) 0.9 X 10^3 (0.0-1.0); MONOCYTES % (AUTO) 11 % (0-12); NEUTROPHILS # (AUTO) 5.7 X 10^3 (1.8-7.8); NEUTROPHILS % (AUTO) 69 % (42-75); PLATELET COUNT 249 10^3/uL (130-400); RED CELL DISTRIBUTION WIDTH 13.1 % (10.0-14.5); WHITE BLOOD COUNT 8.3 10^3/uL (4.3-11.0)
[2016-10-11 14:31] LABS: BASOPHILS % (AUTO) 0 % (0-10); EOSINOPHILS % (AUTO) 1 % (0-10); LYMPHOCYTES # (AUTO) 0.9 X 10^3 (1.0-4.0); LYMPHOCYTES % (AUTO) 10 % (12-44); MEAN CORPUSCULAR HEMOGLOBIN 31 PG (25-34); MEAN CORPUSCULAR HGB CONC 33 G/DL (32-36); MEAN CORPUSCULAR VOLUME 95 FL (80-99); MEAN PLATELET VOLUME 8.8 FL (7.4-10.4); MONOCYTES # (AUTO) 0.5 X 10^3 (0.0-1.0); MONOCYTES % (AUTO) 6 % (0-12); NEUTROPHILS # (AUTO) 7.2 X 10^3 (1.8-7.8); NEUTROPHILS % (AUTO) 84 % (42-75); PLATELET COUNT 230 10^3/uL (130-400); RED BLOOD COUNT 3.93 10^6/uL (4.35-5.85); RED CELL DISTRIBUTION WIDTH 13.3 % (10.0-14.5); WHITE BLOOD COUNT 8.6 10^3/uL (4.3-11.0)
[2016-10-11 14:59] LABS: ALANINE AMINOTRANSFERASE 12 U/L (0-55); ALBUMIN 3.5 G/DL (3.2-4.5); ANION GAP 12 MMOL/L (5-14); ASPARTATE AMINO TRANSFERASE 15 U/L (5-34); BILIRUBIN,TOTAL 0.3 MG/DL (0.1-1.0); BLOOD UREA NITROGEN 9 MG/DL (7-18); BUN/CREATININE RATIO 12; CALCIUM 9.2 MG/DL (8.5-10.1); CARBON DIOXIDE 26 MMOL/L (21-32); CHLORIDE 105 MMOL/L (98-107); CREATININE SERUM 0.74 MG/DL (0.60-1.30); GFR ESTIMATED > 60; GLUCOSE 147 MG/DL (70-105); MAGNESIUM 1.9 MG/DL (1.8-2.4); POTASSIUM 4.3 MMOL/L (3.6-5.0); SODIUM 143 MMOL/L (135-145); TOTAL PROTEIN 5.8 G/DL (6.4-8.2)
[2016-11-08 11:28] LABS: BASOPHILS % (AUTO) 0 % (0-10); EOSINOPHILS % (AUTO) 0 % (0-10); LYMPHOCYTES # (AUTO) 1.3 X 10^3 (1.0-4.0); LYMPHOCYTES % (AUTO) 12 % (12-44); MEAN CORPUSCULAR HEMOGLOBIN 30 PG (25-34); MEAN CORPUSCULAR HGB CONC 33 G/DL (32-36); MEAN CORPUSCULAR VOLUME 93 FL (80-99); MONOCYTES # (AUTO) 0.9 X 10^3 (0.0-1.0); MONOCYTES % (AUTO) 8 % (0-12); NEUTROPHILS # (AUTO) 8.7 X 10^3 (1.8-7.8); NEUTROPHILS % (AUTO) 80 % (42-75); PLATELET COUNT 224 10^3/uL (130-400); RED BLOOD COUNT 4.33 10^6/uL (4.35-5.85); RED CELL DISTRIBUTION WIDTH 13.2 % (10.0-14.5); WHITE BLOOD COUNT 10.8 10^3/uL (4.3-11.0)
[2016-11-15 15:05] LABS: BASOPHILS % (AUTO) 0 % (0-10); EOSINOPHILS % (AUTO) 0 % (0-10); LYMPHOCYTES # (AUTO) 1.1 X 10^3 (1.0-4.0); LYMPHOCYTES % (AUTO) 11 % (12-44); MEAN CORPUSCULAR HEMOGLOBIN 31 PG (25-34); MEAN CORPUSCULAR HGB CONC 33 G/DL (32-36); MEAN CORPUSCULAR VOLUME 92 FL (80-99); MEAN PLATELET VOLUME 9.3 FL (7.4-10.4); MONOCYTES # (AUTO) 0.7 X 10^3 (0.0-1.0); MONOCYTES % (AUTO) 7 % (0-12); NEUTROPHILS # (AUTO) 7.8 X 10^3 (1.8-7.8); NEUTROPHILS % (AUTO) 82 % (42-75); PLATELET COUNT 190 10^3/uL (130-400); RED BLOOD COUNT 4.46 10^6/uL (4.35-5.85); RED CELL DISTRIBUTION WIDTH 13.3 % (10.0-14.5); WHITE BLOOD COUNT 9.5 10^3/uL (4.3-11.0)
[2016-11-15 15:50] LABS: ALANINE AMINOTRANSFERASE 12 U/L (0-55); ALBUMIN 3.6 G/DL (3.2-4.5); ANION GAP 8 MMOL/L (5-14); ASPARTATE AMINO TRANSFERASE 12 U/L (5-34); BILIRUBIN,TOTAL 0.4 MG/DL (0.1-1.0); BLOOD UREA NITROGEN 10 MG/DL (7-18); BUN/CREATININE RATIO 13; CALCIUM 9.1 MG/DL (8.5-10.1); CARBON DIOXIDE 33 MMOL/L (21-32); CHLORIDE 104 MMOL/L (98-107); CREATININE SERUM 0.75 MG/DL (0.60-1.30); GFR ESTIMATED > 60; GLUCOSE 130 MG/DL (70-105); MAGNESIUM 1.9 MG/DL (1.8-2.4); POTASSIUM 3.9 MMOL/L (3.6-5.0); SODIUM 145 MMOL/L (135-145); TOTAL PROTEIN 5.9 G/DL (6.4-8.2)
[2016-11-23 11:02] LABS: BASOPHILS % (AUTO) 0 % (0-10); EOSINOPHILS % (AUTO) 0 % (0-10); LYMPHOCYTES # (AUTO) 1.3 X 10^3 (1.0-4.0); LYMPHOCYTES % (AUTO) 13 % (12-44); MEAN CORPUSCULAR HEMOGLOBIN 30 PG (25-34); MEAN CORPUSCULAR HGB CONC 32 G/DL (32-36); MEAN CORPUSCULAR VOLUME 92 FL (80-99); MONOCYTES # (AUTO) 0.7 X 10^3 (0.0-1.0); MONOCYTES % (AUTO) 7 % (0-12); NEUTROPHILS # (AUTO) 8.1 X 10^3 (1.8-7.8); NEUTROPHILS % (AUTO) 80 % (42-75); PLATELET COUNT 183 10^3/uL (130-400); RED BLOOD COUNT 4.31 10^6/uL (4.35-5.85); RED CELL DISTRIBUTION WIDTH 13.2 % (10.0-14.5); WHITE BLOOD COUNT 10.1 10^3/uL (4.3-11.0)
[2016-11-23 11:47] LABS: ALANINE AMINOTRANSFERASE 7 U/L (0-55); ALBUMIN 3.6 G/DL (3.2-4.5); ANION GAP 10 MMOL/L (5-14); ASPARTATE AMINO TRANSFERASE 8 U/L (5-34); BILIRUBIN,TOTAL 0.4 MG/DL (0.1-1.0); BLOOD UREA NITROGEN 9 MG/DL (7-18); BUN/CREATININE RATIO 12; CALCIUM 9.2 MG/DL (8.5-10.1); CARBON DIOXIDE 29 MMOL/L (21-32); CHLORIDE 103 MMOL/L (98-107); CREATININE SERUM 0.75 MG/DL (0.60-1.30); GFR ESTIMATED > 60; GLUCOSE 168 MG/DL (70-105); MAGNESIUM 1.9 MG/DL (1.8-2.4); POTASSIUM 3.4 MMOL/L (3.6-5.0); SODIUM 142 MMOL/L (135-145); TOTAL PROTEIN 5.7 G/DL (6.4-8.2)
[2016-11-29 16:04] LABS: BASOPHILS % (AUTO) 0 % (0-10); EOSINOPHILS % (AUTO) 0 % (0-10); LYMPHOCYTES # (AUTO) 0.8 X 10^3 (1.0-4.0); LYMPHOCYTES % (AUTO) 7 % (12-44); MEAN CORPUSCULAR HEMOGLOBIN 30 PG (25-34); MEAN CORPUSCULAR HGB CONC 32 G/DL (32-36); MEAN CORPUSCULAR VOLUME 93 FL (80-99); MEAN PLATELET VOLUME 9.1 FL (7.4-10.4); MONOCYTES # (AUTO) 0.5 X 10^3 (0.0-1.0); MONOCYTES % (AUTO) 4 % (0-12); NEUTROPHILS # (AUTO) 10.7 X 10^3 (1.8-7.8); NEUTROPHILS % (AUTO) 89 % (42-75); PLATELET COUNT 207 10^3/uL (130-400); RED BLOOD COUNT 4.24 10^6/uL (4.35-5.85); RED CELL DISTRIBUTION WIDTH 13.3 % (10.0-14.5); WHITE BLOOD COUNT 12.1 10^3/uL (4.3-11.0)
[~2016-12-06 10:42] MED LIST changes: -GADOBUTROL 7.5 MMOL/7.5 ML (GADAVIST) VIAL IV ONE
[2016-12-06 11:00] LABS: BASOPHILS % (AUTO) 0 % (0-10); EOSINOPHILS # (AUTO) 0.1 10^3/uL (0.0-0.3); EOSINOPHILS % (AUTO) 1 % (0-10); LYMPHOCYTES # (AUTO) 1.6 X 10^3 (1.0-4.0); LYMPHOCYTES % (AUTO) 15 % (12-44); MEAN CORPUSCULAR HEMOGLOBIN 30 PG (25-34); MEAN CORPUSCULAR HGB CONC 33 G/DL (32-36); MEAN CORPUSCULAR VOLUME 93 FL (80-99); MEAN PLATELET VOLUME 8.9 FL (7.4-10.4); MONOCYTES # (AUTO) 0.9 X 10^3 (0.0-1.0); MONOCYTES % (AUTO) 8 % (0-12); NEUTROPHILS % (AUTO) 76 % (42-75); PLATELET COUNT 200 10^3/uL (130-400); RED BLOOD COUNT 4.31 10^6/uL (4.35-5.85); RED CELL DISTRIBUTION WIDTH 13.3 % (10.0-14.5); WHITE BLOOD COUNT 10.6 10^3/uL (4.3-11.0)
[2016-12-17] MEDS ORDERED: CYCL10TA9 PO (12:42)
== END 2016-12-09 | disposition home or self-care (01) ==
LOC: ONC 10:42
PROVIDERS: ATTEND Internal Medicine Hematology & Oncology
DX: C71.2 Malignant neoplasm of temporal lobe (principal); E11.9 Type 2 diabetes mellitus without complications; I10 Essential (primary) hypertension; E78.5 Hyperlipidemia, unspecified; N40.0 Benign prostatic hyperplasia without lower urinary tract symptoms; F17.210 Nicotine dependence, cigarettes, uncomplicated
CPT/HCPCS: 36415; 80048; 80053; 83735; 85025; 99213

== ENCOUNTER 2016-12-16 11:00 | Outpatient (RCR) | payer MEDICARE, OTHER ==
[2016-12-17] MEDS ORDERED: CYCL10TA9 PO (12:42)
== END 2016-12-16 11:50 | disposition home or self-care (01) ==
PROVIDERS: ATTEND Nurse Practitioner Family
DX: S32.511D Fracture of superior rim of right pubis, subsequent encounter for fracture with routine healing (principal)

== ENCOUNTER → 2016-12-17 | Emergency (ER) | payer MEDICARE, OTHER ==
[~2016-12-17] VITALS: Ht 170.2 cm; Wt 62.1 kg
--- NOTE | 2016-12-17 11:10 | ED Fall/Injury ---
General Chief Complaint: Trauma-Non Activation Stated Complaint: FALL BACK/LEFT HIP PAIN Nursing Triage Note: SEE TRIAGE NOTE. Source: patient Exam Limitations: no limitations History of Present Illness Time seen by provider: 10:25 Initial Comments Here with report of pain to the right side of the back and bruising to the left hip after a fall yesterday. Fall was unwitnessed but the was walking into the room just after he fell. He is unsure why he fell but probably lost his balance. He was able to get up afterwards and was doing okay until last night when he was having spasms and pain in the right back. He did take a Tylenol and that are right but this morning the spasms and pain were little worse. Denies specifically head pain or other injuries. He is unsure if he hit his head. He states he may have but really does not remember the details well. The reports that he has not had increased confusion or any complaints of headache or pain. He has not on a blood thinner but does receive chemotherapy for a brain tumor. Occurred: yesterday Severity: mild Injuries/Pain Location: back, pelvis Context: lost balance Loss of Consciousness: no loss of consciousness Associated Symptoms (Fall): No Abdominal Pain, No Chest Pain, No Headache, Muscle Spasms, No Neck Pain, No Slurred Speech Allergies and Home Medications Allergies Coded Allergies: ezetimibe (Verified Allergy, Unknown, 08/27/16) according to [facility] records promethazine (Verified Adverse Reaction, Severe, 05/02/16) CONFUSION; ALTERED MENTAL STATUS Home Medications Acetaminophen 500 Mg Tablet, 500-1,000 MG PO Q6H PRN for PAIN, (Reported) Aspirin 81 Mg Tab.chew, 81 MG PO DAILY, (Reported) Cyclobenzaprine HCl 10 Mg Tablet, 10 MG PO Q8H PRN for SPASMS, (Reported) Dexamethasone 1 Mg Tablet, 1.75 MG PO DAILY, (Reported) Uses 2 (1 MG) TABLETS Docusate Sodium 100 Mg Capsule, 100 MG PO BID, (Reported) Famotidine 20 Mg Tablet, 20 MG PO BID, #60 Prescribed by: ALLISON SAHU on 10/01/16 0956 Finasteride 5 Mg Tablet, 5 MG PO HS, (Reported) Levetiracetam 500 Mg Tablet, 500 MG PO BID, (Reported) Loratadine 10 Mg Tablet, 10 MG PO HS, (Reported) Magnesium Hydroxide 400 Mg/5 Ml Oral.susp, 1,200 MG PO DAILY PRN for CONSTIPATION, (Reported) Magnesium Oxide 250 Mg Tablet, 250 MG PO DAILY, (Reported) Metformin HCl 500 Mg Tablet, 500 MG PO BIDAC, (Reported) Multivitamin with Minerals 1 Each Tablet, 1 EACH PO DAILY, (Reported) Omeprazole 20 Mg Tablet.dr, 20 MG PO DAILY, (Reported) TAKES WITH MORNING DEXAMETHASONE Sennosides/Docusate Sodium 1 Each Tablet, 1 TAB PO BID, (Reported) Sertraline HCl 50 Mg Tablet, 50 MG PO HS, (Reported) Simvastatin 40 Mg Tablet, 40 MG PO HS, (Reported) Constitutional: see HPI, No chills, No fever Ears, Nose, Mouth, Throat: no symptoms reported Respiratory: no symptoms reported Cardiovascular: no symptoms reported Gastrointestinal: no symptoms reported, No nausea, No vomiting Genitourinary: no symptoms reported Musculoskeletal: see HPI, back pain, muscle weakness, No neck pain Skin: change in color (bruising to the left hip very small as well as left knee abrasion), lesions Psychiatric/Neurological: Denies Headache, Denies Paresthesia Past Ernmfjm-Bofwgg-Lgwarh Hx Patient Social History Alcohol Use: Denies Use Recreational Drug Use: No Smoking Status: Former Smoker Type Used: Cigarettes Former Smoker/When Quit: May 29, 1970 Recent Foreign Travel: No Contact w/Someone Who Travel: No Recent Infectious Disease Expo: No Recent Hopitalizations: Yes (BRAIN SURG AT 08/24/16) Immunizations Up To Date Tetanus Booster (TDap): Less than 5yrs PED Vaccines UTD: Yes Date of Pneumonia Vaccine: Sep 30, 2015 Date of Influenza Vaccine: Apr 17, 2016 Seasonal Allergies Seasonal Allergies: No Surgeries HX Surgeries: Yes (BRAIN TUMOR REMOVAL - MOST RECENT SURGERY 08/24/16 AT ) Surgeries: Appendectomy, Neurological Respiratory Hx Respiratory Disorders: No Cardiovascular Hx Cardiac Disorders: Yes Cardiac Disorders: High Cholesterol, Hypertension Neurological Hx Neurological Disorders: Yes (GLIOBLASTOMA) Reproductive System Hx Reproductive Disorders: No Sexually Transmitted Disease: No HIV/AIDS: No Genitourinary Hx Genitourinary Disorders: Yes Genitourinary Disorders: Prostate Problems Gastrointestinal Hx Gastrointestinal Disorders: No Musculoskeletal Hx Musculoskeletal Disorders: Yes Musculoskeletal Disorders: Arthritis Endocrine Hx Endocrine Disorders: Yes Endocrine Disorders: Diabetes, Non-Insulin dep HEENT HX ENT Disorders: Yes Loss of Vision: Left Hearing Impairment: Hard of Hearing Cancer Hx Cancer: Yes Cancer: Brain Psychosocial Hx Psychiatric Problems: No Behavioral Health Disorders: Anxiety Integumentary HX Skin/Integumentary Disorder: No Blood Transfusions Hx Blood Disorders: No Adverse Reaction to a Blood Tr: No Reviewed Nursing Assessment Reviewed/Agree w Nursing PMH: Yes Family Medical History Family Medial History: Abdominal aortic aneurysm 19 MOTHER Arthritis 19 MOTHER G8 BROTHER G8 BROTHER G8 SISTER Cardiovascular disease 19 FATHER 19 MOTHER (CONGESTIVE HEART FAILURE) Cataracts 19 MOTHER Deafness or hearing loss 19 MOTHER Diabetes mellitus G8 BROTHER G8 SISTER Hypertension 19 MOTHER G8 BROTHER G8 BROTHER G8 SISTER Kidney disease 19 MOTHER (KIDNEY FAILURE) Myocardial infarction 19 FATHER (1ST ONE IN 160. IN 1969'S) Physical Exam Vital Signs Vital Sign - Last 12Hours 12/17/16 10:15 Temp 98.6 Pulse 74 Resp 18 B/P (MAP) 134/84 Pulse Ox 95 O2 Delivery Room Air Capillary Refill : Less Than 3 Seconds General Appearance: WD/WN, no apparent distress Neck: non-tender, full range of motion, supple, normal inspection Cardiovascular: regular rate, rhythm, no murmur Respiratory: lungs clear, normal breath sounds Gastrointestinal: non tender, soft Back: no CVA tenderness, muscle spasm, other (tender along the mid low back region and lateral on the right side with question of vertebral tenderness.) Extremities: non-tender, normal inspection Neurologic/Psychiatric: alert, oriented x 3 Skin: normal color, warm/dry Progress/Results/Core Measures Results/Orders My Orders Orders - ALIYAH BORGES MD Ct Lumbar Spine Wo (12/17/16 10:50) Pelvis (12/17/16 10:50) Vital Signs/I&O Vital Sign - Last 12Hours 12/17/16 10:15 Temp 98.6 Pulse 74 Resp 18 B/P (MAP) 134/84 Pulse Ox 95 O2 Delivery Room Air Blood Pressure Mean: 101 Progress Note : Progress Note Seen and evaluated. CT lumbar spine x-ray pelvis ordered. We will hold on CT scan of the head at this point after discussion with the family and patient. 1240: Results discussed with patient and family. Likely acute to subacute T12 compression fracture. It is smaller and they will try conventional therapy but understand that further options are available including kyphoplasty if not improved. They will follow-up with his doctor next week for recheck and further evaluation. Discharged home with return precautions. Patient and family verbalize understanding instructions and agreement with plan. Diagnostic Imaging Diagonstic Imaging: CT Plain Films/CT/US/NM/MRI: other (spine) [facility]. [place], [place] NAME: HERMANN RODRIGUEZ [facility] REC#: [id number] PT STATUS: REG ER : 1945 PHYSICIAN: ALIYAH BORGES MD ADMIT DATE: 12/17/16/ER Draft Date of Exam:12/17/16 CT LUMBAR SPINE WO CLINICAL INDICATION: Patient status post fall today. Patient has pain on right side of the lower back. EXAM: Axial CT scan of the lumbar spine performed without IV contrast. Sagittal and coronal reformatted images are created. COMPARISON: None. FINDINGS: There is a roughly 25% acute compression fracture deformity of the mid and right side of the upper T12 vertebral body endplate. There is no retropulsed fragment seen. There is no other fracture or dislocation seen on this exam. There are small degenerative spurs seen throughout the thoracic spine. Intervertebral disc heights are well maintained. There is mild diffuse disc bulges at the L2-L3, L3-L4, and L4-L5 levels. There is severe L4-L5 bilateral neural foramen narrowing and moderate L3-L4 and L5-S1 bilateral neural foramen narrowing. There is no major central canal narrowing seen. There is no significant paraspinal soft tissue abnormality. IMPRESSION: 1: There is a mild acute compression fracture deformity of the upper endplate of the T12 vertebral body. There is no retropulsed fragment. 2: Lumbar spine degenerative disease. Dictated on workstation # [id number] Dict: 12/17/16 1128 Trans: 12/17/16 1139 [id number] Interpreted by: VENITA DOAN MD Electronically signed by: Diagonstic Imaging: Xray Plain Films/CT/US/NM/MRI: chest Comments [facility]. [place], [place] NAME: HERMANN RODRIGUEZ [facility] REC#: [id number] PT STATUS: REG ER : 1945 PHYSICIAN: ALIYAH BORGES MD ADMIT DATE: 12/17/16/ER Draft Date of Exam:12/17/16 PELVIS EXAMINATION: Pelvis at 1140 INDICATION: Fell The previous plain film exam of 10/16/16 suggests a nondisplaced fractures involving the inferior superior pubic rami on the right. On this exam there is increased density about the pubic symphysis on the right. I do suspect that this increased density represents healing callus formation from the previously described fractures. The main fracture fragment remains nondisplaced. No other fracture or acute bony abnormality is identified. IMPRESSION: 1. There are healing nondisplaced fractures involving the pubic rami on the right and the pubic symphysis on the right. There is no acute bony abnormality is noted. 2. These results will be discussed with Dr. Derrick Borges in the ER. Dictated on workstation # [id number] Dict: 12/17/16 1128 Trans: 12/17/16 1135 [facility] [id number] Interpreted by: RALF VILLAGOMEZ MD Electronically signed by: Reviewed: Reviewed by Me Departure Impression Impression: Primary Impression: Compression fracture Additional Impression: Lumbar back pain Qualified Codes: M54.5 - Low back pain Disposition: 01 HOME, SELF-CARE (ERASED) Condition: Stable Departure-Patient Inst. Referrals: JAVAN ELLIOTT MD (PCP/Family) Primary Care Physician Patient Instructions: Lumbar Muscle Strain (DC), Vertebral Compression Fracture (DC) Add. Discharge Instructions: All discharge instructions reviewed with patient and/or family. Voiced understanding. Take medications as directed. Follow-up with you in a few days for recheck. Return for worse pain, fever, weakness, numbness between her legs, difficulty with walking or going to the bathroom or other concerns as needed. You may use [id number] preparations such as icy hot with lidocaine or SolonPas with lidocaine patches or cream to the area of concern per package directions. Scripts Cyclobenzaprine HCl (Cyclobenzaprine HCl) 10 Mg Tablet 10 MG PO Q8H Y for SPASMS, #15 TAB 0 Refills Prov: ALIYAH BORGES MD 12/17/16 Copy Copies To 1: JAVAN ELLIOTT MD, TIMOTHY D MD December 17, 2016 11:10
--- NOTE | 2016-12-17 11:35 | Diagnostic Imaging Report ---
EXAMINATION: Pelvis at 1140 INDICATION: Fell The previous plain film exam of 10/16/16 suggests a nondisplaced fractures involving the inferior superior pubic rami on the right. On this exam there is increased density about the pubic symphysis on the right. I do suspect that this increased density represents healing callus formation from the previously described fractures. The main fracture fragment remains nondisplaced. No other fracture or acute bony abnormality is identified. IMPRESSION: 1. There are healing nondisplaced fractures involving the pubic rami on the right and the pubic symphysis on the right. There is no acute bony abnormality is noted. 2. These results were discussed with Dr. Derrick Carpenter in the ER. Dictated by: Dictated on workstation # [id number]
--- NOTE | 2016-12-17 11:40 | Diagnostic Imaging Report ---
CLINICAL INDICATION: Patient status post fall today. Patient has pain on right side of the lower back. EXAM: Axial CT scan of the lumbar spine performed without IV contrast. Sagittal and coronal reformatted images are created. COMPARISON: None. FINDINGS: There is a roughly 25% acute compression fracture deformity of the mid and right side of the upper T12 vertebral body endplate. There is no retropulsed fragment seen. There is no other fracture or dislocation seen on this exam. There are small degenerative spurs seen throughout the thoracic spine. Intervertebral disc heights are well maintained. There is mild diffuse disc bulges at the L2-L3, L3-L4, and L4-L5 levels. There is severe L4-L5 bilateral neural foramen narrowing and moderate L3-L4 and L5-S1 bilateral neural foramen narrowing. There is no major central canal narrowing seen. There is no significant paraspinal soft tissue abnormality. IMPRESSION: 1: There is a mild acute compression fracture deformity of the upper endplate of the T12 vertebral body. There is no retropulsed fragment. 2: Lumbar spine degenerative disease. Dictated by: Dictated on workstation # [id number]
[2016-12-17 12:47] VITALS: BP 155/75
== END ==
LOC: EDUNIT# 10:12 → ER 10:14
DX: S22.089A Unspecified fracture of T11-T12 vertebra, initial encounter for closed fracture (principal); W19.XXXA Unspecified fall, initial encounter; Y92.009 Unspecified place in unspecified non-institutional (private) residence as the place of occurrence of the external cause; Y99.8 Other external cause status; E78.00 Pure hypercholesterolemia, unspecified; I10 Essential (primary) hypertension; Z87.891 Personal history of nicotine dependence; C71.9 Malignant neoplasm of brain, unspecified
CPT/HCPCS: 72131; 72170; 99282

== ENCOUNTER → 2017-01-19 | Outpatient (CLI) | payer MEDICARE, OTHER ==
[~2017-01-19] MED LIST changes: +GADOBUTROL 7.5 MMOL/7.5 ML (GADAVIST) VIAL IV ONE
--- NOTE | 2017-01-19 12:04 | Diagnostic Imaging Report ---
PROCEDURE: MR imaging of the brain with and without contrast. TECHNIQUE: Multiplanar, multisequence MR imaging of the brain was performed with and without contrast. INDICATION: Glioblastoma status post prior resection in August 2016. COMPARISON: 11/17/2016. CONTRAST: 6 mL of Gadavist is administered intravenously. FINDINGS: Again seen is a right temporoparietal and occipital resection cavity through the right temporoparietal craniotomy. Again seen is an extra-axial collection similar to the previous exam. There is also a stable small subdural collection with no definite change. There is also around the resection cavity extensive T2 signal abnormality within the white matter extending superiorly to the right parietal region and in the remaining anterior aspect of the right temporal lobe. This does not appear to have changed compared to the previous exam. Along the anterior aspect of the resection cavity, there is an area of nodular enhancement. When correlated with the previous exam, subtle enhancement is seen in this region but appears to be more prominent at this time with an extension into the right temporal lobe along the right lateral margin of the right temporal horn of the lateral ventricle. The anterior lesion is a discrete lobulated enhancing lesion measuring 1 x 1.2 x 0.6 cm. There is suggestion of slightly increased fullness in this region when compared to the previous exam on T2 and FLAIR images. There is no other area of abnormal enhancement seen specifically within the right frontal or parietal lobes or within the left hemisphere. The brainstem and cerebellum demonstrate nonspecific T2 hyperintense signal abnormalities compatible with Wallerian degeneration and the rest of the extensive periventricular and deep white matter abnormalities. The pituitary gland is normal in size. No hydrocephalus. The central vascular flow-voids and the internal auditory canals and inner ear structures appear grossly unremarkable. IMPRESSION: Areas of nodular enhancement appear more prominent on the current exam compared to 11/17/2016 involving the posterior aspect of the remaining portion of the right temporal lobe concerning for tumor recurrence. The findings were discussed with Dr. Ballesteros at time of dictation. Dictated by: Dictated on workstation # [id number]
== END ==
LOC: RAD 09:06
PROVIDERS: ATTEND Internal Medicine Hematology & Oncology
DX: C71.4 Malignant neoplasm of occipital lobe (principal)
CPT/HCPCS: 70553

== ENCOUNTER 2017-03-09 10:02 | Outpatient (RCR) | payer MEDICARE, OTHER ==
[2016-12-13 13:43] LABS: BASOPHILS % (AUTO) 0 % (0-10); EOSINOPHILS % (AUTO) 0 % (0-10); LYMPHOCYTES # (AUTO) 0.8 X 10^3 (1.0-4.0); LYMPHOCYTES % (AUTO) 7 % (12-44); MEAN CORPUSCULAR HEMOGLOBIN 30 PG (25-34); MEAN CORPUSCULAR HGB CONC 32 G/DL (32-36); MEAN CORPUSCULAR VOLUME 93 FL (80-99); MONOCYTES # (AUTO) 0.3 X 10^3 (0.0-1.0); MONOCYTES % (AUTO) 3 % (0-12); NEUTROPHILS # (AUTO) 10.4 X 10^3 (1.8-7.8); NEUTROPHILS % (AUTO) 90 % (42-75); PLATELET COUNT 196 10^3/uL (130-400); RED CELL DISTRIBUTION WIDTH 13.4 % (10.0-14.5); WHITE BLOOD COUNT 11.6 10^3/uL (4.3-11.0)
[2016-12-13 14:06] LABS: ALANINE AMINOTRANSFERASE 12 U/L (0-55); ALBUMIN 4.2 G/DL (3.2-4.5); ANION GAP 12 MMOL/L (5-14); ASPARTATE AMINO TRANSFERASE 11 U/L (5-34); BILIRUBIN,TOTAL 0.5 MG/DL (0.1-1.0); BLOOD UREA NITROGEN 11 MG/DL (7-18); BUN/CREATININE RATIO 14; CALCIUM 9.6 MG/DL (8.5-10.1); CARBON DIOXIDE 27 MMOL/L (21-32); CHLORIDE 103 MMOL/L (98-107); CREATININE SERUM 0.76 MG/DL (0.60-1.30); GFR ESTIMATED > 60; GLUCOSE 147 MG/DL (70-105); POTASSIUM 3.8 MMOL/L (3.6-5.0); SODIUM 142 MMOL/L (135-145); TOTAL PROTEIN 6.5 G/DL (6.4-8.2)
[2016-12-21 15:55] LABS: BASOPHILS % (AUTO) 0 % (0-10); EOSINOPHILS % (AUTO) 0 % (0-10); LYMPHOCYTES # (AUTO) 0.5 X 10^3 (1.0-4.0); LYMPHOCYTES % (AUTO) 5 % (12-44); MEAN CORPUSCULAR HEMOGLOBIN 30 PG (25-34); MEAN CORPUSCULAR HGB CONC 32 G/DL (32-36); MEAN CORPUSCULAR VOLUME 92 FL (80-99); MEAN PLATELET VOLUME 9.4 FL (7.4-10.4); MONOCYTES # (AUTO) 0.4 X 10^3 (0.0-1.0); MONOCYTES % (AUTO) 3 % (0-12); NEUTROPHILS % (AUTO) 92 % (42-75); PLATELET COUNT 172 10^3/uL (130-400); RED BLOOD COUNT 4.72 10^6/uL (4.35-5.85); RED CELL DISTRIBUTION WIDTH 13.3 % (10.0-14.5); WHITE BLOOD COUNT 10.9 10^3/uL (4.3-11.0)
[2016-12-28 11:39] LABS: RED BLOOD COUNT 4.47 10^6/uL (4.35-5.85)
[2016-12-28 11:40] LABS: BASOPHILS % (AUTO) 0 % (0-10); EOSINOPHILS % (AUTO) 0 % (0-10); LYMPHOCYTES # (AUTO) 0.7 X 10^3 (1.0-4.0); LYMPHOCYTES % (AUTO) 5 % (12-44); MEAN CORPUSCULAR HEMOGLOBIN 30 PG (25-34); MEAN CORPUSCULAR HGB CONC 33 G/DL (32-36); MEAN CORPUSCULAR VOLUME 92 FL (80-99); MONOCYTES # (AUTO) 1.1 X 10^3 (0.0-1.0); MONOCYTES % (AUTO) 7 % (0-12); NEUTROPHILS # (AUTO) 14.1 X 10^3 (1.8-7.8); NEUTROPHILS % (AUTO) 88 % (42-75); PLATELET COUNT 213 10^3/uL (130-400); RED CELL DISTRIBUTION WIDTH 13.3 % (10.0-14.5)
[2017-01-04 11:27] LABS: BASOPHILS % (AUTO) 0 % (0-10); EOSINOPHILS # (AUTO) 0.1 10^3/uL (0.0-0.3); EOSINOPHILS % (AUTO) 1 % (0-10); LYMPHOCYTES # (AUTO) 1.7 X 10^3 (1.0-4.0); LYMPHOCYTES % (AUTO) 17 % (12-44); MEAN CORPUSCULAR HEMOGLOBIN 30 PG (25-34); MEAN CORPUSCULAR HGB CONC 33 G/DL (32-36); MEAN CORPUSCULAR VOLUME 92 FL (80-99); MEAN PLATELET VOLUME 8.7 FL (7.4-10.4); MONOCYTES # (AUTO) 0.8 X 10^3 (0.0-1.0); MONOCYTES % (AUTO) 8 % (0-12); NEUTROPHILS # (AUTO) 7.5 X 10^3 (1.8-7.8); NEUTROPHILS % (AUTO) 75 % (42-75); PLATELET COUNT 251 10^3/uL (130-400); RED BLOOD COUNT 4.58 10^6/uL (4.35-5.85); RED CELL DISTRIBUTION WIDTH 12.9 % (10.0-14.5)
[2017-01-11 10:51] LABS: BASOPHILS % (AUTO) 0 % (0-10); EOSINOPHILS % (AUTO) 0 % (0-10); LYMPHOCYTES # (AUTO) 1.4 X 10^3 (1.0-4.0); LYMPHOCYTES % (AUTO) 12 % (12-44); MEAN CORPUSCULAR HEMOGLOBIN 30 PG (25-34); MEAN CORPUSCULAR HGB CONC 33 G/DL (32-36); MEAN CORPUSCULAR VOLUME 92 FL (80-99); MEAN PLATELET VOLUME 9.1 FL (7.4-10.4); MONOCYTES # (AUTO) 0.8 X 10^3 (0.0-1.0); MONOCYTES % (AUTO) 7 % (0-12); NEUTROPHILS # (AUTO) 9.5 X 10^3 (1.8-7.8); NEUTROPHILS % (AUTO) 81 % (42-75); PLATELET COUNT 226 10^3/uL (130-400); RED BLOOD COUNT 4.54 10^6/uL (4.35-5.85); RED CELL DISTRIBUTION WIDTH 13.3 % (10.0-14.5); WHITE BLOOD COUNT 11.7 10^3/uL (4.3-11.0)
[2017-01-11 12:18] LABS: ALANINE AMINOTRANSFERASE 14 U/L (0-55); ALBUMIN 3.7 G/DL (3.2-4.5); ANION GAP 11 MMOL/L (5-14); ASPARTATE AMINO TRANSFERASE 10 U/L (5-34); BILIRUBIN,TOTAL 0.4 MG/DL (0.1-1.0); BLOOD UREA NITROGEN 13 MG/DL (7-18); BUN/CREATININE RATIO 16; CALCIUM 9.7 MG/DL (8.5-10.1); CARBON DIOXIDE 31 MMOL/L (21-32); CHLORIDE 103 MMOL/L (98-107); CREATININE SERUM 0.81 MG/DL (0.60-1.30); GFR ESTIMATED > 60; GLUCOSE 196 MG/DL (70-105); MAGNESIUM 1.9 MG/DL (1.8-2.4); POTASSIUM 3.7 MMOL/L (3.6-5.0); SODIUM 145 MMOL/L (135-145); TOTAL PROTEIN 6.1 G/DL (6.4-8.2)
[2017-01-18 10:59] LABS: BASOPHILS % (AUTO) 0 % (0-10); EOSINOPHILS # (AUTO) 0.1 10^3/uL (0.0-0.3); EOSINOPHILS % (AUTO) 1 % (0-10); LYMPHOCYTES # (AUTO) 1.7 X 10^3 (1.0-4.0); LYMPHOCYTES % (AUTO) 16 % (12-44); MEAN CORPUSCULAR HEMOGLOBIN 30 PG (25-34); MEAN CORPUSCULAR HGB CONC 33 G/DL (32-36); MEAN CORPUSCULAR VOLUME 91 FL (80-99); MEAN PLATELET VOLUME 9.1 FL (7.4-10.4); MONOCYTES # (AUTO) 0.9 X 10^3 (0.0-1.0); MONOCYTES % (AUTO) 8 % (0-12); NEUTROPHILS # (AUTO) 7.6 X 10^3 (1.8-7.8); NEUTROPHILS % (AUTO) 75 % (42-75); PLATELET COUNT 184 10^3/uL (130-400); RED BLOOD COUNT 4.58 10^6/uL (4.35-5.85); RED CELL DISTRIBUTION WIDTH 13.1 % (10.0-14.5); WHITE BLOOD COUNT 10.2 10^3/uL (4.3-11.0)
[2017-01-25 10:43] LABS: BASOPHILS % (AUTO) 0 % (0-10); EOSINOPHILS % (AUTO) 0 % (0-10); LYMPHOCYTES # (AUTO) 1.4 X 10^3 (1.0-4.0); LYMPHOCYTES % (AUTO) 13 % (12-44); MEAN CORPUSCULAR HEMOGLOBIN 30 PG (25-34); MEAN CORPUSCULAR HGB CONC 32 G/DL (32-36); MEAN CORPUSCULAR VOLUME 93 FL (80-99); MEAN PLATELET VOLUME 9.4 FL (7.4-10.4); MONOCYTES # (AUTO) 0.7 X 10^3 (0.0-1.0); MONOCYTES % (AUTO) 6 % (0-12); NEUTROPHILS # (AUTO) 8.3 X 10^3 (1.8-7.8); NEUTROPHILS % (AUTO) 80 % (42-75); PLATELET COUNT 178 10^3/uL (130-400); RED BLOOD COUNT 4.57 10^6/uL (4.35-5.85); RED CELL DISTRIBUTION WIDTH 13.4 % (10.0-14.5); WHITE BLOOD COUNT 10.4 10^3/uL (4.3-11.0)
[2017-02-01 11:04] LABS: BASOPHILS % (AUTO) 0 % (0-10); EOSINOPHILS % (AUTO) 0 % (0-10); LYMPHOCYTES # (AUTO) 1.9 X 10^3 (1.0-4.0); LYMPHOCYTES % (AUTO) 19 % (12-44); MEAN CORPUSCULAR HEMOGLOBIN 30 PG (25-34); MEAN CORPUSCULAR HGB CONC 32 G/DL (32-36); MEAN CORPUSCULAR VOLUME 92 FL (80-99); MEAN PLATELET VOLUME 9.4 FL (7.4-10.4); MONOCYTES # (AUTO) 0.9 X 10^3 (0.0-1.0); MONOCYTES % (AUTO) 9 % (0-12); NEUTROPHILS # (AUTO) 7.2 X 10^3 (1.8-7.8); NEUTROPHILS % (AUTO) 72 % (42-75); PLATELET COUNT 196 10^3/uL (130-400); RED BLOOD COUNT 4.47 10^6/uL (4.35-5.85); RED CELL DISTRIBUTION WIDTH 13.3 % (10.0-14.5)
[2017-02-08 10:01] LABS: BASOPHILS % (AUTO) 0 % (0-10); EOSINOPHILS % (AUTO) 0 % (0-10); LYMPHOCYTES # (AUTO) 1.4 X 10^3 (1.0-4.0); LYMPHOCYTES % (AUTO) 15 % (12-44); MEAN CORPUSCULAR HEMOGLOBIN 31 PG (25-34); MEAN CORPUSCULAR HGB CONC 33 G/DL (32-36); MEAN CORPUSCULAR VOLUME 92 FL (80-99); MEAN PLATELET VOLUME 9.1 FL (7.4-10.4); MONOCYTES # (AUTO) 0.7 X 10^3 (0.0-1.0); MONOCYTES % (AUTO) 8 % (0-12); NEUTROPHILS # (AUTO) 6.9 X 10^3 (1.8-7.8); NEUTROPHILS % (AUTO) 76 % (42-75); PLATELET COUNT 190 10^3/uL (130-400); RED BLOOD COUNT 4.53 10^6/uL (4.35-5.85); RED CELL DISTRIBUTION WIDTH 13.4 % (10.0-14.5)
[2017-02-08 11:01] LABS: ALANINE AMINOTRANSFERASE 13 U/L (0-55); ALBUMIN 3.8 GM/DL (3.2-4.5); ANION GAP 10 MMOL/L (5-14); ASPARTATE AMINO TRANSFERASE 11 U/L (5-34); BILIRUBIN,TOTAL 0.6 MG/DL (0.1-1.0); BLOOD UREA NITROGEN 12 MG/DL (7-18); BUN/CREATININE RATIO 16 (0-20); CALCIUM 9.4 MG/DL (8.5-10.1); CARBON DIOXIDE 31 MMOL/L (21-32); CHLORIDE 103 MMOL/L (98-107); CREATININE SERUM 0.77 MG/DL (0.60-1.30); GFR ESTIMATED > 60; GLUCOSE 185 MG/DL (70-105); HEMOLYSIS 13 (-100-29); ICTERUS 0.8 (-100-1.9); LIPEMIA 5 (-100-49); POTASSIUM 3.7 MMOL/L (3.6-5.0); SODIUM 144 MMOL/L (135-145); TOTAL PROTEIN 5.8 GM/DL (6.4-8.2)
[2017-02-08 11:25] LABS: THYROID STIMULATING HORMONE 1.74 UIU/ML (0.35-4.94)
[2017-02-16 10:42] LABS: BASOPHILS % (AUTO) 0 % (0-10); EOSINOPHILS % (AUTO) 1 % (0-10); LYMPHOCYTES # (AUTO) 1.5 X 10^3 (1.0-4.0); LYMPHOCYTES % (AUTO) 19 % (12-44); MEAN CORPUSCULAR HEMOGLOBIN 30 PG (25-34); MEAN CORPUSCULAR HGB CONC 33 G/DL (32-36); MEAN CORPUSCULAR VOLUME 93 FL (80-99); MEAN PLATELET VOLUME 8.9 FL (7.4-10.4); MONOCYTES # (AUTO) 0.6 X 10^3 (0.0-1.0); MONOCYTES % (AUTO) 8 % (0-12); NEUTROPHILS # (AUTO) 5.9 X 10^3 (1.8-7.8); NEUTROPHILS % (AUTO) 73 % (42-75); PLATELET COUNT 177 10^3/uL (130-400); RED BLOOD COUNT 4.41 10^6/uL (4.35-5.85); RED CELL DISTRIBUTION WIDTH 13.3 % (10.0-14.5); WHITE BLOOD COUNT 8.1 10^3/uL (4.3-11.0)
[2017-02-22 10:40] LABS: BASOPHILS % (AUTO) 0 % (0-10); EOSINOPHILS % (AUTO) 0 % (0-10); LYMPHOCYTES # (AUTO) 1.7 X 10^3 (1.0-4.0); LYMPHOCYTES % (AUTO) 18 % (12-44); MEAN CORPUSCULAR HEMOGLOBIN 30 PG (25-34); MEAN CORPUSCULAR HGB CONC 32 G/DL (32-36); MEAN CORPUSCULAR VOLUME 93 FL (80-99); MEAN PLATELET VOLUME 8.9 FL (7.4-10.4); MONOCYTES # (AUTO) 0.7 X 10^3 (0.0-1.0); MONOCYTES % (AUTO) 7 % (0-12); NEUTROPHILS % (AUTO) 75 % (42-75); PLATELET COUNT 192 10^3/uL (130-400); RED BLOOD COUNT 4.48 10^6/uL (4.35-5.85); RED CELL DISTRIBUTION WIDTH 13.2 % (10.0-14.5); WHITE BLOOD COUNT 9.4 10^3/uL (4.3-11.0)
[2017-03-01 12:36] LABS: BASOPHILS % (AUTO) 0 % (0-10); EOSINOPHILS % (AUTO) 0 % (0-10); LYMPHOCYTES # (AUTO) 0.7 X 10^3 (1.0-4.0); LYMPHOCYTES % (AUTO) 7 % (12-44); MEAN CORPUSCULAR HEMOGLOBIN 31 PG (25-34); MEAN CORPUSCULAR HGB CONC 33 G/DL (32-36); MEAN CORPUSCULAR VOLUME 93 FL (80-99); MEAN PLATELET VOLUME 9.7 FL (7.4-10.4); MONOCYTES # (AUTO) 0.4 X 10^3 (0.0-1.0); MONOCYTES % (AUTO) 4 % (0-12); NEUTROPHILS # (AUTO) 8.3 X 10^3 (1.8-7.8); NEUTROPHILS % (AUTO) 88 % (42-75); PLATELET COUNT 212 10^3/uL (130-400); RED CELL DISTRIBUTION WIDTH 13.1 % (10.0-14.5); WHITE BLOOD COUNT 9.5 10^3/uL (4.3-11.0)
[2017-03-07 09:59] LABS: BASOPHILS % (AUTO) 0 % (0-10); EOSINOPHILS % (AUTO) 0 % (0-10); LYMPHOCYTES # (AUTO) 1.7 X 10^3 (1.0-4.0); LYMPHOCYTES % (AUTO) 18 % (12-44); MEAN CORPUSCULAR HEMOGLOBIN 31 PG (25-34); MEAN CORPUSCULAR HGB CONC 33 G/DL (32-36); MEAN CORPUSCULAR VOLUME 93 FL (80-99); MONOCYTES # (AUTO) 0.8 X 10^3 (0.0-1.0); MONOCYTES % (AUTO) 8 % (0-12); NEUTROPHILS % (AUTO) 74 % (42-75); PLATELET COUNT 185 10^3/uL (130-400); RED BLOOD COUNT 4.35 10^6/uL (4.35-5.85); RED CELL DISTRIBUTION WIDTH 13.1 % (10.0-14.5); WHITE BLOOD COUNT 9.5 10^3/uL (4.3-11.0)
[2017-03-07 10:34] LABS: ALANINE AMINOTRANSFERASE 13 U/L (0-55); ALBUMIN 3.7 GM/DL (3.2-4.5); ANION GAP 8 MMOL/L (5-14); ASPARTATE AMINO TRANSFERASE 8 U/L (5-34); BILIRUBIN,TOTAL 0.5 MG/DL (0.1-1.0); BLOOD UREA NITROGEN 14 MG/DL (7-18); BUN/CREATININE RATIO 19; CALCIUM 9.4 MG/DL (8.5-10.1); CARBON DIOXIDE 33 MMOL/L (21-32); CHLORIDE 104 MMOL/L (98-107); CREATININE SERUM 0.72 MG/DL (0.60-1.30); GFR ESTIMATED > 60; GLUCOSE 151 MG/DL (70-105); POTASSIUM 3.6 MMOL/L (3.6-5.0); SODIUM 145 MMOL/L (135-145)
[2017-03-07 10:55] LABS: THYROID STIMULATING HORMONE 2.58 UIU/ML (0.35-4.94)
[~2017-03-09 10:02] MED LIST changes: -GADOBUTROL 7.5 MMOL/7.5 ML (GADAVIST) VIAL IV ONE
== END 2017-03-13 | disposition home or self-care (01) ==
LOC: ONC 10:02
PROVIDERS: ATTEND Internal Medicine Hematology & Oncology
DX: C71.2 Malignant neoplasm of temporal lobe (principal); R51 Headache; E11.9 Type 2 diabetes mellitus without complications; I10 Essential (primary) hypertension; E78.5 Hyperlipidemia, unspecified; N40.0 Benign prostatic hyperplasia without lower urinary tract symptoms; F17.210 Nicotine dependence, cigarettes, uncomplicated; Z79.899 Other long term (current) drug therapy
CPT/HCPCS: 36415; 80053; 83735; 84439; 84443; 85025; 99213

== ENCOUNTER 2017-03-14 09:55 | Outpatient (RCR) | payer MEDICARE, OTHER ==
[2017-03-14 10:14] LABS: BASOPHILS % (AUTO) 0 % (0-10); EOSINOPHILS % (AUTO) 0 % (0-10); LYMPHOCYTES # (AUTO) 1.6 X 10^3 (1.0-4.0); LYMPHOCYTES % (AUTO) 17 % (12-44); MEAN CORPUSCULAR HEMOGLOBIN 31 PG (25-34); MEAN CORPUSCULAR HGB CONC 33 G/DL (32-36); MEAN CORPUSCULAR VOLUME 93 FL (80-99); MEAN PLATELET VOLUME 9.3 FL (7.4-10.4); MONOCYTES # (AUTO) 0.8 X 10^3 (0.0-1.0); MONOCYTES % (AUTO) 9 % (0-12); NEUTROPHILS # (AUTO) 6.5 X 10^3 (1.8-7.8); NEUTROPHILS % (AUTO) 73 % (42-75); PLATELET COUNT 172 10^3/uL (130-400); RED BLOOD COUNT 4.39 10^6/uL (4.35-5.85); WHITE BLOOD COUNT 8.9 10^3/uL (4.3-11.0)
== END 2017-05-14 | disposition home or self-care (01) ==
LOC: ONC 09:55
PROVIDERS: ATTEND Internal Medicine Hematology & Oncology
DX: C71.2 Malignant neoplasm of temporal lobe (principal); E11.9 Type 2 diabetes mellitus without complications; I10 Essential (primary) hypertension; E78.5 Hyperlipidemia, unspecified; N40.0 Benign prostatic hyperplasia without lower urinary tract symptoms; F17.210 Nicotine dependence, cigarettes, uncomplicated; Z79.899 Other long term (current) drug therapy
CPT/HCPCS: 85025

== ENCOUNTER → 2017-04-07 | Outpatient (CLI) | payer MEDICARE, OTHER ==
--- NOTE | 2017-04-07 20:12 | Diagnostic Imaging Report ---
DEXA scan. INDICATION: Screening for osteoporosis. There are no prior studies available for comparison. The bone mineral density of the hips and spine was measured. FINDINGS: The T score for the spine is -3.8. The T score for the left hip is -3.6 and for the right hip -2.6. All of these values fall within the range of osteoporosis. 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 Dictated by: Dictated on workstation # [id number]
== END ==
LOC: RAD 10:58
PROVIDERS: ATTEND Family Medicine
DX: M81.8 Other osteoporosis without current pathological fracture (principal)
CPT/HCPCS: 77080

== ENCOUNTER 2017-05-12 12:48 | Outpatient (RCR) | payer MEDICARE, OTHER | END 2017-05-14 | disposition home or self-care (01) | PROVIDERS: ATTEND Family Medicine | DX: R53.1 Weakness (principal); C71.4 Malignant neoplasm of occipital lobe ==

== ENCOUNTER 2017-07-14 08:03 | Emergency (ER) | payer MEDICARE, OTHER ==
[~2017-07-14] VITALS: Ht 170.2 cm; Wt 62.1 kg
--- OUTSIDE RECORDS SUMMARY | 2017-07-14 08:10 | XMS REPORT | Clinical Summary ---
Author Author [facility] Organization [facility] Address Unknown Phone Unavailable Care Team Providers Care Riding Coach Name Role Phone PCP Unavailable Source Comments Some departments are not documenting in the electronic medical record. If you do not see the information that you expected, contact Release of Information in the Health Information Management department at [phone] for further assistance in locating additional records.[facility] Allergies Active Allergy Reactions Severity Noted Date Comments Promethazine SEE COMMENTS Medium 02/08/2016 confusion Ezetimibe-Simvastatin UNKNOWN Low 02/04/2016 Current Medications Prescription Sig. Disp. Refills Start [...] PO) Needed (30 min prior to temozolomide). magnesium hydroxide (MILK Take 15 mL by [...] Take 1 Cap by mouth Active daily. HYDROcodone/acetaminophen Take 1 Tab by mouth every 0 08/27/19 Active (NORCO) 5/325 mg tablet 4 hours as needed for 17 Pain Earliest Fill Date: 08/27/16 TEMOZOLOMIDE PO Take 345 mg by mouth Active daily. Per Dr. Ballesteros (Med/Onc) , days 1-5 of 28 day chemotherapy cycle famotidine (PEPCID) 20 mg Take 1 Tab by mouth twice 180 Tab 3 Active tabletIndications: GBM daily. 17 (glioblastoma multiforme) (HCC) sertraline (ZOLOFT) 50 mg Take 50 mg by mouth at Active tablet bedtime daily. loratadine (CLARITIN) 10 Take 10 mg by mouth at Active mg tablet bedtime daily. levETIRAcetam (KEPPRA) Take 1 tablet by mouth 60 tablet 3 03/30/20 Active 500 mg tabletIndications: twice daily. 17 GBM (glioblastoma multiforme) (HCC) dexamethasone (DECADRON) Take 3 tablets by mouth 90 tablet 0 04/25/20 Active 2 mg tabletIndications: daily. Take 6mg qAM 17 GBM (glioblastoma daily. Take with food. multiforme) (HCC) aspirin EC 81 mg tablet Take 81 mg by mouth Active daily. Take with food. Active Problems Problem Noted Date Left homonymous hemianopsia 01/25/2017 Brain compression (HCC) 09/06/2016 Cerebral edema (HCC) 09/06/2016 Glioblastoma (HCC) 08/24/2016 Left-sided weakness 08/19/2016 GBM (glioblastoma multiforme) (HCC) 02/11/2016 Cerebrovascular accident (CVA) due to stenosis of posterior cerebral artery 02/05/2016 (HCC) Resolved Problems Problem Noted Date Resolved Date Brain lesion 02/07/2016 02/18/2016 Encounters Date Type Specialty Care Team Description 07/04/2017 Office Visit Neurosurgery Keanu Vick MD GBM ( glioblastoma multiforme) (HCC) (Primary Dx) 07/04/2017 Hospital Radiology Stephanie Montesinos APRN Encounter 05/25/2017 Telephone Neurosurgery Keanu Vick MD Medication Follow-up 05/23/2017 Telephone Neurosurgery Keanu Vick MD Medication Question 05/16/2017 Telephone Neurosurgery Keanu Vick MD Medication Question 05/10/2017 Telephone Oncology Keanu Vick MD Medication Follow-up 05/06/2017 Telephone Oncology Keanu Vick MD Medication Follow-up 05/02/2017 Office Visit Neurosurgery Stephanie Montesinos APRN Glioblastoma (HCC) (Primary Dx) 05/02/2017 Hospital Radiology Keanu Vick MD Encounter 05/02/2017 Procedure Pass Radiology 04/25/2017 Telephone Neurosurgery Keanu Vick MD Worsening Symptoms 03/28/2017 Procedure Pass Radiology from Last 3 Months Social History Tobacco Use Types Packs/Day Years Used Date Former Smoker Cigarettes 1 10 Quit: 08/20/1971 Smokeless Tobacco: Chew Quit: Current User 02/08/2016 Comments: quite whe he was 25 years old Alcohol Use Drinks/Week oz/Week Comments Yes 0 Standard 0.0 rarely drinks or equivalent Sex Assigned at Date Recorded Not on file Last Filed Vital Signs Vital Sign Reading Time Taken Blood Pressure 150/90 07/04/2017 12:25 PM WIRE WELDER Pulse 61 07/04/2017 12:25 PM WIRE WELDER Temperature 36.4 C (97.6 F) 07/04/2017 12:25 PM WIRE WELDER Respiratory Rate 16 03/28/2017 3:30 PM CDT Oxygen Saturation 91% 07/04/2017 12:25 PM WIRE WELDER Inhaled Oxygen - - Concentration Weight 67 kg (147 lb 12.8 oz) 07/04/2017 12:25 PM WIRE WELDER Height 168.9 cm (5' 6.5") 07/04/2017 10:21 AM WIRE WELDER Body Mass Index 23.5 07/04/2017 12:25 PM WIRE WELDER Plan of Treatment Date Type Specialty Care Team Description 07/04/2017 Procedure Pass Neurosurgery Health Maintenance Due Date Last Done Comments PHYSICAL (COMPREHENSIVE) 1950 EXAM PERTUSSIS VACCINE 1954 TETANUS VACCINE 1960 COLORECTAL CANCER 1993 SCREENING SHINGLES VACCINE 2003 ABDOMINAL AORTIC ANEURYSM 2008 SCREENING PREVNAR/PNEUMOVAX (#1) 2008 INFLUENZA VACCINE 03/15/2017 Implants Implanted Type Area Zinc Chloride Operator Device Expiration Model / Identifier Date Serial / Lot Cover Edwin Hole .3mm 22mm Contour Right: KENRICK BRANCH [id number]- Craniomaxillofacial Skull IMPLANTS 09 / Implanted: Qty: 3 on 02/08/2016 by [id number]- Renato Scruggs MD 09 / N/A Plate Bone 1.5mm Long Straight Right: [facility] [id number]- Cranial Titanium 2 Hole Low Skull IMPLANTS 09 / Implanted: Qty: 1 on 08/24/2016 by GLENYS / Satya Avalos MD NA Screw Neuro 1.5x4mm Drill Free Right: [facility] [id number]- Implanted: Qty: 10 on 02/08/2016 by Skull IMPLANTS / Renato Scruggs MD [id number]- Explanted: Qty: 3 on 08/24/2016 91 / N/A Substitute Tissue 5x4in Lyoplant Right: AESCULAP NEURO [id number] / Dura Onlay Absorbable Brain DIVISION [id number] / Implanted: Qty: 1 on 08/24/2016 by [id number] Satya Avalos MD Plate Bone .6mm augusto [place] Right: [facility] [id number] Craniomaxillofacial Skull IMPLANTS -09 / Implanted: Qty: 1 on 08/24/2016 by GLENYS / Satya Avalos MD NA Cover Edwin Hole .3mm 22mm Contour Right: [facility] [id number]- Craniomaxillofacial Skull IMPLANTS 09 / Implanted: Qty: 1 on 08/24/2016 by GLENYS / Satya Avalos MD NA Plate Bone .6mm Kenrick Nichole Long 2y Right: [facility] [id number]- Craniomaxillofacial Skull IMPLANTS 09 / Implanted: Qty: 1 on 08/24/2016 by Satya Keane MD NA Screw Neuro 1.5x4mm Drill Free Right: [facility] [id number]- Implanted: Qty: 9 on 08/24/2016 by Skull IMPLANTS Frederick / Satya Avalos MD NA / NA Screw Neuro 1.5x5mm Drill Free Right: [facility] [id number]- Implanted: Qty: 5 on 08/24/2016 by Skull IMPLANTS Frederick / Satya Avalos MD NA / NA Plate Bone 1.5mm Square Cranial Right: KENRICK NICHOLE [facility] [id number]- Titanium 2x2 Hole Low Skull IMPLANTS 09 / Implanted: Qty: 1 on 08/24/2016 by GLENYS / Satya Avalos MD NA Results * MRI HEAD WO/W CONTRAST (07/04/2017 11:35 AM) Only the most recent of 2 results within the time period is included. Specimen Performing Laboratory [facility] RESULTS Impressions 1.Unchanged examination. Right parieto-occipital mass resection cavity with no change in subtle enhancement along the anterior resection cavity and surrounding FLAIR hyperintensities. 2.Moderate chronic microvascular ischemic changes. Finalized by DHRUV CORDOBA M.D. on 07/04/2017 1:06 PM. Dictated by DHRUV CORDOBA M.D. on 07/04/2017 12:57 PM. Narrative MRI HEAD WO/W CONTRAST Clinical indication: Glioblastoma. Technique: Pre and postcontrast MRI of the brain was performed. Contrast: 10 mL of MultiHance Comparison: May 02, 2017 Findings: There is unchanged appearance of the encephalomalacia in the right temporal and occipital lobes. Subtle enhancement along the anterior temporal resection cavity is unchanged. The FLAIR hyperintensity surrounding the resection cavity are also unchanged. The chronic subdural fluid collection deep to the craniotomy is also unchanged. There is no mass effect or midline shift. There is no evidence of recent infarct or new intracranial hemorrhage. The major intracranial flow voids are preserved. Moderate supratentorial and pontine white matter FLAIR hyperintensities are unchanged. Procedure Note Interface, Radiant Results - 07/04/2017 1:09 PM WIRE WELDER MRI HEAD WO/W CONTRAST Clinical indication: Glioblastoma. Technique: Pre and postcontrast MRI of the brain was performed. Contrast: 10 mL of MultiHance Comparison: May 02, 2017 Findings: There is unchanged appearance of the encephalomalacia in the right temporal and occipital lobes. Subtle enhancement along the anterior temporal resection cavity is unchanged. The FLAIR hyperintensity surrounding the resection cavity are also unchanged. The chronic subdural fluid collection deep to the craniotomy is also unchanged. There is no mass effect or midline shift. There is no evidence of recent infarct or new intracranial hemorrhage. The major intracranial flow voids are preserved. Moderate supratentorial and pontine white matter FLAIR hyperintensities are unchanged. IMPRESSION 1. Unchanged examination. Right parieto-occipital mass resection cavity with no change in subtle enhancement along the anterior resection cavity and surrounding FLAIR hyperintensities. 2. Moderate chronic microvascular ischemic changes. Finalized by DHRUV CORDOBA M.D. on 07/04/2017 1:06 PM. Dictated by DHRUV CORDOBA M.D. on 07/04/2017 12:57 PM. * POC CREATININE, RAD (07/04/2017 10:33 AM) Only the most recent of 2 results within the time period is included. Component Value Ref Range Creatinine, POC 0.8 0.4 - 1.24 MG/DL Specimen Performing Laboratory [facility] [address] [place] [address] from Last 3 Months
--- OUTSIDE RECORDS SUMMARY | 2017-07-14 08:10 | XMS REPORT | Continuity of Care Document ---
Author Author [facility] Organization [facility] Address Unknown Phone Unavailable Care Team Providers Care Operation Research Analyst Name Role Phone [employer] Unavailable Unavailable Problems Medications Allergies, Adverse Reactions, Alerts Immunizations Results Vital Signs Encounters Location Location Details Encounter Type Encounter Number Reason For Visit Attending Provider ADM Date DC Date Status Source OUTPATIENT [id number] ELADIA PEARSON 03/28/2017 03/28/2017 Active [facility] OUTPATIENT [id number] ELADIA PEARSON 05/02/2017 05/02/2017 Active [facility] O ELADIA PEARSON 07/04/2017 Active [facility] OUTPATIENT [id number] RIKY ROSENTHAL 07/04/2017 Active [facility] Procedures Plan of Care Social History Assessment and Plan Family History Value Date Source Advance Directives Order Name Results Value Date Source
--- OUTSIDE RECORDS SUMMARY | 2017-07-14 08:11 | XMS REPORT | Encounter Summary ---
Author Author [facility] Organization [facility] Address Unknown Phone Unavailable Care Team Providers Care Supervisor Electronics Processing Name Role Phone PCP Unavailable Reason for Referral * Radiology Services Status Reason Specialty Diagnoses / Referred By Referred To Procedures Contact Contact No Auth Needed Radiology Diagnoses Montesinos, Kuwp Mri Glioblastoma Stephanie, [address] [place] [facility] [address] [place] [address] Phone: MRI HEAD WO/W CONTRAST [phone] * Radiology Services Status Reason Specialty Diagnoses / Referred By Referred To Procedures Contact Contact No Auth Needed Radiology Diagnoses Montesinos, Kuwp Mri Glioblastoma Stephanie, [address] [place] [facility] [address] [place] [address] Phone: MRI HEAD WO/W CONTRAST [phone] Reason for Visit * Radiology Services Status Reason Specialty Diagnoses / Referred By Referred To Procedures Contact Contact No Auth Needed Radiology Diagnoses Montesinos, Kuwp Mri Glioblastoma Stephanie, [address] [place] [facility] [address] [place], [place] [address] [place] [address] Phone: MRI HEAD WO/W CONTRAST [phone] Encounter Details Date Type Department Care Team Description 07/04/2017 [facility] Stephanie Montesinos APRN Encounter [place] [facility] [address] [place] [address] [place] [address] [place] [address] [phone] Social History Tobacco Use Types Packs/Day Years Used Date Former Smoker Cigarettes 1 10 Quit: 08/20/1971 Smokeless Tobacco: Chew Quit: Current User 02/08/2016 Comments: quite whe he was 25 years old Alcohol Use Drinks/Week oz/Week Comments Yes 0 Standard 0.0 rarely drinks or equivalent Sex Assigned at Date Recorded Not on file as of this encounter Functional Status Functional Status Response Date of Assessment Does the patient have a hearing impairment: Yes 08/27/2016 Does the patient have a visual impairment: Yes 08/27/2016 Does the patient have impaired ambulation: Yes 08/27/2016 Does the patient have an activity of daily living Yes 08/27/2016 (ADL) impairment: Does the patient have an instrumental activity of Yes 08/27/2016 daily living (IADL) impairment: Cognitive Status Response Date of Assessment Does the patient have a cognitive impairment: No 08/27/2016 as of this encounter Medications at Time of Discharge Medication Sig. Disp. Refills Start Date End Date aspirin EC 81 mg tablet Take 81 mg by mouth daily. Take with food. cyclobenzaprine Take 10 mg by mouth three (FLEXERIL) 10 mg tablet times daily as needed for Muscle Cramps. dexamethasone (DECADRON) Take 3 tablets by mouth 90 tablet 0 2016 2 mg tabletIndications: daily. Take 6mg qAM GBM (glioblastoma daily. Take with food. multiforme) (HCC) docusate (COLACE) 100 mg Take 1 Cap by mouth twice 180 Cap 3 2015 capsule daily. famotidine (PEPCID) 20 mg Take 1 Tab by mouth twice 180 Tab 3 2016 tabletIndications: GBM daily. (glioblastoma multiforme) (HCC) finasteride (PROSCAR) 5 Take 5 mg by mouth at mg tablet bedtime daily. HYDROcodone/acetaminophen Take 1 Tab by mouth every 0 08/27/2016 (NORCO) 5/325 mg tablet 4 hours as needed for Pain Earliest Fill Date: 08/27/16 levETIRAcetam (KEPPRA) Take 1 tablet by mouth 60 tablet 3 03/30/2017 500 mg tabletIndications: twice daily. GBM (glioblastoma multiforme) (HCC) loratadine (CLARITIN) 10 Take 10 mg by mouth at mg tablet bedtime daily. Magnesium 250 mg tab Take 1 Tab by mouth daily as needed (with chemo treatment). magnesium hydroxide (MILK Take 15 mL by mouth every OF MAGNESIA) 400 mg/5 mL 24 hours as needed. oral suspension metFORMIN (GLUCOPHAGE) Take 500 mg by mouth 500 mg tablet twice daily with meals. milk of magnesia (CONC) Take 10 mL by mouth at 2,400 mg/10 mL oral bedtime as needed for suspension Heartburn. With prune juice omeprazole (PRILOSEC OTC) Take 20 mg by mouth 20 mg tablet daily. Takes with morning dexamethasone ONDANSETRON HCL (ZOFRAN Take 8 mg by mouth as PO) Needed (30 min prior to temozolomide). senna/docusate Take 1 Tab by mouth twice 02/11/2016 (SENOKOT-S) 8.6/50 mg daily. tablet sertraline (ZOLOFT) 50 mg Take 50 mg by mouth at tablet bedtime daily. simvastatin (ZOCOR) 40 mg Take 40 mg by mouth at tablet bedtime daily. TEMOZOLOMIDE PO Take 345 mg by mouth daily. Per Dr. Ballesteros (Med/Onc) , days 1-5 of 28 day chemotherapy cycle vitamins, multiple cap Take 1 Cap by mouth daily. as of this encounter Plan of Treatment Date Type Specialty Care Team Description 07/04/2017 Procedure Pass Neurosurgery as of this encounter Results * MRI HEAD WO/W CONTRAST (07/04/2017 11:35 AM) Specimen Performing Laboratory [facility] RAD RESULTS Impressions [...] Interface, Radiant Results - 07/04/2017 1:09 PM MILK ROUTE SUPERVISOR MRI HEAD WO/W CONTRAST Clinical indication: Glioblastoma. [...] * POC CREATININE, RAD (07/04/2017 10:33 AM) Component Value Ref Range Creatinine, POC 0.8 0.4 - 1.24 MG/DL Specimen Performing Laboratory [facility] [address] [place] [address] in this encounter Visit Diagnoses Diagnosis Glioblastoma (HCC) Malignant neoplasm of brain, unspecified site in this encounter Administered Medications Medication Order MAR Action Action Date Dose Rate Site gadobenate dimeglumine (MULTIHANCE) Given 07/04/2017 10 mL injection 10 mL 11:25 MILK ROUTE SUPERVISOR 10 mL, Intravenous, ONCE, 1 dose, 07/04/17 at 1100, NOTE: This is a HIGH ALERT Medication. in this encounter
--- OUTSIDE RECORDS SUMMARY | 2017-07-14 08:11 | XMS REPORT | Encounter Summary ---
Author Author [facility] Organization [facility] Address Unknown Phone Unavailable Care Team Providers Care Meat Dresser Name Role Phone PCP Unavailable Encounter Details Date Type Department Care Team Description 05/02/2017 Procedure Pass [facility] [place] [facility] [address] [place] [address] Social History Tobacco Use Types Packs/Day Years Used Date Former Smoker Cigarettes 1 10 Quit: 08/20/1971 Smokeless Tobacco: Chew Quit: Current User 02/08/2016 Comments: quite whe he was 25 years old Alcohol Use Drinks/Week oz/Week Comments Yes 0 Standard 0.0 rarely drinks or equivalent Sex Assigned at Date Recorded Not on file as of this encounter Last Filed Vital Signs Vital Sign Reading Time Taken Blood Pressure - - Pulse - - Temperature - - Respiratory Rate - - Oxygen Saturation - - Inhaled Oxygen - - Concentration Weight 62.6 kg (138 lb) 07/04/2017 10:21 AM AUTOMOBILE SERVICE STATION MECHANIC Height 168.9 cm (5' 6.5") 07/04/2017 10:21 AM AUTOMOBILE SERVICE STATION MECHANIC Body Mass Index 21.94 07/04/2017 10:21 AM AUTOMOBILE SERVICE STATION MECHANIC in this encounter Functional Status Functional Status Response [...] impairment: No 08/27/2016 as of this encounter Plan of Treatment Date Type Specialty Care Team Description 07/04/2017 Procedure Pass Neurosurgery as of this encounter Visit Diagnoses Not on filein this encounter
--- OUTSIDE RECORDS SUMMARY | 2017-07-14 08:11 | XMS REPORT | Encounter Summary ---
Author Author [facility] Organization [facility] Address Unknown Phone Unavailable Care Team Providers Care Piano Refinisher Name Role Phone PCP Unavailable Reason for Visit * Reason Comments Medication Question Encounter Details Date Type Department Care Team Description 05/23/2017 Telephone [facility] Keanu Vick MD Medication Question Physicians - Neurosurgery [address] [place] [address] [facility] [phone] OFFICE [facility] [place] [address] Social History Tobacco Use Types Packs/Day Years [...] impairment: No 08/27/2016 as of this encounter Miscellaneous Notes * Telephone Encounter - Nadine Roth RN - 05/23/2017 9:48 AM CDT Jenny called to check in about Aubrey and his dex taper. He just completed 1 week of 2 mg dex daily and is having increasing left sided weakness and slowed thought processes. Dr. Vick would like him to take 8 mg dex today and 4 mg daily the next 2 days. Jenny will call us Tuesday afternoon to let us know how he is doing. If this improves, Dr. Vick said to continue him on 4 mg daily for awhile. Jenny confirmed that she has enough pills for this right now. No further needs. in this encounter Plan of Treatment Date Type Specialty Care Team Description 07/04/2017 Procedure Pass Neurosurgery as of this encounter Visit Diagnoses Not on filein this encounter
--- OUTSIDE RECORDS SUMMARY | 2017-07-14 08:11 | XMS REPORT | Encounter Summary ---
Author Author [facility] Organization [facility] Address Unknown Phone Unavailable Care Team Providers Care Multisensor Intelligence Officer Name Role Phone PCP Unavailable Reason for Referral * Radiology Services Status Reason Specialty Diagnoses / Referred By Referred To Procedures Contact Contact No Auth Needed Radiology Diagnoses Keanu Vick Arw Mri Glioblastoma MD [address] ([facility]) [address] [place] [address] Phone: MRI HEAD WO/W CONTRAST [phone] * Radiology Services Status Reason Specialty Diagnoses / Referred By Referred To Procedures Contact Contact No Auth Needed Radiology Diagnoses Keanu Vick Arw Mri Glioblastoma MD [address] ([facility]) [address] [place] [address] Phone: MRI HEAD WO/W CONTRAST [phone] Reason for Visit * Radiology Services Status Reason Specialty Diagnoses / Referred By Referred To Procedures Contact Contact No Auth Needed Radiology Diagnoses Keanu Vick Arw Mri Glioblastoma MD [address] ([facility]) [address] [place] [address] Phone: MRI HEAD WO/W CONTRAST [phone] Encounter Details Date Type Department Care Team Description 05/02/2017 [facility] Keanu Vick MD Encounter [facility] [address] [place] [address] [place] [address] [phone] Social History Tobacco Use Types Packs/Day Years [...] GBM (glioblastoma daily. Take with food. multiforme) ([facility]) docusate (COLACE) 100 mg Take 1 Cap [...] cap Take 1 Cap by mouth daily. alendronate (FOSAMAX) 10 Take 70 mg by mouth every 04/20/20172016 mg tablet 7 days. Take once a week for 4 weeks as of this encounter Plan of Treatment Date Type Specialty Care Team Description 07/04/2017 Procedure Pass Neurosurgery as of this encounter Results * MRI HEAD WO/W CONTRAST (05/02/2017 9:10 AM) Specimen Performing Laboratory [facility] RAD RESULTS Impressions 1.Prior right parietal craniotomy and mass resection without new nodular or masslike enhancement or new masslike signal abnormality to suggest tumor progression. 2.Stable moderate white matter disease, likely reflecting a combination of posttreatment changes and chronic microvascular ischemia. Approved by Alex Gleason M.D. on 05/02/2017 11:02 AM By my electronic signature, I attest that I have personally reviewed the images for this examination and formulated the interpretations and opinions expressed in this report Finalized by Patrick Jackson M.D. on 05/02/2017 11:09 AM. Dictated by Alex Gleason M.D. on 05/02/2017 10:59 AM. Narrative MRI BRAIN CLINICAL HISTORY: 72-year-old male, glioblastoma. TECHNIQUE: Multiplanar and multisequence MR imaging of the head was performed. This was done both before and after the administration of gadolinium contrast. COMPARISON: Multiple prior MRI examinations of the brain dating back to February 07, 2016, most recently March 28, 2017. IV CONTRAST: Multihance FINDINGS: Prior right parietal craniotomy and posterior right cerebral mass resection. No areas of new suspicious nodular or masslike enhancement are identified. There are unchanged, predominantly linear ill-defined areas of enhancement, most notably in the periventricular right temporal lobe and posterior right cingulate gyrus. Unchanged subdural effusion along the posterior right cerebral convexity. Unchanged FLAIR hyperintensities about the operative margin. Nonmasslike areas of confluent FLAIR hyperintensity throughout the supratentorial white matter and saúl are stable. Mild parenchymal volume loss is unchanged. The ventricles and subarachnoid spaces are unchanged in configuration. There is no midline shift or mass effect. The vascular flow-voids are unremarkable. Diffusion weighted imaging is not indicative of acute or recent infarct. Procedure Note Interface, Radiant Results - 05/02/2017 11:12 AM CDT MRI BRAIN CLINICAL HISTORY: 72-year-old male, glioblastoma. TECHNIQUE: Multiplanar and multisequence MR imaging of the head was performed. This was done both before and after the administration of gadolinium contrast. COMPARISON: Multiple prior MRI examinations of the brain dating back to February 07, 2016, most recently March 28, 2017. IV CONTRAST: Multihance FINDINGS: Prior right parietal craniotomy and posterior right cerebral mass resection. No areas of new suspicious nodular or masslike enhancement are identified. There are unchanged, predominantly linear ill-defined areas of enhancement, most notably in the periventricular right temporal lobe and posterior right cingulate gyrus. Unchanged subdural effusion along the posterior right cerebral convexity. Unchanged FLAIR hyperintensities about the operative margin. Nonmasslike areas of confluent FLAIR hyperintensity throughout the supratentorial white matter and salú are stable. Mild parenchymal volume loss is unchanged. The ventricles and subarachnoid spaces are unchanged in configuration. There is no midline shift or mass effect. The vascular flow-voids are unremarkable. Diffusion weighted imaging is not indicative of acute or recent infarct. IMPRESSION 1. Prior right parietal craniotomy and mass resection without new nodular or masslike enhancement or new masslike signal abnormality to suggest tumor progression. 2. Stable moderate white matter disease, likely reflecting a combination of posttreatment changes and chronic microvascular ischemia. Approved by Alex Gleason M.D. on 05/02/2017 11:02 AM By my electronic signature, I attest that I have personally reviewed the images for this examination and formulated the interpretations and opinions expressed in this report Finalized by Patrick Jackson M.D. on 05/02/2017 11:09 AM. Dictated by Alex Gleason M.D. on 05/02/2017 10:59 AM. * POC CREATININE, RAD (05/02/2017 8:35 AM) Component Value Ref Range Creatinine, POC 0.8 0.4 - 1.24 MG/DL Specimen Performing Laboratory [facility] [address] [place] [address] in this encounter Visit Diagnoses Diagnosis Glioblastoma (HCC) Malignant neoplasm of brain, unspecified site in this encounter Administered Medications Medication Order MAR Action Action Date Dose Rate Site gadobenate dimeglumine (MULTIHANCE) Given 05/02/2017 10 mL injection 10 mL 08:45 CDT 10 mL, Intravenous, ONCE, 1 dose, 05/02/17 at 0845, NOTE: This is a HIGH ALERT Medication. in this encounter
--- OUTSIDE RECORDS SUMMARY | 2017-07-14 08:11 | XMS REPORT | Encounter Summary ---
Author Author [facility] Organization [facility] Address Unknown Phone Unavailable Care Team Providers Care Brim Raiser Name Role Phone PCP Unavailable Encounter Details Date Type Department Care Team Description 07/04/2017 Procedure Pass [facility] Physicians - Neurosurgery [address]ND FLOOR POD [address] [facility] [place] [address] Social History Tobacco Use Types [...]
--- OUTSIDE RECORDS SUMMARY | 2017-07-14 08:11 | XMS REPORT | Encounter Summary ---
Author Author [facility] Organization [facility] Address Unknown Phone Unavailable Care Team Providers Care Orchestra Director Name Role Phone PCP Unavailable Reason for Referral * Radiology Services Status Reason Specialty Diagnoses / Referred By Referred To Procedures Contact Contact No Auth Needed Radiology Diagnoses Keanu Vick Ca2 Mri GBM [address] (glioblastoma [address]LO[address] multiforme) [place], [place] ([facility]) [place] [address] P Phone: Phone: [employer] [phone] MRI HEAD WO/W Fax: CONTRAST [phone] Encounter Details Date Type Department Care Team Description 07/04/2017 Office Visit [facility] Keanu Vick MD GBM ( glioblastoma Physicians - Neurosurgery [address] multiforme) ([facility]) [address] [place] [address] (Primary Dx) [address] MED [phone] [place] [address] Social History Tobacco Use Types [...] Taken Blood Pressure 150/90 07/04/2017 12:25 PM FLIGHT DISPATCHER Pulse 61 07/04/2017 12:25 PM FLIGHT DISPATCHER Temperature 36.4 C (97.6 F) 07/04/2017 12:25 PM FLIGHT DISPATCHER Respiratory Rate - - Oxygen Saturation 91% 07/04/2017 12:25 PM FLIGHT DISPATCHER Inhaled Oxygen - - Concentration Weight 67 kg (147 lb 12.8 oz) 07/04/2017 12:25 PM FLIGHT DISPATCHER Height - - Body Mass Index 23.5 07/04/2017 12:25 PM FLIGHT DISPATCHER in this encounter Functional Status Functional Status [...] impairment: No 08/27/2016 as of this encounter Progress Notes * Nadine Roth, DIANNE - 07/04/2017 12:30 PM FLIGHT DISPATCHER Add patient on for tumor board to discuss new enhancement. MRI and RTC in mid July. in this encounter Plan of Treatment Date Type Specialty Care Team Description 07/04/2017 Procedure Pass Neurosurgery Name Priority Associated Diagnoses Order Schedule MRI HEAD WO/W CONTRAST Routine GBM (glioblastoma Expected: 08/01/2017 multiforme) (HCC) (Approximate), Expires: 07/04/2018 as of this encounter Visit Diagnoses Diagnosis GBM (glioblastoma multiforme) (HCC) - Primary Malignant neoplasm of brain, unspecified site in this encounter
--- OUTSIDE RECORDS SUMMARY | 2017-07-14 08:11 | XMS REPORT | Encounter Summary ---
Author Author [facility] Organization [facility] Address Unknown Phone Unavailable Care Team Providers Care Manufacturing Engineering Technician Name Role Phone PCP Unavailable Reason for Visit * Reason Comments Medication Follow-up Encounter Details Date Type Department Care Team Description 05/06/2017 Telephone [facility] Keanu Vick MD Medication Follow-up Cancer Center - OP Exam [id number] [place] [address] [phone] [address] [phone] Social History Tobacco Use Types Packs/Day Years [...] encounter Miscellaneous Notes * Telephone Encounter - Valarie Levine RN - 05/06/2017 2:33 PM CDT Jenny states that Aubrey has been doing well at 4 mg of dexamethasone with no noticeable changes. Informed Jenny that Stephanie Montesinos APRN [facility]- would like to keep Aubrey at 4 mg of dexamethasone a day over the weekend and instructed Jenny to call me Tuesday to discuss further tapering. Jenny verbalized understanding and denies any other needs at this time. in this encounter Plan of Treatment Date Type Specialty Care Team Description 07/04/2017 Procedure Pass Neurosurgery as of this encounter Visit Diagnoses Not on filein this encounter
--- OUTSIDE RECORDS SUMMARY | 2017-07-14 08:11 | XMS REPORT | Encounter Summary ---
Author Author [facility] Organization [facility] Address Unknown Phone Unavailable Care Team Providers Care Agriculture Department Chair Name Role Phone PCP Unavailable Reason for Visit * Reason Comments Medication Question Encounter Details Date Type Department Care Team Description 05/16/2017 Telephone [facility] Keanu Vick MD Medication Question Physicians - Neurosurgery [address] [place] [address] [address] [facility] [phone] OFFICE [facility] [place] [address] Social History Tobacco Use Types [...] Telephone Encounter - Nadine Roth RN - 05/16/2017 2:58 PM CDT Jenny called for continued taper of Aubrey's dex. He is currently taking 3mg and will start on 2mg for 1 week tomorrow. She will call back next week and let us know how he is doing, or sooner if problems arise. No further needs. in this encounter Plan of Treatment Date Type Specialty Care Team Description 07/04/2017 Procedure Pass Neurosurgery as of this encounter Visit Diagnoses Not on filein this encounter
--- OUTSIDE RECORDS SUMMARY | 2017-07-14 08:11 | XMS REPORT | Encounter Summary ---
Author Author [facility] Organization [facility] Address Unknown Phone Unavailable Care Team Providers Care Beet End Supervisor Name Role Phone PCP Unavailable Encounter Details Date Type Department Care Team Description 03/28/2017 Procedure Pass [facility] [place] [address] Social History Tobacco Use Types Packs/Day Years [...]
--- OUTSIDE RECORDS SUMMARY | 2017-07-14 08:11 | XMS REPORT | Encounter Summary ---
Author Author [facility] Address Unknown Phone Unavailable Care Team Providers Care Change Release Manager Name Role Phone PCP Unavailable Reason for Referral * Radiology Services Status Reason Specialty Diagnoses / Referred By Referred To Procedures Contact Contact No Auth Needed Radiology Diagnoses Corrine Montesinos Mri Glioblastoma [place] Brown [address] [place] (HCC) [address] [place], [place] [id number] [place] [id number] Phone: MRI HEAD WO/W CONTRAST [phone] Reason for Visit * Reason Comments Neuro Oncology Care Encounter Details Date Type Department Care Team Description 05/02/2017 Office Visit [facility] Stephanie Montesinos APRN Glioblastoma (HCC) Physicians - Neurosurgery [address] (Primary Dx) [address] [place] [address] [address] [facility] [phone] [place] [address] Social History Tobacco Use Types [...] Vital Sign Reading Time Taken Blood Pressure 161/99 05/02/2017 10:50 AM CDT Pulse 59 05/02/2017 10:50 AM CDT Temperature 37.1 C (98.8 F) 05/02/2017 10:50 AM CDT Respiratory Rate - - Oxygen Saturation 94% 05/02/2017 10:50 AM CDT Inhaled Oxygen - - Concentration Weight 63 kg (138 lb 12.8 oz) 05/02/2017 10:50 AM CDT Height - - Body Mass Index 21.74 05/02/2017 10:50 AM CDT in this encounter Functional Status Functional Status [...] as of this encounter Progress Notes * Stephanie Montesinos, [place] - 05/02/2017 11:00 AM CDT Formatting of this note may be different from the original. Neuro-oncology Clinic Visit Summary Date of Service: 05/02/2017 Subjective: Aubrey Roblero is a 72 y.o. year-old male from [place], [place] with a right temporal/occipital Glioblastoma (IV), MGMT methylated. Reason For Visit: Neuro-Oncology Care Treatment History: 01-16-16 - Presented to OSH with confusion while driving, vision difficulties, imbalance (veering to the left side), and headaches. CT demonstrated right posterior cerebral artery infarct and patient discharged Late January 2016 - Returned to the OSH ED with persistent confusion and visual problems; MRI revealed a right occipital enhancing mass concerning for Glioblastoma 02-08-16 - Admitted to [facility], underwent debulking craniotomy by Dr. Scruggs; pathology #[id number] reveals glioblastoma (WHO Gr IV). Post-op MRI (02-09-2016 ) demonstrates interval partial resection right temporal/occipital mass lesion with residual enhancing tumor inferiorly and anteriorly. MGMT assay 03-30-2016 (# [id number]) shows gene METHYLATION. February through April 2016 - underwent radiation with concurrent Temozolomide chemotherapy. No post-RT MRI scan available. May 2016 - Began adjuvant 5-day Temozolomide. 08-17-2016 - MRI demonstrates interval progression of enhancement, FLAIR signal and edema 08-24-16 - Right temporo-occipital crani for resection of enhancement performed by Dr. Avalos at [facility]; pathology #[id number]: treated glioma with sparse mitotic activity and focal microvascular proliferation, with extensive areas of radiation necrosis 08-25-16 - Postop MRI demonstrates interval right parietal craniotomy with gross total resection of enhancement; no evidence of nodular or masslike enhancement about the operative cavity September 2016 - Resumed adjuvant 5-day Temozolomide January 2017 - Completed 10 cycles of 5-day Temozolomide and elected to discontinue d/t progressive physical deconditioning Interval History: Aubrey Roblero is seen today in the company of multiple family members. He states that his chronic fatigue persists, but hasn't noticed a difference since stopping the chemotherapy. His notes that since starting the dexamethasone, his energy, focus, and confusion has improved. His dense hemianopsia persists, unchanged and needs consistent reminders to turn his head to scan his environment. Denies focal weakness or seizures. Review of Systems ROS is conducted in all 12 systems and, except as noted above in HPI, is summarized below: No headaches, +left sided visual field cut (unchanged) No difficulty with speech or swallowing. No chest pain, back pain, no breathing difficulties. No abdominal pain. No extremity edema No neurologic changes, specifically weakness or sensory changes No recent seizures, no recent falls, +difficulty with balance No fevers, chills or sweats. No cough No nausea, vomiting, diarrhea or constipation No unintended weight loss. +fatigue No skin changes or rash No depression complaints Past Medical History: Past Medical History: Diagnosis Date DM (diabetes mellitus) (HCC) High cholesterol simvistatin Hypertension Lisinopril on hold Past Surgical History: Procedure Laterality Date APPENDECTOMY as a child COLONOSCOPY 2013 [place] CRANIEC TREPHINE BONE FLP BRAIN TUMOR SUPRTENTOR Right 02/08/2016 CRANIOTOMY RESECTION TUMOR performed by Renato Scruggs MD [facility] [place] CRANIEC TREPHINE BONE FLP BRAIN TUMOR SUPRTENTOR Right 08/24/2016 RIGHT TEMPORO-OCCIPITAL CRANIOTOMY, RESECTION OF BRAIN TUMOR performed by Satya Avalos MD at [facility] Social History Social History Marital status: Spouse name: N/A Number of children: N/A Years of education: N/A Social History Main Topics Smoking status: Former Smoker Packs/day: 1.00 Years: 10.00 Types: Cigarettes Quit date: 08/20/1971 Smokeless tobacco: Current User Types: Chew Last attempt to quit: 02/08/2016 Comment: quite whe he was 25 years old Alcohol use 0.0 oz/week 0 Standard drinks or equivalent per week Comment: rarely Drug use: No Sexual activity: Not on file Other Topics Concern Not on file Social History Narrative Current Medications: alendronate (FOSAMAX) 10 mg tablet Take 10 mg by mouth every 7 days. Take once a week for 4 weeks aspirin EC 81 mg tablet Take 81 mg by mouth daily. Take with food. cyclobenzaprine (FLEXERIL) 10 mg tablet Take 10 mg by mouth three times daily as needed for Muscle Cramps. dexamethasone (DECADRON) 2 mg tablet Take 3 tablets by mouth daily. Take 6mg qAM daily. Take with food. docusate (COLACE) 100 mg capsule Take 1 Cap by mouth twice daily. famotidine (PEPCID) 20 mg tablet Take 1 Tab by mouth twice daily. finasteride (PROSCAR) 5 mg tablet Take 5 mg by mouth at bedtime daily. HYDROcodone/acetaminophen (NORCO) 5/325 mg tablet Take 1 Tab by mouth every 4 hours as needed for Pain Earliest Fill Date: 08/27/16 levETIRAcetam (KEPPRA) 500 mg tablet Take 1 tablet by mouth twice daily. loratadine (CLARITIN) 10 mg tablet Take 10 mg by mouth at bedtime daily. Magnesium 250 mg tab Take 1 Tab by mouth daily as needed (with chemo treatment). magnesium hydroxide (MILK OF MAGNESIA) 400 mg/5 mL oral suspension Take 15 mL by mouth every 24 hours as needed. metFORMIN (GLUCOPHAGE) 500 mg tablet Take 500 mg by mouth twice daily with meals. milk of magnesia (CONC) 2,400 mg/10 mL oral suspension Take 10 mL by mouth at bedtime as needed for Heartburn. With prune juice omeprazole (PRILOSEC OTC) 20 mg tablet Take 20 mg by mouth daily. Takes with morning dexamethasone ONDANSETRON HCL (ZOFRAN PO) Take 8 mg by mouth as Needed (30 min prior to temozolomide). senna/docusate (SENOKOT-S) 8.6/50 mg tablet Take 1 Tab by mouth twice daily. sertraline (ZOLOFT) 50 mg tablet Take 50 mg by mouth at bedtime daily. simvastatin (ZOCOR) 40 mg tablet Take 40 mg by mouth at bedtime daily. TEMOZOLOMIDE PO Take 345 mg by mouth daily. Per Dr. Ballesteros (Med/Onc) , days 1- 5 of 28 day chemotherapy cycle vitamins, multiple cap Take 1 Cap by mouth daily. Allergies: Allergies Allergen Reactions Phenergan [Promethazine] SEE COMMENTS confusion Vytorin 10-10 [Ezetimibe-Simvastatin] UNKNOWN Vitals: Vitals: 05/02/17 1050 BP: (!) 161/99 Pulse: 59 Temp: 37.1 C (98.8 F) SpO2: 94% Weight: 63 kg (138 lb 12.8 oz) Body surface area is 1.73 meters squared. Pain Addressed: No pain complaints today, pain score=0/10. Eastern Cooperative Oncology Group performance status is 3. Karnofsky Performance Status=60% Physical Exam General- This is a well-nourished, well developed male who appears in no acute distress. Mood and affect are appropriate for the situation Speech is fluent, cognition slowed (hard of hearing) Ambulatory with a cane around home, uses wheelchair for long distances Head - Normocephalic, with a well healed surgical incision, no erythema or drainage Eyes - Pupils are equal, extra-ocular movements are intact. Visual sharp demonstrate a persistent, dense left homonymous hemianopsia (patient seems unaware of this deficit) Mouth - Oral mucosa pink and moist, no lesions. Neck - No cervical lyphadenopathy, thyroid non-remarkable to palpation. Lungs (auscultation) - Clear bilaterally with good air movement. Heart (auscultation) - Regular rate and rhythm, no murmors Abdomen - Soft, non tender, no masses, positive bowel sounds. Lymph Node Exam/Extremities - No palpable adenopathy, no extremity edema. Derm - No rashes or lesions Neurologic - Cranial nerves II - XII are grossly intact Strength is 5/5 in all muscle groups in all four extremities. Sensation is subjectively intact Difficulty with balance (likely d/t visual field deficit) Laboratory and Imaging Results ([employer] system): No results found for this or any previous visit (from the past 672 hour(s)). Assessment and Plan: Patient Active Problem List Diagnosis Date Noted Left homonymous hemianopsia 01/25/2017 Brain compression (HCC) 09/06/2016 Cerebral edema (HCC) 09/06/2016 Glioblastoma (HCC) 08/24/2016 Left-sided weakness 08/19/2016 GBM (glioblastoma multiforme) (HCC) 02/11/2016 Cerebrovascular accident (CVA) due to stenosis of posterior cerebral artery (HCC) 02/05/2016 Glioblastoma (IV), MGMT methylated -Mr. Roblero presents to clinic for a short interval follow-up d/t worsening symptoms and concern for tumor progression. Last week, he began having more difficulty with balance, confusion , and generalized weakness/fatigue. He had been taking prednisone, but switched back to 6mg dexamethasone. His notes that his symptoms did improve with the steroid, but he does get fatigued and has worsening balance towards to the end of the day. I explained that we do expect neurological symptoms to be worse when he is tired and waxing/waning symptoms are common. His dense left hemianopsia persists, and he requires consistent reminders to compensate for the visual field cut. I expect that most of his balance difficulties are due to this visual deficit. Mr. Roblero has also recently started with physical therapy and I expect he has had more tiredness with therapy. I reviewed his most recent MRI scan from 05-02-17 vs. 03-28-17 with the patient, his family, and Dr. Jackson (neuro-radiology) today. The prior right parietal craniotomy and mass resection cavity is stable without new nodular or masslike enhancement or new masslike signal abnormality to suggest tumor progression. Because the MRI has remained stable, I recommended continuing to follow closely with serial imaging off of treatment and continue working with PT to improve his physical functioning. I also encouraged him and his family to do exercises at home as he will not improve if he only does the exercises twice weekly with the PT. We will decrease his dexamethasone to 4mg per day and I've asked them to call our office if he does not tolerate the decrease in the dose. We will plan to slowly decrease the steroid until we can transition him back to the prednisone. Will F/U in clinic in 2 months with a repeat MRI scan at that time. I spent a total of 30 minutes today in direct patient evaluation, from 1100 to 1130, with more than 25 minutes spent in treatment plan formulation, symptom management discussion and consultation as outlined above. in this encounter Plan of Treatment Date [...] Interface, Radiant Results - 07/04/2017 1:09 PM MOTION PICTURE SET GRIP MRI HEAD WO/W CONTRAST Clinical indication: Glioblastoma. [...] DHRUV CORDOBA M.D. on 07/04/2017 12:57 PM. in this encounter Visit Diagnoses Diagnosis Glioblastoma (HCC) - Primary Malignant neoplasm of brain, unspecified site in this encounter
--- OUTSIDE RECORDS SUMMARY | 2017-07-14 08:11 | XMS REPORT | Encounter Summary ---
Author Author [facility] Organization [facility] Address Unknown Phone Unavailable Care Team Providers Care Gamb Cutter Name Role Phone PCP Unavailable Reason for Visit * Reason Comments Medication Follow-up Encounter Details Date Type Department Care Team Description 05/10/[address] [facility] Keanu Vick MD Medication Follow-up Cancer Center - OP Exam [id number] [place] [address] [phone] [address] [phone] Social History Tobacco Use Types Packs/Day Years [...] Telephone Encounter - Valarie Levine RN - 05/10/2017 2:04 PM CDT Instructed Jenny to decreased Aubrey's dexamethasone to 3 mg once a day starting 05/11 and to follow up early next week for further tapering. Instructed Jenny to call back if Aubrey starts decompensating before then. Jenny verbalized understanding. in this encounter Plan of Treatment Date Type Specialty Care Team Description 07/04/2017 Procedure Pass Neurosurgery as of this encounter Visit Diagnoses Not on filein this encounter
--- OUTSIDE RECORDS SUMMARY | 2017-07-14 08:11 | XMS REPORT | Encounter Summary ---
Author Author [facility] Organization [facility] Address Unknown Phone Unavailable Care Team Providers Care Entry Level Paralegal Name Role Phone PCP Unavailable Reason for Visit * Reason Comments Medication Follow-up Encounter Details Date Type Department Care Team Description 05/25/2017 Telephone [facility] Keanu Vick MD Medication Follow-up Physicians - Neurosurgery [address] [place], [place] [id number] [address] [facility] [phone] OFFICE [facility] [place] [address] Social History Tobacco Use Types [...] Telephone Encounter - Nadine Roth RN - 05/25/2017 2:06 PM CDT Jenny called to report that Aubrey is doing much better after going back up on Dex so per Dr. Vick we will continue on 4mg daily. We will reassess next month when they return to clinic. Jenny will call if anything changes between now and then. No further needs. in this encounter Plan of Treatment Date Type Specialty Care Team Description 07/04/2017 Procedure Pass Neurosurgery as of this encounter Visit Diagnoses Not on filein this encounter
--- OUTSIDE RECORDS SUMMARY | 2017-07-14 08:12 | XMS REPORT | Encounter Summary ---
Author Author [facility] Organization [facility] Address Unknown Phone Unavailable Care Team Providers Care Surveying Or Spatial Science Technician Name Role Phone PCP Unavailable Reason for Visit * Reason Comments Worsening Symptoms Encounter Details Date Type Department Care Team Description 04/25/2017 Telephone [facility] Keanu Vick MD Worsening Symptoms Physicians - Neurosurgery [address] [place] [address] [address] [facility] [phone] OFFICE [place] [address] Social History Tobacco Use Types [...] Telephone Encounter - Nadine Roth RN - 04/25/2017 10:43 AM CDT Jenny called to report worsening symptoms in Aubrey such as confusion, weakness, appetite changes, and sleeping a lot. We have moved his appt up from 05/24 to and will d/c his pred and start 6mg Dex daily starting tomorrow. Jenny voices understanding. No further needs. in this encounter Plan of Treatment Date Type Specialty Care Team Description 07/04/2017 Procedure Pass Neurosurgery as of this encounter Visit Diagnoses Diagnosis GBM (glioblastoma multiforme) (HCC) - Primary Malignant neoplasm of brain, unspecified site in this encounter
--- NOTE | 2017-07-14 08:22 | ED Chest Pain ---
General Chief Complaint: Chest Wall/Rib Pain Stated Complaint: LT SIDE RIB PAIN-FALL Source: patient Exam Limitations: no limitations History of Present Illness Time seen by provider: 08:21 Initial Comments The patient is a 72-year-old white male known to me after an ER. Presentation in January 2016 in which showed a he presented with a complaint of having gotten lost on his way home from [employer]. This ultimately proved to be a glioblastoma multiforme in the posterior fossa of the brain. He has subsequently had a safe excision of tumor at [facility] and then chemotherapy. He is currently in a chemotherapy vacation. Last night he got up from bed to a bedside commode. This occurred at about 2100 hours. He completed his necessity and started to get back into bed. He became tangled with the lid and the leg of the commode and fell across it striking his left rib cage. He then went back to bed. His states that he slept well enough continued to complain of pain this morning and she brought him here for further evaluation. Timing/Duration: 24 hours Severity/Quality: mild, moderate Allergies and Home Medications Allergies Coded Allergies: ezetimibe (Verified Allergy, Unknown, 08/27/16) according to [facility] records promethazine (Verified Adverse Reaction, Severe, 05/02/16) CONFUSION; ALTERED MENTAL STATUS Home Medications Acetaminophen 500 Mg Tablet, 500-1,000 MG PO Q6H PRN for PAIN, (Reported) Alendronate Sodium 70 Mg Tablet, (Reported) Aspirin 81 Mg Tab.chew, 81 MG PO DAILY, (Reported) Cyclobenzaprine HCl 10 Mg Tablet, 10 MG PO Q8H PRN for SPASMS, (Reported) Cyclobenzaprine HCl 10 Mg Tablet, 10 MG PO Q8H PRN for SPASMS, #15 Ref 0 Prescribed by: ALIYAH BORGES on 12/17/16 1242 Dexamethasone 1 Mg Tablet, 1.75 MG PO DAILY, (Reported) Uses 2 (1 MG) TABLETS Docusate Sodium 100 Mg Capsule, 100 MG PO BID, (Reported) Famotidine 20 Mg Tablet, 20 MG PO BID, #60 Prescribed by: ALLISON SAHU on 10/01/16 0939 Finasteride 5 Mg Tablet, 5 MG PO HS, (Reported) Levetiracetam 500 Mg Tablet, 500 MG PO BID, (Reported) Loratadine 10 Mg Tablet, 10 MG PO HS, (Reported) Magnesium Hydroxide 400 Mg/5 Ml Oral.susp, 1,200 MG PO DAILY PRN for CONSTIPATION, (Reported) Magnesium Oxide 250 Mg Tablet, 250 MG PO DAILY, (Reported) Metformin HCl 500 Mg Tablet, 500 MG PO BIDAC, (Reported) Multivitamin with Minerals 1 Each Tablet, 1 EACH PO DAILY, (Reported) Omeprazole 20 Mg Tablet.dr, 20 MG PO DAILY, (Reported) TAKES WITH MORNING DEXAMETHASONE Sennosides/Docusate Sodium 1 Each Tablet, 1 TAB PO BID, (Reported) Sertraline HCl 50 Mg Tablet, 50 MG PO HS, (Reported) Simvastatin 40 Mg Tablet, 40 MG PO HS, (Reported) Review of Systems Constitutional: see HPI EENTM: No Symptoms Reported Respiratory: No Symptoms Reported, Other (on questioning some pain with deep breath) Cardiovascular: No Symptoms Reported Gastrointestinal: No Symptoms Reported Genitourinary: Frequency Musculoskeletal: no symptoms reported Skin: no symptoms reported Psychiatric/Neurological: No Symptoms Reported Endocrine: No Symptoms Reported Hematologic/Lymphatic: No Symptoms Reported Past Ozipwmg-Cpyzps-Mlguwf Hx Patient Social History Alcohol Beverage of Choice: Beer Type Used: Cigarettes Former Smoker, Quit: Aug 15, 1969 Recent Foreign Travel: No Contact w/Someone Who Travel: No Recent Hopitalizations: Yes (BRAIN SURG AT 08/24/16) Immunizations Up To Date Tetanus Booster (TDap): Less than 5yrs PED Vaccines UTD: Yes Date of Pneumonia Vaccine: Sep 30, 2015 Date of Influenza Vaccine: Apr 17, 2016 Seasonal Allergies Seasonal Allergies: No Surgeries History of Surgeries: Yes (BRAIN TUMOR REMOVAL - MOST RECENT SURGERY 08/24/16 AT ) Surgeries: Appendectomy, Neurological Respiratory History of Respiratory Disorde: No Currently Using CPAP: No Currently Using BIPAP: No Cardiovascular History of Cardiac Disorders: Yes (TAKES CHOLESTEROL MEDICATION) Cardiac Disorders: High Cholesterol, Hypertension Neurological History of Neurological Disord: Yes (GLIOBLASTOMA) Reproductive System Hx Reproductive Disorders: No Sexually Transmitted Disease: No HIV/AIDS: No Genitourinary Genitourinary Disorders: Prostate Problems Gastrointestinal History of Gastrointestinal Di: No Musculoskeletal History of Musculoskeletal Dis: Yes Musculoskeletal Disorders: Arthritis Endocrine History of Endocrine Disorders: Yes Endocrine Disorders: Diabetes, Non-Insulin dep HEENT History of HEENT Disorders: Yes (visual disturbance since brain tumor) Loss of Vision: Left Hearing Impairment: Hard of Hearing Cancer History of Cancer: Yes (NEUROBLASTOMA) Cancer: Brain Did You Recieve Any Treatments: Yes Type of Tx Receive: Chemotherapy, Radiation, Surgical Intervention Psychosocial History of Psychiatric Problem: No Behavioral Health Disorders: Anxiety Integumentary History of Skin or Integumenta: No (abdominal rash) Blood Transfusions History of Blood Disorders: No Adverse Reaction to a Blood Tr: No Family Medical History Family Medial History: Abdominal aortic aneurysm 19 MOTHER Arthritis 19 MOTHER G8 BROTHER G8 BROTHER G8 SISTER Cardiovascular disease 19 FATHER 19 MOTHER (CONGESTIVE HEART FAILURE) Cataracts 19 MOTHER Deafness or hearing loss 19 MOTHER Diabetes mellitus G8 BROTHER G8 SISTER Hypertension 19 MOTHER G8 BROTHER G8 BROTHER G8 SISTER Kidney disease 19 MOTHER (KIDNEY FAILURE) Myocardial infarction 19 FATHER (1ST ONE IN 160. IN 1969'S) Physical Exam Vital Signs Vital Sign - Last 12Hours 07/14/17 08:07 Temp 98.2 Pulse 63 Resp 18 B/P (MAP) 160/105 Capillary Refill : General Appearance: Mild Distress, Other (speech is slow but clear) HEENT: Normal ENT Inspection Neck: Normal Inspection Respiratory: Chest Non Tender, Lungs Clear, Normal Breath Sounds, No Accessory Muscle Use, No Respiratory Distress Cardiovascular: Regular Rate, Rhythm, No Edema, No Gallop, No JVD, No Murmur, Normal Peripheral Pulses Gastrointestinal: Normal Bowel Sounds, No Organomegaly, No Pulsatile Mass, Non Tender Neurologic/Psychiatric: Alert, Oriented x3, Normal Mood/Affect Skin: Normal Color, Warm/Dry Lymphatic: No Adenopathy Other comments He lists to the left while sitting in the chair. He appears a bit spastic on the left and has reduced muscle mass Progress/Results/Core Measures Results/Orders My Orders Orders - KANDACE KELSEY MD Ribs/Unilateral With Chest (07/14/17 08:22) Vital Signs/I&O Vital Sign - Last 12Hours 07/14/17 08:07 Temp 98.2 Pulse 63 Resp 18 B/P (MAP) 160/105 Departure Impression Impression: Primary Impression: Contusion of rib on left side Disposition: 01 HOME, SELF-CARE Condition: Stable/Unchanged Departure-Patient Inst. Decision time for Depature: 09:16 Referrals: JAVAN ELLIOTT MD (PCP) Primary Care Physician Add. Discharge Instructions: All discharge instructions reviewed with patient and/or family. Voiced understanding. Use Tylenol as necessary for pain. Do not exceed 3000 mg per day. If further problems see your physician. KANDACE KELSEY MD Jul 14, 2017 08:22
[2017-07-14] MEDS ORDERED: ALEN70TA47 (08:29)
--- NOTE | 2017-07-14 08:44 | Diagnostic Imaging Report ---
PA view of the chest and 3 views of the left ribs. INDICATION: Fall. Left rib pain. FINDINGS: The lungs are clear. The heart size is at the upper limits of normal. No effusion or pneumothorax. Mediastinum and hali appear unremarkable. No left rib fracture is seen. IMPRESSION: Borderline cardiac size. No left rib fracture seen. Dictated by: Dictated on workstation # [id number]
[2017-07-14 09:19] VITALS: BP 131/89
== END 2017-07-14 09:22 | disposition home or self-care (01) ==
LOC: EDUNIT# 08:03 → ER 08:05
DX: S20.212A Contusion of left front wall of thorax, initial encounter (principal); E78.00 Pure hypercholesterolemia, unspecified; I10 Essential (primary) hypertension; M19.90 Unspecified osteoarthritis, unspecified site; E11.9 Type 2 diabetes mellitus without complications; F41.9 Anxiety disorder, unspecified; Z82.49 Family history of ischemic heart disease and other diseases of the circulatory system; Z79.82 Long term (current) use of aspirin; Z79.84 Long term (current) use of oral hypoglycemic drugs; Z87.891 Personal history of nicotine dependence; Z90.49 Acquired absence of other specified parts of digestive tract; Z85.841 Personal history of malignant neoplasm of brain; W01.198A Fall on same level from slipping, tripping and stumbling with subsequent striking against other object, initial encounter
CPT/HCPCS: 71101; 99283

== ENCOUNTER 2017-07-22 13:03 | Outpatient (RCR) | payer MEDICARE, OTHER ==
[~2017-07-22 13:03] MED LIST changes: +ALEN70TA47
== END 2017-07-22 15:33 | disposition home or self-care (01) ==
PROVIDERS: ATTEND Family Medicine
DX: R53.1 Weakness (principal); C71.9 Malignant neoplasm of brain, unspecified